=== PATIENT | male | born 1930 | race Caucasian/White ===

== ENCOUNTER 2017-02-19 09:19 | Emergency (ER) | payer MEDICARE, BC ==
--- NOTE | 2017-02-19 10:39 | CT ---
EXAMINATION TYPE: CT brain wo con, CT sinus wo con DATE OF EXAM: 02/19/2017 10:30 AM HISTORY: Patient complains of headache that worsens when laying down. CT DLP: 966.1 mGycm. Automated Exposure Control for Dose Reduction was Utilized. TECHNIQUE: CT scan of the head and sinuses are performed without contrast. COMPARISON: CT brain February 05, 2015. FINDINGS: There is no acute intracranial hemorrhage or midline shift identified. There is diffuse v entricular and sulcal prominence consistent with diffuse age-related cerebral atrophy. There is angela ed low-attenuation in the periventricular white matter consistent with chronic small vessel ischemic change. The calvarium is intact. Vascular calcification distal internal carotid arteries bilaterally is redemonstrated. The frontal, ethmoid, maxillary, and sphenoid sinuses are well-aerated bilaterally without suspicious opacification or air-fluid levels. The ostiomeatal complex is patent bilaterally on coronal image 22 . Nasal septum remains deviated to right of midline. Scleral calcification both globes is seen bilate rally. Neither lens is well seen. Findings are unchanged from prior study. IMPRESSION: 1. No acute intracranial hemorrhage or midline shift. There is moderate diffuse age-related cerebral atrophy and severe chronic small vessel ischemic change redemonstrated without significant interval change. 2. No significant acute or chronic paranasal sinus disease.
--- NOTE | 2017-02-19 10:52 | ED ---
ENT HPI - General Chief complaint: ENT Stated complaint: headache Time Seen by Provider: 02/19/17 09:41 Source: patient, RN notes reviewed Mode of arrival: ambulatory Limitations: no limitations - History of Present Illness Initial comments: 86-year-old male presents emergency room chief complaint headache intermittent. Patient states is benign and off usually worse at night, he lays down. Patient states that he saw his primary care physician placed on Levaquin for a sinus infection. Patient does have some congestion but very minimal. Patient has been sneezing. Denies blurred vision, focal weakness, nausea, vomiting, chest pain or shortness breath. Patient is concerned about his head and is requesting CAT scan. Patient states that he has not followed up for his headache and has not seen any other physicians. - Related Data Home Medications Medication Instructions Recorded Confirmed LORazepam [Ativan] 1 mg PO BID PRN 07/05/14 02/19/17 NIFEdipine XL [Procardia XL] 90 mg PO DAILY 07/05/14 02/19/17 cloNIDine HCL [Catapres] 0.1 mg PO QAM 07/05/14 02/19/17 Loratadine [Claritin] 10 mg PO DAILY PRN 03/21/15 02/19/17 Aliskiren Hemifumarate [Tekturna] 300 mg PO HS 05/13/16 02/19/17 Aspirin 81 mg PO HS 05/13/16 02/19/17 Multivitamins, Thera [Multivitamin 1 tab PO DAILY 05/13/16 02/19/17 (formulary)] Simvastatin [Zocor] 20 mg PO HS 05/13/16 02/19/17 cloNIDine HCL [Catapres] 0.2 mg PO HS 05/13/16 02/19/17 Previous Rx's Medication Instructions Recorded Nitroglycerin Sl Tabs [Nitrostat] 0.4 mg SUBLINGUAL Q5M PRN #25 tab 03/22/15 metFORMIN HCL [Glucophage] 500 mg PO BID #0 03/22/15 Allergies Allergy/AdvReac Type Severity Reaction Status Date / Time Penicillins Allergy Rash/Hives Verified 02/19/17 10:32 Review of Systems ROS Statement: Those systems with pertinent positive or pertinent negative responses have been documented in the HPI. ROS Other: All systems not noted in ROS Statement are negative. Past Medical History Past Medical History: Cancer, Diabetes Mellitus, Hyperlipidemia, Hypertension, Myocardial Infarction ([place]) Additional Past Medical History / Comment(s): motion sickness, skin cancer Last Myocardial Infarction Date:: unknown. History of Any Multi-Drug Resistant Organisms: None Reported Past Surgical History: Heart Catheterization With Stent Additional Past Surgical History / Comment(s): cataracts Past Anesthesia/Blood Transfusion Reactions: No Reported Reaction Date of Last Stent Placement:: patient states last July. Past Psychological History: Anxiety Smoking Status: Former smoker Past Alcohol Use History: None Reported Past Drug Use History: None Reported - Past Family History Father Family Medical History: Unable to Obtain Mother Family Medical History: Hyperlipidemia Additional Family Medical History / Comment(s): high cholesterol. General Exam Limitations: no limitations General appearance: alert, in no apparent distress Head exam: Present: atraumatic, normocephalic, normal inspection Eye exam: Present: normal appearance, PERRL, EOMI. Absent: scleral icterus, conjunctival injection, periorbital swelling ENT exam: Present: normal exam, normal oropharynx, mucous membranes moist, TM's normal bilaterally, normal external ear exam Neck exam: Present: normal inspection, full ROM. Absent: tenderness, meningismus, lymphadenopathy Respiratory exam: Present: normal lung sounds bilaterally. Absent: respiratory distress, wheezes, rales, rhonchi, stridor Cardiovascular Exam: Present: regular rate, normal rhythm, normal heart sounds. Absent: systolic murmur, diastolic murmur, rubs, gallop, clicks Neurological exam: Present: alert, oriented X3, CN II-XII intact, reflexes normal. Absent: motor sensory deficit Skin exam: Present: warm, dry, intact, normal color. Absent: rash Course Vital Signs 02/19/17 09:26 Temperature 97.1 F L Pulse Rate 74 Respiratory 20 Rate Blood Pressure 180/75 O2 Sat by Pulse 98 Oximetry Medical Decision Making - Medical Decision Making 86-year-old male presented for headache. Patient CT shows no acute abnormality. No sinusitis noted on CT. Patient will follow-up with ENT, primary care physician. This may relate to ALLERGIES. We did discuss take over -the-counter Claritin and [id number] medications for his headache. Return parameters were discussed. Disposition Clinical Impression: Headache, Sinus congestion, Environmental allergies Disposition: HOME SELF-CARE Condition: Stable Instructions: Acute Headache (ED) Additional Instructions: Please return to the Emergency Department if symptoms worsen or any other concerns. Referrals: Cecilio Christina MD [Primary Care Provider] - 1-2 days Bucky Braden DO [Doctor of Osteopathic Medicine] - 1-2 days Time of Disposition: 10:52
[2017-02-19 11:20] VITALS: BP 161/76; PULSE 65; RESP 18; TEMP 97.9
== END 2017-02-19 11:19 | disposition home or self-care (01) ==
LOC: EC 09:19
DX: T78.49XA Other allergy, initial encounter (principal); R51 Headache; R09.81 Nasal congestion; E78.5 Hyperlipidemia, unspecified; I10 Essential (primary) hypertension; I25.2 Old myocardial infarction; Z87.891 Personal history of nicotine dependence; Z79.82 Long term (current) use of aspirin; Z79.899 Other long term (current) drug therapy; Z88.0 Allergy status to penicillin; Z95.5 Presence of coronary angioplasty implant and graft
CPT/HCPCS: 70450; 70486; 99284

== ENCOUNTER 2020-04-14 05:10 | Emergency (ER) | payer MEDICARE, BC ==
[2020-04-14] MEDS ORDERED: SODIUM CHLORIDE 0.9% 500 ML 500 ML IV STA (05:17)
[2020-04-14] MEDS ORDERED: SODIUM CHLORIDE 0.9% 1,000 ML IV STA (05:17)
--- NOTE | 2020-04-14 05:17 | ED ---
Weakness HPI - General Stated complaint: Weakness Time Seen by Provider: 04/14/20 05:16 Source: RN notes reviewed, old records reviewed Mode of arrival: EMS Limitations: no limitations - History of Present Illness Initial comments: This is an 89-year-old male DF for evaluation patient is a fever complaints today, patient's main complaint surrounds runny nose and congestion. Patient states he has been diagnosed recently with sinusitis continued congestion he was on antibiotics with a did no improvement. Patient states his symptoms of been persistent denies any fevers no trauma, no other real significant complaints. Patient is scheduled to see ENT this week. Medical history of diabetes high blood pressure high cholesterol patient has no evidence of numbness weakness or neurological deficit MD Complaint: generalized weakness (Patient's complaining of headache and sinus congestion) -: days(s) Severity: mild Consistency: constant, intermittent (Worse with runny nose) Improves with: none Worsens with: none Context: recent illness Associated Symptoms: denies other symptoms - Related Data Home Medications Medication Instructions Recorded Confirmed LORazepam [Ativan] 1 mg PO BID PRN 07/05/14 02/19/17 NIFEdipine XL [Procardia XL] 90 mg PO DAILY 07/05/14 02/19/17 cloNIDine HCL [Catapres] 0.1 mg PO QAM 07/05/14 02/19/17 Loratadine [Claritin] 10 mg PO DAILY PRN 03/21/15 02/19/17 Aliskiren Hemifumarate [Tekturna] 300 mg PO HS 05/13/16 02/19/17 Aspirin 81 mg PO HS 05/13/16 02/19/17 Multivitamins, Thera [Multivitamin 1 tab PO DAILY 05/13/16 02/19/17 (formulary)] Simvastatin [Zocor] 20 mg PO HS 05/13/16 02/19/17 cloNIDine HCL [Catapres] 0.2 mg PO HS 05/13/16 02/19/17 Previous Rx's Medication Instructions Recorded Nitroglycerin Sl Tabs [Nitrostat] 0.4 mg SUBLINGUAL Q5M PRN #25 tab 03/22/15 metFORMIN HCL [Glucophage] 500 mg PO BID #0 03/22/15 Allergies Allergy/AdvReac Type Severity Reaction Status Date / Time Penicillins Allergy Rash/Hives Verified 04/14/20 05:21 Review of Systems ROS Statement: Those systems with pertinent positive or pertinent negative responses have been documented in the HPI. ROS Other: All systems not noted in ROS Statement are negative. Past Medical History Past Medical History: Cancer, Diabetes Mellitus, Hyperlipidemia, Hypertension, Myocardial Infarction ([place]) Additional Past Medical History / Comment(s): motion sickness, skin cancer Last Myocardial Infarction Date:: unknown. History of Any Multi-Drug Resistant Organisms: None Reported Past Surgical History: Heart Catheterization With Stent Additional Past Surgical History / Comment(s): cataracts Past Anesthesia/Blood Transfusion Reactions: No Reported Reaction Date of Last Stent Placement:: patient states last July. Past Psychological History: Anxiety Smoking Status: Former smoker Past Alcohol Use History: None Reported Past Drug Use History: None Reported - Past Family History Father Family Medical History: Unable to Obtain Mother Family Medical History: Hyperlipidemia Additional Family Medical History / Comment(s): high cholesterol. General Exam General appearance: alert, in no apparent distress Head exam: Present: atraumatic, normocephalic, normal inspection Eye exam: Present: normal appearance, PERRL, EOMI. Absent: scleral icterus, conjunctival injection, periorbital swelling ENT exam: Present: normal exam, mucous membranes moist Neck exam: Present: normal inspection. Absent: tenderness, meningismus, lymphadenopathy Respiratory exam: Present: normal lung sounds bilaterally. Absent: respiratory distress, wheezes, rales, rhonchi, stridor Cardiovascular Exam: Present: regular rate, normal rhythm, normal heart sounds. Absent: systolic murmur, diastolic murmur, rubs, gallop, clicks GI/Abdominal exam: Present: soft, normal bowel sounds. Absent: distended, tenderness, guarding, rebound, rigid Extremities exam: Present: normal inspection, full ROM, normal capillary refill. Absent: tenderness, pedal edema, joint swelling, calf tenderness Back exam: Present: normal inspection Neurological exam: Present: alert, oriented X3, CN II-XII intact Psychiatric exam: Present: normal affect, normal mood Skin exam: Present: warm, dry, intact, normal color. Absent: rash Course Vital Signs 04/14/20 04/14/20 05:15 08:23 Temperature 98.1 F Pulse Rate 70 78 Respiratory 16 18 Rate Blood Pressure 171/69 168/68 O2 Sat by Pulse 96 98 Oximetry - Reevaluation(s) Reevaluation #1: Medical records reviewed Patient without significant current complaints symptoms are improved Patient informed results questions answered, patient excited and happy for discharge EKG Findings - EKG Comments: EKG Findings:: EKG shows sinus 71, AR 184 QRS 154 QTc 506 Medical Decision Making - Medical Decision Making 89 male presented with sinusitis and congestion. Patient be treated appropriately discharged home - Lab Data Result diagrams: 04/14/20 05:27 04/14/20 05:28 Lab Results 04/14/20 04/14/20 04/14/20 Range/Units 05:27 05:28 05:28 WBC 7.8 (3.8-10.6) k/uL RBC 4.44 (4.30-5.90) m/uL Hgb 13.7 (13.0-17.5) gm/dL Hct 42.5 (39.0-53.0) % MCV 95.7 (80.0-100.0) fL MCH 30.9 (25.0-35.0) pg MCHC 32.3 (31.0-37.0) g/dL RDW 13.2 (11.5-15.5) % Plt Count 251 (150-450) k/uL Neutrophils % 78 % Lymphocytes % 15 % Monocytes % 4 % Eosinophils % 2 % Basophils % 1 % Neutrophils # 6.0 (1.3-7.7) k/uL Lymphocytes # 1.1 (1.0-4.8) k/uL Monocytes # 0.3 (0-1.0) k/uL Eosinophils # 0.1 (0-0.7) k/uL Basophils # 0.0 (0-0.2) k/uL PT 10.4 (9.0-12.0) sec INR 1.0 (<1.2) APTT 23.3 (22.0-30.0) sec Sodium 139 (137-145) mmol/L Potassium 4.4 (3.5-5.1) mmol/L Chloride 105 (98-107) mmol/L Carbon Dioxide 25 (22-30) mmol/L Anion Gap 9 mmol/L BUN 11 (9-20) mg/dL Creatinine 0.84 (0.66-1.25) mg/dL Est GFR (CKD-EPI)AfAm >90 (>60 ml/min/1.73 sqM) Est GFR (CKD-EPI)NonAf 79 (>60 ml/min/1.73 sqM) Glucose 257 H (74-99) mg/dL Plasma Lactic Acid Sukhdev (0.7-2.0) mmol/L Calcium 9.4 (8.4-10.2) mg/dL Phosphorus 3.6 (2.5-4.5) mg/dL Magnesium 1.9 (1.6-2.3) mg/dL Total Bilirubin 0.5 (0.2-1.3) mg/dL AST 28 (17-59) U/L ALT 20 (4-49) U/L Alkaline Phosphatase 64 (38-126) U/L Troponin I (0.000-0.034) ng/mL NT-Pro-B Natriuret Pep pg/mL Total Protein 7.3 (6.3-8.2) g/dL Albumin 4.1 (3.5-5.0) g/dL Urine Color Urine Appearance (Clear) Urine pH (5.0-8.0) Ur Specific Hurst (1.001-1.035) Urine Protein (Negative) Urine Glucose (UA) (Negative) Urine Ketones (Negative) Urine Blood (Negative) Urine Nitrite (Negative) Urine Bilirubin (Negative) Urine Urobilinogen (<2.0) mg/dL Ur Leukocyte Esterase (Negative) 04/14/20 04/14/20 04/14/20 Range/Units 05:28 05:28 05:28 WBC (3.8-10.6) k/uL RBC (4.30-5.90) m/uL Hgb (13.0-17.5) gm/dL Hct (39.0-53.0) % MCV (80.0-100.0) fL MCH (25.0-35.0) pg MCHC (31.0-37.0) g/dL RDW (11.5-15.5) % Plt Count (150-450) k/uL Neutrophils % % Lymphocytes % % Monocytes % % Eosinophils % % Basophils % % Neutrophils # (1.3-7.7) k/uL Lymphocytes # (1.0-4.8) k/uL Monocytes # (0-1.0) k/uL Eosinophils # (0-0.7) k/uL Basophils # (0-0.2) k/uL PT (9.0-12.0) sec INR (<1.2) APTT (22.0-30.0) sec Sodium (137-145) mmol/L Potassium (3.5-5.1) mmol/L Chloride (98-107) mmol/L Carbon Dioxide (22-30) mmol/L Anion Gap mmol/L BUN (9-20) mg/dL Creatinine (0.66-1.25) mg/dL Est GFR (CKD-EPI)AfAm (>60 ml/min/1.73 sqM) Est GFR (CKD-EPI)NonAf (>60 ml/min/1.73 sqM) Glucose (74-99) mg/dL Plasma Lactic Acid Sukhdev 1.5 (0.7-2.0) mmol/L Calcium (8.4-10.2) mg/dL Phosphorus (2.5-4.5) mg/dL Magnesium (1.6-2.3) mg/dL Total Bilirubin (0.2-1.3) mg/dL AST (17-59) U/L ALT (4-49) U/L Alkaline Phosphatase (38-126) U/L Troponin I 0.014 (0.000-0.034) ng/mL NT-Pro-B Natriuret Pep 2410 pg/mL Total Protein (6.3-8.2) g/dL Albumin (3.5-5.0) g/dL Urine Color Urine Appearance (Clear) Urine pH (5.0-8.0) Ur Specific Hurst (1.001-1.035) Urine Protein (Negative) Urine Glucose (UA) (Negative) Urine Ketones (Negative) Urine Blood (Negative) Urine Nitrite (Negative) Urine Bilirubin (Negative) Urine Urobilinogen (<2.0) mg/dL Ur Leukocyte Esterase (Negative) 04/14/20 Range/Units 06:46 WBC (3.8-10.6) k/uL RBC (4.30-5.90) m/uL Hgb (13.0-17.5) gm/dL Hct (39.0-53.0) % MCV (80.0-100.0) fL MCH (25.0-35.0) pg MCHC (31.0-37.0) g/dL RDW (11.5-15.5) % Plt Count (150-450) k/uL Neutrophils % % Lymphocytes % % Monocytes % % Eosinophils % % Basophils % % Neutrophils # (1.3-7.7) k/uL Lymphocytes # (1.0-4.8) k/uL Monocytes # (0-1.0) k/uL Eosinophils # (0-0.7) k/uL Basophils # (0-0.2) k/uL PT (9.0-12.0) sec INR (<1.2) APTT (22.0-30.0) sec Sodium (137-145) mmol/L Potassium (3.5-5.1) mmol/L Chloride (98-107) mmol/L Carbon Dioxide (22-30) mmol/L Anion Gap mmol/L BUN (9-20) mg/dL Creatinine (0.66-1.25) mg/dL Est GFR (CKD-EPI)AfAm (>60 ml/min/1.73 sqM) Est GFR (CKD-EPI)NonAf (>60 ml/min/1.73 sqM) Glucose (74-99) mg/dL Plasma Lactic Acid Sukhdev (0.7-2.0) mmol/L Calcium (8.4-10.2) mg/dL Phosphorus (2.5-4.5) mg/dL Magnesium (1.6-2.3) mg/dL Total Bilirubin (0.2-1.3) mg/dL AST (17-59) U/L ALT (4-49) U/L Alkaline Phosphatase (38-126) U/L Troponin I (0.000-0.034) ng/mL NT-Pro-B Natriuret Pep pg/mL Total Protein (6.3-8.2) g/dL Albumin (3.5-5.0) g/dL Urine Color Light Yellow Urine Appearance Clear (Clear) Urine pH 6.0 (5.0-8.0) Ur Specific Hurst 1.007 (1.001-1.035) Urine Protein Trace H (Negative) Urine Glucose (UA) 2+ H (Negative) Urine Ketones Negative (Negative) Urine Blood Negative (Negative) Urine Nitrite Negative (Negative) Urine Bilirubin Negative (Negative) Urine Urobilinogen <2.0 (<2.0) mg/dL Ur Leukocyte Esterase Negative (Negative) - Radiology Data Radiology results: report reviewed (Chest x-ray is negative for acute disease), image reviewed Disposition Clinical Impression: Sinusitis, Sinus headache Disposition: HOME SELF-CARE Condition: Good Instructions (If sedation given, give patient instructions): Sinusitis (ED) Is patient prescribed a controlled substance at d/c from ED?: No Referrals: Cecilio Christina MD [Primary Care Provider] - 1-2 days
[2020-04-14 05:21] VITALS: TEMP 98.1
--- NOTE | 2020-04-14 05:51 | XR ---
EXAMINATION TYPE: XR chest 2V DATE OF EXAM: 04/14/2020 COMPARISON: 05/13/2016 HISTORY: Weakness TECHNIQUE: FINDINGS: Heart is borderline enlarged. There is no heart failure. Lungs are clear of infiltrate. The re is no pleural effusion. Bony thorax is intact. There are no hilar masses. IMPRESSION: Mild cardiomegaly. No active cardiopulmonary disease. No significant change.
[2020-04-14 05:58] LABS: Basophils % (A) 1 %; Eosinophils # (A) 0.1 k/uL (0-0.7); Eosinophils % (A) 2 %; HCT 42.5 % (39.0-53.0); HGB 13.7 gm/dL (13.0-17.5); Lymphocytes # (A) 1.1 k/uL (1.0-4.8); Lymphocytes % (A) 15 %; MCH 30.9 pg (25.0-35.0); MCHC 32.3 g/dL (31.0-37.0); MCV 95.7 fL (80.0-100.0); Mean Platelet Volume 7.4; Monocytes # (A) 0.3 k/uL (0-1.0); Monocytes % (A) 4 %; Neutrophils % (A) 78 %; Platelet Count 251 k/uL (150-450); RBC 4.44 m/uL (4.30-5.90); RDW 13.2 % (11.5-15.5); WBC 7.8 k/uL (3.8-10.6)
[2020-04-14 06:18] LABS: ALT 20 U/L (4-49); AST 28 U/L (17-59); African American GFR (CKD) >90 (>60 ml/min/1.73 sqM); Albumin 4.1 g/dL (3.5-5.0); Alkaline Phosphatase 64 U/L (38-126); Anion Gap 9 mmol/L; Blood Urea Nitrogen 11 mg/dL (9-20); Calcium 9.4 mg/dL (8.4-10.2); Carbon Dioxide 25 mmol/L (22-30); Chloride 105 mmol/L (98-107); Glucose 257 mg/dL (74-99); Magnesium 1.9 mg/dL (1.6-2.3); Non-African American GFR(CKD) 79 (>60 ml/min/1.73 sqM); Phosphorus 3.6 mg/dL (2.5-4.5); Potassium 4.4 mmol/L (3.5-5.1); Sodium 139 mmol/L (137-145); Total Bilirubin 0.5 mg/dL (0.2-1.3); Total Protein 7.3 g/dL (6.3-8.2)
[2020-04-14 06:21] LABS: Partial Thromboplastin Time 23.3 sec (22.0-30.0); Prothrombin Time 10.4 sec (9.0-12.0)
[2020-04-14 07:09] LABS: Appearance,Urine Clear (Clear); Bilirubin,Urine Negative (Negative); Blood,Urine Negative (Negative); Color,Urine Light Yellow; Glucose,Urine (UA) 2+ (Negative); Ketones,Urine Negative (Negative); Leukocyte Esterase,Urine Negative (Negative); Nitrite,Urine Negative (Negative); Protein,Urine Trace (Negative); Specific Gravity,Urine 1.007 (1.001-1.035); Urobilinogen,Urine <2.0 mg/dL (<2.0)
[2020-04-14] MEDS ORDERED: AMPICILLIN-SULBACTAM 3 GM in SODIUM CHLORIDE 0.9% 100 ML IVPB STA (07:16)
[2020-04-14] MEDS ORDERED: PSEUDOEPHEDRINE 30 MG TAB PO STA (07:16)
[2020-04-14] MEDS ORDERED: KETOROLAC 30 MG/ML 1 ML VIAL IVP STA (07:16)
[2020-04-14 08:23] VITALS: BP 168/68; PULSE 78; RESP 18
[2020-04-14] MEDS ORDERED: FLUTICASONE 50MCG/SPRAY NASAL 16GM EA NOSTRIL SCH (09:00)
[2020-04-14] MEDS ORDERED: AMPICILLIN-SULBACTAM 3 GM in SODIUM CHLORIDE 0.9% 100 ML IVPB SCH (16:00)
== END 2020-04-14 08:22 | disposition home or self-care (01) ==
LOC: EC 05:10
DX: J32.9 Chronic sinusitis, unspecified (principal); E11.9 Type 2 diabetes mellitus without complications; E78.5 Hyperlipidemia, unspecified; F41.9 Anxiety disorder, unspecified; I10 Essential (primary) hypertension; I25.2 Old myocardial infarction; Z88.0 Allergy status to penicillin; Z79.82 Long term (current) use of aspirin; Z79.84 Long term (current) use of oral hypoglycemic drugs; Z87.891 Personal history of nicotine dependence; Z85.828 Personal history of other malignant neoplasm of skin; Z95.5 Presence of coronary angioplasty implant and graft
CPT/HCPCS: 36415; 93005; 83880; 80053; 83605; 83735; 84100; 84484; 85025; 85610; 85730; 81003; 71046; 99285; 96365; 96375; 96361; J1885; J0295

== ENCOUNTER 2020-05-29 19:00 | Emergency (ER) | payer MEDICARE, BC ==
[2020-05-29 19:05] VITALS: BP 156/68; PULSE 93; RESP 18; TEMP 98
--- NOTE | 2020-05-29 19:19 | ED ---
General Adult HPI - General Chief complaint: Shortness of Breath Stated complaint: abn labs Time Seen by Provider: 05/29/20 19:08 Source: patient Mode of arrival: ambulatory Limitations: no limitations - History of Present Illness Initial comments: Dictation was produced using [employer] dictation software. please excuse any grammatical, word or spelling errors. This patient was cared for during a federal and state declared state of emergency secondary to Covid 19 Chief Complaint: 89-year-old male instructed to come to the emergency department from local urgent care for abnormal x-ray History of Present Illness: 89-year-old male who presents today after instruction from urgent care to come to the emergency department for abnormal x- ray. Patient states that he initially went to the urgent care today for sinus symptoms. Patient states he's been having runny nose and a slight cough. He does report that he does have some phlegm production. He went to the urgent care was evaluated. An x-ray was performed showing lobar infiltrate. He is given a dose of Rocephin IM and told to come to the emergency department. Patient states he feels well he does not complain of shortness of breath. States that he has a cough however he normally has a cough. Patient denies any significant comorbidities. He otherwise feels at baseline. States that his sinus symptoms have making it hard for him to sleep. The ROS documented in this emergency department record has been reviewed and confirmed by me. Those systems with pertinent positive or negative responses have been documented in the HPI. All other systems are other negative and/or noncontributory. PHYSICAL EXAM: General Impression: Alert and oriented x3, not in acute distress HEENT: Normocephalic atraumatic, extra-ocular movements intact, pupils equal and reactive to light bilaterally, mucous membranes moist. Cardiovascular: Heart regular rate and rhythm Chest: Able to complete full sentences, no retractions, no tachypnea, clear to auscultation bilaterally Abdomen: abdomen soft, non-tender, non-distended, no organomegaly Musculoskeletal: Pulses present and equal in all extremities, no peripheral edema Motor: no focal deficits noted Neurological: CN II-XII grossly intact, no focal motor or sensory deficits noted Skin: Intact with no visualized rashes Psych: Normal affect and mood ED course: 89-year-old male presents with abnormal x-ray from local urgent care signs upon arrival are within acceptable limits. Patient not hypoxic. He is 95% on room air. Rest of vital signs are unremarkable. Patient's well- appearing at bedside. Documentation from urgent care is reviewed. He did show me a paper of the radiology read for his x-ray. Laboratory evaluation obtained. Leukocytosis of 21.6. Neutrophilia. Metabolic panel shows sodium 132, glucose of 279. Brain natruretic peptide of 3950. Two-view x-rays obtained because we do not have [place] [facility] patient's radiographic films. He was not given a disc to bring to us. Does appear to be a right middle lobe pneumonia. Discussed patient have recommended he be admitted to the hospital. He refused because states that his at home that he can take care of. Patient does have a primary care physician that he can follow-up with. Patient given strict return precautions. He is told to seek medical attention if he develops any worsening symptoms especially shortness of breath, fevers. Patient is understandable and agreeable. I bedside at time of discharge patient's well-appearing. He sitting in a chair. He is an Aaliyah without complications. Patient given dose of by mouth azithromycin. He is given prescription for Zithromax pack. EKG interpretation: Ventricular rate 97, sinus rhythm,. 1:30, QRS 150, QTc 5:15. No [place] prolongation, no QTC prolongation, no ST or T-wave changes noted. EKG compared to 04/14/2020 showing no changes. Overall, this EKG is unremarkable - Related Data Home Medications Medication Instructions Recorded Confirmed LORazepam [Ativan] 1 mg PO BID PRN 07/05/14 05/29/20 NIFEdipine XL [Procardia XL] 90 mg PO HS 07/05/14 05/29/20 Multivitamins, Thera [Multivitamin 1 tab PO DAILY 05/13/16 05/29/20 (formulary)] Simvastatin [Zocor] 20 mg PO HS 05/13/16 05/29/20 cloNIDine HCL [Catapres] 0.2 mg PO HS 05/13/16 05/29/20 Ezetimibe [Zetia] 10 mg PO HS 05/29/20 05/29/20 Irbesartan [Avapro] 150 mg PO HS 05/29/20 05/29/20 Previous Rx's Medication Instructions Recorded Nitroglycerin Sl Tabs [Nitrostat] 0.4 mg SUBLINGUAL Q5M PRN #25 tab 03/22/15 Azithromycin [Zithromax Z-pack] 0 mg PO DIRECTED #6 tab 05/29/20 Allergies Allergy/AdvReac Type Severity Reaction Status Date / Time Penicillins Allergy Rash/Hives Verified 05/29/20 20:03 Review of Systems ROS Statement: Those systems with pertinent positive or pertinent negative responses have been documented in the HPI. ROS Other: All systems not noted in ROS Statement are negative. Past Medical History Past Medical History: Cancer, Diabetes Mellitus, Hyperlipidemia, Hypertension, Myocardial Infarction ([place]) Additional Past Medical History / Comment(s): motion sickness, skin cancer Last Myocardial Infarction Date:: unknown. History of Any Multi-Drug Resistant Organisms: None Reported Past Surgical History: Heart Catheterization With Stent Additional Past Surgical History / Comment(s): cataracts Past Anesthesia/Blood Transfusion Reactions: No Reported Reaction Date of Last Stent Placement:: patient states last July. Past Psychological History: Anxiety Past Alcohol Use History: None Reported Past Drug Use History: None Reported - Past Family History Father Family Medical History: Unable to Obtain Mother Family Medical History: Hyperlipidemia Additional Family Medical History / Comment(s): high cholesterol. General Exam Limitations: no limitations Course Vital Signs 05/29/20 19:01 Temperature 98.0 F Pulse Rate 93 Respiratory 18 Rate Blood Pressure 156/68 O2 Sat by Pulse 95 Oximetry Medical Decision Making - Lab Data Result diagrams: 05/29/20 19:30 05/29/20 19:30 Lab Results 05/29/20 05/29/20 05/29/20 Range/Units 19:30 19:30 19:30 WBC 21.6 H (3.8-10.6) k/uL RBC 4.15 L (4.30-5.90) m/uL Hgb 13.0 (13.0-17.5) gm/dL Hct 39.6 (39.0-53.0) % MCV 95.3 (80.0-100.0) fL MCH 31.4 (25.0-35.0) pg MCHC 32.9 (31.0-37.0) g/dL RDW 13.3 (11.5-15.5) % Plt Count 229 (150-450) k/uL Neutrophils % 93 % Lymphocytes % 2 % Monocytes % 3 % Eosinophils % 0 % Basophils % 1 % Neutrophils # 20.1 H (1.3-7.7) k/uL Lymphocytes # 0.5 L (1.0-4.8) k/uL Monocytes # 0.6 (0-1.0) k/uL Eosinophils # 0.1 (0-0.7) k/uL Basophils # 0.1 (0-0.2) k/uL Sodium 132 L (137-145) mmol/L Potassium 4.5 (3.5-5.1) mmol/L Chloride 99 (98-107) mmol/L Carbon Dioxide 23 (22-30) mmol/L Anion Gap 10 mmol/L BUN 15 (9-20) mg/dL Creatinine 0.88 (0.66-1.25) mg/dL Est GFR (CKD-EPI)AfAm 90 (>60 ml/min/1.73 sqM) Est GFR (CKD-EPI)NonAf 77 (>60 ml/min/1.73 sqM) Glucose 279 H (74-99) mg/dL Calcium 8.7 (8.4-10.2) mg/dL NT-Pro-B Natriuret Pep 3950 pg/mL Disposition Clinical Impression: Pneumonia Disposition: HOME SELF-CARE Condition: Fair Instructions (If sedation given, give patient instructions): Bacterial Pneumonia (ED) Additional Instructions: Please return to the emergency department with worsening symptoms especially fevers, worsening dyspnea or worsening weakness. Otherwise please follow up as soon as possible with her primary care physician. Antibiotic prescription was sent to your preferred pharmacy for pickup. Prescriptions: Azithromycin [Zithromax Z-pack] 0 mg PO DIRECTED #6 tab Is patient prescribed a controlled substance at d/c from ED?: No Referrals: Cecilio Christina MD [Primary Care Provider] - 1-2 days Time of Disposition: 20:26
[2020-05-29 19:46] LABS: Basophils # (A) 0.1 k/uL (0-0.2); Basophils % (A) 1 %; Eosinophils # (A) 0.1 k/uL (0-0.7); Eosinophils % (A) 0 %; HCT 39.6 % (39.0-53.0); Lymphocytes # (A) 0.5 k/uL (1.0-4.8); Lymphocytes % (A) 2 %; MCH 31.4 pg (25.0-35.0); MCHC 32.9 g/dL (31.0-37.0); MCV 95.3 fL (80.0-100.0); Mean Platelet Volume 7.5; Monocytes # (A) 0.6 k/uL (0-1.0); Monocytes % (A) 3 %; Neutrophils # (A) 20.1 k/uL (1.3-7.7); Neutrophils % (A) 93 %; Platelet Count 229 k/uL (150-450); RBC 4.15 m/uL (4.30-5.90); RDW 13.3 % (11.5-15.5); WBC 21.6 k/uL (3.8-10.6)
--- NOTE | 2020-05-29 19:58 | XR ---
EXAMINATION TYPE: XR chest 2V DATE OF EXAM: 05/29/2020 COMPARISON: 04/14/2020 HISTORY: Weakness TECHNIQUE: 2 views FINDINGS: There is some patchy airspace infiltrate in the right middle lobe. There is slight blunting of the right costophrenic angle. The left lung is clear. There is no heart failure. Heart size is no rmal. Bony thorax is intact. IMPRESSION: There is right middle lobe pneumonia and small right pleural effusion that appear new com pared to old exam. No heart failure seen. Normal heart.
[2020-05-29 20:03] LABS: Calcium 8.7 mg/dL (8.4-10.2); Potassium 4.5 mmol/L (3.5-5.1)
[2020-05-29] MEDS ORDERED: AZITHROMYCIN 500 MG in SODIUM CHLORIDE 0.9% 250 ML IVPB STA (20:21)
[2020-05-29] MEDS ORDERED: AZITHROMYCIN 500 MG TAB PO STA (20:23)
== END 2020-05-29 20:45 | disposition home or self-care (01) ==
LOC: EC 19:00
DX: J18.9 Pneumonia, unspecified organism (principal); I10 Essential (primary) hypertension; E78.5 Hyperlipidemia, unspecified; D72.829 Elevated white blood cell count, unspecified; F41.9 Anxiety disorder, unspecified; I25.2 Old myocardial infarction; Z79.899 Other long term (current) drug therapy; Z88.0 Allergy status to penicillin; Z85.828 Personal history of other malignant neoplasm of skin
CPT/HCPCS: 36415; 71046; 80048; 83880; 85025; 93005; 99285

== ENCOUNTER 2020-06-21 15:05 | Inpatient (IN) | payer MEDICARE, BC ==
--- NOTE | 2020-06-21 15:20 | ED ---
General Adult HPI - General Chief complaint: Weakness Stated complaint: Weakness Time Seen by Provider: 06/21/20 15:09 Source: patient, RN notes reviewed Limitations: no limitations - History of Present Illness Initial comments: Patient is a pleasant 89-year-old male presenting to the emergency Department with complaints of general weakness. Patient feels weak today. Patient did have difficulty getting up and walking around. Patient states her may be some mild difficulty in breathing. Patient does have some mild leg swelling which he believes is new. Patient is overall a poor historian. No chest pain. Dyspnea is exertional. - Related Data Home Medications Medication Instructions Recorded Confirmed NIFEdipine XL [Procardia XL] 90 mg PO HS 07/05/14 05/31/20 Multivitamins, Thera [Multivitamin 1 tab PO DAILY 05/13/16 05/31/20 (formulary)] Simvastatin [Zocor] 20 mg PO HS 05/13/16 05/31/20 cloNIDine HCL [Catapres] 0.2 mg PO HS 05/13/16 05/31/20 Ezetimibe [Zetia] 10 mg PO HS 05/29/20 05/31/20 Irbesartan [Avapro] 150 mg PO HS 05/29/20 05/31/20 Previous Rx's Medication Instructions Recorded Nitroglycerin Sl Tabs [Nitrostat] 0.4 mg SUBLINGUAL Q5M PRN #25 tab 03/22/15 Albuterol Nebulized [Ventolin 2.5 mg INHALATION RT-Q4H PRN ml 06/11/20 Nebulized] Apixaban [Eliquis] 2.5 mg PO BID #60 tablet 06/11/20 Metoprolol Tartrate [Lopressor] 50 mg PO TID #60 tab 06/11/20 Moxifloxacin HCl [Avelox] 400 mg PO DAILY #7 tablet 06/11/20 Nystatin 100,000 Unit/ml Susp 5 ml PO QID #200 ml 06/11/20 [Mycostatin Oral Susp] Pantoprazole [Protonix] 40 mg PO AC-BRKFST #30 tablet. 06/11/20 oxyCODONE-APAP 5-325MG [Percocet 1 each PO Q4HR PRN #10 tab 06/11/20 5-325 mg] LORazepam [Ativan] 2 mg PO HS PRN #30 tab 06/12/20 oxyCODONE HCL/ACETAMINOPHEN 1 tab PO Q4HR PRN 3 Days #10 tab 06/12/20 [Percocet 5-325 mg] Allergies Allergy/AdvReac Type Severity Reaction Status Date / Time Penicillins Allergy Rash/Hives Verified 05/31/20 20:35 zolpidem [From Ambien] AdvReac Confusion Verified 06/03/20 15:04 Review of Systems ROS Statement: Those systems with pertinent positive or pertinent negative responses have been documented in the HPI. ROS Other: All systems not noted in ROS Statement are negative. Constitutional: Denies: fever Eyes: Denies: eye pain ENT: Denies: ear pain Respiratory: Reports: dyspnea. 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 Mother History Unknown: Yes Family Medical History: Hyperlipidemia Additional Family Medical History / Comment(s): high cholesterol. General Exam Limitations: no limitations General appearance: alert, in no apparent distress Head exam: Present: normocephalic Eye exam: Present: normal appearance, PERRL, EOMI ENT exam: Present: mucous membranes dry Neck exam: Present: normal inspection Respiratory exam: Present: decreased breath sounds Cardiovascular Exam: Present: regular rate, irregular rhythm GI/Abdominal exam: Present: soft. Absent: tenderness Extremities exam: Present: pedal edema (+1 bilateral). Absent: calf tenderness Neurological exam: Present: alert, oriented X3, CN II-XII intact. Absent: motor sensory deficit Expanded Neurological exam: Present: protecting the airway Patient oriented to: Present: person, place, time Speech: Present: fluid speech Cranial nerves: EOM's Intact: Normal, Facial Sensation: Normal Sensory exam: Upper Extremity Light Touch: Normal, Lower Extremity Light Touch: Normal Motor strength exam: RUE: 5, LUE: 5, RLE: 5, LLE: 5 Eye Response: (4) open spontaneously Motor Response: (6) obeys commands Verbal Response: (5) oriented Psychiatric exam: Present: normal affect, normal mood Skin exam: Present: normal color Course Vital Signs 06/21/20 15:11 Temperature 98.4 F Pulse Rate 120 H Respiratory 16 Rate Blood Pressure 94/76 O2 Sat by Pulse 92 L Oximetry EKG Findings - EKG Comments: EKG Findings:: A. fib with rate of 85. QRS 150. QT 426. QTc 506. Right axis. Right bundle branch block. T-wave inversion inferior and lateral. Medical Decision Making - Medical Decision Making Patient reevaluated and updated. Case was discussed with Dr. Christina, who will admit his patient. He does request consult with cardiology. - Lab Data Result diagrams: 06/21/20 15:23 06/21/20 15:23 Lab Results 06/21/20 06/21/20 06/21/20 Range/Units 15:23 15:23 15:23 WBC 8.9 (3.8-10.6) k/uL RBC 3.59 L (4.30-5.90) m/uL Hgb 11.2 L (13.0-17.5) gm/dL Hct 34.3 L (39.0-53.0) % MCV 95.6 (80.0-100.0) fL MCH 31.3 (25.0-35.0) pg MCHC 32.8 (31.0-37.0) g/dL RDW 13.7 (11.5-15.5) % Plt Count 244 (150-450) k/uL Neutrophils % 82 % Lymphocytes % 9 % Monocytes % 5 % Eosinophils % 1 % Basophils % 1 % Neutrophils # 7.3 (1.3-7.7) k/uL Lymphocytes # 0.8 L (1.0-4.8) k/uL Monocytes # 0.4 (0-1.0) k/uL Eosinophils # 0.1 (0-0.7) k/uL Basophils # 0.1 (0-0.2) k/uL PT 11.1 (9.0-12.0) sec INR 1.1 (<1.2) APTT 30.1 H (22.0-30.0) sec Sodium 123 L (137-145) mmol/L Potassium 4.8 (3.5-5.1) mmol/L Chloride 92 L (98-107) mmol/L Carbon Dioxide 26 (22-30) mmol/L Anion Gap 5 mmol/L BUN 21 H (9-20) mg/dL Creatinine 1.11 (0.66-1.25) mg/dL Est GFR (CKD-EPI)AfAm 69 (>60 ml/min/1.73 sqM) Est GFR (CKD-EPI)NonAf 60 (>60 ml/min/1.73 sqM) Glucose 230 H (74-99) mg/dL Calcium 8.3 L (8.4-10.2) mg/dL Phosphorus 3.5 (2.5-4.5) mg/dL Magnesium 1.9 (1.6-2.3) mg/dL Total Bilirubin 0.8 (0.2-1.3) mg/dL AST 67 H (17-59) U/L ALT 80 H (4-49) U/L Alkaline Phosphatase 83 (38-126) U/L Troponin I (0.000-0.034) ng/mL NT-Pro-B Natriuret Pep pg/mL Total Protein 5.8 L (6.3-8.2) g/dL Albumin 3.2 L (3.5-5.0) g/dL TSH 8.080 H (0.465-4.680) mIU/L 06/21/20 06/21/20 Range/Units 15:23 15:23 WBC (3.8-10.6) k/uL RBC (4.30-5.90) m/uL Hgb (13.0-17.5) gm/dL Hct (39.0-53.0) % MCV (80.0-100.0) fL MCH (25.0-35.0) pg MCHC (31.0-37.0) g/dL RDW (11.5-15.5) % Plt Count (150-450) k/uL Neutrophils % % Lymphocytes % % Monocytes % % Eosinophils % % Basophils % % Neutrophils # (1.3-7.7) k/uL Lymphocytes # (1.0-4.8) k/uL Monocytes # (0-1.0) k/uL Eosinophils # (0-0.7) k/uL Basophils # (0-0.2) k/uL PT (9.0-12.0) sec INR (<1.2) APTT (22.0-30.0) sec Sodium (137-145) mmol/L Potassium (3.5-5.1) mmol/L Chloride (98-107) mmol/L Carbon Dioxide (22-30) mmol/L Anion Gap mmol/L BUN (9-20) mg/dL Creatinine (0.66-1.25) mg/dL Est GFR (CKD-EPI)AfAm (>60 ml/min/1.73 sqM) Est GFR (CKD-EPI)NonAf (>60 ml/min/1.73 sqM) Glucose (74-99) mg/dL Calcium (8.4-10.2) mg/dL Phosphorus (2.5-4.5) mg/dL Magnesium (1.6-2.3) mg/dL Total Bilirubin (0.2-1.3) mg/dL AST (17-59) U/L ALT (4-49) U/L Alkaline Phosphatase (38-126) U/L Troponin I 0.019 (0.000-0.034) ng/mL NT-Pro-B Natriuret Pep 6830 pg/mL Total Protein (6.3-8.2) g/dL Albumin (3.5-5.0) g/dL TSH (0.465-4.680) mIU/L - Radiology Data Radiology results: image reviewed (Chest x-ray suspicious for CHF) Disposition Clinical Impression: Congestive heart failure (CHF), Hyponatremia Disposition: ADMITTED IP TO THIS HOSP Is patient prescribed a controlled substance at d/c from ED?: No Referrals: Cecilio Christina MD [Primary Care Provider] - 1-2 days Decision Time: 17:31
--- NOTE | 2020-06-21 16:04 | XR ---
EXAMINATION TYPE: XR chest 2V DATE OF EXAM: 06/21/2020 COMPARISON: Prior chest x-ray 06/08/2020 HISTORY: Weakness and shortness of breath TECHNIQUE: Frontal and lateral views of the chest are obtained. FINDINGS: Bibasilar increased attenuation is present. Heart is enlarged. There is prominence of the central vascularity and interstitium. No pneumothorax. Aorta is dense. IMPRESSION: Correlate for congestive heart failure, there may be basilar effusions.
[2020-06-21 16:05] LABS: Basophils # (A) 0.1 k/uL (0-0.2); Basophils % (A) 1 %; Eosinophils # (A) 0.1 k/uL (0-0.7); Eosinophils % (A) 1 %; HCT 34.3 % (39.0-53.0); HGB 11.2 gm/dL (13.0-17.5); Lymphocytes # (A) 0.8 k/uL (1.0-4.8); Lymphocytes % (A) 9 %; MCH 31.3 pg (25.0-35.0); MCHC 32.8 g/dL (31.0-37.0); MCV 95.6 fL (80.0-100.0); Mean Platelet Volume 7.5; Monocytes # (A) 0.4 k/uL (0-1.0); Monocytes % (A) 5 %; Neutrophils # (A) 7.3 k/uL (1.3-7.7); Neutrophils % (A) 82 %; Platelet Count 244 k/uL (150-450); RBC 3.59 m/uL (4.30-5.90); RDW 13.7 % (11.5-15.5); WBC 8.9 k/uL (3.8-10.6)
[2020-06-21 16:16] LABS: Albumin 3.2 g/dL (3.5-5.0); Calcium 8.3 mg/dL (8.4-10.2); Magnesium 1.9 mg/dL (1.6-2.3); Phosphorus 3.5 mg/dL (2.5-4.5); Potassium 4.8 mmol/L (3.5-5.1); Total Bilirubin 0.8 mg/dL (0.2-1.3); Total Protein 5.8 g/dL (6.3-8.2)
[2020-06-21 16:29] LABS: INR 1.1 (<1.2); Partial Thromboplastin Time 30.1 sec (22.0-30.0); Prothrombin Time 11.1 sec (9.0-12.0)
[2020-06-21 17:31] LABS: Appearance,Urine Clear (Clear); Bilirubin,Urine Negative (Negative); Blood,Urine Negative (Negative); Color,Urine Yellow; Glucose,Urine (UA) Negative (Negative); Hyaline Casts,Urine 1 /lpf (0-2); Ketones,Urine Negative (Negative); Leukocyte Esterase,Urine Negative (Negative); Mucus,Urine Rare /hpf; Nitrite,Urine Negative (Negative); Protein,Urine 1+ (Negative); RBC,Urine <1 /hpf (0-5); Specific Gravity,Urine 1.017 (1.001-1.035); Urobilinogen,Urine <2.0 mg/dL (<2.0); WBC,Urine 1 /hpf (0-5)
[2020-06-21] MEDS ORDERED: ASPIRIN 325 MG TAB PO STA (17:31)
[2020-06-21] MEDS: NITROGLYCERIN OINT 1 INCH/GM PACKET TOPICAL SCH ×2 (17:48→22:00)
[2020-06-21] MEDS: FUROSEMIDE 10 MG/ML 4 ML VIAL IV SCH ×2 (17:48→23:08)
[2020-06-21] MEDS: SODIUM CHLORIDE 0.9% 1,000 ML IV SCH (17:48)
[2020-06-21] MEDS: ATORVASTATIN 10 MG TAB PO SCH (21:59)
[2020-06-21] MEDS: cloNIDine HCL 0.2 MG TAB PO SCH (21:59)
[2020-06-21] MEDS: APIXABAN 2.5 MG TABLET PO SCH (21:59)
[2020-06-21] MEDS: LORazepam 1 MG TAB PO PRN (21:59)
[2020-06-21] MEDS: METOPROLOL TARTRATE 50 MG TAB PO SCH (21:59)
[2020-06-21] MEDS ORDERED: LOSARTAN 50 MG TAB PO SCH (22:00)
[2020-06-21] MEDS ORDERED: LORATADINE 10 MG TAB PO SCH (22:00)
[2020-06-21] MEDS: EZETIMIBE 10 MG TAB PO SCH (22:01)
[2020-06-22] MEDS ORDERED: MELATONIN 5 MG TABLET PO PRN (03:31)
[2020-06-22] MEDS: PANTOPRAZOLE 40 MG TABLET PO SCH (06:32)
[2020-06-22 07:51] LABS: Calcium 8.1 mg/dL (8.4-10.2); Potassium 4.2 mmol/L (3.5-5.1)
--- NOTE | 2020-06-22 08:18 | P.HPIM ---
History of Present Illness H&P Date: 06/22/20 Chief Complaint: Shortness of breath This is a history of physical and 89-year-old white male who was recently discharged for pneumonia but had new onset H fibrillation. He is been home for about 5 days and yesterday had worsening dyspnea. Evaluation emergency room did show changes of congestive heart failure with bibasilar effusions. He is admitted for acute systolic congestive heart failure. History of atrial fibrillation with normal ventricular response otherwise noted on his EKG with right bundle branch block. No Voiding symptoms. He is resting and able to co nverse appropriately but does show dyspnea after having extended conversation and no voiding symptoms. He does complain of headache otherwise. Review of Systems Constitutional: Reports weakness, Denies chills, Denies fever Eyes: denies blurred vision, denies pain Ears, nose, mouth and throat: Denies headache, Denies sore throat Cardiovascular: Denies chest pain, Denies shortness of breath Respiratory: Reports dyspnea Gastrointestinal: Denies abdominal pain, Denies diarrhea, Denies nausea, Denies vomiting Musculoskeletal: Denies myalgias Neurological: Denies numbness, Denies weakness Past Medical History Past Medical History: Coronary Artery Disease (CAD), Cancer, Diabetes Mellitus, GERD/Reflux, Hyperlipidemia, Hypertension, Myocardial Infarction ([place]), Osteoarthritis (OA), Pneumonia, Vascular Disorder Additional Past Medical History / Comment(s): NIDDM type II-pt states physician took him off his diabetic medication-diet controlled now, sinus problems pt states worse this past year, bilateral caratid artery disease, skin cancer with removal, diverticulitis, BPH, arthritis R wrist, gout R great toe, unsteady gait/falls, past rheumatic fever age 21yrs, Last Myocardial Infarction Date:: 2014 History of Any Multi-Drug Resistant Organisms: None Reported Past Surgical History: Heart Catheterization, Heart Catheterization With Stent Additional Past Surgical History / Comment(s): Skin cancer removed L upper arm, bilateral cataract removal/lens implants. 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 Mother History Unknown: Yes Family Medical History: Hyperlipidemia Additional Family Medical History / Comment(s): high cholesterol. Medications and Allergies Home Medications Medication Instructions Recorded Confirmed Type NIFEdipine XL [Procardia XL] 90 mg PO DAILY 07/05/14 06/21/20 History Nitroglycerin Sl Tabs [Nitrostat] 0.4 mg SUBLINGUAL Q5M PRN #25 tab 03/22/15 06/21/20 Rx Multivitamins, Thera [Multivitamin 1 tab PO DAILY 05/13/16 06/21/20 History (formulary)] Simvastatin [Zocor] 20 mg PO HS 05/13/16 06/21/20 History cloNIDine HCL [Catapres] 0.2 mg PO HS 05/13/16 06/21/20 History Ezetimibe [Zetia] 10 mg PO HS 05/29/20 06/21/20 History Irbesartan [Avapro] 150 mg PO HS 05/29/20 06/21/20 History Albuterol Nebulized [Ventolin 2.5 mg INHALATION RT-Q4H PRN ml 06/11/20 06/21/20 Rx Nebulized] Apixaban [Eliquis] 2.5 mg PO BID #60 tablet 06/11/20 06/21/20 Rx Metoprolol Tartrate [Lopressor] 50 mg PO TID #60 tab 06/11/20 06/21/20 Rx Moxifloxacin HCl [Avelox] 400 mg PO DAILY #7 tablet 06/11/20 06/21/20 Rx Nystatin 100,000 Unit/ml Susp 5 ml PO QID #200 ml 06/11/20 06/21/20 Rx [Mycostatin Oral Susp] Pantoprazole [Protonix] 40 mg PO MARQUES-BRKFST #30 tablet. 06/11/20 06/21/20 Rx LORazepam [Ativan] 2 mg PO HS PRN #30 tab 06/12/20 06/21/20 Rx Allergies Allergy/AdvReac Type Severity Reaction Status Date / Time Penicillins Allergy Rash/Hives Verified 06/21/20 20:58 zolpidem [From Ambien] AdvReac Confusion Verified 06/21/20 20:58 Physical Exam Vitals: Vital Signs Temp Pulse Pulse Resp BP BP Pulse Ox 06/22/20 04:00 98.8 F 92 18 160/67 93 L 06/22/20 00:00 98.1 F 92 18 120/57 94 L 06/21/20 20:00 98.5 F 93 16 162/82 94 L 06/21/20 19:15 97.8 F 93 20 133/71 95 06/21/20 17:53 88 16 106/79 100 06/21/20 15:11 98.4 F 120 H 16 94/76 92 L Intake and Output 06/21/20 06/22/20 06/22/20 22:59 06:59 14:59 Output Total 2350 2200 Balance -2350 -2200 Output: Urine 2350 2200 Uretheral (Ballard) 1800 2200 Other: Voiding Method Indwelling Catheter Indwelling Catheter Weight 83.915 kg - Constitutional General appearance: no acute distress - EENT Eyes: EOMI - Neck Neck: no lymphadenopathy - Respiratory Respiratory: bilateral: diminished - Cardiovascular Rhythm: irregularly irregular Heart sounds: normal: S1, S2 Abnormal Heart Sounds: no S4 Gallop - Gastrointestinal General gastrointestinal: soft, no tenderness - Integumentary Integumentary: no cyanotic, no rash, no ulcer - Neurologic Neurologic: CNII-XII intact - Musculoskeletal Musculoskeletal: generalized weakness - Psychiatric Psychiatric: A&O x's 3, appropriate affect, intact judgment & insight Results CBC & Chem 7: 06/21/20 15:23 06/22/20 07:16 Labs: Abnormal Lab Results - Last 24 Hours (Table) 06/21/20 06/21/20 06/21/20 Range/Units 15:23 15:23 15:23 RBC 3.59 L (4.30-5.90) m/uL Hgb 11.2 L (13.0-17.5) gm/dL Hct 34.3 L (39.0-53.0) % Lymphocytes # 0.8 L (1.0-4.8) k/uL APTT 30.1 H (22.0-30.0) sec Sodium (137-145) mmol/L Chloride (98-107) mmol/L BUN (9-20) mg/dL Glucose (74-99) mg/dL Calcium (8.4-10.2) mg/dL AST (17-59) U/L ALT (4-49) U/L Total Protein (6.3-8.2) g/dL Albumin (3.5-5.0) g/dL TSH (0.465-4.680) mIU/L Urine Protein 1+ H (Negative) Urine Mucus Rare H (None) /hpf 06/21/20 06/22/20 Range/Units 15:23 07:16 RBC (4.30-5.90) m/uL Hgb (13.0-17.5) gm/dL Hct (39.0-53.0) % Lymphocytes # (1.0-4.8) k/uL APTT (22.0-30.0) sec Sodium 123 L 127 L (137-145) mmol/L Chloride 92 L 93 L (98-107) mmol/L BUN 21 H (9-20) mg/dL Glucose 230 H 214 H (74-99) mg/dL Calcium 8.3 L 8.1 L (8.4-10.2) mg/dL AST 67 H (17-59) U/L ALT 80 H (4-49) U/L Total Protein 5.8 L (6.3-8.2) g/dL Albumin 3.2 L (3.5-5.0) g/dL TSH 8.080 H (0.465-4.680) mIU/L Urine Protein (Negative) Urine Mucus (None) /hpf Thrombosis Risk Factor Assmnt - Choose All That Apply Any of the Below Risk Factors Present?: Yes Each Factor Represents 1 point: Heart failure (<1month), Swollen legs (current) Each Risk Factor Represents 3 Points: Age 75 years or older Other congenital or acquired thrombophilia - If yes, enter type in comment: No Thrombosis Risk Factor Assessment Total Risk Factor Score: 5 Thrombosis Risk Factor Assessment Level: High Risk Assessment and Plan (1) Congestive heart failure (CHF) Current Visit: Yes Status: Acute Code(s): I50.9 - HEART FAILURE, UNSPECIFIED SNOMED Code(s): 39630901 (2) Diabetes Current Visit: No Status: Acute Code(s): E11.9 - TYPE 2 DIABETES MELLITUS WITHOUT COMPLICATIONS SNOMED Code(s): 55333557 (3) Diverticulitis Current Visit: No Status: Acute Code(s): K57.92 - DVTRCLI OF INTEST, PART UNSP, W/O PERF OR ABSCESS W/O BLEED SNOMED Code(s): 313643922 (4) High risk for readmission Current Visit: No Status: Acute Code(s): Z91.89 - OTH PERSONAL RISK FACTORS, NOT ELSEWHERE CLASSIFIED SNOMED Code(s): 156857959 Plan: Rule out myocardial infraction. IV Lasix for diuresis. Check CBC and CMP in a.m. Place on sliding scale. We'll go ahead and give Benadryl for sleep. Prognosis is guarded secondary to his advancing age. Appreciate cardiology input. Time with Patient: Greater than 30
[2020-06-22] MEDS: METOPROLOL TARTRATE 50 MG TAB PO SCH ×2 (08:28→20:05)
[2020-06-22] MEDS: APIXABAN 2.5 MG TABLET PO SCH ×2 (08:28→21:23)
[2020-06-22] MEDS: FUROSEMIDE 10 MG/ML 4 ML VIAL IV SCH ×2 (08:28→16:21)
[2020-06-22] MEDS: Acetaminophen-Codeine 300-30mg TAB PO PRN (08:29)
[2020-06-22] MEDS: LEVOFLOXACIN 750 MG TAB PO SCH (08:29)
[2020-06-22] MEDS: NITROGLYCERIN OINT 1 INCH/GM PACKET TOPICAL SCH ×4 (08:29→21:24)
[2020-06-22] MEDS ORDERED: NIFEdipine XL 90 MG TAB.ER.24 PO SCH (09:00)
[2020-06-22] MEDS ORDERED: ASPIRIN 325 MG TAB PO SCH (09:00)
--- NOTE | 2020-06-22 10:39 | P.CRDCN ---
History of Present Illness Consult date: 06/22/20 History of present illness: CHIEF COMPLAINT: CHF HISTORY OF PRESENT ILLNESS: 89-year-old male with history of coronary artery disease, diabetes, hypertension, and hyperlipidemia who presented to the emergency room secondary to generalized weakness. Patient follows in the office with Dr. Benz. Cardiology was asked to see the patient secondary to congestive heart failure. Patient examined this morning at the bedside. Patient is a poor historian. He currently denies chest pain. Denies shortness of breath. DIAGNOSTICS: EKG reveals atrial fibrillation with right bundle branch block Chest xray correlate for congestive heart failure. Basilar effusions. Laboratory data: WBC 8.9. Hemoglobin 11.2. Platelet count 244. Sodium 127. Potassium 4.2. BUN 17. Creatinine 0.97. Troponin 0.019. BNP 6830. TSH 8.080. Current home cardiac medications include nifedipine 90 mg daily, Catapres 0.2 mg daily, Zocor 20 mg daily, Lopressor 50 mg 3 times a day, Avapro 150 mg daily, and Eliquis 2.5 mg twice a day Echocardiogram completed in May 2020 revealed ejection fraction of 30-35%, LV wall hypokinesis, mild aortic valve sclerosis, trace aortic regurgitation, trace mitral regurgitation, and mild tricuspid regurgitation REVIEW OF SYSTEMS: CONSTITUTIONAL: Denies fever or chills. Reports weakness. HEENT: Denies blurred vision, vision changes, or eye pain. Denies hemoptysis CARDIOVASCULAR: Denies chest pain, orthopnea, PND or palpitations RESPIRATORY: No shortness of breath. GASTROINTESTINAL: Denies abdominal pain. Denies nausea or vomiting. HEMATOLOGIC: Denies bleeding disorders. GENITOURINARY: Denies any blood in urine. SKIN: Denies pruitis. Denies rash. PHYSICAL EXAM: VITAL SIGNS: Reviewed. GENERAL: Well-developed in no acute distress. HEENT: Head is normocephalic. Pupils are equal, round. Sclerae anicteric. Mucous membranes of the mouth are moist. Neck supple. No JVD or thyromegaly LUNGS: Respirations even and unlabored. Lungs diminished. No rales auscultated. HEART: Irregular rate and rhythm. S1 and S2 heard. Systolic murmur at the base ABDOMEN: Soft. Nondistended. Nontender. EXTREMITIES: Normal range of motion. No clubbing or cyanosis. Peripheral pulses intact. 2+ bilateral lower extremity edema NEUROLOGIC: Awake and alert. Oriented x 3. ASSESSMENT: Acute exacerbation of systolic congestive heart failure, EF 30-35% Persistent atrial fibrillation, on long-term anticoagulation with Eliquis Hypertension Hyperlipidemia Coronary artery disease Diabetes mellitus Abnormal TSH PLAN: -No need to repeat echocardiogram as this was completed in May 2020 -Continue Lasix 40 mg IV every 8 hours -Monitor kidney function -Daily weights -Accurate I&O -Discontinue aspirin. Continue anticoagulation with Eliquis -Begin Synthroid 25 g daily -Further recommendations pending patient's course Nurse practitioner note has been reviewed by physician. Signing provider agrees with the documented findings, assessment, and plan of care. Past Medical History Past Medical History: Coronary Artery Disease (CAD), Cancer, Diabetes Mellitus, GERD/Reflux, Hyperlipidemia, Hypertension, Myocardial Infarction ([place]), Osteoarthritis (OA), Pneumonia, Vascular Disorder Additional Past Medical History / Comment(s): NIDDM type II-pt states physician took him off his diabetic medication-diet controlled now, sinus problems pt states worse this past year, bilateral caratid artery disease, skin cancer with removal, diverticulitis, BPH, arthritis R wrist, gout R great toe, unsteady gait/falls, past rheumatic fever age 21yrs, Last Myocardial Infarction Date:: 2014 History of Any Multi-Drug Resistant Organisms: None Reported Past Surgical History: Heart Catheterization, Heart Catheterization With Stent Additional Past Surgical History / Comment(s): Skin cancer removed L upper arm, bilateral cataract removal/lens implants. 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 Mother History Unknown: Yes Family Medical History: Hyperlipidemia Additional Family Medical History / Comment(s): high cholesterol. Medications and Allergies Home Medications Medication Instructions Recorded Confirmed Type NIFEdipine XL [Procardia XL] 90 mg PO DAILY 07/05/14 06/21/20 History Nitroglycerin Sl Tabs [Nitrostat] 0.4 mg SUBLINGUAL Q5M PRN #25 tab 03/22/15 06/21/20 Rx Multivitamins, Thera [Multivitamin 1 tab PO DAILY 05/13/16 06/21/20 History (formulary)] Simvastatin [Zocor] 20 mg PO HS 05/13/16 06/21/20 History cloNIDine HCL [Catapres] 0.2 mg PO HS 05/13/16 06/21/20 History Ezetimibe [Zetia] 10 mg PO HS 05/29/20 06/21/20 History Irbesartan [Avapro] 150 mg PO HS 05/29/20 06/21/20 History Albuterol Nebulized [Ventolin 2.5 mg INHALATION RT-Q4H PRN ml 06/11/20 06/21/20 Rx Nebulized] Apixaban [Eliquis] 2.5 mg PO BID #60 tablet 06/11/20 06/21/20 Rx Metoprolol Tartrate [Lopressor] 50 mg PO TID #60 tab 06/11/20 06/21/20 Rx Moxifloxacin HCl [Avelox] 400 mg PO DAILY #7 tablet 06/11/20 06/21/20 Rx Nystatin 100,000 Unit/ml Susp 5 ml PO QID #200 ml 06/11/20 06/21/20 Rx [Mycostatin Oral Susp] Pantoprazole [Protonix] 40 mg PO AC-BRKFST #30 tablet. 06/11/20 06/21/20 Rx LORazepam [Ativan] 2 mg PO HS PRN #30 tab 06/12/20 06/21/20 Rx Allergies Allergy/AdvReac Type Severity Reaction Status Date / Time Penicillins Allergy Rash/Hives Verified 06/21/20 20:58 zolpidem [From Ambien] AdvReac Confusion Verified 06/21/20 20:58 Physical Exam Vitals: Vital Signs Temp Pulse Pulse Resp BP BP Pulse Ox 06/22/20 08:00 97.7 F 95 20 131/72 94 L 06/22/20 04:00 98.8 F 92 18 160/67 93 L 06/22/20 00:00 98.1 F 92 18 120/57 94 L 06/21/20 20:00 98.5 F 93 16 162/82 94 L 06/21/20 19:15 97.8 F 93 20 133/71 95 06/21/20 17:53 88 16 106/79 100 06/21/20 15:11 98.4 F 120 H 16 94/76 92 L Intake and Output 06/21/20 06/22/20 06/22/20 22:59 06:59 14:59 Output Total 2350 2200 600 Balance -2350 -2200 -600 Output: Urine 2350 2200 600 Uretheral (Ballard) 1800 2200 Other: Voiding Method Indwelling Catheter Indwelling Catheter Weight 83.915 kg Results 06/21/20 15:23 06/22/20 07:16 Cardiac Enzymes 06/21/20 06/21/20 Range/Units 15:23 15:23 AST 67 H (17-59) U/L Troponin I 0.019 (0.000-0.034) ng/mL Coagulation 06/21/20 Range/Units 15:23 PT 11.1 (9.0-12.0) sec APTT 30.1 H (22.0-30.0) sec CBC 06/21/20 Range/Units 15:23 WBC 8.9 (3.8-10.6) k/uL RBC 3.59 L (4.30-5.90) m/uL Hgb 11.2 L (13.0-17.5) gm/dL Hct 34.3 L (39.0-53.0) % Plt Count 244 (150-450) k/uL Comprehensive Metabolic Panel 06/21/20 06/22/20 Range/Units 15:23 07:16 Sodium 123 L 127 L (137-145) mmol/L Potassium 4.8 4.2 (3.5-5.1) mmol/L Chloride 92 L 93 L (98-107) mmol/L Carbon Dioxide 26 26 (22-30) mmol/L BUN 21 H 17 (9-20) mg/dL Creatinine 1.11 0.97 (0.66-1.25) mg/dL Glucose 230 H 214 H (74-99) mg/dL Calcium 8.3 L 8.1 L (8.4-10.2) mg/dL AST 67 H (17-59) U/L ALT 80 H (4-49) U/L Alkaline Phosphatase 83 (38-126) U/L Total Protein 5.8 L (6.3-8.2) g/dL Albumin 3.2 L (3.5-5.0) g/dL Current Medications Generic Name Dose Route Start Last Admin Trade Name Freq PRN Reason Stop Dose Admin Acetaminophen/Codeine Phosphate 1 each 06/22/20 08:13 06/22/20 08:29 Tylenol #3 PO 1 each Q6HR PRN Administration Pain Apixaban 2.5 mg 06/21/20 22:00 06/22/20 08:28 Eliquis PO 2.5 mg BID DIOMEDES Administration Aspirin 325 mg 06/22/20 09:00 06/22/20 08:28 Aspirin PO 325 mg DAILY DIOMEDES Administration Atorvastatin Calcium 10 mg 06/21/20 22:00 06/21/20 21:59 Lipitor PO 10 mg HS DIOMEDES Administration Clonidine 0.2 mg 06/21/20 22:00 06/21/20 21:59 Catapres PO 0.2 mg HS DIOMEDES Administration Diphenhydramine HCl 50 mg 06/22/20 08:18 Benadryl PO HS PRN Insomnia Ezetimibe 10 mg 06/21/20 22:00 06/21/20 22:01 Zetia PO Not Given HS DIOMEDES Furosemide 40 mg 06/21/20 17:45 06/22/20 08:28 Lasix IV 40 mg Q8HR DIOMEDES Administration Sodium Chloride 1,000 mls @ 20 mls/hr 06/21/20 17:45 06/21/20 17:48 Saline 0.9% IV 20 mls/hr .Q24H DIOMEDES Administration Insulin Aspart 0 unit 06/22/20 12:30 Novolog SQ ACHS [facility] Protocol Levofloxacin 750 mg 06/22/20 09:00 06/22/20 08:29 Levaquin PO 750 mg DAILY DIOMEDES Administration Levothyroxine Sodium 25 mcg 06/22/20 09:09 Synthroid PO DAILY@0630 DIOMEDES Lorazepam 2 mg 06/21/20 22:00 06/21/20 21:59 Ativan PO 2 mg HS PRN Administration Anxiety Losartan Potassium 50 mg 06/21/20 22:00 06/21/20 21:59 Cozaar PO 50 mg HS DIOMEDES Administration Melatonin 5 mg 06/22/20 03:31 Melatonin PO HS PRN Insomnia Metoprolol Tartrate 50 mg 06/21/20 22:00 06/22/20 08:28 Lopressor PO 50 mg TID DIOMEDES Administration Nifedipine 90 mg 06/22/20 09:00 06/22/20 08:29 Procardia Xl PO 90 mg DAILY DIOMEDES Administration Nitroglycerin 1 inch 06/21/20 18:00 06/22/20 08:29 Nitro-Bid Oint TOPICAL Not Given QID [facility] Pantoprazole Sodium 40 mg 06/22/20 07:30 06/22/20 06:32 Protonix PO 40 mg AC-BRKFST [facility] Administration Intake and Output 06/21/20 06/22/20 06/22/20 22:59 06:59 14:59 Output Total 2350 2200 600 Balance -2350 -2200 -600 Output: Urine 2350 2200 600 Uretheral (Ballard) 1800 2200 Other: Voiding Method Indwelling Catheter Indwelling Catheter Weight 83.915 kg 06/21/20 15:23 06/22/20 07:16
[2020-06-22 11:20] VITALS: BMI 24.4
[2020-06-22 11:38] LABS: Glucose,Whole Blood 306 mg/dL (75-99)
[2020-06-22] MEDS: LEVOTHYROXINE 25 MCG TAB PO SCH (12:29)
[2020-06-22] MEDS: INSULIN ASPART (NovoLOG) 100 UNIT/ML VIAL SQ SCH ×3 (12:30→21:30)
[2020-06-22] MEDS: oxyCODONE-APAP 5-325MG 1 EACH TAB PO PRN (13:02)
[2020-06-22] MEDS: METOPROLOL TARTRATE 25 MG TAB PO SCH ×2 (16:21→21:23)
[2020-06-22] MEDS: LOSARTAN 50 MG TAB PO SCH ×2 (16:23→21:23)
[2020-06-22 16:56] LABS: Glucose,Whole Blood 156 mg/dL (75-99)
[2020-06-22] MEDS: SODIUM CHLORIDE 0.9% 1,000 ML IV SCH (20:14)
[2020-06-22 21:18] LABS: Glucose,Whole Blood 268 mg/dL (75-99)
[2020-06-22] MEDS: LORazepam 1 MG TAB PO PRN (21:23)
[2020-06-22] MEDS: cloNIDine HCL 0.2 MG TAB PO SCH (21:23)
[2020-06-22] MEDS: ATORVASTATIN 10 MG TAB PO SCH (21:23)
[2020-06-22] MEDS: EZETIMIBE 10 MG TAB PO SCH (21:23)
[2020-06-22] MEDS: diphenhydrAMINE 50 MG CAP PO PRN (21:24)
[2020-06-23] MEDS: FUROSEMIDE 10 MG/ML 4 ML VIAL IV SCH ×4 (00:04→23:30)
[2020-06-23 06:31] LABS: Glucose,Whole Blood 235 mg/dL (75-99)
[2020-06-23] MEDS: INSULIN ASPART (NovoLOG) 100 UNIT/ML VIAL SQ SCH ×4 (06:53→21:10)
[2020-06-23] MEDS: LEVOTHYROXINE 25 MCG TAB PO SCH (06:53)
[2020-06-23] MEDS: PANTOPRAZOLE 40 MG TABLET PO SCH (06:53)
[2020-06-23 07:26] LABS: Calcium 8.1 mg/dL (8.4-10.2); Potassium 4.4 mmol/L (3.5-5.1); Total Bilirubin 0.7 mg/dL (0.2-1.3); Total Protein 5.6 g/dL (6.3-8.2)
[2020-06-23 07:28] LABS: HCT 35.4 % (39.0-53.0); HGB 11.6 gm/dL (13.0-17.5); MCH 31.2 pg (25.0-35.0); MCHC 32.7 g/dL (31.0-37.0); MCV 95.5 fL (80.0-100.0); Mean Platelet Volume 7.4; Platelet Count 233 k/uL (150-450); RBC 3.71 m/uL (4.30-5.90); RDW 13.7 % (11.5-15.5); WBC 7.2 k/uL (3.8-10.6)
--- NOTE | 2020-06-23 08:05 | P.PN ---
Subjective Progress Note Date: 06/23/20 Principal diagnosis: Dyspnea with shortness of breath. CHF element. This continue progress on an 89-year-old white male who has new onset atrial fibrillation as of last month. The patient is now admitted for acute systolic heart failure. Ejection fraction in May was about 30-35%. He states that he is not feeling as good as anticipated. No voiding symptoms are stated. He is able to hold conversation better. Decreased pedal edema is also noted area appreciate cardiology input. We had some difficulty yesterday with pain control. Hyponatremia is improving. Objective - Vital Signs Vital signs: Vital Signs Temp 97.7 F 06/23/20 04:00 Pulse 79 06/23/20 04:00 Resp 18 06/23/20 04:00 BP 111/62 06/23/20 04:00 Pulse Ox 96 06/23/20 04:00 Intake & Output 06/22/20 06/23/20 06/23/20 18:59 06:59 18:59 Intake Total 580 Output Total 2350 700 Balance -1770 -700 Weight 83.915 kg 74.5 kg Intake: Oral 580 Output: Urine 2350 700 Other: Voiding Method Indwelling Catheter Indwelling Catheter - Constitutional General appearance: Present: average body habitus - EENT Eyes: Absent: abnormal pupil - Neck Neck: Absent: lymphadenopathy - Respiratory Respiratory: bilateral: CTA - Cardiovascular Rhythm: regular Heart sounds: normal: S1, S2 Abnormal Heart Sounds: Absent: S3 Gallop - Gastrointestinal General gastrointestinal: Present: soft. Absent: tenderness - Integumentary Integumentary: Absent: cyanotic - Neurologic Neurologic: Absent: focal deficits - Musculoskeletal Musculoskeletal: Present: generalized weakness - Labs CBC & Chem 7: 06/23/20 06:42 06/23/20 06:42 Labs: Abnormal Lab Results - Last 24 Hours (Table) 06/22/20 06/22/20 06/22/20 Range/Units 11:31 16:38 21:16 RBC (4.30-5.90) m/uL Hgb (13.0-17.5) gm/dL Hct (39.0-53.0) % Sodium (137-145) mmol/L Chloride (98-107) mmol/L Glucose (74-99) mg/dL POC Glucose (mg/dL) 306 H 156 H 268 H (75-99) mg/dL Calcium (8.4-10.2) mg/dL ALT (4-49) U/L Total Protein (6.3-8.2) g/dL Albumin (3.5-5.0) g/dL 06/23/20 06/23/20 06/23/20 Range/Units 06:30 06:42 06:42 RBC 3.71 L (4.30-5.90) m/uL Hgb 11.6 L (13.0-17.5) gm/dL Hct 35.4 L (39.0-53.0) % Sodium 130 L (137-145) mmol/L Chloride 92 L (98-107) mmol/L Glucose 195 H (74-99) mg/dL POC Glucose (mg/dL) 235 H (75-99) mg/dL Calcium 8.1 L (8.4-10.2) mg/dL ALT 77 H (4-49) U/L Total Protein 5.6 L (6.3-8.2) g/dL Albumin 3.0 L (3.5-5.0) g/dL Assessment and Plan (1) Congestive heart failure (CHF) Current Visit: Yes Status: Acute Code(s): I50.9 - HEART FAILURE, UNSPECIFIED SNOMED Code(s): 43509705 (2) Diabetes Current Visit: No Status: Acute Code(s): E11.9 - TYPE 2 DIABETES MELLITUS WITHOUT COMPLICATIONS SNOMED Code(s): 17562788 (3) Diverticulitis Current Visit: No Status: Acute Code(s): K57.92 - DVTRCLI OF INTEST, PART UNSP, W/O PERF OR ABSCESS W/O BLEED SNOMED Code(s): 326640534 (4) High risk for readmission Current Visit: No Status: Acute Code(s): Z91.89 - OTH PERSONAL RISK FACTORS, NOT ELSEWHERE CLASSIFIED SNOMED Code(s): 594902727 Plan: Rule out myocardial infraction. IV Lasix for diuresis. Check CBC and CMP in a.m. Continue appropriate pain control. We'll continue to follow. Hopefully we can wean off of IV Lasix in the next 24 hours. Prognosis is guarded. Time with Patient: Less than 30
[2020-06-23] MEDS: NITROGLYCERIN OINT 1 INCH/GM PACKET TOPICAL SCH ×4 (08:12→20:47)
[2020-06-23] MEDS: METOPROLOL TARTRATE 25 MG TAB PO SCH ×3 (08:12→21:10)
[2020-06-23] MEDS: LEVOFLOXACIN 750 MG TAB PO SCH (08:12)
[2020-06-23] MEDS: APIXABAN 2.5 MG TABLET PO SCH ×2 (08:12→21:10)
--- NOTE | 2020-06-23 11:30 | P.PN ---
Subjective Progress Note Date: 06/23/20 CHIEF COMPLAINT: CHF HISTORY OF PRESENT ILLNESS: Patient examined this morning at the bedside. He currently denies chest pain. Denies shortness of breath. He continues to have some lower extremity edema. Patient had a 18 run beat of wide QRS tachycardia suggestive of V. tach yesterday. No further arrhythmias this morning. Potassium 4.4. Magnesium 1.6. PHYSICAL EXAM: VITAL SIGNS: Reviewed. GENERAL: Well-developed in no acute distress. HEENT: Head is normocephalic. Pupils are equal, round. Sclerae anicteric. Mucous membranes of the mouth are moist. Neck supple. No JVD or thyromegaly LUNGS: Respirations even and unlabored. Lungs diminished. No rales auscultated. HEART: Irregular rate and rhythm. S1 and S2 heard. Systolic murmur at the base EXTREMITIES: Normal range of motion. No clubbing or cyanosis. Peripheral pulses intact. 2+ bilateral lower extremity edema NEUROLOGIC: Awake and alert. Oriented x 3. ASSESSMENT: Acute exacerbation of systolic congestive heart failure, EF 30-35% Persistent atrial fibrillation, on long-term anticoagulation with Eliquis Hypertension Hyperlipidemia Coronary artery disease Diabetes mellitus Abnormal TSH Wide complex tachycardia suggestive of ventricular tachycardia PLAN: -No need to repeat echocardiogram as this was completed in May 2020 -Continue Lasix 40 mg IV every 8 hours for an additional 24 hours. Anticipate transitioning to oral Lasix tomorrow -Monitor kidney function -Daily weights -Accurate I&O -Continue anticoagulation with Eliquis -Procardia stopped yesterday secondary to decreased EF -Replace magnesium 2 g IV -Increase losartan to 100 mg daily -Further recommendations pending patient's course Nurse practitioner note has been reviewed by physician. Signing provider agrees with the documented findings, assessment, and plan of care. Objective - Vital Signs Vital signs: Vital Signs Temp 98.5 F 06/23/20 08:00 Pulse 83 06/23/20 08:00 Resp 18 06/23/20 08:00 BP 128/70 06/23/20 08:00 Pulse Ox 94 L 06/23/20 08:00 Intake & Output 06/22/20 06/23/20 06/23/20 18:59 06:59 18:59 Intake Total 580 Output Total 2350 700 Balance -1770 -700 Weight 83.915 kg 74.5 kg Intake: Oral 580 Output: Urine 2350 700 Other: Voiding Method Indwelling Catheter Indwelling Catheter - Labs CBC & Chem 7: 06/23/20 06:42 06/23/20 06:42 Labs: Abnormal Lab Results - Last 24 Hours (Table) 06/22/20 06/22/20 06/22/20 Range/Units 11:31 16:38 21:16 RBC (4.30-5.90) m/uL Hgb (13.0-17.5) gm/dL Hct (39.0-53.0) % Sodium (137-145) mmol/L Chloride (98-107) mmol/L Glucose (74-99) mg/dL POC Glucose (mg/dL) 306 H 156 H 268 H (75-99) mg/dL Calcium (8.4-10.2) mg/dL ALT (4-49) U/L Total Protein (6.3-8.2) g/dL Albumin (3.5-5.0) g/dL 06/23/20 06/23/20 06/23/20 Range/Units 06:30 06:42 06:42 RBC 3.71 L (4.30-5.90) m/uL Hgb 11.6 L (13.0-17.5) gm/dL Hct 35.4 L (39.0-53.0) % Sodium 130 L (137-145) mmol/L Chloride 92 L (98-107) mmol/L Glucose 195 H (74-99) mg/dL POC Glucose (mg/dL) 235 H (75-99) mg/dL Calcium 8.1 L (8.4-10.2) mg/dL ALT 77 H (4-49) U/L Total Protein 5.6 L (6.3-8.2) g/dL Albumin 3.0 L (3.5-5.0) g/dL
[2020-06-23 11:44] LABS: Glucose,Whole Blood 255 mg/dL (75-99)
[2020-06-23] MEDS: AMIODARONE 200 MG TAB PO SCH ×2 (12:49→21:10)
[2020-06-23] MEDS: MAGNESIUM SULFATE-D5W PMX 1 GM in DEXTROSE/WATER 1 100ML.BAG IVPB SCH ×2 (12:49→15:38)
[2020-06-23 16:28] LABS: Glucose,Whole Blood 185 mg/dL (75-99)
[2020-06-23 20:47] LABS: Glucose,Whole Blood 244 mg/dL (75-99)
[2020-06-23] MEDS: EZETIMIBE 10 MG TAB PO SCH (21:09)
[2020-06-23] MEDS: diphenhydrAMINE 50 MG CAP PO PRN (21:09)
[2020-06-23] MEDS: LOSARTAN 50 MG TAB PO SCH (21:10)
[2020-06-23] MEDS: LORazepam 1 MG TAB PO PRN (21:10)
[2020-06-23] MEDS: ATORVASTATIN 10 MG TAB PO SCH (21:10)
[2020-06-23] MEDS: cloNIDine HCL 0.2 MG TAB PO SCH (21:10)
[2020-06-24 06:22] LABS: Glucose,Whole Blood 181 mg/dL (75-99)
[2020-06-24] MEDS: INSULIN ASPART (NovoLOG) 100 UNIT/ML VIAL SQ SCH ×4 (06:29→21:25)
[2020-06-24] MEDS: LEVOTHYROXINE 25 MCG TAB PO SCH (06:29)
[2020-06-24] MEDS: PANTOPRAZOLE 40 MG TABLET PO SCH (06:29)
[2020-06-24 06:40] LABS: HCT 36.1 % (39.0-53.0); HGB 11.7 gm/dL (13.0-17.5); MCH 31.1 pg (25.0-35.0); MCHC 32.4 g/dL (31.0-37.0); MCV 95.9 fL (80.0-100.0); Mean Platelet Volume 7.3; Platelet Count 221 k/uL (150-450); RBC 3.76 m/uL (4.30-5.90); RDW 13.8 % (11.5-15.5); WBC 7.5 k/uL (3.8-10.6)
[2020-06-24 07:17] LABS: Albumin 2.9 g/dL (3.5-5.0); Calcium 8.3 mg/dL (8.4-10.2); Potassium 3.9 mmol/L (3.5-5.1); Total Bilirubin 0.7 mg/dL (0.2-1.3); Total Protein 5.5 g/dL (6.3-8.2)
--- NOTE | 2020-06-24 07:52 | P.PN ---
Subjective Principal diagnosis: Dyspnea with shortness of breath. CHF element. This continue progress on an 89-year-old white male who has new onset atrial fibrillation as of last month. The patient is now admitted for acute systolic heart failure. Ejection fraction in May was about 30-35%. He states that he is not feeling as good as anticipated. No voiding symptoms are stated. He is able to hold conversation better. Decreased pedal edema is also noted area appreciate cardiology input. We had some difficulty yesterday with pain control. Hyponatremia is improving. The patient has had minimal ambulation. We will increase ambulation with therapy today. Objective - Vital Signs Vital signs: Vital Signs Temp 98.1 F 06/24/20 03:40 Pulse 90 06/24/20 03:40 Resp 18 06/24/20 03:40 BP 124/54 06/24/20 03:40 Pulse Ox 94 L 06/24/20 03:40 Intake & Output 06/23/20 06/24/20 06/24/20 18:59 06:59 18:59 Intake Total 780 Output Total 1800 1250 Balance -1020 -1250 Weight 72.5 kg Intake: Oral 780 Output: Urine 1800 1250 Other: Voiding Method Indwelling Catheter Urinal - Constitutional General appearance: Present: average body habitus - EENT Eyes: Absent: abnormal pupil ENT: Absent: hard of hearing Ears: bilateral: normal - Neck Neck: Absent: lymphadenopathy - Respiratory Respiratory: bilateral: CTA - Cardiovascular Rhythm: irregularly irregular Heart sounds: normal: S1, S2 Abnormal Heart Sounds: Absent: S3 Gallop - Gastrointestinal General gastrointestinal: Present: soft. Absent: tenderness - Neurologic Neurologic: Absent: CNII-XII intact - Labs CBC & Chem 7: 06/24/20 06:02 06/24/20 06:02 Labs: Abnormal Lab Results - Last 24 Hours (Table) 06/23/20 06/23/20 06/23/20 Range/Units 11:35 16:19 20:46 RBC (4.30-5.90) m/uL Hgb (13.0-17.5) gm/dL Hct (39.0-53.0) % Sodium (137-145) mmol/L Chloride (98-107) mmol/L Carbon Dioxide (22-30) mmol/L BUN (9-20) mg/dL Glucose (74-99) mg/dL POC Glucose (mg/dL) 255 H 185 H 244 H (75-99) mg/dL Calcium (8.4-10.2) mg/dL ALT (4-49) U/L Total Protein (6.3-8.2) g/dL Albumin (3.5-5.0) g/dL 06/24/20 06/24/20 06/24/20 Range/Units 06:02 06:02 06:20 RBC 3.76 L (4.30-5.90) m/uL Hgb 11.7 L (13.0-17.5) gm/dL Hct 36.1 L (39.0-53.0) % Sodium 132 L (137-145) mmol/L Chloride 92 L (98-107) mmol/L Carbon Dioxide 32 H (22-30) mmol/L BUN 22 H (9-20) mg/dL Glucose 160 H (74-99) mg/dL POC Glucose (mg/dL) 181 H (75-99) mg/dL Calcium 8.3 L (8.4-10.2) mg/dL ALT 77 H (4-49) U/L Total Protein 5.5 L (6.3-8.2) g/dL Albumin 2.9 L (3.5-5.0) g/dL Assessment and Plan (1) Congestive heart failure (CHF) Current Visit: Yes Status: Acute Code(s): I50.9 - HEART FAILURE, UNSPECIFIED SNOMED Code(s): 88746758 (2) Diabetes Current Visit: No Status: Acute Code(s): E11.9 - TYPE 2 DIABETES MELLITUS WITHOUT COMPLICATIONS SNOMED Code(s): 05345084 (3) Diverticulitis Current Visit: No Status: Acute Code(s): K57.92 - DVTRCLI OF INTEST, PART UNSP, W/O PERF OR ABSCESS W/O BLEED SNOMED Code(s): 571593852 (4) High risk for readmission Current Visit: No Status: Acute Code(s): Z91.89 - OTH PERSONAL RISK FACTORS, NOT ELSEWHERE CLASSIFIED SNOMED Code(s): 942498118 Plan: CHF clinically is improved with his breathing. Question cognitive deficit element at night. Check CMP in a.m. Increase ambulation. Hopefully anticipate transfer to home in the next 24-48 hours. Time with Patient: Greater than 30
[2020-06-24] MEDS: FUROSEMIDE 10 MG/ML 4 ML VIAL IV SCH (09:45)
[2020-06-24] MEDS: METOPROLOL TARTRATE 25 MG TAB PO SCH ×3 (09:45→21:23)
[2020-06-24] MEDS: SODIUM CHLORIDE 0.9% 1,000 ML IV SCH ×2 (09:45→17:18)
[2020-06-24] MEDS: INSULIN DETEMIR (LEVEMIR) 100 UNIT/ML SYR SQ SCH (09:46)
[2020-06-24] MEDS: APIXABAN 2.5 MG TABLET PO SCH ×2 (09:46→21:23)
[2020-06-24] MEDS: NITROGLYCERIN OINT 1 INCH/GM PACKET TOPICAL SCH (09:46)
[2020-06-24] MEDS: AMIODARONE 200 MG TAB PO SCH ×2 (09:46→21:23)
[2020-06-24] MEDS: LEVOFLOXACIN 750 MG TAB PO SCH (09:46)
[2020-06-24 11:48] LABS: Glucose,Whole Blood 219 mg/dL (75-99)
--- NOTE | 2020-06-24 11:54 | P.PN ---
Subjective Progress Note Date: 06/24/20 CHIEF COMPLAINT: CHF HISTORY OF PRESENT ILLNESS: Patient examined this morning at the bedside. He currently denies chest pain. Denies shortness of breath. Telemetry reveals occasional PVC but no ventricular tachycardia. Vital signs stable. PHYSICAL EXAM: VITAL SIGNS: Reviewed. GENERAL: Well-developed in no acute distress. HEENT: Head is normocephalic. Pupils are equal, round. Sclerae anicteric. Mucous membranes of the mouth are moist. Neck supple. No JVD or thyromegaly LUNGS: Respirations even and unlabored. Lungs diminished. No rales auscultated. HEART: Irregular rate and rhythm. S1 and S2 heard. Systolic murmur at the base EXTREMITIES: Normal range of motion. No clubbing or cyanosis. Peripheral pulses intact. 1+ bilateral lower extremity edema NEUROLOGIC: Awake and alert. Oriented x 3. ASSESSMENT: Acute exacerbation of systolic congestive heart failure, EF 30-35% Persistent atrial fibrillation, on long-term anticoagulation with Eliquis Hypertension Hyperlipidemia Coronary artery disease Diabetes mellitus Abnormal TSH Wide complex tachycardia suggestive of ventricular tachycardia PLAN: Continue current cardiac medications Continue telemetry monitoring Discontinue Nitropaste Discontinue IV Lasix Begin Lasix 40 mg by mouth in a.m. and 20 mg in the afternoon Monitor kidney function. Repeat in a.m. Nurse practitioner note has been reviewed by physician. Signing provider agrees with the documented findings, assessment, and plan of care. Objective - Vital Signs Vital signs: Vital Signs Temp 97.7 F 06/24/20 08:00 Pulse 73 06/24/20 08:00 Resp 18 06/24/20 08:00 BP 156/74 06/24/20 08:00 Pulse Ox 96 06/24/20 08:00 Intake & Output 06/23/20 06/24/20 06/24/20 18:59 06:59 18:59 Intake Total 780 220 Output Total 1800 1250 650 Balance -1020 -1250 -430 Weight 72.5 kg Intake: Oral 780 220 Output: Urine 1800 1250 650 Other: Voiding Method Indwelling Catheter Urinal # Voids 2 - Labs CBC & Chem 7: 06/24/20 06:02 06/24/20 06:02 Labs: Abnormal Lab Results - Last 24 Hours (Table) 06/23/20 06/23/20 06/24/20 Range/Units 16:19 20:46 06:02 RBC 3.76 L (4.30-5.90) m/uL Hgb 11.7 L (13.0-17.5) gm/dL Hct 36.1 L (39.0-53.0) % Sodium (137-145) mmol/L Chloride (98-107) mmol/L Carbon Dioxide (22-30) mmol/L BUN (9-20) mg/dL Glucose (74-99) mg/dL POC Glucose (mg/dL) 185 H 244 H (75-99) mg/dL Calcium (8.4-10.2) mg/dL ALT (4-49) U/L Total Protein (6.3-8.2) g/dL Albumin (3.5-5.0) g/dL 06/24/20 06/24/20 06/24/20 Range/Units 06:02 06:20 11:47 RBC (4.30-5.90) m/uL Hgb (13.0-17.5) gm/dL Hct (39.0-53.0) % Sodium 132 L (137-145) mmol/L Chloride 92 L (98-107) mmol/L Carbon Dioxide 32 H (22-30) mmol/L BUN 22 H (9-20) mg/dL Glucose 160 H (74-99) mg/dL POC Glucose (mg/dL) 181 H 219 H (75-99) mg/dL Calcium 8.3 L (8.4-10.2) mg/dL ALT 77 H (4-49) U/L Total Protein 5.5 L (6.3-8.2) g/dL Albumin 2.9 L (3.5-5.0) g/dL
[2020-06-24] MEDS: Acetaminophen-Codeine 300-30mg TAB PO PRN (14:02)
[2020-06-24 17:08] LABS: Glucose,Whole Blood 172 mg/dL (75-99)
[2020-06-24] MEDS: FUROSEMIDE 20 MG TAB PO SCH (17:18)
[2020-06-24 20:46] LABS: Glucose,Whole Blood 158 mg/dL (75-99)
[2020-06-24] MEDS: ATORVASTATIN 10 MG TAB PO SCH (21:23)
[2020-06-24] MEDS: LOSARTAN 50 MG TAB PO SCH (21:23)
[2020-06-24] MEDS: EZETIMIBE 10 MG TAB PO SCH (21:23)
[2020-06-24] MEDS: LORazepam 1 MG TAB PO PRN (21:23)
[2020-06-24] MEDS: cloNIDine HCL 0.2 MG TAB PO SCH (21:23)
[2020-06-24] MEDS: oxyCODONE-APAP 5-325MG 1 EACH TAB PO PRN (23:00)
[2020-06-25 06:46] LABS: Glucose,Whole Blood 160 mg/dL (75-99)
[2020-06-25] MEDS: INSULIN ASPART (NovoLOG) 100 UNIT/ML VIAL SQ SCH ×4 (06:49→20:45)
[2020-06-25] MEDS: oxyCODONE-APAP 5-325MG 1 EACH TAB PO PRN (06:49)
[2020-06-25] MEDS: LEVOTHYROXINE 25 MCG TAB PO SCH (06:50)
[2020-06-25] MEDS: PANTOPRAZOLE 40 MG TABLET PO SCH (06:50)
[2020-06-25] MEDS: INSULIN DETEMIR (LEVEMIR) 100 UNIT/ML SYR SQ SCH (06:50)
[2020-06-25 06:55] LABS: Albumin 2.8 g/dL (3.5-5.0); Calcium 7.9 mg/dL (8.4-10.2); Potassium 3.7 mmol/L (3.5-5.1); Total Bilirubin 0.6 mg/dL (0.2-1.3); Total Protein 5.4 g/dL (6.3-8.2)
--- NOTE | 2020-06-25 07:54 | P.PN ---
Subjective Principal diagnosis: Dyspnea with shortness of breath. CHF element. He does complain of mild nausea today. This continue progress on an 89-year-old white male who has new onset atrial fibrillation as of last month. The patient is now admitted for acute systolic heart failure. Ejection fraction in May was about 30-35%. He states that he is not feeling as good as anticipated. No voiding symptoms are stated. He is able to hold conversation better. Decreased pedal edema is also noted area appreciate cardiology input. We had some difficulty yesterday with pain control. Hyponatremia is improving. The patient has had minimal ambulation. We will increase ambulation with therapy today The patient does complain of some mild nausea today. He did walk about 150 feet. Objective - Vital Signs Vital signs: Vital Signs Temp 97.8 F 06/25/20 03:21 Pulse 68 06/25/20 03:21 Resp 18 06/25/20 03:21 BP 146/77 06/25/20 03:21 Pulse Ox 95 06/25/20 03:21 Intake & Output 06/24/20 06/25/20 06/25/20 18:59 06:59 18:59 Intake Total 460 Output Total 650 700 Balance -190 -700 Weight 72 kg Intake: Oral 460 Output: Urine 650 700 Other: Voiding Method Urinal # Voids 2 - Constitutional General appearance: Present: average body habitus - EENT Eyes: Absent: abnormal pupil - Neck Neck: Absent: lymphadenopathy - Respiratory Respiratory: bilateral: CTA - Cardiovascular Rhythm: irregularly irregular Heart sounds: normal: S1, S2 Abnormal Heart Sounds: Absent: S3 Gallop - Gastrointestinal General gastrointestinal: Present: soft. Absent: tenderness - Labs CBC & Chem 7: 06/24/20 06:02 06/25/20 05:58 Labs: Abnormal Lab Results - Last 24 Hours (Table) 06/24/20 06/24/20 06/24/20 Range/Units 11:47 17:07 20:35 Sodium (137-145) mmol/L Chloride (98-107) mmol/L Carbon Dioxide (22-30) mmol/L Glucose (74-99) mg/dL POC Glucose (mg/dL) 219 H 172 H 158 H (75-99) mg/dL Calcium (8.4-10.2) mg/dL ALT (4-49) U/L Total Protein (6.3-8.2) g/dL Albumin (3.5-5.0) g/dL 06/25/20 06/25/20 Range/Units 05:58 06:42 Sodium 129 L (137-145) mmol/L Chloride 91 L (98-107) mmol/L Carbon Dioxide 32 H (22-30) mmol/L Glucose 139 H (74-99) mg/dL POC Glucose (mg/dL) 160 H (75-99) mg/dL Calcium 7.9 L (8.4-10.2) mg/dL ALT 73 H (4-49) U/L Total Protein 5.4 L (6.3-8.2) g/dL Albumin 2.8 L (3.5-5.0) g/dL Microbiology - Last 24 Hours (Table) 06/23/20 09:41 Blood Culture - Preliminary Blood No Growth after 24 hours Assessment and Plan (1) Congestive heart failure (CHF) Current Visit: Yes Status: Acute Code(s): I50.9 - HEART FAILURE, UNSPECIFIED SNOMED Code(s): 47936649 (2) Diabetes Current Visit: No Status: Acute Code(s): E11.9 - TYPE 2 DIABETES MELLITUS WITHOUT COMPLICATIONS SNOMED Code(s): 45114225 (3) Diverticulitis Current Visit: No Status: Acute Code(s): K57.92 - DVTRCLI OF INTEST, PART UNSP, W/O PERF OR ABSCESS W/O BLEED SNOMED Code(s): 713572758 (4) High risk for readmission Current Visit: No Status: Acute Code(s): Z91.89 - OTH PERSONAL RISK FACTORS, NOT ELSEWHERE CLASSIFIED SNOMED Code(s): 054197048 Plan: Systolic congestive heart failure clinically improved. Now on oral Lasix. Some intermittent nausea today. We will go ahead and write for Zofran. Anticipate discharge in the next 24 hours and when cleared by cardiology. Again, increase ambulation Time with Patient: Greater than 30
[2020-06-25] MEDS ORDERED: POTASSIUM CHLORIDE ER 20 MEQ TAB.ER PO STA (08:41)
[2020-06-25] MEDS: FUROSEMIDE 40 MG TAB PO SCH (09:38)
[2020-06-25] MEDS: APIXABAN 2.5 MG TABLET PO SCH ×2 (09:38→20:45)
[2020-06-25] MEDS: METOPROLOL TARTRATE 25 MG TAB PO SCH ×3 (09:38→20:45)
[2020-06-25] MEDS: LEVOFLOXACIN 750 MG TAB PO SCH (09:40)
[2020-06-25] MEDS: AMIODARONE 200 MG TAB PO SCH ×2 (09:40→20:46)
[2020-06-25] MEDS: ONDANSETRON 4 MG TAB PO PRN ×2 (09:41→17:39)
--- NOTE | 2020-06-25 10:41 | P.PN ---
Subjective Progress Note Date: 06/25/20 CHIEF COMPLAINT: CHF HISTORY OF PRESENT ILLNESS: Patient examined this morning at the bedside. He currently denies chest pain. Denies shortness of breath. Vital signs stable. PHYSICAL EXAM: VITAL SIGNS: Reviewed. GENERAL: Well-developed in no acute distress. HEENT: Head is normocephalic. Pupils are equal, round. Sclerae anicteric. Mucous membranes of the mouth are moist. Neck supple. No JVD or thyromegaly LUNGS: Respirations even and unlabored. Lungs diminished. No rales auscultated. HEART: Irregular rate and rhythm. S1 and S2 heard. Systolic murmur at the base EXTREMITIES: Normal range of motion. No clubbing or cyanosis. Peripheral pulses intact. 1+ bilateral lower extremity edema NEUROLOGIC: Awake and alert. Oriented x 3. ASSESSMENT: Acute exacerbation of systolic congestive heart failure, EF 30-35% Persistent atrial fibrillation, on long-term anticoagulation with Eliquis Hypertension Hyperlipidemia Coronary artery disease Diabetes mellitus Abnormal TSH Wide complex tachycardia suggestive of ventricular tachycardia PLAN: Continue current cardiac medications Replace potassium Patient may be discharged home today from a cardiac standpoint. He is to follow up on an outpatient basis with Dr. Benz Nurse practitioner note has been reviewed by physician. Signing provider agrees with the documented findings, assessment, and plan of care. Objective - Vital Signs Vital signs: Vital Signs Temp 97.8 F 06/25/20 03:21 Pulse 68 06/25/20 03:21 Resp 18 06/25/20 03:21 BP 146/77 06/25/20 03:21 Pulse Ox 95 06/25/20 03:21 Intake & Output 06/24/20 06/25/20 06/25/20 18:59 06:59 18:59 Intake Total 460 0 Output Total 650 700 125 Balance -190 -700 -125 Weight 72 kg Intake: Oral 460 0 Output: Urine 650 700 125 Other: Voiding Method Urinal # Voids 2 - Labs CBC & Chem 7: 06/24/20 06:02 06/25/20 05:58 Labs: Abnormal Lab Results - Last 24 Hours (Table) 06/24/20 06/24/20 06/24/20 Range/Units 11:47 17:07 20:35 Sodium (137-145) mmol/L Chloride (98-107) mmol/L Carbon Dioxide (22-30) mmol/L Glucose (74-99) mg/dL POC Glucose (mg/dL) 219 H 172 H 158 H (75-99) mg/dL Calcium (8.4-10.2) mg/dL ALT (4-49) U/L Total Protein (6.3-8.2) g/dL Albumin (3.5-5.0) g/dL 06/25/20 06/25/20 Range/Units 05:58 06:42 Sodium 129 L (137-145) mmol/L Chloride 91 L (98-107) mmol/L Carbon Dioxide 32 H (22-30) mmol/L Glucose 139 H (74-99) mg/dL POC Glucose (mg/dL) 160 H (75-99) mg/dL Calcium 7.9 L (8.4-10.2) mg/dL ALT 73 H (4-49) U/L Total Protein 5.4 L (6.3-8.2) g/dL Albumin 2.8 L (3.5-5.0) g/dL Microbiology - Last 24 Hours (Table) 06/23/20 09:41 Blood Culture - Preliminary Blood No Growth after 24 hours
[2020-06-25 12:54] LABS: Glucose,Whole Blood 145 mg/dL (75-99)
[2020-06-25 17:12] LABS: Glucose,Whole Blood 159 mg/dL (75-99)
[2020-06-25] MEDS: FUROSEMIDE 20 MG TAB PO SCH (17:36)
[2020-06-25] MEDS: SODIUM CHLORIDE 0.9% 1,000 ML IV SCH (18:54)
[2020-06-25 20:29] LABS: Glucose,Whole Blood 210 mg/dL (75-99)
[2020-06-25] MEDS: ATORVASTATIN 10 MG TAB PO SCH (20:45)
[2020-06-25] MEDS: LORazepam 1 MG TAB PO PRN (20:45)
[2020-06-25] MEDS: EZETIMIBE 10 MG TAB PO SCH (20:45)
[2020-06-25] MEDS: LOSARTAN 50 MG TAB PO SCH (20:45)
[2020-06-25] MEDS: cloNIDine HCL 0.2 MG TAB PO SCH (20:46)
[2020-06-25] MEDS: diphenhydrAMINE 50 MG CAP PO PRN (20:49)
[2020-06-26 06:14] LABS: Glucose,Whole Blood 136 mg/dL (75-99)
[2020-06-26] MEDS: PANTOPRAZOLE 40 MG TABLET PO SCH (06:33)
[2020-06-26] MEDS: INSULIN ASPART (NovoLOG) 100 UNIT/ML VIAL SQ SCH ×2 (06:33→13:34)
[2020-06-26] MEDS: LEVOTHYROXINE 25 MCG TAB PO SCH (06:33)
[2020-06-26] MEDS: INSULIN DETEMIR (LEVEMIR) 100 UNIT/ML SYR SQ SCH (06:34)
[2020-06-26] MEDS: METOPROLOL TARTRATE 25 MG TAB PO SCH (08:36)
[2020-06-26] MEDS: APIXABAN 2.5 MG TABLET PO SCH (08:36)
[2020-06-26] MEDS: FUROSEMIDE 40 MG TAB PO SCH (08:36)
[2020-06-26] MEDS: AMIODARONE 200 MG TAB PO SCH (08:36)
[2020-06-26 11:10] LABS: Calcium 7.9 mg/dL (8.4-10.2); Potassium 4.4 mmol/L (3.5-5.1)
--- NOTE | 2020-06-26 11:36 | US ---
EXAMINATION TYPE: US venous doppler duplex LE DATE OF EXAM: 06/26/2020 11:06 AM COMPARISON: NONE CLINICAL HISTORY: 89-year-old male Rule out DVT. Bilat. leg edema SIDE PERFORMED: Bilateral TECHNIQUE: The lower extremity deep venous system is examined utilizing real time linear array sonog katerina with graded compression, doppler sonography and color-flow sonography. FINDINGS: VESSELS IMAGED: External Iliac Vein (EIV) Common Femoral Vein Deep Femoral Vein Greater Saphenous Vein * Femoral Vein Popliteal Vein Small Saphenous Vein * Proximal Calf Veins (* superficial vessels) Right Leg: no evidence of DVT Left Leg: no evidence of DVT IMPRESSION: No evidence for DVT within the bilateral lower extremities imaged from the groin to the upper calves.
[2020-06-26 12:05] LABS: T4, Free (Free Thyroxine) 1.93 ng/dL (0.78-2.19)
--- NOTE | 2020-06-26 12:23 | P.PN ---
Subjective Progress Note Date: 06/26/20 CHIEF COMPLAINT: CHF HISTORY OF PRESENT ILLNESS: Patient examined this morning at the bedside. He is currently having a venous Doppler performed. He currently denies chest pain. Denies shortness of breath. Vital signs stable. No further arrhythmias. PHYSICAL EXAM: VITAL SIGNS: Reviewed. GENERAL: Well-developed in no acute distress. HEENT: Head is normocephalic. Pupils are equal, round. Sclerae anicteric. Mucous membranes of the mouth are moist. Neck supple. No JVD or thyromegaly LUNGS: Respirations even and unlabored. Lungs diminished. No rales auscultated. HEART: Irregular rate and rhythm. S1 and S2 heard. Systolic murmur at the base EXTREMITIES: Normal range of motion. No clubbing or cyanosis. Peripheral pulses intact. Trace right lower extremity edema NEUROLOGIC: Awake and alert. Oriented x 3. ASSESSMENT: Acute exacerbation of systolic congestive heart failure, EF 30-35% Persistent atrial fibrillation, on long-term anticoagulation with Eliquis Hypertension Hyperlipidemia Coronary artery disease Diabetes mellitus Abnormal TSH Wide complex tachycardia suggestive of ventricular tachycardia PLAN: Continue current cardiac medications Patient may be discharged home today from a cardiac standpoint. He is to follow up on an outpatient basis with Dr. Benz We will sign off. Please reconsult if needed. Nurse practitioner note has been reviewed by physician. Signing provider agrees with the documented findings, assessment, and plan of care. Objective - Vital Signs Vital signs: Vital Signs Temp 98 F 06/26/20 03:10 Pulse 68 06/26/20 03:10 Resp 18 06/26/20 03:10 BP 124/63 06/26/20 03:10 Pulse Ox 95 06/26/20 08:18 Intake & Output 06/25/20 06/26/20 06/26/20 18:59 06:59 18:59 Intake Total 118 240 Output Total 125 Balance -7 240 Weight 73.1 kg Intake: Oral 118 240 Output: Urine 125 Other: Voiding Method Urinal Urinal # Voids 1 - Labs CBC & Chem 7: 06/24/20 06:02 06/26/20 10:34 Labs: Abnormal Lab Results - Last 24 Hours (Table) 06/25/20 06/25/20 06/25/20 Range/Units 12:47 17:08 20:28 Sodium (137-145) mmol/L Chloride (98-107) mmol/L BUN (9-20) mg/dL Creatinine (0.66-1.25) mg/dL Glucose (74-99) mg/dL POC Glucose (mg/dL) 145 H 159 H 210 H (75-99) mg/dL Calcium (8.4-10.2) mg/dL TSH (0.465-4.680) mIU/L 06/26/20 06/26/20 Range/Units 06:12 10:34 Sodium 127 L (137-145) mmol/L Chloride 91 L (98-107) mmol/L BUN 23 H (9-20) mg/dL Creatinine 1.32 H (0.66-1.25) mg/dL Glucose 235 H (74-99) mg/dL POC Glucose (mg/dL) 136 H (75-99) mg/dL Calcium 7.9 L (8.4-10.2) mg/dL TSH 7.800 H (0.465-4.680) mIU/L Microbiology - Last 24 Hours (Table) 06/23/20 09:41 Blood Culture - Preliminary Blood No Growth after 72 hours
[2020-06-26 13:06] LABS: Glucose,Whole Blood 197 mg/dL (75-99)
--- NOTE | 2020-06-26 15:23 | P.DS ---
Providers Date of admission: 06/21/20 17:31 Expected date of discharge: 06/26/20 Attending physician: Ceiclio Christina Consults: 06/21/20 17:31 Consult Physician Routine Consulting Provider: Melissa Triana Consult Reason/Comments: chf Do you want consulting provider notified?: Yes Primary care physician: Cecilio Christina Hospital Course: 89-year-old white male who was recently discharged for pneumonia but had new onset H fibrillation. He is been home for about 5 days and yesterday had worsening dyspnea. Evaluation emergency room did show changes of congestive heart failure with bibasilar effusions. He is admitted for acute systolic congestive heart failure. History of atrial fibrillation with normal ventricular response otherwise noted on his EKG with right bundle branch block. No Voiding symptoms. He is resting and able to converse appropriately but does show dyspnea after having extended conversation and no voiding symptoms. He does complain of headache otherwise. Patient worked up in ER and was admitted to the hospital for acute exacerbation CHF with EF of 30-35%; persistent atrial fibrillation with long-term anticoagulation; hypertension; hyperlipidemia; cardiology evaluated patient and recommended to repeat echo and start patient on Lasix 40 mg IV every 8 hours; renal function, daily weights and strict RAY's were monitored closely; patient's TSH was found to be elevated and was started on Synthroid 25 g daily; patient did respond well to above treatment and was transitioned to oral Lasix and formal 40 mg in the morning with 20 mg in the afternoon with recommendations to continue to monitor renal function closely; Nitropaste was discontinued; patient remained stable without any complications; therapy evaluated patient and was recommended to continue skilled rehab Plan - Discharge Summary Discharge Rx Participant: Yes New Discharge Prescriptions: New diphenhydrAMINE [Benadryl] 50 mg PO HS PRN #2 cap PRN Reason: Insomnia Amiodarone [Cordarone] 200 mg PO BID tab Furosemide [Lasix] 20 mg PO Q24H tab Furosemide [Lasix] 40 mg PO DAILY tab Insulin Detemir (Levemir) [Levemir] 8 unit SQ DAILY@0700 syr Melatonin 5 mg PO HS PRN tablet PRN Reason: Insomnia INSULIN ASPART (NovoLOG) [NovoLOG (formulary)] 0 unit SQ ACHS vial Levothyroxine Sodium [Synthroid] 25 mcg PO DAILY@0630 tab Ondansetron [Zofran] 4 mg PO Q8HR PRN tab PRN Reason: Nausea And Vomiting Continue Nitroglycerin Sl Tabs [Nitrostat] 0.4 mg SUBLINGUAL Q5M PRN #25 tab PRN Reason: Chest Pain Simvastatin [Zocor] 20 mg PO HS Multivitamins, Thera [Multivitamin (formulary)] 1 tab PO DAILY cloNIDine HCL [Catapres] 0.2 mg PO HS Irbesartan [Avapro] 150 mg PO HS Ezetimibe [Zetia] 10 mg PO HS Apixaban [Eliquis] 2.5 mg PO BID #60 tablet Metoprolol Tartrate [Lopressor] 50 mg PO TID #60 tab Pantoprazole [Protonix] 40 mg PO AC-BRKFST #30 tablet. Albuterol Nebulized [Ventolin Nebulized] 2.5 mg INHALATION RT-Q4H PRN ml PRN Reason: Shortness Of Breath Or Wheezing LORazepam [Ativan] 2 mg PO HS PRN #30 tab PRN Reason: Anxiety Discontinued NIFEdipine XL [Procardia XL] 90 mg PO DAILY Moxifloxacin HCl [Avelox] 400 mg PO DAILY #7 tablet Nystatin 100,000 Unit/ml Susp [Mycostatin Oral Susp] 5 ml PO QID #200 ml Discharge Medication List Nitroglycerin Sl Tabs [Nitrostat] 0.4 mg SUBLINGUAL Q5M PRN #25 tab 03/22/15 [Rx] Multivitamins, Thera [Multivitamin (formulary)] 1 tab PO DAILY 05/13/16 [History] Simvastatin [Zocor] 20 mg PO HS 05/13/16 [History] cloNIDine HCL [Catapres] 0.2 mg PO HS 05/13/16 [History] Ezetimibe [Zetia] 10 mg PO HS 05/29/20 [History] Irbesartan [Avapro] 150 mg PO HS 05/29/20 [History] Albuterol Nebulized [Ventolin Nebulized] 2.5 mg INHALATION RT-Q4H PRN ml 06/11/20 [Rx] Apixaban [Eliquis] 2.5 mg PO BID #60 tablet 06/11/20 [Rx] Metoprolol Tartrate [Lopressor] 50 mg PO TID #60 tab 06/11/20 [Rx] Pantoprazole [Protonix] 40 mg PO AC-BRKFST #30 tablet. 06/11/20 [Rx] LORazepam [Ativan] 2 mg PO HS PRN #30 tab 06/12/20 [Rx] Amiodarone [Cordarone] 200 mg PO BID tab 06/26/20 [Rx] Furosemide [Lasix] 20 mg PO Q24H tab 06/26/20 [Rx] Furosemide [Lasix] 40 mg PO DAILY tab 06/26/20 [Rx] INSULIN ASPART (NovoLOG) [NovoLOG (formulary)] 0 unit SQ ACHS vial 06/26/20 [Rx] Insulin Detemir (Levemir) [Levemir] 8 unit SQ DAILY@0700 syr 06/26/20 [Rx] Levothyroxine Sodium [Synthroid] 25 mcg PO DAILY@0630 tab 06/26/20 [Rx] Melatonin 5 mg PO HS PRN tablet 06/26/20 [Rx] Ondansetron [Zofran] 4 mg PO Q8HR PRN tab 06/26/20 [Rx] diphenhydrAMINE [Benadryl] 50 mg PO HS PRN #2 cap 06/26/20 [Rx] Follow up Appointment(s)/Referral(s): Cecilio Christina MD [Primary Care Provider] - 1-2 days Aminta Benz MD [STAFF PHYSICIAN] - 1 Week Activity/Diet/Wound Care/Special Instructions: Heart healthy diet Activities Limited till you see your doctor Please monitor your BMP including sodium level and kidney level and serum creatinine after 2-3 days, and at leads once or twice a week thereafter and adjust medication accordingly Discharge Disposition: TRANSFER TO SNF/ECF
[2020-06-26 16:11] VITALS: RESP 16
[2020-06-26 16:15] VITALS: BP 106/61; PULSE 55; TEMP 97.4
[2020-06-27] MEDS ORDERED: LEVOFLOXACIN 750 MG TAB PO SCH (09:00)
== END 2020-06-26 16:19 | DRG 292 ==
LOC: EC 15:05 → 3SCARD 17:31
PROVIDERS: ADMIT Family Medicine; ATTEND Family Medicine
DX: I11.0 Hypertensive heart disease with heart failure (principal); E87.1 Hypo-osmolality and hyponatremia; I47.2 Ventricular tachycardia; I48.19 Other persistent atrial fibrillation; E11.51 Type 2 diabetes mellitus with diabetic peripheral angiopathy without gangrene; Z79.01 Long term (current) use of anticoagulants; I50.23 Acute on chronic systolic (congestive) heart failure; I08.2 Rheumatic disorders of both aortic and tricuspid valves; E78.5 Hyperlipidemia, unspecified; I45.10 Unspecified right bundle-branch block; I25.10 Atherosclerotic heart disease of native coronary artery without angina pectoris; N40.0 Benign prostatic hyperplasia without lower urinary tract symptoms; K21.9 Gastro-esophageal reflux disease without esophagitis; I25.2 Old myocardial infarction; M19.031 Primary osteoarthritis, right wrist; R51 Headache; R11.0 Nausea; R26.81 Unsteadiness on feet; Z79.899 Other long term (current) drug therapy; Z87.891 Personal history of nicotine dependence; Z86.19 Personal history of other infectious and parasitic diseases; Z95.5 Presence of coronary angioplasty implant and graft; Z85.828 Personal history of other malignant neoplasm of skin; Z87.19 Personal history of other diseases of the digestive system; Z87.39 Personal history of other diseases of the musculoskeletal system and connective tissue; Z87.01 Personal history of pneumonia (recurrent); Z98.42 Cataract extraction status, left eye; Z98.41 Cataract extraction status, right eye; Z96.1 Presence of intraocular lens; Z98.890 Other specified postprocedural states; Z88.0 Allergy status to penicillin; Z88.8 Allergy status to other drugs, medicaments and biological substances; Z83.42 Family history of familial hypercholesterolemia
CPT/HCPCS: 36415; 51702; 71046; 80048; 80053; 81001; 83605; 83735; 83880; 84100; 84436; 84439; 84443; 84484; 85025; 85027; 85610; 85730; 87040; 93005; 93970; 94760; 96374; 99285

== ENCOUNTER 2020-06-27 12:05 | Observation (INO) | payer MEDICARE, BC ==
--- NOTE | 2020-06-27 12:51 | ED ---
General Adult HPI - General Chief complaint: Recheck/Abnormal Lab/Rx Stated complaint: Low o2 Time Seen by Provider: 06/27/20 12:29 Source: patient, RN notes reviewed, old records reviewed Mode of arrival: wheelchair Limitations: no limitations - History of Present Illness Initial comments: 89-year-old male presenting for reevaluation. Patient states he checked himself out of his rehabilitation group home this morning. He was discharged to the group home yesterday from a recent inpatient stay for pneumonia and CHF. Patient states was told that he would require supplemental oxygen and was not given home oxygen prior to leaving the group home. He again signed himself out. He does have a complaint of headache which is been ongoing for months, maybe years. He denies focal numbness or weakness. He states his breathing is improved at this time. No fever. No significant cough. No lower extremity pain or swelling. - Related Data Home Medications Medication Instructions Recorded Confirmed Multivitamins, Thera [Multivitamin 1 tab PO DAILY 05/13/16 06/21/20 (formulary)] Simvastatin [Zocor] 20 mg PO HS 05/13/16 06/21/20 cloNIDine HCL [Catapres] 0.2 mg PO HS 05/13/16 06/21/20 Ezetimibe [Zetia] 10 mg PO HS 05/29/20 06/21/20 Irbesartan [Avapro] 150 mg PO HS 05/29/20 06/21/20 Furosemide [Lasix] 20 mg PO DAILY 06/27/20 INSULIN ASPART (NovoLOG) [NovoLOG 2 unit SQ [facility] 06/27/20 06/27/20 (formulary)] INSULIN ASPART (NovoLOG) [NovoLOG See Protocol SQ [facility] 06/27/20 06/27/20 (formulary)] Levothyroxine Sodium [Synthroid] 25 mcg PO DAILY 06/27/20 06/27/20 Previous Rx's Medication Instructions Recorded Nitroglycerin Sl Tabs [Nitrostat] 0.4 mg SUBLINGUAL Q5M PRN #25 tab 03/22/15 Albuterol Nebulized [Ventolin 2.5 mg INHALATION RT-Q4H PRN ml 06/11/20 Nebulized] Apixaban [Eliquis] 2.5 mg PO BID #60 tablet 06/11/20 Metoprolol Tartrate [Lopressor] 50 mg PO TID #60 tab 06/11/20 Pantoprazole [Protonix] 40 mg PO AC-BRKFST #30 tablet. 06/11/20 LORazepam [Ativan] 2 mg PO HS PRN #30 tab 06/12/20 Amiodarone [Cordarone] 200 mg PO BID tab 06/26/20 Furosemide [Lasix] 40 mg PO DAILY tab 06/26/20 Insulin Detemir (Levemir) [Levemir] 8 unit SQ DAILY@0700 syr 06/26/20 Melatonin 5 mg PO HS PRN tablet 06/26/20 Ondansetron [Zofran] 4 mg PO Q8HR PRN tab 06/26/20 diphenhydrAMINE [Benadryl] 50 mg PO HS PRN #2 cap 06/26/20 Allergies Allergy/AdvReac Type Severity Reaction Status Date / Time Penicillins Allergy Rash/Hives Verified 06/27/20 13:47 zolpidem [From Ambien] AdvReac Confusion Verified 06/27/20 13:47 Review of Systems ROS Statement: Those systems with pertinent positive or pertinent negative responses have been documented in the HPI. ROS Other: All systems not noted in ROS Statement are negative. Past Medical History Past Medical History: Coronary Artery Disease (CAD), Cancer, Diabetes Mellitus, GERD/Reflux, Hyperlipidemia, Hypertension, Myocardial Infarction ([place]), Osteoarthritis (OA), Pneumonia, Vascular Disorder Additional Past Medical History / Comment(s): NIDDM type II-pt states physician took him off his diabetic medication-diet controlled now, sinus problems pt states worse this past year, bilateral caratid artery disease, skin cancer with removal, diverticulitis, BPH, arthritis R wrist, gout R great toe, unsteady gait/falls, past rheumatic fever age 21yrs, Last Myocardial Infarction Date:: 2014 History of Any Multi-Drug Resistant Organisms: None Reported Past Surgical History: Heart Catheterization, Heart Catheterization With Stent Additional Past Surgical History / Comment(s): Skin cancer removed L upper arm, bilateral cataract removal/lens implants. 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 Mother History Unknown: Yes Family Medical History: Hyperlipidemia Additional Family Medical History / Comment(s): high cholesterol. General Exam Limitations: no limitations General appearance: alert, in no apparent distress Head exam: Present: atraumatic, normocephalic Eye exam: Present: normal appearance, PERRL ENT exam: Present: normal exam Neck exam: Present: normal inspection. Absent: tenderness, meningismus Respiratory exam: Present: decreased breath sounds. Absent: respiratory distress Cardiovascular Exam: Present: regular rate, normal rhythm GI/Abdominal exam: Present: soft. Absent: distended, tenderness, guarding Extremities exam: Present: normal inspection, normal capillary refill. Absent: pedal edema Back exam: Present: normal inspection Neurological exam: Present: alert, oriented X3, CN II-XII intact. Absent: motor sensory deficit Psychiatric exam: Present: normal affect, normal mood Skin exam: Present: warm, dry, intact. Absent: cyanosis, diaphoretic Course Vital Signs 06/27/20 12:12 Temperature 98.0 F Pulse Rate 84 Respiratory 18 Rate Blood Pressure 117/66 O2 Sat by Pulse 95 Oximetry - Reevaluation(s) Reevaluation #1: 06/27/20 14:[address] Dsouza in the emergency department who is familiar with this patient. EKG Findings - EKG Comments: EKG Findings:: EKG: Atrial fibrillation, right bundle branch block, left posterior fascicular block, ST segment depression in the lateral precordial leads, similar to previous EKG 5 days ago. He hasn't rate of 80, QRS duration 160, QTC 500, no ST segment elevation. Medical Decision Making - Medical Decision Making 89-year-old with repeat evaluation. Chest x-ray showing pulmonary vascular congestion, consistent with CHF. I did obtain a head CT for this patient with chronic headache this is negative for any acute intracranial hemorrhage or mass effect. Laboratory studies have been obtained, these are routine given the patient's recent hospital admission with same complaint. He will be admitted with final disposition pending regarding either home with home oxygen or rehabilitation at the group home. Case discussed with Dr. Dsouza who will accept. Disposition Clinical Impression: Congestive heart failure (CHF) Disposition: ADMITTED IP TO THIS HOSP Condition: Stable Is patient prescribed a controlled substance at d/c from ED?: No Referrals: Cecilio Christina MD [Primary Care Provider] - 1-2 days Decision to Admit Reason: Admit from EC Decision Date: 06/27/20 Decision Time: 14:04
--- NOTE | 2020-06-27 13:34 | XR ---
EXAMINATION TYPE: XR chest 2V DATE OF EXAM: 06/27/2020 CLINICAL HISTORY: Difficulty breathing TECHNIQUE: Frontal and lateral views of the chest are obtained. COMPARISON: Chest radiograph 06/21/2020 FINDINGS: Cardiomegaly. Pulmonary vascular congestion. No pleural effusion or pneumothorax. IMPRESSION: Cardiomegaly and prominent pulmonary vasculature. Correlate for CHF.
[2020-06-27] MEDS ORDERED: NALOXONE 0.4 MG/ML 1 ML VIAL IV PRN (13:55)
--- NOTE | 2020-06-27 13:59 | CT ---
EXAMINATION TYPE: CT brain wo con DATE OF EXAM: 06/27/2020 HISTORY: Low O2 CT DLP: 1099.4 mGycm. Automated Exposure Control for Dose Reduction was Utilized. TECHNIQUE: CT scan of the head is performed without contrast. COMPARISON: 02/19/2017 CT head FINDINGS: There is no acute intracranial hemorrhage, midline shift, or mass effect identified. Diffuse volume l oss. There is extensive periventricular and subcortical white matter hypodensity redemonstrated, like ly sequela of chronic microvascular ischemic change. The ventricles, sulci, and cisterns are unchange d in size and configuration versus 2017 comparison. No extra-axial fluid collection. Bones and extracranial soft tissues are intact. The globes are gross ly symmetric. Visualized sinuses and mastoid air cells are clear. IMPRESSION: 1. No acute adrenal hemorrhage, midline shift, or mass effect. 2. Extensive white matter hypodensity redemonstrated, likely sequela of chronic microvascular ischemi c change.
[2020-06-27] MEDS ORDERED: FUROSEMIDE 10 MG/ML 4 ML VIAL IV STA (14:02)
[2020-06-27 14:06] LABS: Basophils % (A) 1 %; Eosinophils # (A) 0.1 k/uL (0-0.7); Eosinophils % (A) 1 %; HCT 36.1 % (39.0-53.0); HGB 11.9 gm/dL (13.0-17.5); Lymphocytes # (A) 0.8 k/uL (1.0-4.8); Lymphocytes % (A) 13 %; MCH 30.9 pg (25.0-35.0); MCHC 32.8 g/dL (31.0-37.0); MCV 94.3 fL (80.0-100.0); Monocytes # (A) 0.3 k/uL (0-1.0); Monocytes % (A) 5 %; Neutrophils # (A) 4.9 k/uL (1.3-7.7); Neutrophils % (A) 78 %; Platelet Count 203 k/uL (150-450); RBC 3.83 m/uL (4.30-5.90); RDW 13.4 % (11.5-15.5); WBC 6.3 k/uL (3.8-10.6)
[2020-06-27 14:23] LABS: Calcium 8.1 mg/dL (8.4-10.2); Potassium 4.5 mmol/L (3.5-5.1)
[2020-06-27] MEDS ORDERED: NITROGLYCERIN SL TABS 0.4 MG TAB SUBLINGUAL PRN (17:50)
[2020-06-27] MEDS ORDERED: ALBUTEROL NEBULIZED 2.5 MG/3 ML INHALATION PRN (17:50)
[2020-06-27 20:31] LABS: Glucose,Whole Blood 236 mg/dL (75-99)
[2020-06-27] MEDS: cloNIDine HCL 0.2 MG TAB PO SCH (21:34)
[2020-06-27] MEDS: LORazepam 1 MG TAB PO PRN (21:34)
[2020-06-27] MEDS: APIXABAN 2.5 MG TABLET PO SCH (21:34)
[2020-06-27] MEDS: AMIODARONE 200 MG TAB PO SCH (21:34)
[2020-06-27] MEDS: EZETIMIBE 10 MG TAB PO SCH (21:34)
[2020-06-27] MEDS: LOSARTAN 50 MG TAB PO SCH (21:34)
[2020-06-27] MEDS: ATORVASTATIN 10 MG TAB PO SCH (21:34)
[2020-06-27] MEDS: METOPROLOL TARTRATE 50 MG TAB PO SCH (21:35)
[2020-06-28] MEDS: LEVOTHYROXINE 25 MCG TAB PO SCH (06:15)
[2020-06-28 07:15] LABS: Glucose,Whole Blood 177 mg/dL (75-99)
[2020-06-28] MEDS: AMIODARONE 200 MG TAB PO SCH ×2 (08:43→20:58)
[2020-06-28] MEDS: METOPROLOL TARTRATE 50 MG TAB PO SCH ×3 (08:44→20:58)
[2020-06-28] MEDS: APIXABAN 2.5 MG TABLET PO SCH ×2 (08:44→20:57)
[2020-06-28] MEDS: INSULIN DETEMIR (LEVEMIR) 100 UNIT/ML SYR SQ SCH (08:44)
[2020-06-28] MEDS: PANTOPRAZOLE 40 MG TABLET PO SCH (08:44)
[2020-06-28 11:08] LABS: Basophils % (A) 1 %; Eosinophils # (A) 0.1 k/uL (0-0.7); Eosinophils % (A) 2 %; HCT 33.7 % (39.0-53.0); HGB 11.1 gm/dL (13.0-17.5); Lymphocytes # (A) 0.7 k/uL (1.0-4.8); Lymphocytes % (A) 13 %; MCH 31.3 pg (25.0-35.0); MCHC 32.9 g/dL (31.0-37.0); MCV 95.3 fL (80.0-100.0); Mean Platelet Volume 6.9; Monocytes # (A) 0.3 k/uL (0-1.0); Monocytes % (A) 6 %; Neutrophils % (A) 75 %; Platelet Count 196 k/uL (150-450); RBC 3.54 m/uL (4.30-5.90); RDW 13.6 % (11.5-15.5); WBC 5.3 k/uL (3.8-10.6)
[2020-06-28 11:28] LABS: Potassium 4.2 mmol/L (3.5-5.1)
[2020-06-28 12:15] LABS: Glucose,Whole Blood 252 mg/dL (75-99)
[2020-06-28 13:16] VITALS: BMI 24.4
[2020-06-28 17:29] LABS: Glucose,Whole Blood 204 mg/dL (75-99)
[2020-06-28] MEDS: LORazepam 1 MG TAB PO PRN (20:57)
[2020-06-28] MEDS: cloNIDine HCL 0.2 MG TAB PO SCH (20:57)
[2020-06-28 20:58] LABS: Glucose,Whole Blood 212 mg/dL (75-99)
[2020-06-28] MEDS: LOSARTAN 50 MG TAB PO SCH (20:58)
[2020-06-28] MEDS: ATORVASTATIN 10 MG TAB PO SCH (21:00)
[2020-06-28] MEDS: EZETIMIBE 10 MG TAB PO SCH (21:53)
[2020-06-29] MEDS: LEVOTHYROXINE 25 MCG TAB PO SCH (05:42)
--- NOTE | 2020-06-29 07:29 | P.HPIM ---
History of Present Illness 89-year-old white male who was recently discharged for pneumonia but had new onset A fibrillation. He is been home for about 5 days and yesterday had worsening dyspnea. Evaluation emergency room did show changes of congestive heart failure with bibasilar effusions. He is admitted for acute systolic congestive heart failure. History of atrial fibrillation with normal ventricular response otherwise noted on his EKG with right bundle branch block. Patient has been evaluated by regional operations director and was treated for acute CHF with ejection fraction of 30-35% and his breathing improved and eventually Cleared by regional operations director to be discharged to rehab. Patient was adamant to go to rehab on 06/26, he was found stable and discharged after cardiology team cleared him. 5 could not take him home because she cannot take care of him for the planned for him to go to rehab. Patient went to rehab and he did not like the room because he felt a distal small so he signed himself out and went home, however the family sent him back to the hospital the next day, so he got admitted to the same hospital on 06/27. Currently patient denies any specific symptoms, no chest pain or dyspnea, no abdominal pain, no diarrhea or dysuria, no fever. Hemodynamically stable and labs reviewed he has mild anemia at 11.9 and mild hyponatremia at 128, creatinine 1.4. And sugar slightly elevated Review of Systems CONSTITUTIONAL: No fever, no malaise, no fatigue. HEENT: No recent visual problems or hearing problems. Denied any sore throat. CARDIOVASCULAR: No orthopnea, PND, no palpitations, no syncope. PULMONARY: No shortness of breath, no cough, no hemoptysis. GASTROINTESTINAL: No diarrhea, no nausea, no vomiting, no abdominal pain. Normoactive bowel sounds. NEUROLOGICAL: No headaches, no weakness, no numbness. HEMATOLOGICAL: Denies any bleeding or petechiae. GENITOURINARY: Denies any burning micturition, frequency, or urgency. MUSCULOSKELETAL/RHEUMATOLOGICAL: Denies any joint pain, swelling, or any muscle pain. ENDOCRINE: Denies any polyuria or polydipsia. Past Medical History Past Medical History: Coronary Artery Disease (CAD), Cancer, Diabetes Mellitus, GERD/Reflux, Hyperlipidemia, Hypertension, Myocardial Infarction ([place]), Osteoarthritis (OA), Pneumonia, Vascular Disorder Additional Past Medical History / Comment(s): NIDDM type II-pt states physician took him off his diabetic medication-diet controlled now, sinus problems pt states worse this past year, bilateral caratid artery disease, skin cancer with removal, diverticulitis, BPH, arthritis R wrist, gout R great toe, unsteady gait/falls, past rheumatic fever age 21yrs, Last Myocardial Infarction Date:: 2014 History of Any Multi-Drug Resistant Organisms: None Reported Past Surgical History: Heart Catheterization, Heart Catheterization With Stent Additional Past Surgical History / Comment(s): Skin cancer removed L upper arm, bilateral cataract removal/lens implants. 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 Mother History Unknown: Yes Family Medical History: Hyperlipidemia Additional Family Medical History / Comment(s): high cholesterol. Medications and Allergies Home Medications Medication Instructions Recorded Confirmed Type Nitroglycerin Sl Tabs [Nitrostat] 0.4 mg SUBLINGUAL Q5M PRN #25 tab 03/22/15 06/27/20 Rx Multivitamins, Thera [Multivitamin 1 tab PO DAILY 05/13/16 06/27/20 History (formulary)] Simvastatin [Zocor] 20 mg PO HS 05/13/16 06/27/20 History cloNIDine HCL [Catapres] 0.2 mg PO HS 05/13/16 06/27/20 History Ezetimibe [Zetia] 10 mg PO HS 05/29/20 06/27/20 History Irbesartan [Avapro] 150 mg PO HS 05/29/20 06/27/20 History Albuterol Nebulized [Ventolin 2.5 mg INHALATION RT-Q4H PRN ml 06/11/20 06/27/20 Rx Nebulized] Apixaban [Eliquis] 2.5 mg PO BID #60 tablet 06/11/20 06/27/20 Rx Metoprolol Tartrate [Lopressor] 50 mg PO TID #60 tab 06/11/20 06/27/20 Rx Pantoprazole [Protonix] 40 mg PO MARQUES-WILMA #30 tablet. 06/11/20 06/27/20 Rx LORazepam [Ativan] 2 mg PO HS PRN #30 tab 06/12/20 06/27/20 Rx Amiodarone [Cordarone] 200 mg PO BID tab 06/26/20 06/27/20 Rx Furosemide [Lasix] 40 mg PO DAILY tab 06/26/20 06/27/20 Rx Insulin Detemir (Levemir) [Levemir] 8 unit SQ DAILY@0700 syr 06/26/20 06/27/20 Rx Melatonin 5 mg PO HS PRN tablet 06/26/20 06/27/20 Rx Ondansetron [Zofran] 4 mg PO Q8HR PRN tab 06/26/20 06/27/20 Rx diphenhydrAMINE [Benadryl] 50 mg PO HS PRN #2 cap 06/26/20 06/27/20 Rx Furosemide [Lasix] 20 mg PO DAILY 06/27/20 06/27/20 History INSULIN ASPART (NovoLOG) [NovoLOG See Protocol SQ [facility] 06/27/20 06/27/20 History (formulary)] Levothyroxine Sodium [Synthroid] 25 mcg PO DAILY 06/27/20 06/27/20 History Allergies Allergy/AdvReac Type Severity Reaction Status Date / Time Penicillins Allergy Rash/Hives Verified 06/27/20 13:47 zolpidem [From Ambien] AdvReac Confusion Verified 06/27/20 13:47 Physical Exam Vitals: Vital Signs Temp Pulse Pulse Resp BP BP Pulse Ox 06/27/20 15:00 99 17 137/82 91 L 06/27/20 14:39 82 18 130/72 97 06/27/20 14:00 88 22 115/97 93 L 06/27/20 12:12 98.0 F 84 18 117/66 95 Intake and Output 06/27/20 06/27/20 06/27/20 06:59 14:59 22:59 Other: Weight 83.915 kg 83.915 kg Results CBC & Chem 7: 06/28/20 10:56 06/28/20 10:56 Labs: Abnormal Lab Results - Last 24 Hours (Table) 06/27/20 06/27/20 Range/Units 13:57 13:57 RBC 3.83 L (4.30-5.90) m/uL Hgb 11.9 L (13.0-17.5) gm/dL Hct 36.1 L (39.0-53.0) % Lymphocytes # 0.8 L (1.0-4.8) k/uL Sodium 128 L (137-145) mmol/L Chloride 90 L (98-107) mmol/L BUN 24 H (9-20) mg/dL Creatinine 1.41 H (0.66-1.25) mg/dL Glucose 177 H (74-99) mg/dL Calcium 8.1 L (8.4-10.2) mg/dL Thrombosis Risk Factor Assmnt - Choose All That Apply Any of the Below Risk Factors Present?: Yes Each Factor Represents 1 point: Medical pt on bed rest Each Risk Factor Represents 3 Points: Age 75 years or older Thrombosis Risk Factor Assessment Total Risk Factor Score: 4 Thrombosis Risk Factor Assessment Level: Moderate Risk Assessment and Plan Assessment: Acute and chronic systolic congestive heart failure with ejection fraction of 30-35% 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 Continue same treatment. Continue with symptomatic treatment. Resume home medication. Monitor lytes and vitals. DVT and GI prophylaxis. Further recommendations of the clinical course of the patient DVT prophylaxis: Eliquis GI Prophylaxis: Ppi
--- NOTE | 2020-06-29 07:31 | P.PN ---
Subjective 89-year-old white male who was recently discharged for pneumonia but had new onset A fibrillation. He is been home for about 5 days and yesterday had worsening dyspnea. Evaluation emergency room did show changes of congestive heart failure with bibasilar effusions. He is admitted for acute systolic congestive heart failure. History of atrial fibrillation with normal ventricular response otherwise noted on his EKG with right bundle branch block. Patient has been evaluated by paint stripper and was treated for acute CHF with ejection fraction of 30-35% and his breathing improved and eventually Cleared by paint stripper to be discharged to rehab. Patient was adamant to go to rehab on 06/26, he was found stable and discharged after cardiology team cleared him. 5 could not take him home because she cannot take care of him for the planned for him to go to rehab. Patient went to rehab and he did not like the room because he felt a distal small so he signed himself out and went home, however the family sent him back to the hospital the next day, so he got admitted to the same hospital on 06/27. Currently patient denies any specific symptoms, no chest pain or dyspnea, no abdominal pain, no diarrhea or dysuria, no fever. Hemodynamically stable and labs reviewed he has mild anemia at 11.9 and mild hyponatremia at 128, creatinine 1.4. And sugar slightly elevated 06/28/20 Patient is awake and alert, slightly tachypneic, no subjective dyspnea, no chest pain, no abdominal or urinary complaints. No fever To his hemodynamically stable, labs revealed a stable Daughter and at bedside and all their questions are answered to their sa tisfaction, they agree with the planned for is here for placement Objective - Vital Signs Vital signs: Vital Signs Temp 97.7 F 06/28/20 06:05 Pulse 73 06/28/20 18:04 Resp 18 06/28/20 06:05 BP 128/79 06/28/20 18:04 Pulse Ox 96 06/28/20 06:05 Intake & Output 06/27/20 06/28/20 06/28/20 18:59 06:59 18:59 Intake Total 300 250 Output Total 1000 1000 Balance -1000 -700 250 Weight 83.915 kg 83.915 kg Intake: Oral 300 250 Output: Urine 1000 1000 Other: Voiding Method Indwelling Catheter Indwelling Catheter - Exam GENERAL: The patient is alert and oriented x3, not in any acute distress. Well developed, well nourished. HEENT: Pupils are round and equally reacting to light. EOMI. No scleral icterus. No conjunctival pallor. Normocephalic, atraumatic. No pharyngeal erythema. No thyromegaly. CARDIOVASCULAR: S1 and S2 present. No murmurs, rubs, or gallops. PULMONARY: Chest is clear to auscultation, no wheezing or crackles. ABDOMEN: Soft, nontender, nondistended, normoactive bowel sounds. No palpable organomegaly. MUSCULOSKELETAL: No joint swelling or deformity. EXTREMITIES: No cyanosis, clubbing, or pedal edema. NEUROLOGICAL: Gross neurological examination did not reveal any focal deficits. SKIN: No rashes. no petechiae. - Labs CBC & Chem 7: 06/28/20 10:56 06/28/20 10:56 Labs: Abnormal Lab Results - Last 24 Hours (Table) 06/27/20 06/28/20 06/28/20 Range/Units 20:30 07:14 10:56 RBC 3.54 L (4.30-5.90) m/uL Hgb 11.1 L (13.0-17.5) gm/dL Hct 33.7 L (39.0-53.0) % Lymphocytes # 0.7 L (1.0-4.8) k/uL Sodium (137-145) mmol/L Chloride (98-107) mmol/L Carbon Dioxide (22-30) mmol/L BUN (9-20) mg/dL Glucose (74-99) mg/dL POC Glucose (mg/dL) 236 H 177 H (75-99) mg/dL Calcium (8.4-10.2) mg/dL 06/28/20 06/28/20 06/28/20 Range/Units 10:56 12:12 17:27 RBC (4.30-5.90) m/uL Hgb (13.0-17.5) gm/dL Hct (39.0-53.0) % Lymphocytes # (1.0-4.8) k/uL Sodium 128 L (137-145) mmol/L Chloride 90 L (98-107) mmol/L Carbon Dioxide 31 H (22-30) mmol/L BUN 23 H (9-20) mg/dL Glucose 221 H (74-99) mg/dL POC Glucose (mg/dL) 252 H 204 H (75-99) mg/dL Calcium 8.0 L (8.4-10.2) mg/dL Assessment and Plan Assessment: Acute and chronic systolic congestive heart failure with ejection fraction of 30-35% 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 Continue same treatment. Continue with symptomatic treatment. Resume home medication. Monitor lytes and vitals. DVT and GI prophylaxis. Further recommendations of the clinical course of the patient DVT prophylaxis: Eliquis GI Prophylaxis: Ppi Dr. Christina will resume the care of the patient tomorrow on 06/29
[2020-06-29 07:36] LABS: Basophils % (A) 0 %; Eosinophils # (A) 0.1 k/uL (0-0.7); Eosinophils % (A) 1 %; HCT 36.2 % (39.0-53.0); Lymphocytes # (A) 1.2 k/uL (1.0-4.8); Lymphocytes % (A) 14 %; MCH 31.4 pg (25.0-35.0); MCHC 33.1 g/dL (31.0-37.0); MCV 95.1 fL (80.0-100.0); Mean Platelet Volume 7.4; Monocytes # (A) 0.5 k/uL (0-1.0); Monocytes % (A) 6 %; Neutrophils # (A) 6.6 k/uL (1.3-7.7); Neutrophils % (A) 76 %; Platelet Count 216 k/uL (150-450); RBC 3.81 m/uL (4.30-5.90); RDW 13.4 % (11.5-15.5); WBC 8.7 k/uL (3.8-10.6)
[2020-06-29 07:52] LABS: Calcium 8.2 mg/dL (8.4-10.2); Potassium 4.2 mmol/L (3.5-5.1)
--- NOTE | 2020-06-29 08:19 | P.PN ---
Subjective Progress Note Date: 06/29/20 Principal diagnosis: The patient is an 89-year-old white male essentially admitted for congestive heart failure with generalized weakness. We are hoping for placement to rehab for strengthening for gait. He has been walking at home with a walker but did not last very long. High fall risk is noted but cognitively he is doing much better. He has not underlying history of congestive heart failure No voiding difficulties. No sniffing nausea, vomiting or diarrhea. He has been using a heating pad for overt pain. Objective - Vital Signs Vital signs: Vital Signs Temp 97.9 F 06/29/20 05:04 Pulse 66 06/29/20 05:04 Resp 16 06/29/20 05:04 BP 146/79 06/29/20 05:04 Pulse Ox 92 L 06/29/20 05:04 Intake & Output 06/28/20 06/29/20 06/29/20 18:59 06:59 18:59 Intake Total 250 Output Total 625 Balance 250 -625 Weight 83.915 kg Intake: Oral 250 Output: Urine 625 Other: Voiding Method Indwelling Catheter Indwelling Catheter # Bowel Movements 0 - Constitutional General appearance: Present: cooperative, no acute distress - EENT Eyes: Absent: abnormal pupil - Neck Neck: Absent: lymphadenopathy - Respiratory Respiratory: bilateral: CTA - Cardiovascular Rhythm: regular Heart sounds: normal: S1, S2 Abnormal Heart Sounds: Absent: S3 Gallop - Gastrointestinal General gastrointestinal: Present: soft. Absent: tenderness - Integumentary Integumentary: Absent: cellulitis - Psychiatric Psychiatric: Present: A&O x's 3 - Labs CBC & Chem 7: 06/29/20 07:12 06/29/20 07:12 Labs: Abnormal Lab Results - Last 24 Hours (Table) 06/28/20 06/28/20 06/28/20 Range/Units 10:56 10:56 12:12 RBC 3.54 L (4.30-5.90) m/uL Hgb 11.1 L (13.0-17.5) gm/dL Hct 33.7 L (39.0-53.0) % Lymphocytes # 0.7 L (1.0-4.8) k/uL Sodium 128 L (137-145) mmol/L Chloride 90 L (98-107) mmol/L Carbon Dioxide 31 H (22-30) mmol/L BUN 23 H (9-20) mg/dL Glucose 221 H (74-99) mg/dL POC Glucose (mg/dL) 252 H (75-99) mg/dL Calcium 8.0 L (8.4-10.2) mg/dL 06/28/20 06/28/20 06/29/20 Range/Units 17:27 20:45 07:12 RBC 3.81 L (4.30-5.90) m/uL Hgb 12.0 L (13.0-17.5) gm/dL Hct 36.2 L (39.0-53.0) % Lymphocytes # (1.0-4.8) k/uL Sodium (137-145) mmol/L Chloride (98-107) mmol/L Carbon Dioxide (22-30) mmol/L BUN (9-20) mg/dL Glucose (74-99) mg/dL POC Glucose (mg/dL) 204 H 212 H (75-99) mg/dL Calcium (8.4-10.2) mg/dL 06/29/20 Range/Units 07:12 RBC (4.30-5.90) m/uL Hgb (13.0-17.5) gm/dL Hct (39.0-53.0) % Lymphocytes # (1.0-4.8) k/uL Sodium 127 L (137-145) mmol/L Chloride 88 L (98-107) mmol/L Carbon Dioxide (22-30) mmol/L BUN 22 H (9-20) mg/dL Glucose 181 H (74-99) mg/dL POC Glucose (mg/dL) (75-99) mg/dL Calcium 8.2 L (8.4-10.2) mg/dL Assessment and Plan (1) Congestive heart failure (CHF) Current Visit: Yes Status: Acute Code(s): I50.9 - HEART FAILURE, UNSPECIFIED SNOMED Code(s): 89068887 (2) Diabetes Current Visit: No Status: Acute Code(s): E11.9 - TYPE 2 DIABETES MELLITUS WITHOUT COMPLICATIONS SNOMED Code(s): 17787631 (3) High risk for readmission Current Visit: No Status: Acute Code(s): Z91.89 - OTH PERSONAL RISK FACTORS, NOT ELSEWHERE CLASSIFIED SNOMED Code(s): 929309545 (4) Hyponatremia Current Visit: No Status: Acute Code(s): E87.1 - HYPO-OSMOLALITY AND HYPONATREMIA SNOMED Code(s): 51553668 (5) Presence of stent in left circumflex coronary artery Current Visit: No Status: Acute Code(s): Z95.5 - PRESENCE OF CORONARY ANGIOPLASTY IMPLANT AND GRAFT SNOMED Code(s): 298093980 (6) HTN (hypertension) Current Visit: No Status: Chronic Code(s): I10 - ESSENTIAL (PRIMARY) HYPERTENSION SNOMED Code(s): 29031249 (7) Hyperlipemia Current Visit: No Status: Chronic Code(s): E78.5 - HYPERLIPIDEMIA, UNSPECIFIED SNOMED Code(s): 54065030 Plan: Check CMP in a.m. Discharge planning with rehab. Prognosis is guarded secondary to his advancing age and multiple comorbidities. We'll continue to follow. Hopefully we can discharge in next 24-48 hours
[2020-06-29] MEDS: INSULIN DETEMIR (LEVEMIR) 100 UNIT/ML SYR SQ SCH (08:30)
[2020-06-29] MEDS: APIXABAN 2.5 MG TABLET PO SCH ×2 (08:30→21:57)
[2020-06-29] MEDS: METOPROLOL TARTRATE 50 MG TAB PO SCH ×3 (08:30→21:12)
[2020-06-29] MEDS: AMIODARONE 200 MG TAB PO SCH ×2 (08:30→21:12)
[2020-06-29] MEDS: PANTOPRAZOLE 40 MG TABLET PO SCH (08:30)
[2020-06-29] MEDS: Acetaminophen-Codeine 300-30mg TAB PO PRN ×2 (14:52→22:21)
[2020-06-29] MEDS: ONDANSETRON 4 MG TAB PO PRN (19:04)
[2020-06-29 20:50] LABS: Glucose,Whole Blood 202 mg/dL (75-99)
[2020-06-29] MEDS: MELATONIN 5 MG TABLET PO SCH (21:13)
[2020-06-29] MEDS: LORazepam 1 MG TAB PO PRN (21:13)
[2020-06-29] MEDS: ATORVASTATIN 10 MG TAB PO SCH (21:57)
[2020-06-29] MEDS: EZETIMIBE 10 MG TAB PO SCH (21:57)
[2020-06-29] MEDS: cloNIDine HCL 0.2 MG TAB PO SCH (21:57)
[2020-06-29] MEDS: LOSARTAN 50 MG TAB PO SCH (21:57)
[2020-06-30] MEDS: Acetaminophen-Codeine 300-30mg TAB PO PRN (04:11)
[2020-06-30] MEDS: LEVOTHYROXINE 25 MCG TAB PO SCH (05:46)
[2020-06-30] MEDS: ONDANSETRON 4 MG TAB PO PRN ×2 (05:49→12:25)
[2020-06-30 08:21] LABS: Glucose,Whole Blood 205 mg/dL (75-99)
[2020-06-30] MEDS: APIXABAN 2.5 MG TABLET PO SCH ×2 (08:37→20:48)
[2020-06-30] MEDS: METOPROLOL TARTRATE 50 MG TAB PO SCH ×3 (08:37→20:48)
[2020-06-30] MEDS: AMIODARONE 200 MG TAB PO SCH ×2 (08:37→20:49)
[2020-06-30] MEDS: PANTOPRAZOLE 40 MG TABLET PO SCH (08:37)
[2020-06-30] MEDS: INSULIN DETEMIR (LEVEMIR) 100 UNIT/ML SYR SQ SCH (08:38)
[2020-06-30 09:36] LABS: Basophils # (A) 0.1 k/uL (0-0.2); Basophils % (A) 0 %; Eosinophils % (A) 0 %; HCT 38.9 % (39.0-53.0); HGB 12.5 gm/dL (13.0-17.5); Lymphocytes # (A) 0.8 k/uL (1.0-4.8); Lymphocytes % (A) 8 %; MCH 30.6 pg (25.0-35.0); MCHC 32.1 g/dL (31.0-37.0); MCV 95.4 fL (80.0-100.0); Mean Platelet Volume 7.7; Monocytes # (A) 0.5 k/uL (0-1.0); Monocytes % (A) 5 %; Neutrophils # (A) 8.7 k/uL (1.3-7.7); Neutrophils % (A) 84 %; Platelet Count 266 k/uL (150-450); RBC 4.08 m/uL (4.30-5.90); RDW 13.6 % (11.5-15.5); WBC 10.3 k/uL (3.8-10.6)
[2020-06-30 10:06] LABS: Albumin 3.7 g/dL (3.5-5.0); Calcium 8.5 mg/dL (8.4-10.2); Potassium 4.7 mmol/L (3.5-5.1); Total Protein 6.5 g/dL (6.3-8.2)
[2020-06-30 11:20] LABS: Glucose,Whole Blood 233 mg/dL (75-99)
[2020-06-30] MEDS: INSULIN ASPART (NovoLOG) 100 UNIT/ML VIAL SQ SCH ×3 (12:26→20:51)
[2020-06-30] MEDS: ONDANSETRON 4 MG/2 ML VIAL IVP PRN ×2 (13:24→20:49)
[2020-06-30 17:04] LABS: Glucose,Whole Blood 171 mg/dL (75-99)
[2020-06-30 19:57] VITALS: TEMP 97.6
[2020-06-30 20:41] LABS: Glucose,Whole Blood 133 mg/dL (75-99)
[2020-06-30] MEDS: LOSARTAN 50 MG TAB PO SCH (20:48)
[2020-06-30] MEDS: ATORVASTATIN 10 MG TAB PO SCH (20:48)
[2020-06-30] MEDS: EZETIMIBE 10 MG TAB PO SCH (20:49)
[2020-06-30] MEDS: LORazepam 1 MG TAB PO PRN (21:26)
[2020-06-30] MEDS: MELATONIN 5 MG TABLET PO SCH (21:26)
[2020-06-30] MEDS: cloNIDine HCL 0.2 MG TAB PO SCH (21:28)
[2020-07-01 06:20] VITALS: BP 98/58; PULSE 68; RESP 18
[2020-07-01] MEDS: LEVOTHYROXINE 25 MCG TAB PO SCH (06:20)
[2020-07-01 06:32] LABS: Basophils # (A) 0.1 k/uL (0-0.2); Basophils % (A) 1 %; Eosinophils # (A) 0.1 k/uL (0-0.7); Eosinophils % (A) 1 %; HCT 35.7 % (39.0-53.0); HGB 11.6 gm/dL (13.0-17.5); Lymphocytes # (A) 1.1 k/uL (1.0-4.8); Lymphocytes % (A) 13 %; MCHC 32.6 g/dL (31.0-37.0); MCV 94.9 fL (80.0-100.0); Mean Platelet Volume 8.2; Monocytes # (A) 0.6 k/uL (0-1.0); Monocytes % (A) 7 %; Neutrophils # (A) 6.1 k/uL (1.3-7.7); Neutrophils % (A) 74 %; Platelet Count 235 k/uL (150-450); RBC 3.76 m/uL (4.30-5.90); RDW 14.1 % (11.5-15.5); WBC 8.3 k/uL (3.8-10.6)
[2020-07-01 06:55] LABS: Glucose,Whole Blood 87 mg/dL (75-99)
[2020-07-01] MEDS: INSULIN ASPART (NovoLOG) 100 UNIT/ML VIAL SQ SCH (07:32)
--- NOTE | 2020-07-01 08:40 | P.PN ---
Subjective Principal diagnosis: The patient is an 89-year-old white male essentially admitted for congestive heart failure with generalized weakness. We are hoping for placement to rehab for strengthening for gait. He has been walking at home with a walker but did not last very long. High fall risk is noted but cognitively he is doing much better. He has not underlying history of congestive heart failure No voiding difficulties. Ther is nausea vomiting or diarrhea. He has been using a heating pad for overt pain. Objective - Vital Signs Vital signs: Vital Signs Temp 97.6 F 07/01/20 04:30 Pulse 68 07/01/20 04:30 Resp 18 07/01/20 04:30 BP 98/58 07/01/20 04:30 Pulse Ox 93 L 07/01/20 04:30 Intake & Output 06/30/20 07/01/20 07/01/20 18:59 06:59 18:59 Intake Total 240 Output Total 250 Balance -250 240 Intake: Oral 240 Output: Urine 250 Other: Voiding Method Indwelling Catheter Indwelling Catheter # Bowel Movements 1 - Constitutional General appearance: Present: average body habitus - EENT Eyes: Absent: abnormal pupil - Neck Neck: Absent: lymphadenopathy - Respiratory Respiratory: bilateral: CTA - Cardiovascular Rhythm: irregularly irregular Heart sounds: normal: S1, S2 Abnormal Heart Sounds: Absent: S3 Gallop - Gastrointestinal General gastrointestinal: Present: soft. Absent: tenderness - Integumentary Integumentary: Absent: cellulitis - Labs CBC & Chem 7: 07/01/20 05:40 06/30/20 08:52 Labs: Abnormal Lab Results - Last 24 Hours (Table) 06/30/20 06/30/20 06/30/20 Range/Units 08:52 08:52 11:18 RBC 4.08 L (4.30-5.90) m/uL Hgb 12.5 L (13.0-17.5) gm/dL Hct 38.9 L (39.0-53.0) % Neutrophils # 8.7 H (1.3-7.7) k/uL Lymphocytes # 0.8 L (1.0-4.8) k/uL Sodium 125 L (137-145) mmol/L Chloride 86 L (98-107) mmol/L BUN 23 H (9-20) mg/dL Glucose 201 H (74-99) mg/dL POC Glucose (mg/dL) 233 H (75-99) mg/dL ALT 68 H (4-49) U/L 06/30/20 06/30/20 07/01/20 Range/Units 17:02 20:39 05:40 RBC 3.76 L (4.30-5.90) m/uL Hgb 11.6 L (13.0-17.5) gm/dL Hct 35.7 L (39.0-53.0) % Neutrophils # (1.3-7.7) k/uL Lymphocytes # (1.0-4.8) k/uL Sodium (137-145) mmol/L Chloride (98-107) mmol/L BUN (9-20) mg/dL Glucose (74-99) mg/dL POC Glucose (mg/dL) 171 H 133 H (75-99) mg/dL ALT (4-49) U/L Assessment and Plan (1) Congestive heart failure (CHF) Current Visit: Yes Status: Acute Code(s): I50.9 - HEART FAILURE, UNSPECIFIED SNOMED Code(s): 65851315 (2) Diabetes Current Visit: No Status: Acute Code(s): E11.9 - TYPE 2 DIABETES MELLITUS WITHOUT COMPLICATIONS SNOMED Code(s): 35264711 (3) High risk for readmission Current Visit: No Status: Acute Code(s): Z91.89 - OT PERSONAL RISK FACTORS, NOT ELSEWHERE CLASSIFIED SNOMED Code(s): 470455480 (4) Hyponatremia Current Visit: No Status: Acute Code(s): E87.1 - HYPO-OSMOLALITY AND HYPONATREMIA SNOMED Code(s): 93565803 (5) Presence of stent in left circumflex coronary artery Current Visit: No Status: Acute Code(s): Z95.5 - PRESENCE OF CORONARY ANGIOPLASTY IMPLANT AND GRAFT SNOMED Code(s): 334400676 (6) HTN (hypertension) Current Visit: No Status: Chronic Code(s): I10 - ESSENTIAL (PRIMARY) HYPERTENSION SNOMED Code(s): 06897549 (7) Hyperlipemia Current Visit: No Status: Chronic Code(s): E78.5 - HYPERLIPIDEMIA, UNSPECIFIED SNOMED Code(s): 21049793 Plan: Check CMP in a.m. Discharge planning with rehab. Prognosis is guarded secondary to his advancing age and multiple comorbidities. We'll continue to follow. Hopefully we can discharge in next 24-48 hours
--- NOTE | 2020-07-01 08:44 | P.DS ---
Providers Date of admission: 06/27/20 14:11 Attending physician: Cecilio Christina Primary care physician: Cecilio Christina - Discharge Diagnosis(es) (1) Congestive heart failure (CHF) Current Visit: Yes Status: Acute (2) Diabetes Current Visit: No Status: Acute (3) High risk for readmission Current Visit: No Status: Acute (4) Hyponatremia Current Visit: No Status: Acute (5) Presence of stent in left circumflex coronary artery Current Visit: No Status: Acute (6) HTN (hypertension) Current Visit: No Status: Chronic (7) Hyperlipemia Current Visit: No Status: Chronic Hospital Course: This discharge summary an 89-year-old white male essentially admitted for social issues and congestive heart failure. The patient is family was unable to care for him properly with his comorbidities. The patient was stabilized. Discharge planning for placement will be noted. The patient will be transferred to [facility] when bed available. Medications were reconciled. We will DC Ballard catheter today to make sure that he can void on his own and increase ambulation. Prognosis guarded secondary to his multiple comorbidities. Patient Condition at Discharge: Stable Plan - Discharge Summary New Discharge Prescriptions: New Melatonin 5 mg PO HS tablet Acetaminophen-Codeine 300-30mg [Tylenol w/codeine #3] 1 each PO Q6HR PRN #120 tab PRN Reason: Pain Continue Nitroglycerin Sl Tabs [Nitrostat] 0.4 mg SUBLINGUAL Q5M PRN #25 tab PRN Reason: Chest Pain Simvastatin [Zocor] 20 mg PO HS Multivitamins, Thera [Multivitamin (formulary)] 1 tab PO DAILY cloNIDine HCL [Catapres] 0.2 mg PO HS Irbesartan [Avapro] 150 mg PO HS Ezetimibe [Zetia] 10 mg PO HS Apixaban [Eliquis] 2.5 mg PO BID #60 tablet Metoprolol Tartrate [Lopressor] 50 mg PO TID #60 tab Pantoprazole [Protonix] 40 mg PO AC-BRKFST #30 tablet. Albuterol Nebulized [Ventolin Nebulized] 2.5 mg INHALATION RT-Q4H PRN ml PRN Reason: Shortness Of Breath Or Wheezing LORazepam [Ativan] 2 mg PO HS PRN #30 tab PRN Reason: Anxiety diphenhydrAMINE [Benadryl] 50 mg PO HS PRN #2 cap PRN Reason: Insomnia Amiodarone [Cordarone] 200 mg PO BID tab Furosemide [Lasix] 40 mg PO DAILY tab Insulin Detemir (Levemir) [Levemir] 8 unit SQ DAILY@0700 syr Melatonin 5 mg PO HS PRN tablet PRN Reason: Insomnia Ondansetron [Zofran] 4 mg PO Q8HR PRN tab PRN Reason: Nausea And Vomiting Levothyroxine Sodium [Synthroid] 25 mcg PO DAILY INSULIN ASPART (NovoLOG) [NovoLOG (formulary)] See Protocol SQ ACHS Furosemide [Lasix] 20 mg PO DAILY Discharge Medication List Nitroglycerin Sl Tabs [Nitrostat] 0.4 mg SUBLINGUAL Q5M PRN #25 tab 03/22/15 [Rx] Multivitamins, Thera [Multivitamin (formulary)] 1 tab PO DAILY 05/13/16 [History] Simvastatin [Zocor] 20 mg PO HS 05/13/16 [History] cloNIDine HCL [Catapres] 0.2 mg PO HS 05/13/16 [History] Ezetimibe [Zetia] 10 mg PO HS 05/29/20 [History] Irbesartan [Avapro] 150 mg PO HS 05/29/20 [History] Albuterol Nebulized [Ventolin Nebulized] 2.5 mg INHALATION RT-Q4H PRN ml 06/11/20 [Rx] Apixaban [Eliquis] 2.5 mg PO BID #60 tablet 06/11/20 [Rx] Metoprolol Tartrate [Lopressor] 50 mg PO TID #60 tab 06/11/20 [Rx] Pantoprazole [Protonix] 40 mg PO AC-BRKFST #30 tablet. 06/11/20 [Rx] LORazepam [Ativan] 2 mg PO HS PRN #30 tab 06/12/20 [Rx] Amiodarone [Cordarone] 200 mg PO BID tab 06/26/20 [Rx] Furosemide [Lasix] 40 mg PO DAILY tab 06/26/20 [Rx] Insulin Detemir (Levemir) [Levemir] 8 unit SQ DAILY@0700 syr 06/26/20 [Rx] Melatonin 5 mg PO HS PRN tablet 06/26/20 [Rx] Ondansetron [Zofran] 4 mg PO Q8HR PRN tab 06/26/20 [Rx] diphenhydrAMINE [Benadryl] 50 mg PO HS PRN #2 cap 06/26/20 [Rx] Furosemide [Lasix] 20 mg PO DAILY 06/27/20 [History] INSULIN ASPART (NovoLOG) [NovoLOG (formulary)] See Protocol SQ ACHS 06/27/20 [History] Levothyroxine Sodium [Synthroid] 25 mcg PO DAILY 06/27/20 [History] Acetaminophen-Codeine 300-30mg [Tylenol w/codeine #3] 1 each PO Q6HR PRN #120 tab 07/01/20 [Rx] Melatonin 5 mg PO HS tablet 07/01/20 [Rx] Follow up Appointment(s)/Referral(s): Cecilio Christina MD [Primary Care Provider] - 1-2 days
[2020-07-01 08:46] LABS: Calcium 8.3 mg/dL (8.4-10.2)
[2020-07-01 08:49] LABS: Potassium 5.4 mmol/L (3.5-5.1)
[2020-07-01] MEDS: ONDANSETRON 4 MG/2 ML VIAL IVP PRN (10:11)
[2020-07-01] MEDS: PANTOPRAZOLE 40 MG TABLET PO SCH (10:11)
[2020-07-01] MEDS: Acetaminophen-Codeine 300-30mg TAB PO PRN (10:12)
[2020-07-01] MEDS: AMIODARONE 200 MG TAB PO SCH (10:12)
[2020-07-01] MEDS: APIXABAN 2.5 MG TABLET PO SCH (10:12)
[2020-07-01] MEDS: METOPROLOL TARTRATE 50 MG TAB PO SCH (10:12)
[2020-07-01] MEDS: INSULIN DETEMIR (LEVEMIR) 100 UNIT/ML SYR SQ SCH (10:13)
== END 2020-07-01 11:25 ==
LOC: EC 12:05 → 6NMEDSUR 14:11
PROVIDERS: ADMIT Family Medicine; ATTEND Family Medicine
DX: I11.0 Hypertensive heart disease with heart failure (principal); I50.23 Acute on chronic systolic (congestive) heart failure; I48.19 Other persistent atrial fibrillation; I25.10 Atherosclerotic heart disease of native coronary artery without angina pectoris; E11.9 Type 2 diabetes mellitus without complications; K21.9 Gastro-esophageal reflux disease without esophagitis; E78.5 Hyperlipidemia, unspecified; I25.2 Old myocardial infarction; M19.90 Unspecified osteoarthritis, unspecified site; N40.0 Benign prostatic hyperplasia without lower urinary tract symptoms; M19.031 Primary osteoarthritis, right wrist; R26.81 Unsteadiness on feet; F41.9 Anxiety disorder, unspecified; M10.9 Gout, unspecified; I45.10 Unspecified right bundle-branch block; R51 Headache; R11.2 Nausea with vomiting, unspecified; G47.00 Insomnia, unspecified; E87.1 Hypo-osmolality and hyponatremia; D64.9 Anemia, unspecified; Z79.899 Other long term (current) drug therapy; Z79.4 Long term (current) use of insulin; Z79.890 Hormone replacement therapy; Z88.0 Allergy status to penicillin; Z88.8 Allergy status to other drugs, medicaments and biological substances; Z87.01 Personal history of pneumonia (recurrent); Z85.828 Personal history of other malignant neoplasm of skin; Z79.84 Long term (current) use of oral hypoglycemic drugs; Z79.01 Long term (current) use of anticoagulants; Z87.19 Personal history of other diseases of the digestive system; Z95.5 Presence of coronary angioplasty implant and graft; Z87.891 Personal history of nicotine dependence; Z91.81 History of falling; Z83.42 Family history of familial hypercholesterolemia
CPT/HCPCS: 96376 ×2; 96375; 96374; 99285; 36415; 93005; 97162; 97166; 80053; 80048 ×4; 85025 ×5; 71046; 70450; 51702; G0378 ×5; J1940; J2405 ×2

== ENCOUNTER 2020-07-22 16:06 | Inpatient (IN) | payer MEDICARE, BC ==
[2020-07-22] MEDS ORDERED: IPRATROPIUM-ALBUTEROL 3 ML NEB INHALATION STA (16:35)
--- NOTE | 2020-07-22 16:38 | ED ---
General Adult HPI - General Chief complaint: Shortness of Breath Stated complaint: SOB Time Seen by Provider: 07/22/20 16:15 Source: patient, RN notes reviewed Mode of arrival: ambulatory Limitations: no limitations - History of Present Illness Initial comments: Patient is a pleasant 89-year-old male presenting to the emergency department complaining of difficulty breathing. Symptoms have worsened again the past couple of days. Patient was states he was in the hospital a month ago with pneumonia. Patient states intrafibrillation is a new diagnosis for him. No fevers. Patient does have some fatigue. No chest pain. Patient does admit that his mouth feels dry. - Related Data Home Medications Medication Instructions Recorded Confirmed Simvastatin [Zocor] 20 mg PO DAILY 05/13/16 07/22/20 cloNIDine HCL [Catapres] 0.2 mg PO HS 05/13/16 07/22/20 Ezetimibe [Zetia] 10 mg PO DAILY 05/29/20 07/22/20 Irbesartan [Avapro] 150 mg PO DAILY 05/29/20 07/22/20 Furosemide [Lasix] 40 mg PO DAILY 06/27/20 07/22/20 LORazepam [Ativan] 1 mg PO BID PRN 07/22/20 07/22/20 NIFEdipine [NIFEdipine ER] 90 mg PO DAILY 07/22/20 07/22/20 Potassium Chloride ER [K-Dur 10] 10 meq PO DAILY 07/22/20 07/22/20 Previous Rx's Medication Instructions Recorded Apixaban [Eliquis] 2.5 mg PO BID #60 tablet 06/11/20 Metoprolol Tartrate [Lopressor] 50 mg PO TID #60 tab 06/11/20 Pantoprazole [Protonix] 40 mg PO AC-BRKFST #30 tablet. 06/11/20 Allergies Allergy/AdvReac Type Severity Reaction Status Date / Time Penicillins Allergy Rash/Hives Verified 07/22/20 18:08 zolpidem [From Ambien] AdvReac Confusion Verified 07/22/20 18:08 Review of Systems ROS Statement: Those systems with pertinent positive or pertinent negative responses have been documented in the HPI. ROS Other: All systems not noted in ROS Statement are negative. Constitutional: Denies: fever Eyes: Denies: eye pain ENT: Denies: ear pain Respiratory: Reports: dyspnea Cardiovascular: Denies: chest pain Endocrine: Reports: fatigue Gastrointestinal: Denies: abdominal pain Genitourinary: Denies: dysuria Musculoskeletal: Denies: back pain Skin: Denies: rash Neurological: Denies: weakness Past Medical History Past Medical History: Coronary Artery Disease (CAD), Cancer, Diabetes Mellitus, GERD/Reflux, Hyperlipidemia, Hypertension, Myocardial Infarction ([place]), Osteoarthritis (OA), Pneumonia, Vascular Disorder Additional Past Medical History / Comment(s): NIDDM type II-pt states physician took him off his diabetic medication-diet controlled now, sinus problems pt stat es worse this past year, bilateral caratid artery disease, skin cancer with removal, diverticulitis, BPH, arthritis R wrist, gout R great toe, unsteady gait/falls, past rheumatic fever age 21yrs, Last Myocardial Infarction Date:: 2014 History of Any Multi-Drug Resistant Organisms: None Reported Past Surgical History: Heart Catheterization, Heart Catheterization With Stent Additional Past Surgical History / Comment(s): Skin cancer removed L upper arm, bilateral cataract removal/lens implants. Past Anesthesia/Blood Transfusion Reactions: No Reported Reaction, Malignant H yperthermia Date of Last Stent Placement:: 2014 Past Psychological History: Anxiety Smoking Status: Former smoker Past Alcohol Use History: None Reported Past Drug Use History: None Reported - Past Family History Father History Unknown: Yes Family Medical History: Unable to Obtain Additional Family Medical History / Comment(s): Father never went to the doctor. Mother History Unknown: Yes Family Medical History: Hyperlipidemia Additional Family Medical History / Comment(s): high cholesterol. General Exam Limitations: no limitations General appearance: alert, in no apparent distress Head exam: Present: normocephalic Eye exam: Present: normal appearance ENT exam: Present: mucous membranes dry Neck exam: Present: normal inspection Respiratory exam: Present: decreased breath sounds Cardiovascular Exam: Present: tachycardia, irregular rhythm GI/Abdominal exam: Present: soft. Absent: tenderness Extremities exam: Present: pedal edema. Absent: calf tenderness Neurological exam: Present: alert Psychiatric exam: Present: normal affect, normal mood Skin exam: Present: normal color Course Vital Signs 07/22/20 07/22/20 07/22/20 16:14 16:52 17:01 Temperature 97.8 F Pulse Rate 136 H 134 H 124 H Respiratory 22 20 22 Rate Blood Pressure 125/103 O2 Sat by Pulse 87 L Oximetry 07/22/20 18:21 Temperature Pulse Rate 126 H Respiratory 20 Rate Blood Pressure 111/83 O2 Sat by Pulse 93 L Oximetry - Reevaluation(s) Reevaluation #1: 07/22/20 18:28 There is concern for possible pneumonia and patient would meet sepsis criteria diagnosed at 1820. Blood culture and lactic acid have been ordered. IV antibiotics will be ordered. EKG Findings - EKG Comments: EKG Findings:: A. fib with RVR, rate 119. QRS 156. QT 364. QTC 512. Right axis. Nonspecific intraventricular block. Nonspecific T waves. Medical Decision Making - Medical Decision Making Patient reevaluated and updated. Case discussed in detail with Dr. Christina, who will admit his patient. Heart rate remains 116 and low dose Cardizem triple be started. - Lab Data Result diagrams: 07/22/20 16:46 07/22/20 16:46 Lab Results 07/22/20 07/22/20 07/22/20 Range/Units 16:35 16:46 16:46 WBC 14.2 H (3.8-10.6) k/uL RBC 4.46 (4.30-5.90) m/uL Hgb 13.8 (13.0-17.5) gm/dL Hct 43.7 (39.0-53.0) % MCV 97.8 (80.0-100.0) fL MCH 31.0 (25.0-35.0) pg MCHC 31.7 (31.0-37.0) g/dL RDW 15.2 (11.5-15.5) % Plt Count 253 (150-450) k/uL Neutrophils % 87 % Lymphocytes % 7 % Monocytes % 5 % Eosinophils % 0 % Basophils % 0 % Neutrophils # 12.3 H (1.3-7.7) k/uL Lymphocytes # 1.0 (1.0-4.8) k/uL Monocytes # 0.7 (0-1.0) k/uL Eosinophils # 0.1 (0-0.7) k/uL Basophils # 0.0 (0-0.2) k/uL Macrocytosis Slight Sodium 127 L (137-145) mmol/L Potassium 5.1 (3.5-5.1) mmol/L Chloride 93 L (98-107) mmol/L Carbon Dioxide 25 (22-30) mmol/L Anion Gap 9 mmol/L BUN 9 (9-20) mg/dL Creatinine 0.91 (0.66-1.25) mg/dL Est GFR (CKD-EPI)AfAm 87 (>60 ml/min/1.73 sqM) Est GFR (CKD-EPI)NonAf 76 (>60 ml/min/1.73 sqM) Glucose 193 H (74-99) mg/dL Plasma Lactic Acid Sukhdev 1.9 (0.7-2.0) mmol/L Calcium 9.1 (8.4-10.2) mg/dL Total Bilirubin 1.4 H (0.2-1.3) mg/dL AST 54 (17-59) U/L ALT 31 (4-49) U/L Alkaline Phosphatase 94 (38-126) U/L Troponin I (0.000-0.034) ng/mL NT-Pro-B Natriuret Pep pg/mL Total Protein 7.3 (6.3-8.2) g/dL Albumin 4.1 (3.5-5.0) g/dL 07/22/20 07/22/20 Range/Units 16:46 16:46 WBC (3.8-10.6) k/uL RBC (4.30-5.90) m/uL Hgb (13.0-17.5) gm/dL Hct (39.0-53.0) % MCV (80.0-100.0) fL MCH (25.0-35.0) pg MCHC (31.0-37.0) g/dL RDW (11.5-15.5) % Plt Count (150-450) k/uL Neutrophils % % Lymphocytes % % Monocytes % % Eosinophils % % Basophils % % Neutrophils # (1.3-7.7) k/uL Lymphocytes # (1.0-4.8) k/uL Monocytes # (0-1.0) k/uL Eosinophils # (0-0.7) k/uL Basophils # (0-0.2) k/uL Macrocytosis Sodium (137-145) mmol/L Potassium (3.5-5.1) mmol/L Chloride (98-107) mmol/L Carbon Dioxide (22-30) mmol/L Anion Gap mmol/L BUN (9-20) mg/dL Creatinine (0.66-1.25) mg/dL Est GFR (CKD-EPI)AfAm (>60 ml/min/1.73 sqM) Est GFR (CKD-EPI)NonAf (>60 ml/min/1.73 sqM) Glucose (74-99) mg/dL Plasma Lactic Acid Sukhdev (0.7-2.0) mmol/L Calcium (8.4-10.2) mg/dL Total Bilirubin (0.2-1.3) mg/dL AST (17-59) U/L ALT (4-49) U/L Alkaline Phosphatase (38-126) U/L Troponin I 0.051 H* (0.000-0.034) ng/mL NT-Pro-B Natriuret Pep 87929 pg/mL Total Protein (6.3-8.2) g/dL Albumin (3.5-5.0) g/dL - Radiology Data Radiology results: image reviewed (Chest x-ray shows CHF with increasing pleural fluid. Possible right lower lobe infiltrate) Critical Care Time Critical Care Time: Yes Total Critical Care Time: 34 Disposition Clinical Impression: Atrial fibrillation with RVR, Congestive heart failure (CHF), Pneumonia, Sepsis Disposition: ADMITTED IP TO THIS HOSP Condition: Serious Is patient prescribed a controlled substance at d/c from ED?: No Referrals: Cecilio Christina MD [Primary Care Provider] - 1-2 days Decision Time: 18:29
[2020-07-22 17:04] LABS: Basophils % (A) 0 %; Eosinophils # (A) 0.1 k/uL (0-0.7); Eosinophils % (A) 0 %; HCT 43.7 % (39.0-53.0); HGB 13.8 gm/dL (13.0-17.5); Lymphocytes % (A) 7 %; MCHC 31.7 g/dL (31.0-37.0); MCV 97.8 fL (80.0-100.0); Macrocytosis Slight; Mean Platelet Volume 7.1; Monocytes # (A) 0.7 k/uL (0-1.0); Monocytes % (A) 5 %; Neutrophils # (A) 12.3 k/uL (1.3-7.7); Neutrophils % (A) 87 %; Platelet Count 253 k/uL (150-450); RBC 4.46 m/uL (4.30-5.90); RDW 15.2 % (11.5-15.5); WBC 14.2 k/uL (3.8-10.6)
[2020-07-22 17:05] LABS: Albumin 4.1 g/dL (3.5-5.0); Calcium 9.1 mg/dL (8.4-10.2); Potassium 5.1 mmol/L (3.5-5.1); Total Bilirubin 1.4 mg/dL (0.2-1.3); Total Protein 7.3 g/dL (6.3-8.2)
--- NOTE | 2020-07-22 17:21 | XR ---
EXAMINATION TYPE: XR chest 2V DATE OF EXAM: 07/22/2020 COMPARISON: 06/27/2020 HISTORY: Difficulty breathing TECHNIQUE: FINDINGS: Heart is enlarged. There is some pulmonary vascular congestion. There is bilateral blunting of the costophrenic angles. There are are no hilar masses. IMPRESSION: There is congestive heart failure with increasing pleural fluid compared to old exam. Rig ht lower lobe pneumonia is possible.
[2020-07-22] MEDS ORDERED: PNEUMONIA PROTOCOL UTILIZED 1 EACH MISC PO PRN (18:29)
[2020-07-22] MEDS ORDERED: LEVOFLOXACIN 750MG-D5W PMX 750 MG in DEXTROSE/WATER 1 150ML.BAG IVPB STA (18:29)
[2020-07-22] MEDS ORDERED: ASPIRIN 325 MG TAB PO STA (18:29)
[2020-07-22 18:31] LABS: INR 1.1 (<1.2)
[2020-07-22] MEDS ORDERED: DILTIAZEM 125 MG in SODIUM CHLORIDE 0.9% 100 ML IV SCH (18:45)
[2020-07-22] MEDS: FUROSEMIDE 10 MG/ML 4 ML VIAL IV SCH (19:18)
[2020-07-22] MEDS ORDERED: LORazepam 1 MG TAB PO STA (20:09)
[2020-07-22] MEDS ORDERED: diphenhydrAMINE 25 MG CAP PO STA (20:10)
[2020-07-22] MEDS: IPRATROPIUM-ALBUTEROL 3 ML NEB INHALATION PRN (20:32)
[2020-07-22] MEDS: IPRATROPIUM-ALBUTEROL 3 ML NEB INHALATION SCH (20:55)
[2020-07-22] MEDS: NITROGLYCERIN OINT 1 INCH/GM PACKET TOPICAL SCH (23:11)
[2020-07-23] MEDS: IPRATROPIUM-ALBUTEROL 3 ML NEB INHALATION PRN (02:31)
[2020-07-23] MEDS: FUROSEMIDE 10 MG/ML 4 ML VIAL IV SCH ×3 (02:48→17:21)
[2020-07-23] MEDS: ALPRAZolam 0.5 MG TAB PO PRN ×2 (04:21→21:03)
--- NOTE | 2020-07-23 08:06 | P.HPIM ---
History of Present Illness H&P Date: 07/23/20 Chief Complaint: Worsening shortness of breath This is a history and physical an 89-year-old white male essentially readmitted related to related systolic congestive heart failure. The patient has been doing poorly since his last hospitalization less than a month ago. He did not complete therapy at the residential due to perceived lack of care and he has been home with home health. There is been noted noncompliance with certain medications. The patient otherwise states no voiding difficulties. No significant nausea, vomiting or diarrhea stated. The patient does not state overt anginal type chest pressure. Otherwise, underlying history of diabetes. Review of Systems Constitutional: Denies chills, Denies fever Eyes: denies blurred vision, denies pain Ears, nose, mouth and throat: Denies headache, Denies sore throat Cardiovascular: Reports as per HPI, Reports leg edema, Reports shortness of breath Musculoskeletal: Denies myalgias Integumentary: Reports color changes, Reports rash Neurological: Denies numbness, Denies weakness Endocrine: Reports fatigue, Reports weight change, Denies polyuria Past Medical History Past Medical History: Coronary Artery Disease (CAD), Cancer, Diabetes Mellitus, GERD/Reflux, Hyperlipidemia, Hypertension, Myocardial Infarction ([place]), Osteoarthritis (OA), Pneumonia, Vascular Disorder Additional Past Medical History / Comment(s): NIDDM type II-pt states physician took him off his diabetic medication-diet controlled now, sinus problems pt sta chi worse this past year, bilateral caratid artery disease, skin cancer with removal, diverticulitis, BPH, arthritis R wrist, gout R great toe, unsteady gait/falls, past rheumatic fever age 21yrs, Last Myocardial Infarction Date:: 2014 History of Any Multi-Drug Resistant Organisms: None Reported Past Surgical History: Heart Catheterization, Heart Catheterization With Stent Additional Past Surgical History / Comment(s): Skin cancer removed L upper arm, bilateral cataract removal/lens implants. 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 Mother History Unknown: Yes Family Medical History: Hyperlipidemia Additional Family Medical History / Comment(s): high cholesterol. Medications and Allergies Home Medications Medication Instructions Recorded Confirmed Type Simvastatin [Zocor] 20 mg PO DAILY 05/13/16 07/22/20 History cloNIDine HCL [Catapres] 0.2 mg PO HS 05/13/16 07/22/20 History Ezetimibe [Zetia] 10 mg PO DAILY 05/29/20 07/22/20 History Irbesartan [Avapro] 150 mg PO DAILY 05/29/20 07/22/20 History Apixaban [Eliquis] 2.5 mg PO BID #60 tablet 06/11/20 07/22/20 Rx Metoprolol Tartrate [Lopressor] 50 mg PO TID #60 tab 06/11/20 07/22/20 Rx Pantoprazole [Protonix] 40 mg PO AC-BRKFST #30 tablet. 06/11/20 07/22/20 Rx Furosemide [Lasix] 40 mg PO DAILY 06/27/20 07/22/20 History LORazepam [Ativan] 1 mg PO BID PRN 07/22/20 07/22/20 History NIFEdipine [NIFEdipine ER] 90 mg PO DAILY 07/22/20 07/22/20 History Potassium Chloride ER [K-Dur 10] 10 meq PO DAILY 07/22/20 07/22/20 History Allergies Allergy/AdvReac Type Severity Reaction Status Date / Time Penicillins Allergy Rash/Hives Verified 07/22/20 18:08 zolpidem [From Ambien] AdvReac Confusion Verified 07/22/20 18:08 Physical Exam Vitals: Vital Signs Temp Pulse Resp BP Pulse Ox 07/23/20 06:29 85 25 H 143/84 96 07/23/20 03:00 76 23 110/71 94 L 07/23/20 02:43 77 07/23/20 02:31 88 07/23/20 01:00 61 24 134/77 95 07/23/20 00:00 76 18 136/91 90 L 07/22/20 23:00 78 24 127/76 90 L 07/22/20 22:00 78 24 122/95 90 L 07/22/20 21:00 74 24 107/77 90 L 07/22/20 20:41 77 18 07/22/20 20:32 93 22 07/22/20 18:21 126 H 20 111/83 93 L 07/22/20 17:01 124 H 22 07/22/20 16:52 134 H 20 07/22/20 16:14 97.8 F 136 H 22 125/103 87 L Intake and Output 07/22/20 07/23/20 07/23/20 22:59 06:59 14:59 Other: Weight 83.915 kg - Constitutional General appearance: no acute distress - EENT Eyes: EOMI - Neck Neck: no lymphadenopathy - Respiratory Respiratory: bilateral: diminished - Cardiovascular Rhythm: irregularly irregular Heart sounds: normal: S1, S2 Abnormal Heart Sounds: no S3 Gallop - Gastrointestinal General gastrointestinal: soft, no tenderness - Integumentary Integumentary: no cyanotic - Psychiatric Psychiatric: A&O x's 3, appropriate affect Results CBC & Chem 7: 07/22/20 16:46 07/22/20 16:46 Labs: Abnormal Lab Results - Last 24 Hours (Table) 07/22/20 07/22/20 07/22/20 Range/Units 16:46 16:46 16:46 WBC 14.2 H (3.8-10.6) k/uL Neutrophils # 12.3 H (1.3-7.7) k/uL Sodium 127 L (137-145) mmol/L Chloride 93 L (98-107) mmol/L Glucose 193 H (74-99) mg/dL Total Bilirubin 1.4 H (0.2-1.3) mg/dL Troponin I 0.051 H* (0.000-0.034) ng/mL Assessment and Plan (1) Atrial fibrillation with RVR Current Visit: Yes Status: Acute Code(s): I48.91 - UNSPECIFIED ATRIAL FIBRILLATION SNOMED Code(s): 332383315000364 (2) Congestive heart failure (CHF) Current Visit: Yes Status: Acute Code(s): I50.9 - HEART FAILURE, UNSPECIFIED SNOMED Code(s): 22289771 (3) Pneumonia Current Visit: Yes Status: Acute Code(s): J18.9 - PNEUMONIA, UNSPECIFIED ORGANISM SNOMED Code(s): 678931509 (4) Diabetes Current Visit: No Status: Acute Code(s): E11.9 - TYPE 2 DIABETES MELLITUS WITHOUT COMPLICATIONS SNOMED Code(s): 06111663 (5) High risk for readmission Current Visit: No Status: Acute Code(s): Z91.89 - OTH PERSONAL RISK FACTORS, NOT ELSEWHERE CLASSIFIED SNOMED Code(s): 372562309 (6) Penicillin allergy Current Visit: No Status: Acute Code(s): Z88.0 - ALLERGY STATUS TO PENICILLIN SNOMED Code(s): 63642150 Plan: Continue diuresis. Controlled with Cardizem. Antibiotic treatment with Levaquin is noted. Consult cardiology appropriately for medication titration. Prognosis is guarded secondary to multiple comorbidities. Dr. Salazar covering for the weekend. Check CBC and CMP in the Time with Patient: Greater than 30
[2020-07-23] MEDS ORDERED: POTASSIUM CHLORIDE ER 10 MEQ TAB.ER.PRT PO SCH (09:00)
[2020-07-23] MEDS ORDERED: ASPIRIN 325 MG TAB PO SCH (09:00)
[2020-07-23] MEDS: METOPROLOL TARTRATE 50 MG TAB PO SCH ×3 (09:06→20:59)
[2020-07-23] MEDS: ATORVASTATIN 10 MG TAB PO SCH (09:06)
[2020-07-23] MEDS: APIXABAN 2.5 MG TABLET PO SCH ×2 (09:06→21:00)
[2020-07-23] MEDS: PANTOPRAZOLE 40 MG TABLET PO SCH (09:06)
[2020-07-23] MEDS: NITROGLYCERIN OINT 1 INCH/GM PACKET TOPICAL SCH (09:06)
[2020-07-23] MEDS: LOSARTAN 50 MG TAB PO SCH (09:06)
[2020-07-23] MEDS: IPRATROPIUM-ALBUTEROL 3 ML NEB INHALATION SCH ×4 (09:11→19:47)
[2020-07-23] MEDS: EZETIMIBE 10 MG TAB PO SCH (09:42)
--- NOTE | 2020-07-23 10:47 | XR ---
EXAMINATION TYPE: XR chest 2V DATE OF EXAM: 07/23/2020 COMPARISON: Chest x-ray July 22, 2020. CT chest June 04, 2020 HISTORY: Pneumonia. Difficulty in breathing. TECHNIQUE: Frontal and lateral views of the chest are obtained. FINDINGS: Osseous structures remain intact. Persistent cardiomegaly. Persistent small to moderate-si zed right greater than left pleural effusions and associated bibasilar atelectasis and/or infiltrate. Similar findings to most recent x-ray. IMPRESSION: Cardiomegaly with and central vascular congestion and small to moderate size right great er than left pleural effusions and associated bibasilar atelectasis and/or infiltrate. Suspect persis tent CHF exacerbation. No significant change from most recent x-ray.
--- NOTE | 2020-07-23 12:01 | P.CRDCN ---
History of Present Illness Consult date: 07/23/20 Consult reason: atrial fibrillation, congestive heart failure Chief complaint: Shortness of breath History of present illness: This is a pleasant 89-year-old gentleman who follows with Dr. Benz in the office. He has a known history of diabetes, hypertension, hyperlipidemia, coronary artery disease with prior revascularization, persistent atrial fibrillation, he states that he resides in an adult living facility, without his knowledge the ambulance was called to come and pick him up and taken to the hospital. Although he denies feeling short of breath, he apparently was quite short of breath on arrival here. Patient did have a recent admission to the hospital with pneumonia, he states that he has not felt well since that admission. His chest x-ray on this admission showed congestive heart failure with increasing pleural fluid compared with his prior exam. EKG shows atrial fibrillation with a moderately rapid ventricular response. Repeat chest x-ray performed this morning shows cardiomegaly with central vascular congestion and small to moderate right greater than left pleural effusion. Blood pressure 132/107 with a heart rate in the 80s, 90% on 6 L of oxygen. White blood cell count 14.2, hemoglobin 13.8, platelet count 253. Sodium 127, potassium 5.1, BUN 9, creatinine 0.9. BNP level 18,100, troponin 0.051. Patient was initiated on IV Lasix in the emergency room, he's been diuresing well with that. And overall states he feels his breathing is almost back to normal. On examination it appears that the patient is still short of breath even with talking. Patient had an echocardiogram with Doppler study performed in May which revealed an ejection fraction of 30-35% with basal inferior hypokinesia noted. His Cardizem drip will be discontinued, we will continue metoprolol 50 mg one tablet by mouth 3 times a day along with losartan, Catapres, discontinue the full aspirin and continue Eliquis. Discontinue potassium, his potassium levels 5.1 today. Start the patient on Aldactone. Past Medical History Past Medical History: Atrial Fibrillation, Coronary Artery Disease (CAD), Cancer, Heart Failure, Diabetes Mellitus, GERD/Reflux, Hyperlipidemia, Hypertension, Myocardial Infarction (OK), Osteoarthritis (OA), Pneumonia, Va scular Disorder Additional Past Medical History / Comment(s): Pt recently admitted to [facility] on 06/27/20 with CHF/hyponatremia and social issues-pt/family having difficulty caring for pt. 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 Past Anesthesia/Blood Transfusion Reactions: No Reported Reaction Date of Last Stent Placement:: 2014 Smoking Status: Former smoker - Past Family History Father History Unknown: Yes Family Medical History: Unable to Obtain Additional Family Medical History / Comment(s): Father never went to the doctor. Mother History Unknown: Yes Family Medical History: Hyperlipidemia Additional Family Medical History / Comment(s): high cholesterol. Medications and Allergies Home Medications Medication Instructions Recorded Confirmed Type Simvastatin [Zocor] 20 mg PO DAILY 05/13/16 07/22/20 History cloNIDine HCL [Catapres] 0.2 mg PO HS 05/13/16 07/22/20 History Ezetimibe [Zetia] 10 mg PO DAILY 05/29/20 07/22/20 History Irbesartan [Avapro] 150 mg PO DAILY 05/29/20 07/22/20 History Apixaban [Eliquis] 2.5 mg PO BID #60 tablet 06/11/20 07/22/20 Rx Metoprolol Tartrate [Lopressor] 50 mg PO TID #60 tab 06/11/20 07/22/20 Rx Pantoprazole [Protonix] 40 mg PO AC-BRKFST #30 tablet. 06/11/20 07/22/20 Rx Furosemide [Lasix] 40 mg PO DAILY 06/27/20 07/22/20 History LORazepam [Ativan] 1 mg PO BID PRN 07/22/20 07/22/20 History NIFEdipine [NIFEdipine ER] 90 mg PO DAILY 07/22/20 07/22/20 History Potassium Chloride ER [K-Dur 10] 10 meq PO DAILY 07/22/20 07/22/20 History Allergies Allergy/AdvReac Type Severity Reaction Status Date / Time Penicillins Allergy Rash/Hives Verified 07/22/20 18:08 zolpidem [From Ambien] AdvReac Confusion Verified 07/22/20 18:08 Physical Exam Vitals: Vital Signs Temp Pulse Pulse Resp BP BP Pulse Ox 07/23/20 09:21 84 07/23/20 09:11 80 07/23/20 07:59 98.1 F 93 18 132/107 90 L 07/23/20 06:29 85 25 H 143/84 96 07/23/20 03:00 76 23 110/71 94 L 07/23/20 02:43 77 07/23/20 02:31 88 07/23/20 01:00 61 24 134/77 95 07/23/20 00:00 76 18 136/91 90 L 07/22/20 23:00 78 24 127/76 90 L 07/22/20 22:00 78 24 122/95 90 L 07/22/20 21:00 74 24 107/77 90 L 07/22/20 20:41 77 18 07/22/20 20:32 93 22 07/22/20 18:21 126 H 20 111/83 93 L 07/22/20 17:01 124 H 22 07/22/20 16:52 134 H 20 07/22/20 16:14 97.8 F 136 H 22 125/103 87 L Intake and Output 07/22/20 07/23/20 07/23/20 22:59 06:59 14:59 Other: Weight 83.915 kg 83.915 kg PHYSICAL EXAMINATION: GENERAL: 89-year-old gentleman in no acute distress at the time of my examination HEENT: Head is atraumatic, normocephalic. Pupils equal, round. Sclera anicteric. Conjunctiva are clear. Mucous membranes of the mouth are moist. Neck is supple. There is elevated jugular venous pressure. No carotid bruit is heard. HEART EXAMINATION: Heart S1 and S2 irregularly irregular a systolic murmur is CHEST EXAMINATION: Lungs reveal decreased air exchange bilaterally with rales to the bases. ABDOMEN: Soft, obese, nontender. Bowel sounds are heard. No organomegaly noted. EXTREMITIES: 2+ peripheral pulses with 1+ evidence of peripheral edema to the left lower extremity, right lower extremity has evidence of ulcerations and wounds . NEUROLOGIC patient is awake, alert and oriented 3 . . Results 07/22/20 16:46 07/22/20 16:46 Cardiac Enzymes 07/22/20 07/22/20 Range/Units 16:46 16:46 AST 54 (17-59) U/L Troponin I 0.051 H* (0.000-0.034) ng/mL Coagulation 07/22/20 Range/Units 18:08 PT 11.0 (9.0-12.0) sec CBC 07/22/20 Range/Units 16:46 WBC 14.2 H (3.8-10.6) k/uL RBC 4.46 (4.30-5.90) m/uL Hgb 13.8 (13.0-17.5) gm/dL Hct 43.7 (39.0-53.0) % Plt Count 253 (150-450) k/uL Comprehensive Metabolic Panel 07/22/20 Range/Units 16:46 Sodium 127 L (137-145) mmol/L Potassium 5.1 (3.5-5.1) mmol/L Chloride 93 L (98-107) mmol/L Carbon Dioxide 25 (22-30) mmol/L BUN 9 (9-20) mg/dL Creatinine 0.91 (0.66-1.25) mg/dL Glucose 193 H (74-99) mg/dL Calcium 9.1 (8.4-10.2) mg/dL AST 54 (17-59) U/L ALT 31 (4-49) U/L Alkaline Phosphatase 94 (38-126) U/L Total Protein 7.3 (6.3-8.2) g/dL Albumin 4.1 (3.5-5.0) g/dL Current Medications Generic Name Dose Route Start Last Admin Trade Name Freq PRN Reason Stop Dose Admin Albuterol/Ipratropium 3 ml 07/22/20 22:00 07/23/20 09:11 Ipratropium-Albuterol 3 Ml Neb INHALATION 3 ml RT-QID DIOMEDES Administration Albuterol/Ipratropium 3 ml 07/22/20 18:29 07/23/20 02:31 Ipratropium-Albuterol 3 Ml Neb INHALATION 3 ml RT-Q4H PRN Administration shortness of breath Alprazolam 1 mg 07/23/20 04:06 07/23/20 04:21 Alprazolam 0.5 Mg Tab PO 1 mg Q6HR PRN Administration Anxiety Apixaban 2.5 mg 07/23/20 09:00 07/23/20 09:06 Apixaban 2.5 Mg Tablet PO 2.5 mg BID DIOMEDES Administration Atorvastatin Calcium 10 mg 07/23/20 09:00 07/23/20 09:06 Atorvastatin 10 Mg Tab PO 10 mg DAILY DIOMEDES Administration Clonidine 0.2 mg 07/23/20 21:00 Clonidine Hcl 0.2 Mg Tab PO HS DIOMEDES Ezetimibe 10 mg 07/23/20 09:00 07/23/20 09:42 Ezetimibe 10 Mg Tab PO 10 mg DAILY DIOMEDES Administration Furosemide 40 mg 07/22/20 19:00 07/23/20 02:48 Furosemide 10 Mg/Ml 4 Ml Vial IV 40 mg Q8H DIOMEDES Administration Levofloxacin 750 mg 07/23/20 18:00 Levofloxacin 750 Mg Tab PO 07/27/20 18:01 DAILY@1800 DIOMEDES Losartan Potassium 50 mg 07/23/20 09:00 07/23/20 09:06 Losartan 50 Mg Tab PO 50 mg DAILY DIOMEDES Administration Metoprolol Tartrate 50 mg 07/23/20 09:00 07/23/20 09:06 Metoprolol Tartrate 50 Mg Tab PO 50 mg TID DIOMEDES Administration Miscellaneous Information 1 each 07/22/20 18:29 Pneumonia Protocol Utilized 1 Each Misc PO ONCE PRN Per Protocol Pantoprazole Sodium 40 mg 07/23/20 08:15 07/23/20 09:06 Pantoprazole 40 Mg Tablet PO 40 mg AC-BRKFST DIOMEDES Administration Potassium Chloride 10 meq 07/23/20 09:00 07/23/20 09:06 Potassium Chloride Er 10 Meq Tab.Er.Prt PO 10 meq DAILY DIOMEDES Administration Spironolactone 25 mg 07/23/20 11:15 Spironolactone 25 Mg Tab PO DAILY DIOMEDES Intake and Output 07/22/20 07/23/20 07/23/20 22:59 06:59 14:59 Other: Weight 83.915 kg 83.915 kg Patient Weight 07/24/20 06:59 Weight 83.915 kg 07/22/20 16:46 07/22/20 16:46 EKG Interpretations (text) EKG shows atrial fibrillation with moderately rapid ventricular response Assessment and Plan Plan: Assessment and plan #1 systolic congestive heart failure acute on chronic #2 diabetes #3 persistent atrial fibrillation #4 hyperlipidemia #5 hypertension #6 coronary artery disease with prior revascularization #7 recent hospitalization with pneumonia Plan Patient just recently had an echo performed in May of this year, ejection fraction 30-35% with basal inferior hypokinesia noted. We will discontinue the IV Cardizem, continue the beta rodrigo, discontinue the full aspirin and con tinue Eliquis. Continue current dose of IV Lasix, monitoring intake and output along with daily weights and daily lytes BUN and creatinine. On discharge we'll make an appointment for the patient to see Dr. Benz in the office in one week. DNP note has been reviewed, I agree with a documented findings and plan of care. Patient was seen and examined.
[2020-07-23] MEDS: SPIRONOLACTONE 25 MG TAB PO SCH (12:27)
--- NOTE | 2020-07-23 12:48 | CDI ---
Documentation Clarification Form Date: 07/23/2020 12:22:14 PM From: Rossy Byrd RN, CCDS Admit Date: 07/22/2020 06:29:00 PM Patient Name: Ever Hazel Visit Number: [id number] Discharge Date: ATTENTION: The Clinical Documentation Specialists (CDI) and [facility] Coding Staff appreciate your assistance in clarifying documentation. Please respond to the clarification below the line at the bottom and electronically sign. The CDI & [facility] Coding staff will review the response and follow-up if needed. Please note: Queries are made part of the Legal Health Record. If you have any questions, please contact the author of this message via ITS. Dr. Cecilio Christina The patient presented to ED with worsening shortness of breath, with O2 sat's on room air of 87 %.. Please provide a diagnosis for what we may be treating. History/Risk Factors: Pneumonia, Coronary artery disease, Diabetes Mellitus, Hypertension, Former smoker Clinical Indicators: 89-year-old male presented to ED on 07/22 with complaints of shortness of breath, fatigue. He has decreased breath sounds with rales at the bases per cardiology consult on 07/23. 07/22 Vital signs: 16:14 125/103 136 22 97.8, 87 % RA, 18:21 Vital signs: 111/83 126 20 93 % 4/L NC Vital signs: 07:59 132/107 93 18 98.1 90 % 6/L NC 07/22 Chest x-ray: There is congestive heart failure with increasing pleural fluid compared to old exam. Right lower lobe pneumonia is possible. 07/23 Chest x-ray: Cardiomegaly with central vascular congestion. Suspect persistent CHF exacerbation. Treatment: Telemetry Monitoring Breathing tx: Duoneb 0.5 mg/3ms Sabrina q4 prn Lasix 40 mg IV Q8 hrs Monitor O2 Sat's (titrate) Aldactone 25 m op daily In your professional opinion, can you please clarify if these findings signify one of the following conditions? Acute Hypoxic Respiratory Failure Other Diagnosis, please specify -the symptoms are related to chronic systolic congestive heart failure Unable to determine (Last Query Form Revision: June 2019) MTDD
--- NOTE | 2020-07-23 13:35 | CDI ---
Documentation Clarification Form Date: 07/23/2020 12:48:51 PM From: Rossy Byrd RN, CCDS Admit Date: 07/22/2020 06:29:00 PM Patient Name: Ever Hazel Visit Number: [id number] Discharge Date: ATTENTION: The Clinical Documentation Specialists (CDI) and [facility] Coding Staff appreciate your assistance in clarifying documentation. Please respond to the clarification below the line at the bottom and electronically sign. The CDI & [facility] Coding staff will review the response and follow-up if needed. Please note: Queries are made part of the Legal Health Record. If you have any questions, please contact the author of this message via ITS. Dr. Cecilio Christina Sepsis has been documented in the ED clinical impression. Please render your opinion if sepsis is ruled in or out. History/Risk Factors: Pneumonia, Coronary artery disease, Diabetes Mellitus, Hypertension, Former smoker Clinical Indicators: 89-year-old male presented to ED on 07/22 with complaints of shortness of breath, fatigue. He has decreased breath sounds with rales at the bases per cardiology consult on 07/23. 07/22 Vital signs: 16:14 125/103 136 22 97.8, 87 % RA, 18:21 Vital signs: 111/83 126 20 93 % 4/L NC Vital signs: 07:59 132/107 93 18 98.1 90 % 6/L NC 07/22 Labs: 14.2, Neutrophils 12.3, Lactic acid 1.9 07/22 Chest x-ray: There is congestive heart failure with increasing pleural fluid compared to old exam. Right lower lobe pneumonia is possible. 07/23 Chest x-ray: Cardiomegaly with central vascular congestion. Suspect persistent CHF exacerbation. ED 07/22 18:28: There is concern for possible pneumonia and patient would meet sepsis criteria diagnosed at 18:20 Treatment: Telemetry Monitoring Levadquin 750 mg ivpb once 07/22 then po daily starting 1800 07/23 Breathing tx: Duoneb 0.5 mg/3ms Sabrina q4 prn Lasix 40 mg IV Q8 hrs Monitor O2 Sat's (titrate) Aldactone 25 m op daily In your professional opinion, please clarify if these findings signify one of the following conditions, whether the condition is POA, and cause, if known: Sepsis ruled out-this is the correct diagnosis Sepsis POA Other, please specify Unable to determine SIRS Criteria (2 or more of the following may indicate SIRS): -Temperature < 96.8F (36C) or > 101.0F (38.3C) -Heart Rate > 90 bpm -Respiratory Rate > 20 breaths/min or PaCO2 < 32 mmHg -White Blood Cell Count > 12,000 or < 4,000 cells/mm3 or > 10% bands -Lactate >2.0 mmol/L (>4.0 is equivalent to septic shock) (Last Revision: January 2018) MTDD
[2020-07-23] MEDS: LEVOFLOXACIN 750 MG TAB PO SCH (17:20)
[2020-07-23] MEDS: cloNIDine HCL 0.2 MG TAB PO SCH (20:59)
[2020-07-24] MEDS: FUROSEMIDE 10 MG/ML 4 ML VIAL IV SCH ×3 (03:13→21:07)
[2020-07-24] MEDS: PANTOPRAZOLE 40 MG TABLET PO SCH (06:50)
[2020-07-24] MEDS: IPRATROPIUM-ALBUTEROL 3 ML NEB INHALATION SCH ×4 (07:10→19:27)
[2020-07-24 09:58] LABS: Calcium 8.6 mg/dL (8.4-10.2); Potassium 4.2 mmol/L (3.5-5.1)
[2020-07-24] MEDS: ATORVASTATIN 10 MG TAB PO SCH (10:51)
[2020-07-24] MEDS: LOSARTAN 50 MG TAB PO SCH (10:51)
[2020-07-24] MEDS: APIXABAN 2.5 MG TABLET PO SCH ×2 (10:51→21:07)
[2020-07-24] MEDS: EZETIMIBE 10 MG TAB PO SCH (10:51)
[2020-07-24] MEDS: SPIRONOLACTONE 25 MG TAB PO SCH (10:52)
[2020-07-24] MEDS: METOPROLOL TARTRATE 50 MG TAB PO SCH ×3 (10:52→21:07)
[2020-07-24 13:52] VITALS: BMI 24.7
--- NOTE | 2020-07-24 14:29 | PN ---
PROGRESS NOTE Mr. Hazel is an 89-year-old male with a history of atrial fibrillation who presented with symptoms of progressive dyspnea and cough. He is feeling slightly better today. His breathing is better. He denies any significant chest pain. He denies any dizziness or palpitation. He continues to be in atrial fibrillation with overall better control of his ventricular response. He denies any nausea. He continues to be at this time on Eliquis 2.5 mg twice a day, Lipitor 10 mg daily, clonidine 0.2 mg at bedtime, Zetia 10 mg daily, Lasix 40 mg IV q.8 hours, losartan 50 mg daily, metoprolol tartrate 50 mg three times a day, spironolactone 25 mg daily. PHYSICAL EXAMINATION: Blood pressure 120/60 with a heart rate in 70s. LUNGS: With wheezes, better than yesterday. HEART: Irregular, regular. S1, S2. No S3. No rub. ABDOMEN: Soft and nontender. EXTREMITIES: +1 edema. LAB DATA: BUN and creatinine 21 and 1.18, potassium 4.2, hemoglobin of 13.8. IMPRESSION: 1. Symptoms of progressive dyspnea with element of congestive heart failure with known history of systolic dysfunction. 2. Chronic persistent atrial fibrillation. 3. History of coronary disease. 4. Hypertension. 5. Hyperlipidemia. 6. Diabetes mellitus. RECOMMENDATION: We will continue on the IV diuretics for another 24 hours, follow his heart rate and depending on his progress, further recommendations will be made. MMODL / IJN: [id number] /
[2020-07-24] MEDS: LEVOFLOXACIN 750 MG TAB PO SCH (17:18)
[2020-07-24] MEDS: cloNIDine HCL 0.2 MG TAB PO SCH (21:07)
[2020-07-24] MEDS: ALPRAZolam 0.5 MG TAB PO PRN (21:11)
[2020-07-25] MEDS: FUROSEMIDE 10 MG/ML 4 ML VIAL IV SCH ×3 (02:37→18:11)
[2020-07-25] MEDS: PANTOPRAZOLE 40 MG TABLET PO SCH (06:18)
[2020-07-25 08:07] LABS: Calcium 8.2 mg/dL (8.4-10.2); Potassium 4.1 mmol/L (3.5-5.1)
[2020-07-25] MEDS: IPRATROPIUM-ALBUTEROL 3 ML NEB INHALATION SCH ×4 (09:24→20:05)
[2020-07-25] MEDS: ATORVASTATIN 10 MG TAB PO SCH (09:28)
[2020-07-25] MEDS: SPIRONOLACTONE 25 MG TAB PO SCH (09:28)
[2020-07-25] MEDS: METOPROLOL TARTRATE 50 MG TAB PO SCH ×3 (09:28→20:23)
[2020-07-25] MEDS: APIXABAN 2.5 MG TABLET PO SCH ×2 (09:28→20:23)
[2020-07-25] MEDS: LOSARTAN 50 MG TAB PO SCH (09:28)
[2020-07-25] MEDS: EZETIMIBE 10 MG TAB PO SCH (09:28)
--- NOTE | 2020-07-25 09:30 | P.PN ---
Subjective Progress Note Date: 07/24/20 Principal diagnosis: Acute exacerbation of systolic CHF Persistent atrial fibrillation Community-acquired pneumonia This is a history and physical an 89-year-old white male essentially readmitted related to related systolic congestive heart failure. The patient has been doing poorly since his last hospitalization less than a month ago. He did not complete therapy at the snf due to perceived lack of care and he has been home with home health. There is been noted noncompliance with certain medications. The patient otherwise states no voiding difficulties. No sig nificant nausea, vomiting or diarrhea stated. The patient does not state overt anginal type chest pressure. 07/24/2020 Patient is seen and evaluated in the room at bedside, sitting up eating lunch; does report improvement in breathing but concerned about quick desaturation with minimal activity Vital signs are stable with a blood pressure 120/60, pulse of 70 Lab review shows a sodium level of 127 which is stable, potassium 4.2 with B UN/creatinine of 21/1.18 Cardiology is following and recommending to continue IV diuretics for another 24 hours with close monitoring of clinical progress and renal function Objective - Vital Signs Vital signs: Vital Signs Temp 98.2 F 07/24/20 04:04 Pulse 115 H 07/24/20 11:20 Resp 20 07/24/20 04:04 BP 120/62 07/24/20 04:04 Pulse Ox 92 L 07/24/20 04:04 Intake & Output 07/23/20 07/24/20 07/24/20 18:59 06:59 18:59 Intake Total 200 240 Output Total 300 825 Balance -100 -825 240 Weight 83.915 kg 85.2 kg Intake: Oral 200 240 Output: Urine 300 825 - Exam - Constitutional General appearance: Present: average body habitus, cooperative, no acute distress - EENT Eyes: Present: anicteric sclerae, EOMI, PERRLA, normal appearance ENT: Present: hearing grossly normal, normal oropharynx Ears: bilateral: normal - Neck Neck: Present: normal ROM. Absent: lymphadenopathy, rigidity, thyromegaly Carotids: negative: bruit present Thyroid: bilateral: normal size, negative: enlarged, nodule - Respiratory Respiratory: bilateral: CTA, negative: rales, rhonchi, wheezing - Cardiovascular Rhythm: regular Heart sounds: normal: S1, S2 Abnormal Heart Sounds: Absent: systolic murmur, diastolic murmur - Gastrointestinal General gastrointestinal: Present: normal bowel sounds, soft. Absent: distended, organomegaly, tenderness - Genitourinary Genitourinary Comment(s): deferred - Integumentary Integumentary: Present: normal turgor. Absent: jaundiced, rash, ulcer - Neurologic Neurologic: Present: CNII-XII intact. Absent: focal deficits - Musculoskeletal Musculoskeletal: Present: gait normal, strength equal bilaterally - Psychiatric Psychiatric: Present: A&O x's 3, appropriate affect, intact judgment & insight - Labs CBC & Chem 7: 07/22/20 16:46 07/25/20 07:12 Labs: Abnormal Lab Results - Last 24 Hours (Table) 07/24/20 Range/Units 09:27 Sodium 127 L (137-145) mmol/L Chloride 92 L (98-107) mmol/L BUN 21 H (9-20) mg/dL Glucose 227 H (74-99) mg/dL Microbiology - Last 24 Hours (Table) 07/22/20 18:03 Blood Culture - Preliminary Blood No Growth after 24 hours Assessment and Plan Assessment: 1. Acute exacerbation systolic CHF - Cardiology is following and recommending to continue with IV Lasix for another 24 hours; Aldactone is added; we will continue with close monitoring clinically and also monitor electrolytes closely; most recent echocardiogram is from May 2020 revealing EF of 30-35% with basal inferior hypokinesis - Continue to monitor daily weights, strict RAY's, renal function and electrolytes 2. Atrial fibrillation with RVR; - Heart rate is controlled; IV Cardizem has been discontinued and patient has been started on beta blockers along with aspirin and Eliquis for anticoagulation 3. Hyponatremia; diuretic induced; sodium level stable at 127; we will continue to monitor closely 4. Community-acquired pneumonia; we will continue with current dose of Levaquin; monitor CBC 5. Hyperlipidemia; Lipitor 10 mg by mouth daily at bedtime along with Ezetimibe 10 mg daily 5. Diabetes mellitus; monitor Accu-Cheks every before meals and at bedtime with insulin sliding scale while in the hospital 6. Hypertension; stable on clonidine, Lasix, losartan and metoprolol DVT prophylaxis; systemic anticoagulation CODE STATUS; full code
--- NOTE | 2020-07-25 10:55 | PN ---
PROGRESS NOTE Mr. Hazel is an 89-year-old male who presented with symptoms of progressive dyspnea, he has a history of chronic persistent atrial fibrillation. He is feeling slightly better today. He still has episode of atrial fibrillation with rapid ventricular response. He denies any chest pain. No dizziness. No palpitation. He denies any cough. He has some peripheral edema. He continues to be at this time on Eliquis 2.5 mg twice a day, Lipitor 10 mg daily, clonidine 0.2 mg at bedtime, Lasix 40 mg IV q.8 hours, losartan 50 mg daily, metoprolol tartrate 50 mg five times a day and spironolactone 25 mg daily. PHYSICAL EXAMINATION: Blood pressure running in the 150s with a heart rate in the 110s to 130. LUNGS: A few crackles. HEART irregularly irregular S1, S2. No S3. No rub. ABDOMEN: Soft, nontender. EXTREMITIES +1 edema. His I and Os revealed that he is negative for 925 mL. IMPRESSION: 1. Symptoms of progressive dyspnea with congestive heart failure and impaired systolic function. 2. Chronic persistent atrial fibrillation. 3. Hypertension. 4. Hyperlipidemia. 5. Diabetes mellitus. 6. Obstructive coronary artery disease. RECOMMENDATIONS: From the cardiac standpoint, I will increase the dose of his beta rodrigo to try to control his ventricular response. I will increase the beta rodrigo to control his ventricular response, continue the rest of his medical regimen, increase his level activity, continue anticoagulation as well as intravenous diuretics for another 24 hours and if he remains stable, probably discharge home tomorrow. MMODL / IJN: [id number] /
--- NOTE | 2020-07-25 11:31 | P.NPCON ---
History of Present Illness - Reason for Consult acute renal failure, hyponatremia - History of Present Illness reason for consultation: Acute kidney injury and hyponatremia History of present illness: Patient is a 89-year-old male seen in renal consultation for hyponatremia. Patient's sodium level was 127 on admission and is 125 today. it appears patient has chronic hyponatremia as a sodium level since May has been in the range of 125-136. patient presented to the hospital in July 22 with shortness of breath and worsening edema. He is currently on IV Lasix 40 mg 3 times daily. Nonoliguric. oral intake is fair. He denies drinking excessive amounts of fluids. No history of diabetes. No chest pain. denies regular use of nonsteroidals. blood pressure controlled. renal function fairly stable. Creatinine 1.02 today. I don't see any thiazide diuretics and his home medications. no fever or chills. Patient is eager to go home. Vital signs are stable. General: The patient appeared well nourished and normally developed. HEENT: Head exam is unremarkable. Neck is without jugular venous distension. LUNGS: Breath sounds decreased. HEART: tachycardic. ABDOMEN: soft, nontender. EXTREMITITES: 2+ edema. Past Medical History Past Medical History: Atrial Fibrillation, Coronary Artery Disease (CAD), Cancer, Heart Failure, Diabetes Mellitus, GERD/Reflux, Hyperlipidemia, Hypertension, Myocardial Infarction (LA), Osteoarthritis (OA), Pneumonia, Vascul ar Disorder Additional Past Medical History / Comment(s): Pt recently admitted to [facility] on 06/27/20 with CHF/hyponatremia and social issues-pt/family having difficulty caring for pt. 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 Past Anesthesia/Blood Transfusion Reactions: No Reported Reaction Date of Last Stent Placement:: 2014 Smoking Status: Former smoker - Past Family History Father History Unknown: Yes Family Medical History: Unable to Obtain Additional Family Medical History / Comment(s): Father never went to the doctor. Mother History Unknown: Yes Family Medical History: Hyperlipidemia Additional Family Medical History / Comment(s): high cholesterol. Medications and Allergies Home Medications Medication Instructions Recorded Confirmed Type Simvastatin [Zocor] 20 mg PO DAILY 05/13/16 07/22/20 History cloNIDine HCL [Catapres] 0.2 mg PO HS 05/13/16 07/22/20 History Ezetimibe [Zetia] 10 mg PO DAILY 05/29/20 07/22/20 History Irbesartan [Avapro] 150 mg PO DAILY 05/29/20 07/22/20 History Apixaban [Eliquis] 2.5 mg PO BID #60 tablet 06/11/20 07/22/20 Rx Metoprolol Tartrate [Lopressor] 50 mg PO TID #60 tab 06/11/20 07/22/20 Rx Pantoprazole [Protonix] 40 mg PO MARQUES-WILMA #30 tablet. 06/11/20 07/22/20 Rx Furosemide [Lasix] 40 mg PO DAILY 06/27/20 07/22/20 History LORazepam [Ativan] 1 mg PO BID PRN 07/22/20 07/22/20 History NIFEdipine [NIFEdipine ER] 90 mg PO DAILY 07/22/20 07/22/20 History Potassium Chloride ER [K-Dur 10] 10 meq PO DAILY 07/22/20 07/22/20 History Allergies Allergy/AdvReac Type Severity Reaction Status Date / Time Penicillins Allergy Rash/Hives Verified 07/22/20 18:08 zolpidem [From Ambien] AdvReac Confusion Verified 07/22/20 18:08 Physical Exam Vitals: Vital Signs Temp Pulse Pulse Resp BP Pulse Ox 07/25/20 08:00 98 F 100 18 126/65 90 L 07/25/20 04:00 97.7 F 137 H 22 153/96 91 L 07/24/20 23:36 97.8 F 116 H 18 135/78 92 L 07/24/20 20:00 98.4 F 98 18 195/79 91 L 07/24/20 19:47 112 H 07/24/20 19:28 117 H 07/24/20 15:25 101 H 07/24/20 15:17 101 H 07/24/20 15:10 98.2 F 107 H 16 133/82 95 07/24/20 11:40 97.5 F L 80 16 115/79 95 Intake and Output 07/24/20 07/25/20 07/25/20 22:59 06:59 14:59 Intake Total 120 0 Output Total 300 250 Balance -180 -250 0 Intake: Oral 120 0 Output: Urine 300 250 Other: Weight 88.5 kg Results - Lab Results Most recent lab results Calcium 8.2 mg/dL (8.4-10.2) L 07/25/20 07:12 07/22/20 16:46 07/25/20 07:12 Assessment and Plan Plan: assessment: 1. Hypervolemic hyponatremia. Sodium level 125 today. 2. Mild acute kidney injury secondary to cardiorenal syndrome. 3. Volume overload. 4. Acute on chronic systolic CHF with ejection fraction of 30-35%. 5. A. fib with RVR. plan: Maintain IV Lasix 40 mg 3 times daily. Samsca 15 mg once today. I will also put him on a fluid restriction starting tomorrow. Repeat electrolytes in the morning. Check urinalysis. check TSH. Thank you for the consultation. I will continue to follow the patient with you during his hospital stay.
[2020-07-25] MEDS ORDERED: TOLVAPTAN 15 MG 1/2 TABLET PO ONE (12:00)
[2020-07-25 15:56] LABS: Appearance,Urine Clear (Clear); Bilirubin,Urine Negative (Negative); Blood,Urine Negative (Negative); Color,Urine Yellow; Glucose,Urine (UA) Negative (Negative); Hyaline Casts,Urine 1 /lpf (0-2); Ketones,Urine Negative (Negative); Leukocyte Esterase,Urine Negative (Negative); Mucus,Urine Rare /hpf; Nitrite,Urine Negative (Negative); PH, Urine 5.5 (5.0-8.0); Protein,Urine 1+ (Negative); RBC,Urine 1 /hpf (0-5); Specific Gravity,Urine 1.009 (1.001-1.035); Urobilinogen,Urine <2.0 mg/dL (<2.0); WBC,Urine 1 /hpf (0-5)
--- NOTE | 2020-07-25 16:02 | P.PN ---
Subjective Progress Note Date: 07/25/20 Principal diagnosis: Acute exacerbation of systolic CHF Persistent atrial fibrillation Community-acquired pneumonia This is a history and physical an 89-year-old white male essentially readmitted related to related systolic congestive heart failure. The patient has been doing poorly since his last hospitalization less than a month ago. He did not complete therapy at the long-term due to perceived lack of care and he has been home with home health. There is been noted noncompliance with certain medications. The patient otherwise states no voiding difficulties. No sig nificant nausea, vomiting or diarrhea stated. The patient does not state overt anginal type chest pressure. 07/24/2020 Patient is seen and evaluated in the room at bedside, sitting up eating lunch; does report improvement in breathing but concerned about quick desaturation with minimal activity Vital signs are stable with a blood pressure 120/60, pulse of 70 Lab review shows a sodium level of 127 which is stable, potassium 4.2 with B UN/creatinine of 21/1.18 Cardiology is following and recommending to continue IV diuretics for another 24 hours with close monitoring of clinical progress and renal function 07/25/2020 Patient is seen and evaluated with family members at bedside; reports improved breathing; continues to have episodes of atrial fibrillation with RVR Vital signs are reviewed and stable; lab review shows a further trending down of sodium and is at 125 this morning Cardiology is following patient and recommending to increase dose of beta blockers to control ventricular response; recommending to continue anticoagulation and IV diuretics for another 24 hours with possibility of discharge in next 24 hours if patient remains stable Sodium has trended down to 125 this morning possibly secondary to volume overlo ad; nephrology is consulted and recommending to continue with Lasix 40 mg IV 3 times a day; Samsca 15 mg once today along with fluid restriction; plan to repeat electrolytes tomorrow Objective - Vital Signs Vital signs: Vital Signs Temp 97.7 F 07/25/20 04:00 Pulse 137 H 07/25/20 04:00 Resp 22 07/25/20 04:00 BP 153/96 07/25/20 04:00 Pulse Ox 91 L 07/25/20 04:00 Intake & Output 07/24/20 07/25/20 07/25/20 18:59 06:59 18:59 Intake Total 596 0 Output Total 600 350 Balance -4 -350 0 Weight 85.2 kg 88.5 kg Intake: Oral 596 0 Output: Urine 600 350 - Exam - Constitutional General appearance: Present: average body habitus, cooperative, no acute distress - EENT Eyes: Present: anicteric sclerae, EOMI, PERRLA, normal appearance ENT: Present: hearing grossly normal, normal oropharynx Ears: bilateral: normal - Neck Neck: Present: normal ROM. Absent: lymphadenopathy, rigidity, thyromegaly Carotids: negative: bruit present Thyroid: bilateral: normal size, negative: enlarged, nodule - Respiratory Respiratory: bilateral: CTA, negative: rales, rhonchi, wheezing - Cardiovascular Rhythm: regular Heart sounds: normal: S1, S2 Abnormal Heart Sounds: Absent: systolic murmur, diastolic murmur - Gastrointestinal General gastrointestinal: Present: normal bowel sounds, soft. Absent: distended, organomegaly, tenderness - Genitourinary Genitourinary Comment(s): deferred - Integumentary Integumentary: Present: normal turgor. Absent: jaundiced, rash, ulcer - Neurologic Neurologic: Present: CNII-XII intact. Absent: focal deficits - Musculoskeletal Musculoskeletal: Present: gait normal, strength equal bilaterally - Psychiatric Psychiatric: Present: A&O x's 3, appropriate affect, intact judgment & insight - Labs CBC & Chem 7: 07/22/20 16:46 07/25/20 07:12 Labs: Abnormal Lab Results - Last 24 Hours (Table) 07/24/20 07/25/20 Range/Units 09:27 07:12 Sodium 127 L 125 L (137-145) mmol/L Chloride 92 L 94 L (98-107) mmol/L BUN 21 H 21 H (9-20) mg/dL Glucose 227 H 193 H (74-99) mg/dL Calcium 8.2 L (8.4-10.2) mg/dL Microbiology - Last 24 Hours (Table) 07/22/20 18:03 Blood Culture - Preliminary Blood No Growth after 48 hours Assessment and Plan Assessment: 1. Acute exacerbation systolic CHF - Cardiology is following and recommending to continue with IV Lasix for another 24 hours; Aldactone is added; we will continue with close monitoring clinically and also monitor electrolytes closely; most recent echocardiogram is from May 2020 revealing EF of 30-35% with basal inferior hypokinesis - Continue to monitor daily weights, strict RAY's, renal function and electrolytes 2. Atrial fibrillation with RVR; - Heart rate is controlled; IV Cardizem has been discontinued and patient has been started on beta blockers along with aspirin and Eliquis for anticoagulation 3. Hyponatremia; diuretic induced; sodium level stable at 127; we will continue to monitor closely 4. Community-acquired pneumonia; we will continue with current dose of Levaquin; monitor CBC 5. Hyperlipidemia; Lipitor 10 mg by mouth daily at bedtime along with Ezetimibe 10 mg daily 5. Diabetes mellitus; monitor Accu-Cheks every before meals and at bedtime with insulin sliding scale while in the hospital 6. Hypertension; stable on clonidine, Lasix, losartan and metoprolol DVT prophylaxis; systemic anticoagulation CODE STATUS; full code
[2020-07-25] MEDS: LEVOFLOXACIN 750 MG TAB PO SCH (18:10)
[2020-07-25] MEDS: ALPRAZolam 0.5 MG TAB PO PRN (20:23)
[2020-07-25] MEDS: cloNIDine HCL 0.2 MG TAB PO SCH (20:23)
[2020-07-26] MEDS: FUROSEMIDE 10 MG/ML 4 ML VIAL IV SCH ×3 (03:44→18:14)
[2020-07-26] MEDS: PANTOPRAZOLE 40 MG TABLET PO SCH (06:25)
[2020-07-26] MEDS: IPRATROPIUM-ALBUTEROL 3 ML NEB INHALATION SCH ×4 (07:48→20:36)
--- NOTE | 2020-07-26 08:01 | P.PN ---
Subjective Progress Note Date: 07/26/20 Principal diagnosis: The patient complains of worsening cough when eating. This is a continue pressure 89-year-old white male essentially admitted for recurrent acute on chronic congestive heart failure. Element of pleural effusion versus pneumonia is noted. The patient states coughing when eating. Question element of reflux esophagitis. The patient clinically seems better except ambulation is poor. No new voiding difficulties are stated Objective - Vital Signs Vital signs: Vital Signs Temp 97.3 F L 07/26/20 04:00 Pulse 100 07/26/20 07:48 Resp 18 07/26/20 04:00 BP 146/75 07/26/20 04:00 Pulse Ox 92 L 07/26/20 04:00 Intake & Output 07/25/20 07/26/20 07/26/20 18:59 06:59 18:59 Intake Total 476 Output Total 600 1850 Balance -124 -1850 Weight 86.2 kg Intake: Oral 476 Output: Urine 600 1850 Other: Voiding Method Urinal - Constitutional General appearance: Present: average body habitus - EENT Eyes: Absent: abnormal pupil - Neck Neck: Absent: lymphadenopathy - Respiratory Respiratory: bilateral: rales - Cardiovascular Rhythm: irregularly irregular Heart sounds: normal: S1, S2 Abnormal Heart Sounds: Absent: S3 Gallop - Gastrointestinal General gastrointestinal: Present: soft. Absent: tenderness - Musculoskeletal Musculoskeletal: Present: generalized weakness - Labs CBC & Chem 7: 07/22/20 16:46 07/25/20 07:12 Labs: Abnormal Lab Results - Last 24 Hours (Table) 07/25/20 07/25/20 Range/Units 07:12 15:40 Sodium 125 L (137-145) mmol/L Chloride 94 L (98-107) mmol/L BUN 21 H (9-20) mg/dL Glucose 193 H (74-99) mg/dL Calcium 8.2 L (8.4-10.2) mg/dL Urine Protein 1+ H (Negative) Urine Mucus Rare H (None) /hpf Microbiology - Last 24 Hours (Table) 07/22/20 18:03 Blood Culture - Preliminary Blood No Growth after 72 hours Assessment and Plan (1) Atrial fibrillation with RVR Current Visit: Yes Status: Acute Code(s): I48.91 - UNSPECIFIED ATRIAL FIBRILLATION SNOMED Code(s): 626530784510024 (2) Congestive heart failure (CHF) Current Visit: Yes Status: Acute Code(s): I50.9 - HEART FAILURE, UNSPECIFIED SNOMED Code(s): 07104215 (3) Pneumonia Current Visit: Yes Status: Acute Code(s): J18.9 - PNEUMONIA, UNSPECIFIED ORGANISM SNOMED Code(s): 868420436 (4) Diabetes Current Visit: No Status: Acute Code(s): E11.9 - TYPE 2 DIABETES MELLITUS WITHOUT COMPLICATIONS SNOMED Code(s): 08347815 (5) High risk for readmission Current Visit: No Status: Acute Code(s): Z91.89 - OTH PERSONAL RISK FACTORS, NOT ELSEWHERE CLASSIFIED SNOMED Code(s): 455914468 (6) Penicillin allergy Current Visit: No Status: Acute Code(s): Z88.0 - ALLERGY STATUS TO PENICILLIN SNOMED Code(s): 70724428 Plan: Continue diuresis. Increase ambulation. Consult physical therapy. Discharge planning. Check chest x-ray follow-up today. Check CBC and CMP in a.m. Prognosis is guarded secondary to his also being relatively ill and hospitalized today. See orders otherwise
[2020-07-26 08:29] LABS: Calcium 8.8 mg/dL (8.4-10.2); Magnesium 1.8 mg/dL (1.6-2.3); Potassium 4.4 mmol/L (3.5-5.1)
[2020-07-26] MEDS: LOSARTAN 25 MG TAB PO SCH (09:05)
[2020-07-26] MEDS: APIXABAN 2.5 MG TABLET PO SCH ×2 (09:05→20:55)
[2020-07-26] MEDS: ATORVASTATIN 10 MG TAB PO SCH (09:05)
[2020-07-26] MEDS: EZETIMIBE 10 MG TAB PO SCH (09:05)
[2020-07-26] MEDS: SPIRONOLACTONE 25 MG TAB PO SCH (09:05)
[2020-07-26] MEDS: METOPROLOL TARTRATE 50 MG TAB PO SCH (09:05)
--- NOTE | 2020-07-26 09:08 | XR ---
EXAMINATION TYPE: XR chest 2V DATE OF EXAM: 07/26/2020 COMPARISON: July 23, 2020 HISTORY: Shortness of breath TECHNIQUE: Frontal and lateral views of the chest are obtained. FINDINGS: Scattered senescent parenchymal changes noted. Hyperinflation compatible with COPD. Patchy perihilar and basilar infiltrates persist as well as underlying pleural effusions. Pulmonary v enous congestion noted as well. Heart size is stable. Mediastinal structures are stable and grossly unremarkable. No evidence for hilar prominence. Degenerative changes dorsal spine. IMPRESSION: 1. Stable features of congestive failure. Infiltrates of other etiology not excluded.
[2020-07-26 09:24] LABS: T4, Free (Free Thyroxine) 2.08 ng/dL (0.78-2.19)
[2020-07-26] MEDS ORDERED: METOPROLOL TARTRATE 25 MG TAB PO STA (09:26)
--- NOTE | 2020-07-26 09:58 | P.PN ---
Subjective patient is seen in follow-up for hyponatremia. Status post endoscopic over fourth. Sodium level 131 this morning. nonoliguric. Urine output near 2.5 L in the last 24 hours. Maintained on IV Lasix 40 mg every 8 hours. no vomiting or diarrhea. currently on 4 L nasal cannula. Vital signs are stable. General: The patient appeared well nourished and normally developed. HEENT: Head exam is unremarkable. Neck is without jugular venous distension. LUNGS: Breath sounds decreased. HEART: Rate and Rhythm are regular. ABDOMEN: soft, nontender. EXTREMITITES: 2+ edema. Objective - Vital Signs Vital signs: Vital Signs Temp 97.8 F 07/26/20 08:27 Pulse 60 07/26/20 08:27 Resp 18 07/26/20 08:27 BP 132/100 07/26/20 08:27 Pulse Ox 96 07/26/20 08:27 Intake & Output 07/25/20 07/26/20 07/26/20 18:59 06:59 18:59 Intake Total 476 Output Total 600 1850 Balance -124 -1850 Weight 86.2 kg Intake: Oral 476 Output: Urine 600 1850 Other: Voiding Method Urinal - Labs CBC & Chem 7: 07/22/20 16:46 07/26/20 07:45 Labs: Abnormal Lab Results - Last 24 Hours (Table) 07/25/20 07/26/20 Range/Units 15:40 07:45 Sodium 131 L (137-145) mmol/L Chloride 94 L (98-107) mmol/L Carbon Dioxide 31 H (22-30) mmol/L BUN 22 H (9-20) mg/dL Glucose 220 H (74-99) mg/dL TSH 16.000 H (0.465-4.680) mIU/L Urine Protein 1+ H (Negative) Urine Mucus Rare H (None) /hpf Microbiology - Last 24 Hours (Table) 07/22/20 18:03 Blood Culture - Preliminary Blood No Growth after 72 hours Assessment and Plan Plan: assessment: 1. Hypervolemic hyponatremia. status post and July 25. Sodium level 131 today. TSH elevated. 2. Mild acute kidney injury secondary to cardiorenal syndrome. 3. Volume overload. 4. Acute on chronic systolic CHF with ejection fraction of 30-35%. 5. A. fib with RVR. 6. Hypothyroidism. plan: Maintain IV Lasix 40 mg 3 times daily. 1200 mL fluid restriction. start levothyroxine. repeat electrolytes in the morning
--- NOTE | 2020-07-26 11:27 | P.CONS ---
History of Present Illness - Reason for Consult Consult date: 07/26/20 Wound care - History of Present Illness This is an 89-year-old gentleman being seen by the wound care center for a nonhealing ulceration to the right anterior leg. Patient does not know how it happened or how long it has been there. Patient's past medical history significant for diabetes, atrial fibrillation, coronary artery disease, heart failure, hyperlipidemia, hypertension, myocardial infarctions. Review of Systems Review Of Systems: Constitutional: No fever, no chills, no night sweats. No weight change. No weakness, fatigue or lethargy. No daytime sleepiness. Integumentary:reports wounds, no lesions. No rash or pruritus. No unusual bruising. No change in hair or nails. Past Medical History Past Medical History: Atrial Fibrillation, Coronary Artery Disease (CAD), Cancer, Heart Failure, Diabetes Mellitus, GERD/Reflux, Hyperlipidemia, Hypertension, Myocardial Infarction (VT), Osteoarthritis (OA), Pneumonia, Vascu lar Disorder Additional Past Medical History / Comment(s): Pt recently admitted to [facility] on 06/27/20 with CHF/hyponatremia and social issues-pt/family having difficulty caring for pt. 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 Past Anesthesia/Blood Transfusion Reactions: No Reported Reaction Date of Last Stent Placement:: 2014 Smoking Status: Former smoker - Past Family History Father History Unknown: Yes Family Medical History: Unable to Obtain Additional Family Medical History / Comment(s): Father never went to the doctor. Mother History Unknown: Yes Family Medical History: Hyperlipidemia Additional Family Medical History / Comment(s): high cholesterol. Medications and Allergies Home Medications Medication Instructions Recorded Confirmed Type Simvastatin [Zocor] 20 mg PO DAILY 05/13/16 07/22/20 History cloNIDine HCL [Catapres] 0.2 mg PO HS 05/13/16 07/22/20 History Ezetimibe [Zetia] 10 mg PO DAILY 05/29/20 07/22/20 History Irbesartan [Avapro] 150 mg PO DAILY 05/29/20 07/22/20 History Apixaban [Eliquis] 2.5 mg PO BID #60 tablet 06/11/20 07/22/20 Rx Metoprolol Tartrate [Lopressor] 50 mg PO TID #60 tab 06/11/20 07/22/20 Rx Pantoprazole [Protonix] 40 mg PO [id number]-[id number] #30 tablet. 06/11/20 07/22/20 Rx Furosemide [Lasix] 40 mg PO DAILY 06/27/20 07/22/20 History LORazepam [Ativan] 1 mg PO BID PRN 07/22/20 07/22/20 History NIFEdipine [NIFEdipine ER] 90 mg PO DAILY 07/22/20 07/22/20 History Potassium Chloride ER [K-Dur 10] 10 meq PO DAILY 07/22/20 07/22/20 History Allergies Allergy/AdvReac Type Severity Reaction Status Date / Time Penicillins Allergy Rash/Hives Verified 07/22/20 18:08 zolpidem [From Ambien] AdvReac Confusion Verified 07/22/20 18:08 Physical Exam Vitals: Vital Signs Temp Pulse Pulse Resp BP Pulse Ox 07/26/20 11:10 96 07/26/20 11:00 94 07/26/20 08:27 97.8 F 60 18 132/100 96 07/26/20 08:00 102 H 07/26/20 07:48 100 07/26/20 04:00 97.3 F L 89 18 146/75 92 L 07/26/20 00:00 91 18 07/25/20 23:57 97.8 F 91 18 119/90 92 L 07/25/20 20:21 102 H 07/25/20 20:06 98 07/25/20 20:00 97.7 F 95 18 133/88 93 L 07/25/20 16:25 111 H 07/25/20 16:17 111 H 07/25/20 16:00 97.5 F L 79 18 145/76 95 07/25/20 13:05 97.6 F 133 H 18 123/70 90 L 07/25/20 12:04 113 H 07/25/20 11:50 112 H Intake and Output 07/25/20 07/26/20 07/26/20 22:59 06:59 14:59 Intake Total 240 Output Total 625 1525 Balance -385 -1525 Intake: Oral 240 Output: Urine 625 1525 Other: Voiding Method Urinal Urinal Weight 86.2 kg Physical exam: General Appearance: Alert, cooperative, no distress, appears stated age. Skin: Right anterior lower extremity has a full-thickness ulceration that appears venous in nature measuring approximately 1.5 x 2 x 0.1 cm granulation seen throughout the wound bed with moderate amount of slough. Wound edges attached to the wound base. Periwound shows redness no signs of infection all other Skin color, texture, tugor normal, no rashes or lesions. 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 Current Visit: Yes Status: Acute Code(s): L97.912 - NON-PRS CHR ULC UNSP PRT OF R LOW LEG W FAT LAYER EXPOSED SNOMED Code(s): 43265260 (2) 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 Change Sunday. Use an Manuel wrap to control the edema. Elevate legs 3 times a day for 30 minutes. Patient may benefit from outpatient wound care however he is not agreeable at this time. Thank you kindly for the consultation any questions to contact the wound care center DNP note has been reviewed and discussed with Dr. Calix and the impression and plan of care has been directed as dictated.
--- NOTE | 2020-07-26 11:48 | P.PN ---
Subjective This is a pleasant 89-year-old male past medical history significant for chronic persistent atrial fibrillation, chronic systolic heart failure, hypertension, dyslipidemia, diabetes mellitus and coronary artery disease. He follows in the office with Dr. Benz. He is seen and examined resting comfortably sitting up in bed in no acute distress. He denies chest pain, shortness of breath, dizziness or palpitations. He continues to be on IV diuretics. He has ongoing lower extremity edema. Repeat chest x-ray today reveals stable features of congestive heart failure with hyperinflation compatible with COPD. Blood pressure 132/100 heart rate 60 afebrile maintaining oxygen saturation on nasal cannula. He continues to maintain a negative fluid balance with over 2000 mL out previous 24 hours. Laboratory data reviewed, sodi um 131, potassium 4.4, creatinine 1.1, magnesium 1.8, TSH 16 and free T4 2 0.08. Currently maintained on Eliquis 2.5 mg twice a day, atorvastatin 10 mg daily, clonidine 0.2 mg at bedtime, Zetia 10 mg daily, Lasix 40 mg IV 3 times a day, losartan 75 mg daily, metoprolol 50 mg 3 times a day and Aldactone 25 mg daily. Telemetry tracings show persistent atrial fibrillation with short bursts of RVR. GENERAL: Well-appearing, well-nourished and in no acute distress. NECK: Supple without JVD or thyromegaly. LUNGS: Breath sounds clear to auscultation bilaterally. Respiration equal and unlabored. No wheezes, rales or rhonchi. HEART: Irregular rate and rhythm with systolic ejection murmur at the left sternal border, no rubs or gallops. S1 and S2 heard. EXTREMITIES: Normal range of motion, 1+ bilateral lower extremity pitting edema. No clubbing or cyanosis. Peripheral pulses intact. ASSESSMENT Acute on chronic systolic heart failure Ischemic cardiomyopathy Chronic persistent atrial fibrillation with variable ventricular rates Hypertension Dyslipidemia Diabetes mellitus Coronary artery disease status post PCI Hypothyroidism, synthroid added per nephrology PLAN Increase Lopressor to 75 mg 3 times a day, give additional dose of 25 mg now. Continue to document accurate intake and output along with daily weights. Follow electrolytes and kidney function in the morning. Further recommendations to follow based upon clinical course. Nurse Practitioner note has been reviewed, I agree with a documented findings and plan of care. Patient was seen and examined. Objective - Vital Signs Vital signs: Vital Signs Temp 97.8 F 07/26/20 08:27 Pulse 94 07/26/20 11:00 Resp 18 07/26/20 08:27 BP 132/100 07/26/20 08:27 Pulse Ox 96 07/26/20 08:27 Intake & Output 07/25/20 07/26/20 07/26/20 18:59 06:59 18:59 Intake Total 476 Output Total 600 1850 Balance -124 -1850 Weight 86.2 kg Intake: Oral 476 Output: Urine 600 1850 Other: Voiding Method Urinal - Labs CBC & Chem 7: 07/22/20 16:46 07/26/20 07:45 Labs: Abnormal Lab Results - Last 24 Hours (Table) 07/25/20 07/26/20 Range/Units 15:40 07:45 Sodium 131 L (137-145) mmol/L Chloride 94 L (98-107) mmol/L Carbon Dioxide 31 H (22-30) mmol/L BUN 22 H (9-20) mg/dL Glucose 220 H (74-99) mg/dL TSH 16.000 H (0.465-4.680) mIU/L Urine Protein 1+ H (Negative) Urine Mucus Rare H (None) /hpf Microbiology - Last 24 Hours (Table) 07/22/20 18:03 Blood Culture - Preliminary Blood No Growth after 72 hours
[2020-07-26] MEDS: METOPROLOL TARTRATE 25 MG TAB PO SCH ×2 (16:48→20:55)
[2020-07-26] MEDS: LEVOFLOXACIN 750 MG TAB PO SCH (18:14)
[2020-07-26] MEDS: cloNIDine HCL 0.2 MG TAB PO SCH (20:55)
[2020-07-26] MEDS: ALPRAZolam 0.5 MG TAB PO PRN (20:55)
[2020-07-27] MEDS: FUROSEMIDE 10 MG/ML 4 ML VIAL IV SCH (04:15)
[2020-07-27] MEDS: LEVOTHYROXINE 25 MCG TAB PO SCH (06:13)
[2020-07-27] MEDS: PANTOPRAZOLE 40 MG TABLET PO SCH (06:13)
[2020-07-27 07:04] LABS: HCT 41.9 % (39.0-53.0); HGB 13.5 gm/dL (13.0-17.5); MCH 31.4 pg (25.0-35.0); MCHC 32.3 g/dL (31.0-37.0); MCV 97.2 fL (80.0-100.0); Mean Platelet Volume 7.1; Platelet Count 203 k/uL (150-450); RBC 4.31 m/uL (4.30-5.90); WBC 11.6 k/uL (3.8-10.6)
[2020-07-27] MEDS: IPRATROPIUM-ALBUTEROL 3 ML NEB INHALATION SCH ×4 (07:26→20:17)
[2020-07-27 07:27] LABS: Albumin 3.1 g/dL (3.5-5.0); Calcium 8.5 mg/dL (8.4-10.2); Magnesium 1.6 mg/dL (1.6-2.3); Potassium 4.1 mmol/L (3.5-5.1); Total Bilirubin 0.9 mg/dL (0.2-1.3); Total Protein 5.9 g/dL (6.3-8.2)
--- NOTE | 2020-07-27 07:54 | P.PN ---
Subjective Principal diagnosis: The patient complains of worsening cough when eating. This is a continue pressure 89-year-old white male essentially admitted for recurrent acute on chronic congestive heart failure. Element of pleural effusion versus pneumonia is noted. The patient states coughing when eating. Question element of reflux esophagitis. The patient clinically seems better except ambulation is poor. No new voiding difficulties are stated The patient has difficulty with ambulation and transfers but at home as wheelchair. I had a discussion with the yesterday, who is unfortunate also hospitalized, who stated that she has significant fall risk elements. They have decided for some type of assisted living upon discharge. Home health will also be involved. Objective - Vital Signs Vital signs: Vital Signs Temp 97.5 F L 07/27/20 00:00 Pulse 103 H 07/27/20 07:36 Resp 18 07/27/20 04:00 BP 128/81 07/27/20 04:00 Pulse Ox 92 L 07/27/20 07:26 Intake & Output 07/26/20 07/27/20 07/27/20 18:59 06:59 18:59 Intake Total 710 Output Total 2611 850 Balance -1901 -850 Intake: Oral 710 Output: Urine 1940 850 Uretheral (Ballard) 670 850 Post Void Residual 671 Other: Voiding Method Indwelling Catheter - Constitutional General appearance: Present: average body habitus - EENT Eyes: Absent: abnormal pupil - Neck Neck: Absent: lymphadenopathy - Respiratory Respiratory: bilateral: diminished - Cardiovascular Rhythm: irregularly irregular Heart sounds: normal: S1, S2 Abnormal Heart Sounds: Absent: S3 Gallop - Gastrointestinal General gastrointestinal: Present: soft. Absent: tenderness - Neurologic Neurologic: Present: CNII-XII intact - Labs CBC & Chem 7: 07/27/20 06:37 07/27/20 06:37 Labs: Abnormal Lab Results - Last 24 Hours (Table) 07/26/20 07/27/20 07/27/20 Range/Units 07:45 06:37 06:37 WBC 11.6 H (3.8-10.6) k/uL Sodium 131 L 131 L (137-145) mmol/L Chloride 94 L 97 L (98-107) mmol/L Carbon Dioxide 31 H (22-30) mmol/L BUN 22 H 23 H (9-20) mg/dL Glucose 220 H 226 H (74-99) mg/dL ALT 66 H (4-49) U/L Total Protein 5.9 L (6.3-8.2) g/dL Albumin 3.1 L (3.5-5.0) g/dL TSH 16.000 H (0.465-4.680) mIU/L Microbiology - Last 24 Hours (Table) 07/22/20 18:03 Blood Culture - Preliminary Blood No Growth after 96 hours Assessment and Plan (1) Atrial fibrillation with RVR Current Visit: Yes Status: Acute Code(s): I48.91 - UNSPECIFIED ATRIAL FIBRILLATION SNOMED Code(s): 105298405703410 (2) Congestive heart failure (CHF) Current Visit: Yes Status: Acute Code(s): I50.9 - HEART FAILURE, UNSPECIFIED SNOMED Code(s): 08520358 (3) Pneumonia Current Visit: Yes Status: Acute Code(s): J18.9 - PNEUMONIA, UNSPECIFIED ORGANISM SNOMED Code(s): 024759579 (4) Diabetes Current Visit: No Status: Acute Code(s): E11.9 - TYPE 2 DIABETES MELLITUS WITHOUT COMPLICATIONS SNOMED Code(s): 85206865 (5) High risk for readmission Current Visit: No Status: Acute Code(s): Z91.89 - OTH PERSONAL RISK FACTORS, NOT ELSEWHERE CLASSIFIED SNOMED Code(s): 666064247 (6) Penicillin allergy Current Visit: No Status: Acute Code(s): Z88.0 - ALLERGY STATUS TO PEN ICILLIN SNOMED Code(s): 55178995 Plan: Continue diuresis. Increase ambulation. Consult physical therapy. Discharge planning. We'll switch over to by mouth Lasix today. Anticipate hopeful discharge in the next 24-48 hours. Significant atrial fibrillation with rapid ventricular response still noted at baseline. Time with Patient: Greater than 30
[2020-07-27] MEDS: APIXABAN 2.5 MG TABLET PO SCH ×2 (08:07→20:29)
[2020-07-27] MEDS: EZETIMIBE 10 MG TAB PO SCH (08:07)
[2020-07-27] MEDS: SPIRONOLACTONE 25 MG TAB PO SCH (08:07)
[2020-07-27] MEDS: METOPROLOL TARTRATE 25 MG TAB PO SCH ×3 (08:07→20:30)
[2020-07-27] MEDS: ATORVASTATIN 10 MG TAB PO SCH (08:07)
[2020-07-27] MEDS: FUROSEMIDE 40 MG TAB PO SCH ×3 (08:07→20:29)
[2020-07-27] MEDS: LOSARTAN 25 MG TAB PO SCH (08:07)
--- NOTE | 2020-07-27 10:18 | P.PN ---
Subjective patient is seen in follow-up for hyponatremia. Status post [facility] July 25. Sodium level 131 this morning. Blood sugars noted to be on the higher side. nonoliguric. Maintained on po Lasix 40 mg every 8 hours. no vomiting or diarrhea. currently on 2 L nasal cannula. Vital signs are stable. General: The patient appeared well nourished and normally developed. HEENT: Head exam is unremarkable. Neck is without jugular venous distension. LUNGS: Breath sounds decreased. HEART: Rate and Rhythm are regular. ABDOMEN: soft, nontender. EXTREMITITES: 1+ edema. Objective - Vital Signs Vital signs: Vital Signs Temp 97.7 F 07/27/20 08:11 Pulse 98 07/27/20 08:11 Resp 18 07/27/20 08:11 BP 130/67 07/27/20 08:11 Pulse Ox 95 07/27/20 08:11 Intake & Output 07/26/20 07/27/20 07/27/20 18:59 06:59 18:59 Intake Total 710 240 Output Total 2611 850 425 Balance -1901 -850 -185 Intake: Oral 710 240 Output: Urine 1940 850 425 Uretheral (Ballard) 670 850 425 Post Void Residual 671 Other: Voiding Method Indwelling Catheter Indwelling Catheter - Labs CBC & Chem 7: 07/27/20 06:37 07/27/20 06:37 Labs: Abnormal Lab Results - Last 24 Hours (Table) 07/27/20 07/27/20 Range/Units 06:37 06:37 WBC 11.6 H (3.8-10.6) k/uL Sodium 131 L (137-145) mmol/L Chloride 97 L (98-107) mmol/L BUN 23 H (9-20) mg/dL Glucose 226 H (74-99) mg/dL ALT 66 H (4-49) U/L Total Protein 5.9 L (6.3-8.2) g/dL Albumin 3.1 L (3.5-5.0) g/dL Microbiology - Last 24 Hours (Table) 07/22/20 18:03 Blood Culture - Preliminary Blood No Growth after 96 hours Assessment and Plan Plan: assessment: 1. Hypervolemic hyponatremia. Status post and July 25. Sodium level 131 today - corrected sodium for hyperglycemia is 133. TSH elevated. 2. Mild acute kidney injury secondary to cardiorenal syndrome. Stable. 3. Volume overload. 4. Acute on chronic systolic CHF with ejection fraction of 30-35%. 5. A. fib with RVR. 6. Hypothyroidism. Started on Synthroid this admission. plan: Maintain oral Lasix 40 mg 3 times daily. 1200 mL fluid restriction. Tight blood sugar control. Repeat BMP and magnesium level 2-3 days postdischarge. Follow up outpatient in 1 week.
--- NOTE | 2020-07-27 12:15 | P.PN ---
Subjective This is a pleasant 89-year-old male past medical history significant for chronic persistent atrial fibrillation, chronic systolic heart failure, hypertension, dyslipidemia, diabetes mellitus and coronary artery disease. He follows in the office with Dr. Benz. He is seen and examined resting comfortably sitting up in bed in no acute distress. He denies chest pain, shortness of breath, dizziness or palpitations. He states he has started coughing more frequently today with thick sputum production. Blood pressure 148/79 heart rate 68 afebrile maintaining oxygen saturation on nasal cannula. Laboratory data reviewed, WBC 11.6, hemoglobin 13.5, platelets 203, sodium 131, potassium 4.1, creatinine 1.07. Previous 24 hour output is 3461, rales, maintaining a negative fluid balance. GENERAL: Well-appearing, well-nourished and in no acute distress. NECK: Supple without JVD or thyromegaly. LUNGS: Scattered rhonchi, no wheezes or rales. Respiration equal and unlabored. HEART: Irregular rate and rhythm with systolic ejection murmur at the left sternal border, no rubs or gallops. S1 and S2 heard. EXTREMITIES: Normal range of motion, 1+ bilateral lower extremity pitting edema with adrienne wraps in place. No clubbing or cyanosis. Peripheral pulses intact. ASSESSMENT Acute on chronic systolic heart failure, EF 30-35% Ischemic cardiomyopathy Chronic persistent atrial fibrillation with variable ventricular rates Aortic stenosis, mild. Mean gradient 7 mmHg Hypertension Dyslipidemia Diabetes mellitus Coronary artery disease status post PCI Hypothyroidism, synthroid added per nephrology PLAN He has been transitioned to oral diuretics per Dr. Christina. Clinically stable from a cardiac perspective. Further recommendations to follow based upon clinical course. Nurse Practitioner note has been reviewed, I agree with a documented findings and plan of care. Patient was seen and examined. Objective - Vital Signs Vital signs: Vital Signs Temp 97.8 F 07/27/20 11:46 Pulse 68 07/27/20 11:46 Resp 18 07/27/20 11:46 BP 148/79 07/27/20 11:46 Pulse Ox 96 07/27/20 11:46 Intake & Output 07/26/20 07/27/20 07/27/20 18:59 06:59 18:59 Intake Total 710 240 Output Total 2615 850 1125 Balance -1901 -850 -017 Intake: Oral 710 240 Output: Urine 5938 350 8031 Uretheral (Ballard) 670 850 425 Post Void Residual 671 Other: Voiding Method Indwelling Catheter Indwelling Catheter - Labs CBC & Chem 7: 07/27/20 06:37 07/27/20 06:37 Labs: Abnormal Lab Results - Last 24 Hours (Table) 07/27/20 07/27/20 Range/Units 06:37 06:37 WBC 11.6 H (3.8-10.6) k/uL Sodium 131 L (137-145) mmol/L Chloride 97 L (98-107) mmol/L BUN 23 H (9-20) mg/dL Glucose 226 H (74-99) mg/dL ALT 66 H (4-49) U/L Total Protein 5.9 L (6.3-8.2) g/dL Albumin 3.1 L (3.5-5.0) g/dL Microbiology - Last 24 Hours (Table) 07/22/20 18:03 Blood Culture - Preliminary Blood No Growth after 96 hours
[2020-07-27] MEDS: LEVOFLOXACIN 750 MG TAB PO SCH (15:12)
[2020-07-27] MEDS: cloNIDine HCL 0.2 MG TAB PO SCH (20:29)
[2020-07-27] MEDS: ALPRAZolam 0.5 MG TAB PO PRN (20:31)
[2020-07-27] MEDS ORDERED: DILTIAZEM DRIP BOLUS FROM BAG 1 MG SOLN IV ONE (22:34)
[2020-07-27] MEDS ORDERED: DILTIAZEM 125 MG in SODIUM CHLORIDE 0.9% 100 ML IV SCH (22:45)
[2020-07-28] MEDS: LEVOTHYROXINE 25 MCG TAB PO SCH (06:33)
[2020-07-28] MEDS: PANTOPRAZOLE 40 MG TABLET PO SCH (06:33)
[2020-07-28 07:20] LABS: Calcium 8.3 mg/dL (8.4-10.2); Magnesium 1.6 mg/dL (1.6-2.3)
[2020-07-28] MEDS: IPRATROPIUM-ALBUTEROL 3 ML NEB INHALATION SCH ×4 (07:40→20:11)
[2020-07-28] MEDS: LOSARTAN 25 MG TAB PO SCH (08:20)
[2020-07-28] MEDS: SPIRONOLACTONE 25 MG TAB PO SCH (08:20)
[2020-07-28] MEDS: METOPROLOL TARTRATE 25 MG TAB PO SCH ×3 (08:20→21:25)
[2020-07-28] MEDS: FUROSEMIDE 40 MG TAB PO SCH ×3 (08:20→21:25)
[2020-07-28] MEDS: ATORVASTATIN 10 MG TAB PO SCH (08:20)
[2020-07-28] MEDS: APIXABAN 2.5 MG TABLET PO SCH ×2 (08:20→21:25)
--- NOTE | 2020-07-28 08:20 | P.PN ---
Subjective Principal diagnosis: The patient complains of worsening cough when eating. This is a continue pressure 89-year-old white male essentially admitted for recurrent acute on chronic congestive heart failure. Element of pleural effusion versus pneumonia is noted. The patient states coughing when eating. Question element of reflux esophagitis. The patient clinically seems better except ambulation is poor. No new voiding difficulties are stated The patient has difficulty with ambulation and transfers but at home as wheelchair. I had a discussion with the yesterday, who is unfortunate also hospitalized, who stated that she has significant fall risk elements. They have decided for some type of assisted living upon discharge. Home health will also be involved. The patient will anticipate transfer to [facility] tomorrow. Objective - Vital Signs Vital signs: Vital Signs Temp 97.5 F L 07/28/20 04:00 Pulse 104 H 07/28/20 07:55 Resp 18 07/28/20 04:00 BP 144/78 07/28/20 04:00 Pulse Ox 98 07/28/20 07:40 Intake & Output 07/27/20 07/28/20 07/28/20 18:59 06:59 18:59 Intake Total 504 18.5 240 Output Total 2000 Balance -1496 18.5 240 Weight 76 kg Intake: Intake, IV Titration 18.5 Amount Diltiazem 125 mg In 18.5 Sodium Chloride 0.9% 100 ml @ 7.5 MG/HR 7.5 mls/hr IV .[id number] [facility] Rx#: [id number] Oral 504 240 Output: Urine 1999 Uretheral (Ballard) 700 Other: Voiding Method Indwelling Catheter Indwelling Catheter - Constitutional General appearance: Present: average body habitus - EENT Eyes: Absent: abnormal pupil - Neck Neck: Absent: lymphadenopathy - Respiratory Respiratory: bilateral: diminished - Cardiovascular Rhythm: irregularly irregular Heart sounds: normal: S1, S2 Abnormal Heart Sounds: Absent: S3 Gallop - Gastrointestinal General gastrointestinal: Present: soft. Absent: tenderness - Integumentary Integumentary: Present: normal - Labs CBC & Chem 7: 07/27/20 06:37 07/28/20 06:16 Labs: Abnormal Lab Results - Last 24 Hours (Table) 07/28/20 Range/Units 06:16 Sodium 131 L (137-145) mmol/L Chloride 96 L (98-107) mmol/L BUN 26 H (9-20) mg/dL Glucose 178 H (74-99) mg/dL Calcium 8.3 L (8.4-10.2) mg/dL Microbiology - Last 24 Hours (Table) 07/22/20 18:03 Blood Culture - Preliminary Blood No Growth after 120 hours Assessment and Plan (1) Atrial fibrillation with RVR Current Visit: Yes Status: Acute Code(s): I48.91 - UNSPECIFIED ATRIAL FIBRILLATION SNOMED Code(s): 457401812320860 (2) Congestive heart failure (CHF) Current Visit: Yes Status: Acute Code(s): I50.9 - HEART FAILURE, UNSPECIFIED SNOMED Code(s): 09101731 (3) Pneumonia Current Visit: Yes Status: Acute Code(s): J18.9 - PNEUMONIA, UNSPECIFIED ORGANISM SNOMED Code(s): 024704042 (4) Diabetes Current Visit: No Status: Acute Code(s): E11.9 - TYPE 2 DIABETES MELLITUS WITHOUT COMPLICATIONS SNOMED Code(s): 81122290 (5) High risk for readmission Current Visit: No Status: Acute Code(s): Z91.89 - OTH PERSONAL RISK FACTORS, NOT ELSEWHERE CLASSIFIED SNOMED Code(s): 297096579 (6) Penicillin allergy Current Visit: No Status: Acute Code(s): Z88.0 - ALLERGY STATUS TO PENICILLIN SNOMED Code(s): 29618817 Plan: Continue diuresis. Increase ambulation. Consult physical therapy. Discharge planning. We'll switch over to by mouth Lasix today. Anticipate hopeful discharge in the next 24-48 hours. atrial fibrillation is improved.
[2020-07-28] MEDS: EZETIMIBE 10 MG TAB PO SCH (10:00)
--- NOTE | 2020-07-28 10:23 | P.PN ---
Subjective patient is seen in follow-up for hyponatremia. Status post [facility] July 25. Sodium level stable at 131 this morning. nonoliguric. Maintained on po Lasix 40 mg every 8 hours. no vomiting or diarrhea. currently on 3 L nasal cannula. no active complaints. No changes overnight. Vital signs are stable. General: The patient appeared well nourished and normally developed. HEENT: Head exam is unremarkable. Neck is without jugular venous distension. LUNGS: Breath sounds decreased. HEART: Rate and Rhythm are regular. ABDOMEN: soft, nontender. EXTREMITITES: 1+ edema. Objective - Vital Signs Vital signs: Vital Signs Temp 97.5 F L 07/28/20 04:00 Pulse 104 H 07/28/20 07:55 Resp 18 07/28/20 04:00 BP 144/78 07/28/20 04:00 Pulse Ox 98 07/28/20 07:40 Intake & Output 07/27/20 07/28/20 07/28/20 18:59 06:59 18:59 Intake Total 504 18.5 240 Output Total 1999 Balance -1496 18.5 240 Weight 76 kg Intake: Intake, IV Titration 18.5 Amount Diltiazem 125 mg In 18.5 Sodium Chloride 0.9% 100 ml @ 7.5 MG/HR 7.5 mls/hr IV .[id number] [facility] Rx#: [id number] Oral 504 240 Output: Urine 2000 Uretheral (Ballard) 700 Other: Voiding Method Indwelling Catheter Indwelling Catheter - Labs CBC & Chem 7: 07/27/20 06:37 07/28/20 06:16 Labs: Abnormal Lab Results - Last 24 Hours (Table) 07/28/20 Range/Units 06:16 Sodium 131 L (137-145) mmol/L Chloride 96 L (98-107) mmol/L BUN 26 H (9-20) mg/dL Glucose 178 H (74-99) mg/dL Calcium 8.3 L (8.4-10.2) mg/dL Microbiology - Last 24 Hours (Table) 07/22/20 18:03 Blood Culture - Preliminary Blood No Growth after 120 hours Assessment and Plan Plan: assessment: 1. Hypervolemic hyponatremia. Status post and July 25. Sodium level stable 131 today. TSH elevated. 2. Mild acute kidney injury secondary to cardiorenal syndrome. Stable. 3. Volume overload. better with diuresis. 4. Acute on chronic systolic CHF with ejection fraction of 30-35%. 5. A. fib with RVR. 6. Hypothyroidism. Started on Synthroid this admission. 7. Hypomagnesemia secondary to diuresis. plan: Maintain oral Lasix 40 mg 3 times daily. 1200 mL fluid restriction. Tight blood sugar control. Samsca 15 mg once today. add oral magnesium oxide. Repeat BMP and magnesium level 2-3 days postdischarge. Follow up outpatient in 1 week.
[2020-07-28] MEDS ORDERED: TOLVAPTAN 15 MG 1/2 TABLET PO ONE (11:00)
[2020-07-28] MEDS: MAGNESIUM OXIDE 400 MG TAB PO SCH (11:08)
--- NOTE | 2020-07-28 11:25 | P.PN ---
Subjective This is a pleasant 89-year-old male past medical history significant for chronic persistent atrial fibrillation, chronic systolic heart failure, hypertension, dyslipidemia, diabetes mellitus and coronary artery disease. He follows in the office with Dr. Benz. He is seen and examined resting comfortably sitting up in bed in no acute distress. He denies chest pain, shortness of breath, dizziness or palpitations. He had some episodes of rapid ventricular rates last night and IV cardizem was initiated and has since been discontinued. Current heart rate 72 with blood pressure 121/69. Telemetry tracings reviewed, heart rates fluctuating between 50s and 140. Laboratory data reviewed, sodium 131, potassium 4.0, creatinine 1.19 and magnesium 1.6. He is currently awaiting placement at the [facility] supposedly tomorrow. GENERAL: Well-appearing, well-nourished and in no acute distress. NECK: Supple without JVD or thyromegaly. LUNGS: Scattered rhonchi, no wheezes or rales. Respiration equal and unlabored. HEART: Irregular rate and rhythm with systolic ejection murmur at the left sternal border, no rubs or gallops. S1 and S2 heard. EXTREMITIES: Normal range of motion, 1+ bilateral lower extremity pitting edema with adrienne wraps in place. No clubbing or cyanosis. Peripheral pulses intact. ASSESSMENT Acute on chronic systolic heart failure, EF 30-35% Ischemic cardiomyopathy Chronic persistent atrial fibrillation with variable ventricular rates Aortic stenosis, mild. Mean gradient 7 mmHg Hypertension Dyslipidemia Diabetes mellitus Coronary artery disease status post PCI Hypothyroidism, synthroid added per nephrology PLAN Ongoing telemetry monitoring. Stable on current medical regimen. Follow up with Dr. Benz upon discharge. Nurse Practitioner note has been reviewed, I agree with a documented findings and plan of care. Patient was seen and examined. Objective - Vital Signs Vital signs: Vital Signs Temp 97.6 F 07/28/20 08:00 Pulse 72 07/28/20 08:00 Resp 16 07/28/20 08:00 BP 121/69 07/28/20 08:00 Pulse Ox 97 07/28/20 08:00 Intake & Output 07/27/20 07/28/20 07/28/20 18:59 06:59 18:59 Intake Total 504 18.5 240 Output Total 1999 825 Balance -1496 18.5 -585 Weight 76 kg Intake: Intake, IV Titration 18.5 Amount Diltiazem 125 mg In 18.5 Sodium Chloride 0.9% 100 ml @ 7.5 MG/HR 7.5 mls/hr IV .[id number] [facility] Rx#: [id number] Oral 504 240 Output: Urine 1999 825 Uretheral (Ballard) 700 825 Other: Voiding Method Indwelling Catheter Indwelling Catheter Indwelling Catheter - Labs CBC & Chem 7: 07/27/20 06:37 07/28/20 06:16 Labs: Abnormal Lab Results - Last 24 Hours (Table) 07/28/20 Range/Units 06:16 Sodium 131 L (137-145) mmol/L Chloride 96 L (98-107) mmol/L BUN 26 H (9-20) mg/dL Glucose 178 H (74-99) mg/dL Calcium 8.3 L (8.4-10.2) mg/dL Microbiology - Last 24 Hours (Table) 07/22/20 18:03 Blood Culture - Preliminary Blood No Growth after 120 hours
[2020-07-28] MEDS: NYSTATIN 100,000 UNIT/ML SUSP 500,000 UNIT/5 ML CUP PO SCH ×3 (12:30→21:27)
[2020-07-28] MEDS: cloNIDine HCL 0.2 MG TAB PO SCH (21:25)
[2020-07-28] MEDS: ALPRAZolam 0.5 MG TAB PO PRN (21:26)
[2020-07-29] MEDS ORDERED: ACETAMINOPHEN TAB 325 MG TAB PO PRN (03:38)
[2020-07-29] MEDS: ALPRAZolam 0.5 MG TAB PO PRN (03:47)
[2020-07-29] MEDS: PANTOPRAZOLE 40 MG TABLET PO SCH (06:19)
[2020-07-29] MEDS: LEVOTHYROXINE 25 MCG TAB PO SCH (06:19)
[2020-07-29 07:40] LABS: Calcium 8.2 mg/dL (8.4-10.2); Magnesium 1.7 mg/dL (1.6-2.3); Potassium 4.2 mmol/L (3.5-5.1)
[2020-07-29] MEDS: IPRATROPIUM-ALBUTEROL 3 ML NEB INHALATION SCH ×3 (07:41→15:30)
--- NOTE | 2020-07-29 07:58 | P.DS ---
Providers Date of admission: 07/22/20 18:29 Attending physician: Cecilio Christina Consults: 07/22/20 18:29 Consult Physician Routine Consulting Provider: Melissa Triana Consult Reason/Comments: a fib, chf Do you want consulting provider notified?: Yes 07/25/20 09:30 Consult Physician Routine Consulting Provider: Rishi Castrejon Consult Reason/Comments: hyponatremia Do you want consulting provider notified?: Yes Primary care physician: Cecilio Christina - Discharge Diagnosis(es) (1) Atrial fibrillation with RVR Current Visit: Yes Status: Acute (2) Congestive heart failure (CHF) Current Visit: Yes Status: Acute (3) Pneumonia Current Visit: Yes Status: Acute (4) Diabetes Current Visit: No Status: Acute (5) High risk for readmission Current Visit: No Status: Acute (6) Penicillin allergy Current Visit: No Status: Acute Hospital Course: This discharge summary 89-year-old white male essentially admitted for congestive heart failure with atrial fibrillation. The patient was stabilized with IV Lasix and transitioned to oral medication. The patient due to her advancing age and generalized weakness they have decided to go to assisted living at [facility]. The patient will be discharged in stable but guarded condition due to her multiple comorbidities and follow-up with la in 3 days. Patient Condition at Discharge: Serious Plan - Discharge Summary Discharge Rx Participant: No New Discharge Prescriptions: New Spironolactone [Aldactone] 25 mg PO DAILY #30 tab Ipratropium-Albuterol Nebulize [Duoneb 0.5 mg-3 mg/3 ml Soln] 3 ml INHALATION RT-QID #300 ml Furosemide [Lasix] 40 mg PO TID #90 tab Magnesium Oxide [Mag-Ox] 400 mg PO DAILY #30 tab Nystatin 100,000 Unit/ml Susp [Mycostatin Oral Susp] 500,000 unit PO QID #200 ml Levothyroxine Sodium [Synthroid] 25 mcg PO DAILY@0630 #30 tab Continue Simvastatin [Zocor] 20 mg PO DAILY cloNIDine HCL [Catapres] 0.2 mg PO HS Irbesartan [Avapro] 150 mg PO DAILY Ezetimibe [Zetia] 10 mg PO DAILY Apixaban [Eliquis] 2.5 mg PO BID #60 tablet Metoprolol Tartrate [Lopressor] 50 mg PO TID #60 tab Pantoprazole [Protonix] 40 mg PO AC-BRKFST #30 tablet. Potassium Chloride ER [K-Dur 10] 10 meq PO DAILY NIFEdipine [NIFEdipine ER] 90 mg PO DAILY LORazepam [Ativan] 1 mg PO BID PRN PRN Reason: Anxiety Discontinued Furosemide [Lasix] 40 mg PO DAILY Discharge Medication List Simvastatin [Zocor] 20 mg PO DAILY 05/13/16 [History] cloNIDine HCL [Catapres] 0.2 mg PO HS 05/13/16 [History] Ezetimibe [Zetia] 10 mg PO DAILY 05/29/20 [History] Irbesartan [Avapro] 150 mg PO DAILY 05/29/20 [History] Apixaban [Eliquis] 2.5 mg PO BID #60 tablet 06/11/20 [Rx] Metoprolol Tartrate [Lopressor] 50 mg PO TID #60 tab 06/11/20 [Rx] Pantoprazole [Protonix] 40 mg PO AC-BRKFST #30 tablet. 06/11/20 [Rx] LORazepam [Ativan] 1 mg PO BID PRN 07/22/20 [History] NIFEdipine [NIFEdipine ER] 90 mg PO DAILY 07/22/20 [History] Potassium Chloride ER [K-Dur 10] 10 meq PO DAILY 07/22/20 [History] Furosemide [Lasix] 40 mg PO TID #90 tab 07/29/20 [Rx] Ipratropium-Albuterol Nebulize [Duoneb 0.5 mg-3 mg/3 ml Soln] 3 ml INHALATION RT-QID #300 ml 07/29/20 [Rx] Levothyroxine Sodium [Synthroid] 25 mcg PO DAILY@0630 #30 tab 07/29/20 [Rx] Magnesium Oxide [Mag-Ox] 400 mg PO DAILY #30 tab 07/29/20 [Rx] Nystatin 100,000 Unit/ml Susp [Mycostatin Oral Susp] 500,000 unit PO QID #200 ml 07/29/20 [Rx] Spironolactone [Aldactone] 25 mg PO DAILY #30 tab 07/29/20 [Rx] Follow up Appointment(s)/Referral(s): Radhames Corona MD [STAFF PHYSICIAN] - 1 Week [facility] [NON-STAFF] - As Needed Cecilio Christina MD [Primary Care Provider] - 3 Days [facility] [NON-STAFF] - 1 Week (If you change your mind about receiving wound care outpatient, here is the information for the clinic. ) Aminta Benz MD [STAFF PHYSICIAN] - 2 Weeks Patient Instructions/Handouts: Heart Failure (DC) Activity/Diet/Wound Care/Special Instructions: CHF 1. Weigh yourself every morning after you urinate. If you gain 2-3 pounds overnight or 5 pounds in one week, call your primary physician for guidance on your medications. Keep a log of your weights. 2. Avoid salt, or foods with hidden salt. Extra salt makes your heart work harder and traps the fluid in your body for longer. 3. Take all of your medications as directed, especially your water pills. NEVER skip a dose. 4. Elevate your legs when you are not up moving around to help with circulation and prevent swelling. 5. Call your physician if you notice any extra swelling in your legs, ankles, feet or abdomen, if you have a new dry cough, if your shortness of breath worsens with activity or at rest, or if you feel more fatigued. Ulcer treatment: Honey alginate, saline moistened gauze, dry gauze, rolled gauze and secured with paper tape. Change dressing every Sunday, Sunday, Sunday Plan of Treatment: Ulcer treatment: Honey alginate, saline moistened gauze, dry gauze, rolled gauze and secured with paper tape. Change dressing every Sunday, Sunday and Sunday.
--- NOTE | 2020-07-29 10:51 | P.PN ---
Subjective patient is seen in follow-up for hyponatremia. Status post [facility] July 25 and . Sodium level stable at 131 this morning. nonoliguric. Maintained on po Lasix 40 mg every 8 hours. no vomiting or diarrhea. currently on 2 L nasal cannula. no active complaints. No changes overnight. currently sleeping. Vital signs are stable. General: The patient appeared well nourished and normally developed. HEENT: Head exam is unremarkable. Neck is without jugular venous distension. LUNGS: Breath sounds decreased. HEART: Rate and Rhythm are regular. ABDOMEN: soft, nontender. EXTREMITITES: 1+ edema. Objective - Vital Signs Vital signs: Vital Signs Temp 97.9 F 07/29/20 08:09 Pulse 74 07/29/20 08:09 Resp 16 07/29/20 08:20 BP 109/61 07/29/20 08:09 Pulse Ox 93 L 07/29/20 08:09 Intake & Output 07/28/20 07/29/20 07/29/20 18:59 06:59 18:59 Intake Total 480 0 Output Total 1100 400 Balance -620 -400 0 Weight 73.5 kg Intake: Oral 480 0 Output: Urine 1100 400 Uretheral ([place]) 1100 Other: Voiding Method Indwelling Catheter Indwelling Catheter Indwelling Catheter # Voids 0 - Labs CBC & Chem 7: 07/27/20 06:37 07/29/20 07:02 Labs: Abnormal Lab Results - Last 24 Hours (Table) 07/29/20 Range/Units 07:02 Sodium 131 L (137-145) mmol/L Chloride 95 L (98-107) mmol/L Carbon Dioxide 31 H (22-30) mmol/L BUN 29 H (9-20) mg/dL Glucose 230 H (74-99) mg/dL Calcium 8.2 L (8.4-10.2) mg/dL Microbiology - Last 24 Hours (Table) 07/28/20 13:09 Gram Stain - Preliminary Sputum Sputum Culture - Preliminary 07/22/20 18:03 Blood Culture - Final Blood No Growth after 144 hours Assessment and Plan Plan: assessment: 1. Hypervolemic hyponatremia. Status post and July 25. Sodium level stable 131 today. TSH elevated. 2. Mild acute kidney injury secondary to cardiorenal syndrome. Stable. 3. Volume overload. better with diuresis. 4. Acute on chronic systolic CHF with ejection fraction of 30-35%. 5. A. fib with RVR. 6. Hypothyroidism. Started on Synthroid this admission. 7. Hypomagnesemia secondary to diuresis. better post replacement. Maintained on oral magnesium oxide. plan: Maintain oral Lasix 40 mg 3 times daily. 1200 mL fluid restriction. Tight blood sugar control. Repeat BMP and magnesium level 2-3 days postdischarge. Follow up outpatient in 1 week.
[2020-07-29] MEDS: NYSTATIN 100,000 UNIT/ML SUSP 500,000 UNIT/5 ML CUP PO SCH ×2 (11:16→16:53)
[2020-07-29] MEDS ORDERED: DOCUSATE ORAL SOLN 100 MG/10 ML CUP PO SCH (13:00)
[2020-07-29 13:14] VITALS: TEMP 98.1
[2020-07-29] MEDS: APIXABAN 2.5 MG TABLET PO SCH (16:52)
[2020-07-29] MEDS: ATORVASTATIN 10 MG TAB PO SCH (16:52)
[2020-07-29] MEDS: MAGNESIUM OXIDE 400 MG TAB PO SCH (16:53)
[2020-07-29] MEDS: EZETIMIBE 10 MG TAB PO SCH (16:53)
[2020-07-29] MEDS: SPIRONOLACTONE 25 MG TAB PO SCH (16:53)
[2020-07-29] MEDS: FUROSEMIDE 40 MG TAB PO SCH (16:53)
[2020-07-29] MEDS: METOPROLOL TARTRATE 25 MG TAB PO SCH (16:54)
[2020-07-29 18:46] VITALS: BP 112/74; PULSE 86; RESP 18
--- NOTE | 2020-07-30 12:25 | CDI ---
Documentation Clarification Form Date: 07/30/20 From: Lucie Awan Phone: If you have a question about this query, please contact Briana Nielsen, [employer] at [phone] between 8am and 5pm. Admit Date: 07/22/20 Discharge Date: 07/29/20 Patient Name: TIEN GIMENEZ Visit Number: [id number] ATTENTION: The Clinical Documentation Specialists (CDI) and [facility] Coding Staff appreciate your assistance in clarifying documentation. Please respond to the clarification below the line at the bottom and electronically sign. The CDI & [facility] Coding staff will review the response and follow-up if needed. Please note: Queries are made part of the Legal Health Record. If you have any questions, please contact the author of this message via ITS. Dear Dr. Maricruz Castrejon, Mild acute kidney injury secondary to cardiorenal syndrome. 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, hyponatremia, DM w hyperglycemia, ischemic cardiomyopathy Patients Historical BUN/CR/GFR [be sure to date and specify where obtained]: Clinical Indicators: -07/29/20 Current BUN: 9, 21, 21, 22, 23, 26, 29 Current CR: 0.91, 1.18, 1.02, 1.11, 1.07, 1.19, 1.25 Current GFR: 76, 55, 66, 60, 63, 55, 52 Treatment: Maintain IV Lasix 40 mg 3 times daily, Samsca 15 mg once today, fluid restriction, repeat lytes, check UA, TSH In order to capture the severity of condition, please clarify the stage of the CKD, if known: CKD Stage 1 (GFR > 90) CKD Stage 2 (GFR 60-89) CKD Stage 3 (GFR 30-59) CKD Stage 4 (GFR 15-29) CKD Stage 5 (GFR <15) ESRD Other, please specify Unable to determine aki MTDD
== END 2020-07-29 18:05 | disposition home health service (06) | DRG 291 ==
LOC: EC 16:06 → 3SCARD 18:29
PROVIDERS: ADMIT Family Medicine; ATTEND Family Medicine
DX: I11.0 Hypertensive heart disease with heart failure (principal); J18.9 Pneumonia, unspecified organism; N17.9 Acute kidney failure, unspecified; I48.19 Other persistent atrial fibrillation; J44.0 Chronic obstructive pulmonary disease with (acute) lower respiratory infection; J44.1 Chronic obstructive pulmonary disease with (acute) exacerbation; L97.912 Non-pressure chronic ulcer of unspecified part of right lower leg with fat layer exposed; I87.331 Chronic venous hypertension (idiopathic) with ulcer and inflammation of right lower extremity; E87.1 Hypo-osmolality and hyponatremia; I50.23 Acute on chronic systolic (congestive) heart failure; E11.622 Type 2 diabetes mellitus with other skin ulcer; E11.65 Type 2 diabetes mellitus with hyperglycemia; I25.5 Ischemic cardiomyopathy; I35.0 Nonrheumatic aortic (valve) stenosis; T50.916A Underdosing of multiple unspecified drugs, medicaments and biological substances, initial encounter; Z91.128 Patient's intentional underdosing of medication regimen for other reason; E83.42 Hypomagnesemia; T50.2X5A Adverse effect of carbonic-anhydrase inhibitors, benzothiadiazides and other diuretics, initial encounter; E03.9 Hypothyroidism, unspecified; I45.4 Nonspecific intraventricular block; I25.10 Atherosclerotic heart disease of native coronary artery without angina pectoris; E78.5 Hyperlipidemia, unspecified; K21.00 Gastro-esophageal reflux disease with esophagitis, without bleeding; N40.0 Benign prostatic hyperplasia without lower urinary tract symptoms; F41.9 Anxiety disorder, unspecified; R26.81 Unsteadiness on feet; I25.2 Old myocardial infarction; M19.031 Primary osteoarthritis, right wrist; Z79.01 Long term (current) use of anticoagulants; Z79.899 Other long term (current) drug therapy; Z87.891 Personal history of nicotine dependence; Z91.81 History of falling; Z87.01 Personal history of pneumonia (recurrent); Z85.828 Personal history of other malignant neoplasm of skin; Z87.19 Personal history of other diseases of the digestive system; Z86.19 Personal history of other infectious and parasitic diseases; Z95.5 Presence of coronary angioplasty implant and graft; Z98.42 Cataract extraction status, left eye; Z98.41 Cataract extraction status, right eye; Z96.1 Presence of intraocular lens; Z87.39 Personal history of other diseases of the musculoskeletal system and connective tissue; Z98.890 Other specified postprocedural states; Z88.0 Allergy status to penicillin; Z88.8 Allergy status to other drugs, medicaments and biological substances; Z83.49 Family history of other endocrine, nutritional and metabolic diseases; Y63.6 Underdosing and nonadministration of necessary drug, medicament or biological substance
CPT/HCPCS: 36415; 71046; 80048; 80053; 81001; 83605; 83735; 83880; 84439; 84443; 84484; 85025; 85027; 85610; 87040; 87070; 87205; 93005; 94640; 94760; 96365; 96368; 96375; 99291

== ENCOUNTER 2020-09-30 17:02 | Inpatient (IN) | payer MEDICARE, BC ==
[2020-09-30 17:49] LABS: Basophils # (A) 0.1 k/uL (0-0.2); Basophils % (A) 1 %; Eosinophils # (A) 0.2 k/uL (0-0.7); Eosinophils % (A) 2 %; HGB 13.3 gm/dL (13.0-17.5); Lymphocytes % (A) 11 %; MCH 32.1 pg (25.0-35.0); MCHC 34.1 g/dL (31.0-37.0); MCV 94.3 fL (80.0-100.0); Mean Platelet Volume 7.2; Monocytes # (A) 0.5 k/uL (0-1.0); Monocytes % (A) 5 %; Neutrophils # (A) 7.6 k/uL (1.3-7.7); Neutrophils % (A) 80 %; Platelet Count 253 k/uL (150-450); RBC 4.14 m/uL (4.30-5.90); WBC 9.5 k/uL (3.8-10.6)
[2020-09-30 17:59] LABS: INR 1.1 (<1.2); Partial Thromboplastin Time 27.2 sec (22.0-30.0); Prothrombin Time 11.7 sec (9.0-12.0)
[2020-09-30 18:02] LABS: Albumin 4.4 g/dL (3.5-5.0); Calcium 9.5 mg/dL (8.4-10.2); Magnesium 2.1 mg/dL (1.6-2.3); Total Bilirubin 1.1 mg/dL (0.2-1.3); Total Protein 7.9 g/dL (6.3-8.2)
[2020-09-30 18:05] LABS: Potassium 5.9 mmol/L (3.5-5.1)
--- NOTE | 2020-09-30 18:18 | XR ---
EXAMINATION: XR chest 2V DATE AND TIME: 09/30/2020 6:06 PM CLINICAL INDICATION: PHH; Weakness TECHNIQUE: Departmental protocol COMPARISON: 07/26/2020 FINDINGS: There is mild/moderate enlargement of the cardiac silhouette. There is a fine reticular pattern of markedly increased attenuation throughout the lungs bilaterally, reaching the periphery as septal lines, consistent with advanced interstitial phase cardiogenic pulm onary edema. The pleural spaces are positive for bilateral moderate pleural effusions seen on the frontal and late ral radiographs. No pneumothorax. The skeletal structures and soft tissues are negative for acute findings. RADIOGRAPHIC IMPRESSION: Congestive heart failure with bilateral pleural effusions. The pulmonary pattern is similar to the pr ior study, but mild diminishment of the pleural effusions noted.
[2020-09-30] MEDS ORDERED: NALOXONE 0.4 MG/ML 1 ML VIAL IV PRN (19:10)
--- NOTE | 2020-09-30 19:10 | ED ---
General Adult HPI - General Chief complaint: Weakness Stated complaint: Leg swelling Time Seen by Provider: 09/30/20 17:10 Source: patient Mode of arrival: ambulatory Limitations: no limitations - History of Present Illness Initial comments: Patient is an 89-year-old male with multiple comorbid conditions presents emergency room with weakness for 10 days. Patient was hospitalized for heart failure and was discharged to [facility]. States he did really well with rehab and was discharged home. States that since he's been home he has had difficulty in ambulating due to weakness in his lower extremities. Denies any increase in his lower extremity edema. Denies any falls to me. No chest pain or shortness of breath. States he had a good appetite but hasn't been sleeping. The remainder of the HPI is limited as the patient is a poor historian - Related Data Home Medications Medication Instructions Recorded Confirmed Simvastatin [Zocor] 20 mg PO DAILY 05/13/16 09/30/20 cloNIDine HCL [Catapres] 0.2 mg PO HS 05/13/16 09/30/20 Ezetimibe [Zetia] 10 mg PO DAILY 05/29/20 09/30/20 Irbesartan [Avapro] 150 mg PO DAILY 05/29/20 09/30/20 LORazepam [Ativan] 1 mg PO BID PRN 07/22/20 09/30/20 Potassium Chloride ER [K-Dur 10] 10 meq PO DAILY 07/22/20 09/30/20 Albuterol Nebulized [Ventolin 2.5 mg INHALATION RT-QID PRN 09/30/20 09/30/20 Nebulized] Azithromycin [Zithromax Z-pack (6 See Taper PO DAILY 09/30/20 09/30/20 tabs)] Ipratropium Nebulized [Atrovent 0.5 mg INHALATION RT-QID PRN 09/30/20 09/30/20 Nebulized 0.2 MG/ML] NIFEdipine [Procardia XL] 90 mg PO DAILY 09/30/20 09/30/20 Previous Rx's Medication Instructions Recorded Apixaban [Eliquis] 2.5 mg PO BID #60 tablet 06/11/20 Pantoprazole [Protonix] 40 mg PO PATRICIA #30 tablet. 06/11/20 Furosemide [Lasix] 40 mg PO TID #90 tab 07/29/20 Spironolactone [Aldactone] 25 mg PO DAILY #30 tab 07/29/20 Allergies Allergy/AdvReac Type Severity Reaction Status Date / Time Penicillins Allergy Rash/Hives Verified 09/30/20 19:58 zolpidem [From Ambien] AdvReac Confusion Verified 09/30/20 19:58 Review of Systems ROS Statement: Those systems with pertinent positive or pertinent negative responses have been documented in the HPI. ROS Other: All systems not noted in ROS Statement are negative. Past Medical History Past Medical History: Atrial Fibrillation, Coronary Artery Disease (CAD), Cancer, Heart Failure, Diabetes Mellitus, GERD/Reflux, Hyperlipidemia, Hypertension, Myocardial Infarction (CO), Osteoarthritis (OA), Pneumonia, Vascular Disorder Additional Past Medical History / Comment(s): Pt recently admitted to [facility] on 06/27/20 with CHF/hyponatremia and social issues-pt/family having difficulty caring for pt. 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 Past Anesthesia/Blood Transfusion Reactions: No Reported Reaction Date of Last Stent Placement:: 2014 Past Psychological History: Anxiety Smoking Status: Former smoker - Past Family History Father History Unknown: Yes Family Medical History: Unable to Obtain Additional Family Medical History / Comment(s): Father never went to the doctor. Mother History Unknown: Yes Family Medical History: Hyperlipidemia Additional Family Medical History / Comment(s): high cholesterol. General Exam Limitations: physical limitation (hard of hearing) General appearance: alert Head exam: Present: atraumatic, normocephalic, normal inspection ENT exam: Present: mucous membranes dry, other (edentulous) Respiratory exam: Present: normal lung sounds bilaterally. Absent: respiratory distress, wheezes, rales, rhonchi, stridor Cardiovascular Exam: Present: tachycardia, irregular rhythm GI/Abdominal exam: Present: soft, normal bowel sounds. 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 ] Respiratory 18 22 20 Rate Blood Pressure 113/63 116/83 115/72 Blood Pressure [Right Arm] O2 Sat by Pulse 93 L 95 96 Oximetry 09/30/20 09/30/20 09/30/20 20:30 21:46 22:42 Temperature 98.2 F Pulse Rate 83 99 88 Pulse Rate [ Indoor Landscaper/Gardener ] Respiratory 20 20 20 Rate Blood Pressure 119/84 98/70 118/66 Blood Pressure [Right Arm] O2 Sat by Pulse 98 97 98 Oximetry 10/01/20 10/01/20 10/01/20 00:23 02:00 02:26 Temperature Pulse Rate 102 H 145 H Pulse Rate [ 142 H Indoor Landscaper/Gardener ] Respiratory 21 20 20 Rate Blood Pressure 105/72 116/90 Blood Pressure [Right Arm] O2 Sat by Pulse 95 Oximetry 10/01/20 10/01/20 10/01/20 03:23 04:02 05:00 Temperature 98.4 F Pulse Rate 136 H 125 H 120 H Pulse Rate [ Indoor Landscaper/Gardener ] Respiratory 20 20 19 Rate Blood Pressure 114/81 114/81 Blood Pressure [Right Arm] O2 Sat by Pulse 96 96 Oximetry 10/01/20 10/01/20 10/01/20 08:00 12:00 14:00 Temperature 97.5 F L 97.4 F L Pulse Rate Pulse Rate [ 101 H 102 H 102 H Indoor Landscaper/Gardener ] Respiratory 20 20 Rate Blood Pressure Blood Pressure 107/92 112/90 [Right Arm] O2 Sat by Pulse 93 L 92 L Oximetry 10/01/20 10/01/20 10/01/20 16:00 19:20 21:36 Temperature 97.4 F L 97.6 F Pulse Rate 112 H 112 H Pulse Rate [ 96 Indoor Landscaper/Gardener ] Respiratory 20 18 18 Rate Blood Pressure 116/83 132/86 Blood Pressure 117/93 [Right Arm] O2 Sat by Pulse 93 L 94 L 94 L Oximetry 10/02/20 10/02/20 10/02/20 00:10 03:05 08:55 Temperature 97.6 F Pulse Rate 108 H 110 H 105 H Pulse Rate [ Indoor Landscaper/Gardener ] Respiratory 18 18 16 Rate Blood Pressure 113/91 113/65 129/78 Blood Pressure [Right Arm] O2 Sat by Pulse 92 L 92 L 95 Oximetry 10/02/20 10/02/20 10/02/20 11:00 11:38 11:51 Temperature 97.6 F Pulse Rate 101 H 73 Pulse Rate [ 87 Indoor Landscaper/Gardener ] Respiratory 20 18 Rate Blood Pressure 129/78 101/68 Blood Pressure [Right Arm] O2 Sat by Pulse 98 97 Oximetry 10/02/20 10/02/20 10/02/20 12:00 13:00 14:00 Temperature Pulse Rate 84 88 80 Pulse Rate [ Indoor Landscaper/Gardener ] Respiratory 19 21 22 Rate Blood Pressure 101/68 101/68 101/68 Blood Pressure [Right Arm] O2 Sat by Pulse 95 95 97 Oximetry 10/02/20 15:01 Temperature 97.6 F Pulse Rate 75 Pulse Rate [ Indoor Landscaper/Gardener ] Respiratory 18 Rate Blood Pressure 101/67 Blood Pressure [Right Arm] O2 Sat by Pulse 98 Oximetry EKG Findings - EKG Comments: EKG Findings:: EKG demonstrates A. fib with a rate of 103. QRS 148. QTC of 529. Inverted T-wave ST depression in V3 through through V6. Right bundle branch block present Medical Decision Making - Medical Decision Making Upon arrival patient's placed into room 24. A thorough history and physical exam was performed. I did speak with Dr. Christina who states that the patient has not been doing well since he has been home from rehab. His family has had difficulty caring for him. States he has had multiple falls. I did contact laboratory studies. Troponin mildly elevated. BNP is 5050. Urinalysis shows rare bacteria. Patient does report to burning with urination therefore I did give him a dose of antibiotics. As it is difficult for the patients family to care for him, Dr. Christina and I did recommend admission. The patient did agree to. Patient was in agreement with this plan and was awaiting a bed on the floor - Lab Data Result diagrams: 10/02/20 09:06 10/02/20 09:06 Lab Results 09/30/20 09/30/20 09/30/20 Range/Units 17:35 17:35 17:35 WBC 9.5 (3.8-10.6) k/uL RBC 4.14 L (4.30-5.90) m/uL Hgb 13.3 (13.0-17.5) gm/dL Hct 39.0 (39.0-53.0) % MCV 94.3 (80.0-100.0) fL MCH 32.1 (25.0-35.0) pg MCHC 34.1 (31.0-37.0) g/dL RDW 16.0 H (11.5-15.5) % Plt Count 253 (150-450) k/uL MPV 7.2 Neutrophils % 80 % Lymphocytes % 11 % Monocytes % 5 % Eosinophils % 2 % Basophils % 1 % Neutrophils # 7.6 (1.3-7.7) k/uL Lymphocytes # 1.0 (1.0-4.8) k/uL Monocytes # 0.5 (0-1.0) k/uL Eosinophils # 0.2 (0-0.7) k/uL Basophils # 0.1 (0-0.2) k/uL PT 11.7 (9.0-12.0) sec INR 1.1 (<1.2) APTT 27.2 (22.0-30.0) sec Sodium 137 (137-145) mmol/L Potassium 5.9 H (3.5-5.1) mmol/L Chloride 106 (98-107) mmol/L Carbon Dioxide 21 L (22-30) mmol/L Anion Gap 10 mmol/L BUN 37 H (9-20) mg/dL Creatinine 1.28 H (0.66-1.25) mg/dL Est GFR (CKD-EPI)AfAm 57 (>60 ml/min/1.73 sqM) Est GFR (CKD-EPI)NonAf 50 (>60 ml/min/1.73 sqM) Glucose 167 H (74-99) mg/dL Plasma Lactic Acid Sukhdev (0.7-2.0) mmol/L Calcium 9.5 (8.4-10.2) mg/dL Magnesium 2.1 (1.6-2.3) mg/dL Total Bilirubin 1.1 (0.2-1.3) mg/dL AST 45 (17-59) U/L ALT 25 (4-49) U/L Alkaline Phosphatase 86 (38-126) U/L Creatine Kinase 71 (55-170) U/L Troponin I (0.000-0.034) ng/mL NT-Pro-B Natriuret Pep pg/mL Total Protein 7.9 (6.3-8.2) g/dL Albumin 4.4 (3.5-5.0) g/dL TSH 13.700 H (0.465-4.680) mIU/L Free T4 (0.78-2.19) ng/dL Urine Color Urine Appearance (Clear) Urine pH (5.0-8.0) Ur Specific [place] (1.001-1.035) Urine Protein (Negative) Urine Glucose (UA) (Negative) Urine Ketones (Negative) Urine Blood (Negative) Urine Nitrite (Negative) Urine Bilirubin (Negative) Urine Urobilinogen (<2.0) mg/dL Ur Leukocyte Esterase (Negative) Urine RBC (0-5) /hpf Urine WBC (0-5) /hpf Ur Squamous Epith Cells (0-4) /hpf Urine Bacteria (None) /hpf Hyaline Casts (0-2) /lpf 09/30/20 09/30/20 09/30/20 Range/Units 17:35 17:35 17:35 WBC (3.8-10.6) k/uL RBC (4.30-5.90) m/uL Hgb (13.0-17.5) gm/dL Hct (39.0-53.0) % MCV (80.0-100.0) fL MCH (25.0-35.0) pg MCHC (31.0-37.0) g/dL RDW (11.5-15.5) % Plt Count (150-450) k/uL MPV Neutrophils % % Lymphocytes % % Monocytes % % Eosinophils % % Basophils % % Neutrophils # (1.3-7.7) k/uL Lymphocytes # (1.0-4.8) k/uL Monocytes # (0-1.0) k/uL Eosinophils # (0-0.7) k/uL Basophils # (0-0.2) k/uL PT (9.0-12.0) sec INR (<1.2) APTT (22.0-30.0) sec Sodium (137-145) mmol/L Potassium (3.5-5.1) mmol/L Chloride (98-107) mmol/L Carbon Dioxide (22-30) mmol/L Anion Gap mmol/L BUN (9-20) mg/dL Creatinine (0.66-1.25) mg/dL Est GFR (CKD-EPI)AfAm (>60 ml/min/1.73 sqM) Est GFR (CKD-EPI)NonAf (>60 ml/min/1.73 sqM) Glucose (74-99) mg/dL Plasma Lactic Acid Sukhdev 1.5 (0.7-2.0) mmol/L Calcium (8.4-10.2) mg/dL Magnesium (1.6-2.3) mg/dL Total Bilirubin (0.2-1.3) mg/dL AST (17-59) U/L ALT (4-49) U/L Alkaline Phosphatase (38-126) U/L Creatine Kinase (55-170) U/L Troponin I 0.069 H* (0.000-0.034) ng/mL NT-Pro-B Natriuret Pep 5050 pg/mL Total Protein (6.3-8.2) g/dL Albumin (3.5-5.0) g/dL TSH (0.465-4.680) mIU/L Free T4 (0.78-2.19) ng/dL Urine Color Urine Appearance (Clear) Urine pH (5.0-8.0) Ur Specific [place] (1.001-1.035) Urine Protein (Negative) Urine Glucose (UA) (Negative) Urine Ketones (Negative) Urine Blood (Negative) Urine Nitrite (Negative) Urine Bilirubin (Negative) Urine Urobilinogen (<2.0) mg/dL Ur Leukocyte Esterase (Negative) Urine RBC (0-5) /hpf Urine WBC (0-5) /hpf Ur Squamous Epith Cells (0-4) /hpf Urine Bacteria (None) /hpf Hyaline Casts (0-2) /lpf 09/30/20 09/30/20 09/30/20 Range/Units 20:31 21:11 21:11 WBC (3.8-10.6) k/uL RBC (4.30-5.90) m/uL Hgb (13.0-17.5) gm/dL Hct (39.0-53.0) % MCV (80.0-100.0) fL MCH (25.0-35.0) pg MCHC (31.0-37.0) g/dL RDW (11.5-15.5) % Plt Count (150-450) k/uL MPV Neutrophils % % Lymphocytes % % Monocytes % % Eosinophils % % Basophils % % Neutrophils # (1.3-7.7) k/uL Lymphocytes # (1.0-4.8) k/uL Monocytes # (0-1.0) k/uL Eosinophils # (0-0.7) k/uL Basophils # (0-0.2) k/uL PT (9.0-12.0) sec INR (<1.2) APTT (22.0-30.0) sec Sodium (137-145) mmol/L Potassium (3.5-5.1) mmol/L Chloride (98-107) mmol/L Carbon Dioxide (22-30) mmol/L Anion Gap mmol/L BUN (9-20) mg/dL Creatinine (0.66-1.25) mg/dL Est GFR (CKD-EPI)AfAm (>60 ml/min/1.73 sqM) Est GFR (CKD-EPI)NonAf (>60 ml/min/1.73 sqM) Glucose (74-99) mg/dL Plasma Lactic Acid Sukhdev (0.7-2.0) mmol/L Calcium (8.4-10.2) mg/dL Magnesium (1.6-2.3) mg/dL Total Bilirubin (0.2-1.3) mg/dL AST (17-59) U/L ALT (4-49) U/L Alkaline Phosphatase (38-126) U/L Creatine Kinase (55-170) U/L Troponin I 0.068 H* (0.000-0.034) ng/mL NT-Pro-B Natriuret Pep pg/mL Total Protein (6.3-8.2) g/dL Albumin (3.5-5.0) g/dL TSH (0.465-4.680) mIU/L Free T4 1.92 (0.78-2.19) ng/dL Urine Color Light Yellow Urine Appearance Clear (Clear) Urine pH 6.0 (5.0-8.0) Ur Specific [place] 1.007 (1.001-1.035) Urine Protein Negative (Negative) Urine Glucose (UA) Negative (Negative) Urine Ketones Negative (Negative) Urine Blood Trace H (Negative) Urine Nitrite Negative (Negative) Urine Bilirubin Negative (Negative) Urine Urobilinogen <2.0 (<2.0) mg/dL Ur Leukocyte Esterase Large H (Negative) Urine RBC 1 (0-5) /hpf Urine WBC 18 H (0-5) /hpf Ur Squamous Epith Cells <1 (0-4) /hpf Urine Bacteria Rare H (None) /hpf Hyaline Casts 21 H (0-2) /lpf 10/01/20 Range/Units 00:15 WBC (3.8-10.6) k/uL RBC (4.30-5.90) m/uL Hgb (13.0-17.5) gm/dL Hct (39.0-53.0) % MCV (80.0-100.0) fL MCH (25.0-35.0) pg MCHC (31.0-37.0) g/dL RDW (11.5-15.5) % Plt Count (150-450) k/uL MPV Neutrophils % % Lymphocytes % % Monocytes % % Eosinophils % % Basophils % % Neutrophils # (1.3-7.7) k/uL Lymphocytes # (1.0-4.8) k/uL Monocytes # (0-1.0) k/uL Eosinophils # (0-0.7) k/uL Basophils # (0-0.2) k/uL PT (9.0-12.0) sec INR (<1.2) APTT (22.0-30.0) sec Sodium (137-145) mmol/L Potassium (3.5-5.1) mmol/L Chloride (98-107) mmol/L Carbon Dioxide (22-30) mmol/L Anion Gap mmol/L BUN (9-20) mg/dL Creatinine (0.66-1.25) mg/dL Est GFR (CKD-EPI)AfAm (>60 ml/min/1.73 sqM) Est GFR (CKD-EPI)NonAf (>60 ml/min/1.73 sqM) Glucose (74-99) mg/dL Plasma Lactic Acid Sukhdev (0.7-2.0) mmol/L Calcium (8.4-10.2) mg/dL Magnesium (1.6-2.3) mg/dL Total Bilirubin (0.2-1.3) mg/dL AST (17-59) U/L ALT (4-49) U/L Alkaline Phosphatase (38-126) U/L Creatine Kinase (55-170) U/L Troponin I 0.061 H* (0.000-0.034) ng/mL NT-Pro-B Natriuret Pep pg/mL Total Protein (6.3-8.2) g/dL Albumin (3.5-5.0) g/dL TSH (0.465-4.680) mIU/L Free T4 (0.78-2.19) ng/dL Urine Color Urine Appearance (Clear) Urine pH (5.0-8.0) Ur Specific [place] (1.001-1.035) Urine Protein (Negative) Urine Glucose (UA) (Negative) Urine Ketones (Negative) Urine Blood (Negative) Urine Nitrite (Negative) Urine Bilirubin (Negative) Urine Urobilinogen (<2.0) mg/dL Ur Leukocyte Esterase (Negative) Urine RBC (0-5) /hpf Urine WBC (0-5) /hpf Ur Squamous Epith Cells (0-4) /hpf Urine Bacteria (None) /hpf Hyaline Casts (0-2) /lpf Disposition Clinical Impression: Atrial fibrillation with RVR, Congestive heart failure (CHF), Failure to thrive, Multiple falls Disposition: ADMITTED IP TO THIS [facility] Condition: Stable Is patient prescribed a controlled substance at d/c from ED?: No Decision to Admit Reason: Admit from EC Decision Date: 09/30/20 Decision Time: 19:10
[2020-09-30 20:55] LABS: Appearance,Urine Clear (Clear); Bacteria,Urine Rare /hpf; Bilirubin,Urine Negative (Negative); Blood,Urine Trace (Negative); Color,Urine Light Yellow; Glucose,Urine (UA) Negative (Negative); Hyaline Casts,Urine 21 /lpf (0-2); Ketones,Urine Negative (Negative); Leukocyte Esterase,Urine Large (Negative); Nitrite,Urine Negative (Negative); Protein,Urine Negative (Negative); RBC,Urine 1 /hpf (0-5); Specific Gravity,Urine 1.007 (1.001-1.035); Squamous Epithelial Cell,Urine <1 /hpf (0-4); Urobilinogen,Urine <2.0 mg/dL (<2.0); WBC,Urine 18 /hpf (0-5)
[2020-09-30] MEDS ORDERED: cefTRIAXone IN SWFI 1,000 MG/10 ML SYRINGE IVP STA (22:29)
[2020-10-01] MEDS ORDERED: Acetaminophen-Codeine 300-30mg TAB PO STA (00:32)
[2020-10-01] MEDS ORDERED: METOPROLOL TARTRATE 25 MG TAB PO SCH (02:45)
[2020-10-01] MEDS ORDERED: FUROSEMIDE 10 MG/ML 10 ML VIAL IV STA (08:34)
[2020-10-01] MEDS ORDERED: POTASSIUM CHLORIDE ER 10 MEQ TAB.ER.PRT PO SCH (09:00)
[2020-10-01] MEDS ORDERED: ATORVASTATIN 10 MG TAB PO SCH (09:00)
[2020-10-01] MEDS ORDERED: NIFEdipine XL 90 MG TAB.ER.24 PO SCH (09:00)
[2020-10-01] MEDS: APIXABAN 2.5 MG TABLET PO SCH ×2 (10:05→21:36)
[2020-10-01] MEDS: SPIRONOLACTONE 25 MG TAB PO SCH (10:05)
[2020-10-01] MEDS: ATORVASTATIN 10 MG TAB PO SCH (10:06)
[2020-10-01] MEDS: EZETIMIBE 10 MG TAB PO SCH (10:06)
[2020-10-01] MEDS: METOPROLOL TARTRATE 50 MG TAB PO SCH ×3 (10:06→21:36)
[2020-10-01] MEDS: LOSARTAN 50 MG TAB PO SCH (10:06)
[2020-10-01 10:19] LABS: Basophils # (A) 0.1 k/uL (0-0.2); Basophils % (A) 1 %; Eosinophils # (A) 0.1 k/uL (0-0.7); Eosinophils % (A) 1 %; HCT 42.9 % (39.0-53.0); HGB 14.2 gm/dL (13.0-17.5); Hypochromasia Slight; Lymphocytes # (A) 0.9 k/uL (1.0-4.8); Lymphocytes % (A) 6 %; MCH 31.8 pg (25.0-35.0); MCHC 33.2 g/dL (31.0-37.0); MCV 95.7 fL (80.0-100.0); Mean Platelet Volume 7.1; Monocytes # (A) 0.6 k/uL (0-1.0); Monocytes % (A) 4 %; Neutrophils # (A) 12.6 k/uL (1.3-7.7); Neutrophils % (A) 87 %; Platelet Count 312 k/uL (150-450); RBC 4.49 m/uL (4.30-5.90); RDW 15.9 % (11.5-15.5); WBC 14.6 k/uL (3.8-10.6)
[2020-10-01 10:29] LABS: Calcium 9.5 mg/dL (8.4-10.2)
--- NOTE | 2020-10-01 13:56 | P.CRDCN ---
History of Present Illness History of present illness: HISTORY OF PRESENTING ILLNESS This is a pleasant 89-year-old male past medical history significant for coronary artery disease status post PCI of the OM branch, hypertension, dyslipidemia, diabetes mellitus, chronic persistent atrial fibrillation on mcc anti-coagulation and chronic systolic heart failure. He follows in the office with Dr. Benz. We have been asked to see in consultation for heart failure. The patient was just discharged from rehab and was home for less than 24 hours when his brought him back to the hospital secondary to generalized weakness and fall. The patient himself is seen sitting up in bed in no acute distress. He denies symptoms of chest pain, shortness of breath, dizziness or palpitations. He does say that overall he feels weak and doesn't think that he can walk. EKG reveals atrial fibrillation with heart rate of [address] abnormalities, consistent with previous EKGs. Chest x-ray reveals bilateral pleural effusions similar to previous study with no worsening heart failure. Laboratory data reviewed, WBC 14.6, hemoglobin 14.2, platelets 312, sodium 138, potassium 5.0, creatinine 1.28, troponin 0.069, 0.068, 0.061, NTproBNP 5050 and TSH 13.7. Currently maintained on eliquis 2.5 mg BID, zetia 10 mg daily, Lasix 40 mg 3 times a day, irbesartan 150 mg daily, nifedipine 90 mg daily, simvastatin 20 mg daily, Aldactone 25 mg daily, Lopressor 50 mg 3 times a day and clonidine 0.2 mg at bedtime. Most recent echocardiogram obtained in May 2020 reveals impaired LV systolic function with EF 30-35%, basal inferoseptal and mid to basal inferior lateral LV wall motion hypokinesia, mild aortic stenosis with a mean gradient of 7 mmHg with mild tricuspid regurgitation. REVIEW OF SYSTEMS At the time of my exam: CONSTITUTIONAL: Complains of generalized weakness. Denies fever or chills. CARDIOVASCULAR: Denies chest pain, shortness of breath, orthopnea, PND or palpitations. RESPIRATORY: Denies cough. GASTROINTESTINAL: Denies abdominal pain, diarrhea, constipation, nausea or vomiting. MUSCULOSKELETAL: Denies myalgias. NEUROLOGIC: Denies numbness, tingling or weakness. ENDOCRINE: Denies fatigue, weight change, polydipsia or polyurina. GENITOURINARY: Denies burning, hematuria or urgency with micturation. HEMATOLOGIC: Denies history of anemia or bleeding. PHYSICAL EXAMINATION Blood pressure 112/90 heart rate 102 afebrile and maintaining oxygen saturation on nasal cannula. CONSTITUTIONAL: No apparent distress. HEENT: Head is normocephalic. Pupils are equal, round. Sclerae anicteric. Mucous membranes of the mouth are moist. No JVD. No carotid bruit. CHEST EXAMINATION: Lungs are clear to auscultation. No chest wall tenderness is noted on palpation or with deep breathing. HEART EXAMINATION: Irregular rate and rhythm. S1, S2 heard. Soft systolic ejection murmur at the base, no gallops or rub. ABDOMEN: Soft, nontender. Positive bowel sounds. EXTREMITIES: 2+ peripheral pulses, no lower extremity edema and no calf tenderness. NEUROLOGIC EXAMINATION: Patient is awake, alert and oriented x3. ASSESSMENT Chronic persistent atrial fibrillation with variable ventricular rates on eliquis Leuckocytosis Generalized weakness Fall Hypertension Dyslipidemia Coronary artery disease s/p PCI Chronic systolic heart failure Ischemic cardiomyopathy PLAN Resume beta blockers as prescribed on last admission. Decrease nifedipine as this can cause reflex tachycardia. Resume oral diuretics. Ongoing medical management. Clinically he is euvolemic and not in acute heart failure. We will follow along as needed, follow up with Dr. Benz on discharge. Thank you ella for this consultation. Nurse Practitioner note has been reviewed, I agree with a documented findings and plan of care. Patient was seen and examined. Past Medical History Past Medical History: Atrial Fibrillation, Coronary Artery Disease (CAD), Cancer, Heart Failure, Diabetes Mellitus, GERD/Reflux, Hyperlipidemia, Hypertension, Myocardial Infarction (VT), Osteoarthritis (OA), Pneumonia, Vascular Disorder Additional Past Medical History / Comment(s): Pt recently admitted to [facility] on 06/27/20 with CHF/hyponatremia and social issues-pt/family having difficulty caring for pt. 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 Past Anesthesia/Blood Transfusion Reactions: No Reported Reaction Date of Last Stent Placement:: 2014 Past Psychological History: Anxiety Smoking Status: Former smoker - Past Family History Father History Unknown: Yes Family Medical History: Unable to Obtain Additional Family Medical History / Comment(s): Father never went to the doctor. Mother History Unknown: Yes Family Medical History: Hyperlipidemia Additional Family Medical History / Comment(s): high cholesterol. Medications and Allergies Home Medications Medication Instructions Recorded Confirmed Type Simvastatin [Zocor] 20 mg PO DAILY 05/13/16 09/30/20 History cloNIDine HCL [Catapres] 0.2 mg PO HS 05/13/16 09/30/20 History Ezetimibe [Zetia] 10 mg PO DAILY 05/29/20 09/30/20 History Irbesartan [Avapro] 150 mg PO DAILY 05/29/20 09/30/20 History Apixaban [Eliquis] 2.5 mg PO BID #60 tablet 06/11/20 09/30/20 Rx Pantoprazole [Protonix] 40 mg PO AC-BRKFST #30 tablet.dr 06/11/20 09/30/20 Rx LORazepam [Ativan] 1 mg PO BID PRN 07/22/20 09/30/20 History Potassium Chloride ER [K-Dur 10] 10 meq PO DAILY 07/22/20 09/30/20 History Furosemide [Lasix] 40 mg PO TID #90 tab 07/29/20 09/30/20 Rx Spironolactone [Aldactone] 25 mg PO DAILY #30 tab 07/29/20 09/30/20 Rx Albuterol Nebulized [Ventolin 2.5 mg INHALATION RT-QID PRN 09/30/20 09/30/20 History Nebulized] Azithromycin [Zithromax Z-pack (6 See Taper PO DAILY 09/30/20 09/30/20 History tabs)] Ipratropium Nebulized [Atrovent 0.5 mg INHALATION RT-QID PRN 09/30/20 09/30/20 History Nebulized 0.2 MG/ML] NIFEdipine [Procardia XL] 90 mg PO DAILY 09/30/20 09/30/20 History Allergies Allergy/AdvReac Type Severity Reaction Status Date / Time Penicillins Allergy Rash/Hives Verified 09/30/20 19:58 zolpidem [From Ambien] AdvReac Confusion Verified 09/30/20 19:58 Physical Exam Vitals: Vital Signs Temp Pulse Pulse Resp BP BP Pulse Ox 10/01/20 12:00 97.4 F L 102 H 20 112/90 92 L 10/01/20 08:00 97.5 F L 101 H 20 107/92 93 L 10/01/20 05:00 98.4 F 120 H 19 114/81 96 10/01/20 04:02 125 H 20 114/81 10/01/20 03:23 136 H 20 96 10/01/20 02:26 145 H 20 116/90 10/01/20 02:00 142 H 20 10/01/20 00:23 102 H 21 105/72 95 09/30/20 22:42 98.2 F 88 20 118/66 98 09/30/20 21:46 99 20 98/70 97 09/30/20 20:30 83 20 119/84 98 09/30/20 19:30 118 H 20 115/72 96 09/30/20 18:30 116 H 22 116/83 95 09/30/20 17:09 97.4 F L 85 18 113/63 93 L Intake and Output 09/30/20 10/01/20 10/01/20 22:59 06:59 14:59 Intake Total 600 Output Total 650 600 900 Balance -650 -600 -300 Intake: Oral 600 Output: Urine 650 600 900 Other: Voiding Method Urinal Weight 83.915 kg Results 10/01/20 09:52 10/01/20 09:52 Cardiac Enzymes 09/30/20 09/30/20 09/30/20 Range/Units 17:35 17:35 21:11 AST 45 (17-59) U/L Troponin I 0.069 H* 0.068 H* (0.000-0.034) ng/mL 10/01/20 Range/Units 00:15 AST (17-59) U/L Troponin I 0.061 H* (0.000-0.034) ng/mL Coagulation 09/30/20 Range/Units 17:35 PT 11.7 (9.0-12.0) sec APTT 27.2 (22.0-30.0) sec CBC 09/30/20 10/01/20 Range/Units 17:35 09:52 WBC 9.5 14.6 H (3.8-10.6) k/uL RBC 4.14 L 4.49 (4.30-5.90) m/uL Hgb 13.3 14.2 (13.0-17.5) gm/dL Hct 39.0 42.9 (39.0-53.0) % Plt Count 253 312 (150-450) k/uL Comprehensive Metabolic Panel 09/30/20 10/01/20 Range/Units 17:35 09:52 Sodium 137 138 (137-145) mmol/L Potassium 5.9 H 5.0 (3.5-5.1) mmol/L Chloride 106 101 (98-107) mmol/L Carbon Dioxide 21 L 26 (22-30) mmol/L BUN 37 H 33 H (9-20) mg/dL Creatinine 1.28 H 1.28 H (0.66-1.25) mg/dL Glucose 167 H 200 H (74-99) mg/dL Calcium 9.5 9.5 (8.4-10.2) mg/dL AST 45 (17-59) U/L ALT 25 (4-49) U/L Alkaline Phosphatase 86 (38-126) U/L Total Protein 7.9 (6.3-8.2) g/dL Albumin 4.4 (3.5-5.0) g/dL Current Medications Generic Name Dose Route Start Last Admin Trade Name Freq PRN Reason Stop Dose Admin Apixaban 2.5 mg 10/01/20 09:00 10/01/20 10:05 Apixaban 2.5 Mg Tablet PO 2.5 mg BID DIOMEDES Administration Atorvastatin Calcium 10 mg 10/01/20 09:00 10/01/20 10:06 Atorvastatin 10 Mg Tab PO 10 mg DAILY DIOMEDES Administration Ezetimibe 10 mg 10/01/20 09:00 10/01/20 10:06 Ezetimibe 10 Mg Tab PO 10 mg DAILY DIOMEDES Administration Losartan Potassium 50 mg 10/01/20 09:00 10/01/20 10:06 Losartan 50 Mg Tab PO 50 mg DAILY DIOMEDES Administration Metoprolol Tartrate 50 mg 10/01/20 09:00 10/01/20 10:06 Metoprolol Tartrate 50 Mg Tab PO 50 mg TID DIOMEDES Administration Naloxone HCl 0.2 mg 09/30/20 19:10 Naloxone 0.4 Mg/Ml 1 Ml Vial IV Q2M PRN Opioid Reversal Nifedipine 60 mg 10/02/20 09:00 Nifedipine Xl 60 Mg Tab.Er.24 PO DAILY DIOMEDES Potassium Chloride 10 meq 10/01/20 09:00 Potassium Chloride Er 10 Meq Tab.Er.Prt PO DAILY DIOMEDES Spironolactone 25 mg 10/01/20 09:00 10/01/20 10:05 Spironolactone 25 Mg Tab PO 25 mg DAILY DIOMEDES Administration Intake and Output 09/30/20 10/01/20 10/01/20 22:59 06:59 14:59 Intake Total 600 Output Total 650 600 900 Balance -650 -600 -300 Intake: Oral 600 Output: Urine 650 600 900 Other: Voiding Method Urinal Weight 83.915 kg 10/01/20 09:52 10/01/20 09:52
--- NOTE | 2020-10-01 16:35 | P.HPIM ---
History of Present Illness H&P Date: 10/01/20 Chief Complaint: Weakness and multiple falls. The patient is an 89-year-old white male with Atrial fibrillation and congestive heart failure has was recently discharged from [facility]. The patient went home and has had multiple falls. There is generalized weakness. The patient would like to go home but has not proven that he is appropriately ambulatory. No significant fever or chills are stated. Review of Systems Constitutional: Reports fatigue Eyes: denies blurred vision, denies pain Ears, nose, mouth and throat: Denies headache, Denies sore throat Cardiovascular: Reports leg edema, Denies chest pain, Denies shortness of breath Respiratory: Denies cough Gastrointestinal: Denies abdominal pain, Denies diarrhea, Denies nausea, Denies vomiting Integumentary: Reports as per HPI Psychiatric: Reports anxiety, Reports irritability Endocrine: Denies fatigue, Denies weight change Past Medical History Past Medical History: Atrial Fibrillation, Coronary Artery Disease (CAD), Cancer, Heart Failure, Diabetes Mellitus, GERD/Reflux, Hyperlipidemia, Hypertension, Myocardial Infarction (SD), Osteoarthritis (OA), Pneumonia, Vascular Disorder Additional Past Medical History / Comment(s): Pt recently admitted to [facility] on 06/27/20 with CHF/hyponatremia and social issues-pt/family having difficulty caring for pt. 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 Past Anesthesia/Blood Transfusion Reactions: No Reported Reaction Date of Last Stent Placement:: 2014 Past Psychological History: Anxiety Smoking Status: Former smoker - Past Family History Father History Unknown: Yes Family Medical History: Unable to Obtain Additional Family Medical History / Comment(s): Father never went to the doctor. Mother History Unknown: Yes Family Medical History: Hyperlipidemia Additional Family Medical History / Comment(s): high cholesterol. Medications and Allergies Home Medications Medication Instructions Recorded Confirmed Type Simvastatin [Zocor] 20 mg PO DAILY 07/23/16 12/10/20 History cloNIDine HCL [Catapres] 0.2 mg PO HS 05/13/16 09/30/20 History Ezetimibe [Zetia] 10 mg PO DAILY 05/29/20 09/30/20 History Irbesartan [Avapro] 150 mg PO DAILY 05/29/20 09/30/20 History Apixaban [Eliquis] 2.5 mg PO BID #60 tablet 06/11/20 09/30/20 Rx Pantoprazole [Protonix] 40 mg PO AC-BRKFST #30 tablet.dr 06/11/20 09/30/20 Rx LORazepam [Ativan] 1 mg PO BID PRN 07/22/20 09/30/20 History Potassium Chloride ER [K-Dur 10] 10 meq PO DAILY 07/22/20 09/30/20 History Furosemide [Lasix] 40 mg PO TID #90 tab 07/29/20 09/30/20 Rx Spironolactone [Aldactone] 25 mg PO DAILY #30 tab 07/29/20 09/30/20 Rx Albuterol Nebulized [Ventolin 2.5 mg INHALATION RT-QID PRN 09/30/20 09/30/20 History Nebulized] Azithromycin [Zithromax Z-pack (6 See Taper PO DAILY 09/30/20 09/30/20 History tabs)] Ipratropium Nebulized [Atrovent 0.5 mg INHALATION RT-QID PRN 09/30/20 09/30/20 History Nebulized 0.2 MG/ML] NIFEdipine [Procardia XL] 90 mg PO DAILY 09/30/20 09/30/20 History Allergies Allergy/AdvReac Type Severity Reaction Status Date / Time Penicillins Allergy Rash/Hives Verified 09/30/20 19:58 zolpidem [From Ambien] AdvReac Confusion Verified 09/30/20 19:58 Physical Exam Vitals: Vital Signs Temp Pulse Pulse Resp BP BP Pulse Ox 10/01/20 14:00 102 H 10/01/20 12:00 97.4 F L 102 H 20 112/90 92 L 10/01/20 08:00 97.5 F L 101 H 20 107/92 93 L 10/01/20 05:00 98.4 F 120 H 19 114/81 96 10/01/20 04:02 125 H 20 114/81 10/01/20 03:23 136 H 20 96 10/01/20 02:26 145 H 20 116/90 10/01/20 02:00 142 H 20 10/01/20 00:23 102 H 21 105/72 95 09/30/20 22:42 98.2 F 88 20 118/66 98 09/30/20 21:46 99 20 98/70 97 09/30/20 20:30 83 20 119/84 98 09/30/20 19:30 118 H 20 115/72 96 09/30/20 18:30 116 H 22 116/83 95 09/30/20 17:09 97.4 F L 85 18 113/63 93 L Intake and Output 10/01/20 10/01/20 10/01/20 06:59 14:59 22:59 Intake Total 600 Output Total 600 900 Balance -600 -300 Intake: Oral 600 Output: Urine 600 900 Other: Voiding Method Urinal Weight 83.915 kg - Constitutional General appearance: no acute distress - EENT Eyes: EOMI - Neck Neck: no lymphadenopathy - Respiratory Respiratory: bilateral: diminished - Cardiovascular Rhythm: irregularly irregular Heart sounds: normal: S1, S2 Abnormal Heart Sounds: no S3 Gallop - Gastrointestinal General gastrointestinal: soft, no tenderness - Integumentary Integumentary: no cellulitis - Musculoskeletal Musculoskeletal: generalized weakness Results CBC & Chem 7: 10/01/20 09:52 10/01/20 09:52 Labs: Abnormal Lab Results - Last 24 Hours (Table) 09/30/20 09/30/20 09/30/20 Range/Units 17:35 17:35 17:35 WBC (3.8-10.6) k/uL RBC 4.14 L (4.30-5.90) m/uL RDW 16.0 H (11.5-15.5) % Neutrophils # (1.3-7.7) k/uL Lymphocytes # (1.0-4.8) k/uL Potassium 5.9 H (3.5-5.1) mmol/L Carbon Dioxide 21 L (22-30) mmol/L BUN 37 H (9-20) mg/dL Creatinine 1.28 H (0.66-1.25) mg/dL Glucose 167 H (74-99) mg/dL Troponin I 0.069 H* (0.000-0.034) ng/mL TSH 13.700 H (0.465-4.680) mIU/L Urine Blood (Negative) Ur Leukocyte Esterase (Negative) Urine WBC (0-5) /hpf Urine Bacteria (None) /hpf Hyaline Casts (0-2) /lpf 09/30/20 09/30/20 10/01/20 Range/Units 20:31 21:11 00:15 WBC (3.8-10.6) k/uL RBC (4.30-5.90) m/uL RDW (11.5-15.5) % Neutrophils # (1.3-7.7) k/uL Lymphocytes # (1.0-4.8) k/uL Potassium (3.5-5.1) mmol/L Carbon Dioxide (22-30) mmol/L BUN (9-20) mg/dL Creatinine (0.66-1.25) mg/dL Glucose (74-99) mg/dL Troponin I 0.068 H* 0.061 H* (0.000-0.034) ng/mL TSH (0.465-4.680) mIU/L Urine Blood Trace H (Negative) Ur Leukocyte Esterase Large H (Negative) Urine WBC 18 H (0-5) /hpf Urine Bacteria Rare H (None) /hpf Hyaline Casts 21 H (0-2) /lpf 10/01/20 10/01/20 Range/Units 09:52 09:52 WBC 14.6 H (3.8-10.6) k/uL RBC (4.30-5.90) m/uL RDW 15.9 H (11.5-15.5) % Neutrophils # 12.6 H (1.3-7.7) k/uL Lymphocytes # 0.9 L (1.0-4.8) k/uL Potassium (3.5-5.1) mmol/L Carbon Dioxide (22-30) mmol/L BUN 33 H (9-20) mg/dL Creatinine 1.28 H (0.66-1.25) mg/dL Glucose 200 H (74-99) mg/dL Troponin I (0.000-0.034) ng/mL TSH (0.465-4.680) mIU/L Urine Blood (Negative) Ur Leukocyte Esterase (Negative) Urine WBC (0-5) /hpf Urine Bacteria (None) /hpf Hyaline Casts (0-2) /lpf Microbiology - Last 24 Hours (Table) 09/30/20 20:31 Urine Culture - Preliminary Urine,Voided Thrombosis Risk Factor Assmnt - Choose All That Apply Any of the Below Risk Factors Present?: No Other Risk Factors: No Other congenital or acquired thrombophilia - If yes, enter type in comment: No Thrombosis Risk Factor Assessment Level: Very Low Risk Assessment and Plan (1) At risk for readmission to hospital Current Visit: Yes Status: Acute Code(s): Z91.89 - OTH PERSONAL RISK FACTORS, NOT ELSEWHERE CLASSIFIED SNOMED Code(s): 7408947229630 (2) Atrial fibrillation with RVR Current Visit: Yes Status: Acute Code(s): I48.91 - UNSPECIFIED ATRIAL FIBRILLATION SNOMED Code(s): 533992261440575 (3) Congestive heart failure (CHF) Current Visit: Yes Status: Acute Code(s): I50.9 - HEART FAILURE, UNSPECIFIED SNOMED Code(s): 52948132 (4) Multiple falls Current Visit: Yes Status: Acute Code(s): R29.6 - REPEATED FALLS SNOMED Code(s): 270892529 (5) Diabetes Current Visit: No Status: Acute Code(s): E11.9 - TYPE 2 DIABETES MELLITUS WITHOUT COMPLICATIONS SNOMED Code(s): 47626613 (6) HTN (hypertension) Current Visit: No Status: Chronic Code(s): I10 - ESSENTIAL (PRIMARY) HYP ERTENSION SNOMED Code(s): 80451530 (7) Hyperlipemia Current Visit: No Status: Chronic Code(s): E78.5 - HYPERLIPIDEMIA, UNSPECIFIED SNOMED Code(s): 83799828 Plan: Reconcile the medications. Placed on sliding scale as necessary. Discharge planning for ECF versus home care. Check CBC and CMP in a.m. Consult cardiology. Time with Patient: Greater than 30
[2020-10-01] MEDS: FUROSEMIDE 40 MG TAB PO SCH ×2 (19:05→21:36)
[2020-10-01] MEDS: cloNIDine HCL 0.2 MG TAB PO SCH (21:36)
[2020-10-02] MEDS ORDERED: LORazepam 2 MG/ML INJ IV PRN (02:07)
[2020-10-02] MEDS: FUROSEMIDE 40 MG TAB PO SCH ×3 (09:09→20:43)
[2020-10-02] MEDS: METOPROLOL TARTRATE 50 MG TAB PO SCH ×3 (09:09→20:44)
[2020-10-02] MEDS: SPIRONOLACTONE 25 MG TAB PO SCH (09:09)
[2020-10-02] MEDS: APIXABAN 2.5 MG TABLET PO SCH ×2 (09:09→20:43)
[2020-10-02] MEDS: ATORVASTATIN 10 MG TAB PO SCH (09:09)
[2020-10-02] MEDS: LOSARTAN 50 MG TAB PO SCH (09:10)
[2020-10-02] MEDS: cloNIDine HCL 0.2 MG TAB PO SCH (09:10)
[2020-10-02 09:25] LABS: HCT 47.2 % (39.0-53.0); MCH 32.2 pg (25.0-35.0); MCHC 33.8 g/dL (31.0-37.0); MCV 95.3 fL (80.0-100.0); Mean Platelet Volume 7.3; Platelet Count 288 k/uL (150-450); RBC 4.95 m/uL (4.30-5.90); WBC 11.4 k/uL (3.8-10.6)
[2020-10-02] MEDS: EZETIMIBE 10 MG TAB PO SCH (09:26)
[2020-10-02 12:46] LABS: African American GFR (CKD) 56.5 (60.0-200.0); Albumin 4.2 g/dL (3.80-4.90); Albumin/Globulin Ratio 1.56 (1.60-3.17); Anion Gap 12.5 mmol/L (4.00-12.00); BUN/Creat Ratio 26.15 Ratio (12.00-20.00); Calcium 9.5 mg/dL (8.7-10.3); Carbon Dioxide 23.5 mmol/L (21.6-31.8); Globulin 2.7 g/dL (1.6-3.3); Non-African American GFR(CKD) 48.7 (60.0-200.0); Potassium 4.7 mmol/L (3.5-5.5); Total Bilirubin 0.8 mg/dL (0.2-1.2); Total Protein 6.9 g/dL (6.2-8.2)
[2020-10-03] MEDS: METOPROLOL TARTRATE 50 MG TAB PO SCH ×3 (09:35→20:30)
[2020-10-03] MEDS: SPIRONOLACTONE 25 MG TAB PO SCH (09:35)
[2020-10-03] MEDS: ATORVASTATIN 10 MG TAB PO SCH (09:36)
[2020-10-03] MEDS: FUROSEMIDE 40 MG TAB PO SCH ×3 (09:36→20:30)
[2020-10-03] MEDS: LOSARTAN 50 MG TAB PO SCH (09:36)
[2020-10-03] MEDS: APIXABAN 2.5 MG TABLET PO SCH ×2 (09:36→20:31)
[2020-10-03] MEDS: EZETIMIBE 10 MG TAB PO SCH (09:36)
--- NOTE | 2020-10-03 14:48 | P.PN ---
Subjective Progress Note Date: 10/02/20 Principal diagnosis: Atrial fibrillation with RVR Multiple falls/debility 89-year-old male patient admitted to the hospital with atrial fibrillation with RVR; patient was recently discharged from hospital to ECF; upon discharge from ECF patient current home and continued to have generalized weakness with multiple falls; PT is consulted for recommendations on discharge 10/02/2020 Patient is seen and evaluated in room at bedside; denies any specific co mplaints; wouldn't want to be discharged home Vital signs are reviewed and remained stable; lab review shows a white blood count trending down at 11.4 this morning; BUN/creatinine at baseline Patient has been evaluated by cardiology for atrial fibrillation with rapid ventricular response and is recommended to resume beta blockers, decrease nifedipine due to possibility of causing reflex tachycardia, continue with oral diuretic therapy; patient will follow-up with primary human service coordinator as an outpa tient Await PT evaluation for discharge recommendations Objective - Vital Signs Vital signs: Vital Signs Temp 97.6 F 10/02/20 15:01 Pulse 75 10/02/20 15:01 Resp 18 10/02/20 15:01 BP 101/67 10/02/20 15:01 Pulse Ox 98 10/02/20 15:01 Intake & Output 10/01/20 10/02/20 10/02/20 18:59 06:59 18:59 Intake Total 600 Output Total 1100 Balance -500 Weight 83.915 kg Intake: Oral 600 Output: Urine 1100 Other: Voiding Method Urinal - Exam PHYSICAL EXAMINATION: GENERAL: The patient is alert and oriented x3, not in any acute distress. Well developed, well nourished. HEENT: Pupils are round and equally reacting to light. EOMI. No scleral icterus. No conjunctival pallor. Normocephalic, atraumatic. No pharyngeal erythema. No thyromegaly. CARDIOVASCULAR: S1 and S2 present. Irregularly irregular. PULMONARY: Chest is clear to auscultation, no wheezing or crackles. ABDOMEN: Soft, nontender, nondistended, normoactive bowel sounds. No palpable organomegaly. MUSCULOSKELETAL: No joint swelling or deformity. EXTREMITIES: No cyanosis, clubbing, or pedal edema. NEUROLOGICAL: Gross neurological examination did not reveal any focal deficits. SKIN: No rashes. - Labs CBC & Chem 7: 10/02/20 09:06 10/02/20 09:06 Labs: Abnormal Lab Results - Last 24 Hours (Table) 10/02/20 10/02/20 Range/Units 09:06 09:06 WBC 11.4 H (3.8-10.6) k/uL RDW 16.0 H (11.5-15.5) % Anion Gap 12.50 H (4.00-12.00) mmol/L BUN 34.0 H (9.0-27.0) mg/dL Est GFR (CKD-EPI)AfAm 56.5 L (60.0-200.0) Est GFR (CKD-EPI)NonAf 48.7 L (60.0-200.0) BUN/Creatinine Ratio 26.15 H (12.00-20.00) Ratio Glucose 167 H (70-110) mg/dL Albumin/Globulin Ratio 1.56 L (1.60-3.17) g/dL Microbiology - Last 24 Hours (Table) 09/30/20 20:31 Urine Culture - Final Urine,Voided Assessment and Plan Assessment: 1. Atrial fibrillation with RVR; cardiology recommending to continue with beta blockers; plan to decrease nifedipine for possibility of causing reflex tachycardia; continue with anticoagulation 2. Leukocytosis; possibly reactive; no signs of infection 3. Hypertension; nifedipine is decreased; patient remains on beta blockers in form of metoprolol 50 mg 3 times a day and Cozaar 50 mg daily we will monitor blood pressure closely with plan to adjust medications if blood pressure remains elevated with medication change 4. Hyperlipidemia; Lipitor 10 mg by mouth daily at bedtime; Zetia 10 mg by mouth daily 5. CAD/PCI/chronic systolic CHF; continue with oral diuretic therapy in form of Lasix 40 mg by mouth 3 times a day and Aldactone 25 mg daily; no further cardiac workup was recommended DVT prophylaxis; SCDs/anticoagulation- systemic CODE STATUS; full code
[2020-10-03 14:55] LABS: Appearance,Urine Clear (Clear); Bilirubin,Urine Negative (Negative); Blood,Urine Negative (Negative); Color,Urine Yellow; Glucose,Urine (UA) Negative (Negative); Ketones,Urine Negative (Negative); Leukocyte Esterase,Urine Negative (Negative); Nitrite,Urine Negative (Negative); Protein,Urine Negative (Negative); Specific Gravity,Urine 1.011 (1.001-1.035); Urobilinogen,Urine <2.0 mg/dL (<2.0)
[2020-10-03 16:34] LABS: Potassium 4.1 mmol/L (3.5-5.1)
[2020-10-03] MEDS: cloNIDine HCL 0.2 MG TAB PO SCH (20:30)
--- NOTE | 2020-10-04 00:09 | P.PN ---
Subjective Progress Note Date: 10/03/20 Principal diagnosis: Atrial fibrillation with RVR Multiple falls/debility 89-year-old male patient admitted to the hospital with atrial fibrillation with RVR; patient was recently discharged from hospital to ECF; upon discharge from ECF patient current home and continued to have generalized weakness with multiple falls; PT is consulted for recommendations on discharge 10/02/2020 Patient is seen and evaluated in room at bedside; denies any specific co mplaints; wouldn't want to be discharged home Vital signs are reviewed and remained stable; lab review shows a white blood count trending down at 11.4 this morning; BUN/creatinine at baseline Patient has been evaluated by cardiology for atrial fibrillation with rapid ventricular response and is recommended to resume beta blockers, decrease nifedipine due to possibility of causing reflex tachycardia, continue with oral diuretic therapy; patient will follow-up with primary [employer]worker [employer] as an outpa tient Await PT evaluation for discharge recommendations 10/03/2020 Patient is seen at bedside; voices no complaints; wants to be able to go home Had 2 spells of non-sustained VT; remains asymptomatic; cardiology on board and in process of adjusting medications; electrolytes checked and stable Patient awaits PT evaluation for dc planning Objective - Vital Signs Vital signs: Vital Signs Temp 99.0 F 10/03/20 08:00 Pulse 74 10/03/20 08:00 Resp 20 10/03/20 08:00 BP 137/95 10/03/20 08:00 Pulse Ox 92 L 10/03/20 08:00 Intake & Output 10/02/20 10/03/20 10/03/20 18:59 06:59 18:59 Weight 84.5 kg Other: Voiding Method Urinal # Voids 1 - Exam PHYSICAL EXAMINATION: GENERAL: The patient is alert and oriented x3, not in any acute distress. Well developed, well nourished. HEENT: Pupils are round and equally reacting to light. EOMI. No scleral icterus. No conjunctival pallor. Normocephalic, atraumatic. No pharyngeal erythema. No thyromegaly. CARDIOVASCULAR: S1 and S2 present. Irregularly irregular. PULMONARY: Chest is clear to auscultation, no wheezing or crackles. ABDOMEN: Soft, nontender, nondistended, normoactive bowel sounds. No palpable organomegaly. MUSCULOSKELETAL: No joint swelling or deformity. EXTREMITIES: No cyanosis, clubbing, or pedal edema. NEUROLOGICAL: Gross neurological examination did not reveal any focal deficits. SKIN: No rashes. - Labs CBC & Chem 7: 10/02/20 09:06 10/03/20 15:57 Assessment and Plan Assessment: 1. Atrial fibrillation with RVR; cardiology recommending to continue with beta blockers; plan to decrease nifedipine for possibility of causing reflex t achycardia; continue with anticoagulation 2. Leukocytosis; possibly reactive; no signs of infection 3. Hypertension; nifedipine is decreased; patient remains on beta blockers in form of metoprolol 50 mg 3 times a day and Cozaar 50 mg daily we will monitor blood pressure closely with plan to adjust medications if blood pressure remains elevated with medication change 4. Hyperlipidemia; Lipitor 10 mg by mouth daily at bedtime; Zetia 10 mg by mouth daily 5. CAD/PCI/chronic systolic CHF; continue with oral diuretic therapy in form of Lasix 40 mg by mouth 3 times a day and Aldactone 25 mg daily; no further cardiac workup was recommended DVT prophylaxis; SCDs/anticoagulation- systemic CODE STATUS; full code
[2020-10-04 04:16] VITALS: RESP 17
[2020-10-04 07:16] VITALS: BP 113/66; PULSE 83; TEMP 97.6
[2020-10-04] MEDS: METOPROLOL TARTRATE 50 MG TAB PO SCH (07:53)
[2020-10-04] MEDS: APIXABAN 2.5 MG TABLET PO SCH (07:53)
[2020-10-04] MEDS: FUROSEMIDE 40 MG TAB PO SCH (07:53)
[2020-10-04] MEDS: EZETIMIBE 10 MG TAB PO SCH (07:53)
[2020-10-04] MEDS: SPIRONOLACTONE 25 MG TAB PO SCH (07:53)
[2020-10-04] MEDS: LOSARTAN 50 MG TAB PO SCH (07:54)
[2020-10-04] MEDS: ATORVASTATIN 10 MG TAB PO SCH (07:54)
--- NOTE | 2020-10-04 08:12 | P.DS ---
Providers Date of admission: 10/01/20 08:49 Attending physician: Cecilio Christina Consults: 09/30/20 19:11 Consult Physician Urgent Consulting Provider: [facility] Consult Reason/Comments: acute chf exacerbation Do you want consulting provider notified?: Yes Primary care physician: Cecilio Christina - Discharge Diagnosis(es) (1) At risk for readmission to hospital Current Visit: Yes Status: Acute (2) Atrial fibrillation with RVR Current Visit: Yes Status: Acute (3) Congestive heart failure (CHF) Current Visit: Yes Status: Acute (4) Multiple falls Current Visit: Yes Status: Acute (5) Diabetes Current Visit: No Status: Acute (6) HTN (hypertension) Current Visit: No Status: Chronic (7) Hyperlipemia Current Visit: No Status: Chronic Hospital Course: This is a discharge summary on an 89 year old white male who was admitted for multiple falls. Hx of weakness and heart failure due to afib. The patient at this time is refusing to go to rehab. We will try to do home health but I suspect his prognosis will be guarded secondary to his advancing age and weakness elements. His family is agreeable to the transfer. Question need for home O2. Patient will be discharged in guarded condition and follow-up with me in in about 3 days. Patient Condition at Discharge: Stable Plan - Discharge Summary Discharge Rx Participant: No New Discharge Prescriptions: Continue Simvastatin [Zocor] 20 mg PO DAILY cloNIDine HCL [Catapres] 0.2 mg PO HS Irbesartan [Avapro] 150 mg PO DAILY Ezetimibe [Zetia] 10 mg PO DAILY Apixaban [Eliquis] 2.5 mg PO BID #60 tablet Pantoprazole [Protonix] 40 mg PO AC-BRKFST #30 tablet.dr Potassium Chloride ER [K-Dur 10] 10 meq PO DAILY LORazepam [Ativan] 1 mg PO BID PRN PRN Reason: Anxiety Spironolactone [Aldactone] 25 mg PO DAILY #30 tab Furosemide [Lasix] 40 mg PO TID #90 tab Azithromycin [Zithromax Z-pack (6 tabs)] See Taper PO DAILY NIFEdipine [Procardia XL] 90 mg PO DAILY Ipratropium Nebulized [Atrovent Nebulized 0.2 MG/ML] 0.5 mg INHALATION RT-QID PRN PRN Reason: Shortness Of Breath Albuterol Nebulized [Ventolin Nebulized] 2.5 mg INHALATION RT-QID PRN PRN Reason: Shortness Of Breath Discharge Medication List Simvastatin [Zocor] 20 mg PO DAILY 05/13/16 [History] cloNIDine HCL [Catapres] 0.2 mg PO HS 05/13/16 [History] Ezetimibe [Zetia] 10 mg PO DAILY 05/29/20 [History] Irbesartan [Avapro] 150 mg PO DAILY 05/29/20 [History] Apixaban [Eliquis] 2.5 mg PO BID #60 tablet 06/11/20 [Rx] Pantoprazole [Protonix] 40 mg PO AC-BRKFST #30 tablet. 06/11/20 [Rx] LORazepam [Ativan] 1 mg PO BID PRN 07/22/20 [History] Potassium Chloride ER [K-Dur 10] 10 meq PO DAILY 07/22/20 [History] Furosemide [Lasix] 40 mg PO TID #90 tab 07/29/20 [Rx] Spironolactone [Aldactone] 25 mg PO DAILY #30 tab 07/29/20 [Rx] Albuterol Nebulized [Ventolin Nebulized] 2.5 mg INHALATION RT-QID PRN 09/30/20 [History] Azithromycin [Zithromax Z-pack (6 tabs)] See Taper PO DAILY 09/30/20 [History] Ipratropium Nebulized [Atrovent Nebulized 0.2 MG/ML] 0.5 mg INHALATION RT-QID PRN 09/30/20 [History] NIFEdipine [Procardia XL] 90 mg PO DAILY 09/30/20 [History] Follow up Appointment(s)/Referral(s): Cecilio Christina MD [Primary Care Provider] - 1-2 days [facility], [NON-STAFF] - 1-2 Days [facility] [NON-STAFF] - 1-2 Days Aminta Benz MD [STAFF PHYSICIAN] - 2 Weeks Discharge Disposition: HOME WITH HOME HEALTH SERVICES
== END 2020-10-04 14:29 | disposition home health service (06) | DRG 309 ==
LOC: EC 17:02 → 3SCARD 19:10 → OBSVTOIN 10-01 08:49 → 4SSUR 10-01 10:24
PROVIDERS: ADMIT Family Medicine; ATTEND Family Medicine
DX: I48.19 Other persistent atrial fibrillation (principal); I50.22 Chronic systolic (congestive) heart failure; R62.7 Adult failure to thrive; I11.0 Hypertensive heart disease with heart failure; E11.9 Type 2 diabetes mellitus without complications; D72.829 Elevated white blood cell count, unspecified; E78.5 Hyperlipidemia, unspecified; F41.9 Anxiety disorder, unspecified; I25.10 Atherosclerotic heart disease of native coronary artery without angina pectoris; I25.2 Old myocardial infarction; I25.5 Ischemic cardiomyopathy; M19.031 Primary osteoarthritis, right wrist; R29.6 Repeated falls; K21.9 Gastro-esophageal reflux disease without esophagitis; M10.9 Gout, unspecified; H91.90 Unspecified hearing loss, unspecified ear; I77.89 Other specified disorders of arteries and arterioles; R26.81 Unsteadiness on feet; Z79.01 Long term (current) use of anticoagulants; Z79.899 Other long term (current) drug therapy; Z85.828 Personal history of other malignant neoplasm of skin; Z87.891 Personal history of nicotine dependence; Z88.0 Allergy status to penicillin; Z88.8 Allergy status to other drugs, medicaments and biological substances; Z95.5 Presence of coronary angioplasty implant and graft; Z98.42 Cataract extraction status, left eye; Z98.41 Cataract extraction status, right eye; Z96.1 Presence of intraocular lens; Z87.01 Personal history of pneumonia (recurrent); Z87.898 Personal history of other specified conditions; Z84.89 Family history of other specified conditions
CPT/HCPCS: 36415; 71046; 80048; 80053; 81001; 81003; 82550; 83605; 83735; 83880; 84132; 84439; 84443; 84484; 85025; 85027; 85610; 85730; 87086; 93005; 96374; 96375; 99285

== ENCOUNTER 2020-11-15 08:48 | Inpatient (IN) | payer MEDICARE, BC ==
[2020-11-15] MEDS ORDERED: SODIUM CHLORIDE 0.9% 500 ML 500 ML IV STA (09:01)
[2020-11-15] MEDS ORDERED: SODIUM CHLORIDE 0.9% 1,000 ML IV STA (09:01)
[2020-11-15] MEDS ORDERED: DILTIAZEM DRIP BOLUS FROM BAG 1 MG SOLN IV ONE (09:06)
--- NOTE | 2020-11-15 09:06 | ED ---
Weakness HPI - General Chief complaint: Weakness Stated complaint: Weakness Time Seen by Provider: 11/15/20 08:59 Source: patient, EMS, RN notes reviewed Mode of arrival: EMS - History of Present Illness Initial comments: This is a 89-year-old male who presents today with by EMS with complaints of generalized weakness. Weakness is been going on for about a month getting progressively worse since constipation frontal headache he denies any overt fevers chills or sweats he does feel dry he states. He was noted be in A. fib with RVR ranging from 100-140 beats a minute. He was told the past he does have sinus problems. He does state he has a frontal headache at this time he denies any overt fevers chills or sweats. No chest pain he does have slight peripheral edema he states MD Complaint: generalized weakness - Related Data Home Medications Medication Instructions Recorded Confirmed Simvastatin [Zocor] 20 mg PO DAILY 05/13/16 11/15/20 cloNIDine HCL [Catapres] 0.2 mg PO HS 05/13/16 11/15/20 Ezetimibe [Zetia] 10 mg PO DAILY 05/29/20 11/15/20 Irbesartan [Avapro] 150 mg PO DAILY 05/29/20 11/15/20 LORazepam [Ativan] 1 mg PO BID PRN 07/22/20 11/15/20 Potassium Chloride ER [K-Dur 10] 10 meq PO DAILY 07/22/20 11/15/20 NIFEdipine [Procardia XL] 90 mg PO DAILY 09/30/20 11/15/20 Ipratropium-Albuterol Nebulize 3 ml INHALATION RT-QID PRN 11/15/20 11/15/20 [Duoneb 0.5 mg-3 mg/3 ml Soln] Tamsulosin HCl [Flomax] 0.4 mg PO HS 11/15/20 11/15/20 traZODone HCL 50 mg PO HS 11/15/20 11/15/20 Previous Rx's Medication Instructions Recorded Apixaban [Eliquis] 2.5 mg PO BID #60 tablet 06/11/20 Pantoprazole [Protonix] 40 mg PO MARQUES-CHANTELLEKFSElana #30 tablet. 06/11/20 Furosemide [Lasix] 40 mg PO TID #90 tab 07/29/20 Spironolactone [Aldactone] 25 mg PO DAILY #30 tab 07/29/20 Allergies Allergy/AdvReac Type Severity Reaction Status Date / Time Penicillins Allergy Rash/Hives Verified 11/15/20 09:49 zolpidem [From Ambien] AdvReac Confusion Verified 11/15/20 09:49 Review of Systems ROS Statement: Those systems with pertinent positive or pertinent negative responses have been documented in the HPI. ROS Other: All systems not noted in ROS Statement are negative. Past Medical History Past Medical History: Atrial Fibrillation, Coronary Artery Disease (CAD), Cancer, Heart Failure, Diabetes Mellitus, GERD/Reflux, Hyperlipidemia, Hypertension, Myocardial Infarction ([place]), Osteoarthritis (OA), Pneumonia, Vascular Disorder Additional Past Medical History / Comment(s): Pt recently admitted to [facility] on 06/27/20 with CHF/hyponatremia and social issues-pt/family having difficulty caring for pt. 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 Past Anesthesia/Blood Transfusion Reactions: No Reported Reaction Date of Last Stent Placement:: 2014 Past Psychological History: Anxiety Smoking Status: Former smoker Past Alcohol Use History: None Reported Past Drug Use History: None Reported - Past Family History Father History Unknown: Yes Family Medical History: Unable to Obtain Additional Family Medical History / Comment(s): Father never went to the doctor. Mother History Unknown: Yes Family Medical History: Hyperlipidemia Additional Family Medical History / Comment(s): high cholesterol. General Exam - General Exam Comments Initial Comments: This is a well-developed asthenic appearing male who is awake alert oriented 3 General appearance: alert, in no apparent distress Head exam: Present: atraumatic, normocephalic, normal inspection Eye exam: Present: normal appearance, PERRL, EOMI. Absent: scleral icterus, conjunctival injection, periorbital swelling ENT exam: Present: mucous membranes dry, other (Tenderness to percussion over the mid frontal sinus region.) Neck exam: Present: normal inspection. Absent: tenderness, meningismus, lymphadenopathy Respiratory exam: Present: normal lung sounds bilaterally, decreased breath sounds. Absent: respiratory distress, wheezes, rales, rhonchi, stridor Cardiovascular Exam: Present: tachycardia, irregular rhythm. Absent: systolic murmur, diastolic murmur, rubs, gallop, clicks GI/Abdominal exam: Present: soft, normal bowel sounds, other. Absent: distended, tenderness, guarding, rebound, rigid, bruit, pulsatile mass Extremities exam: Present: full ROM, normal capillary refill, pedal edema. Absent: tenderness, joint swelling, calf tenderness Back exam: Present: normal inspection Neurological exam: Present: alert, oriented X3, CN II-XII intact Psychiatric exam: Present: normal affect, normal mood Skin exam: Present: warm, dry, intact, normal color. Absent: rash Course Vital Signs 11/15/20 11/15/20 11/15/20 08:59 10:57 11:13 Temperature 97.8 F Pulse Rate 123 H 93 89 Respiratory 18 18 18 Rate Blood Pressure 120/98 121/83 100/86 O2 Sat by Pulse 88 L 96 95 Oximetry 11/15/20 12:26 Temperature Pulse Rate 92 Respiratory 18 Rate Blood Pressure 128/95 O2 Sat by Pulse 96 Oximetry EKG Findings - EKG Results: EKG: interpreted by ERMD (Atrial fibrillation rate of 121 QRS 152 QT since QTC 298/423 red bundle-branch block nonspecific T-wave configuration evidence a PVC) Medical Decision Making - Lab Data Result diagrams: 11/15/20 09:37 11/15/20 09:37 Lab Results 11/15/20 11/15/20 11/15/20 Range/Units 09:37 09:37 09:37 WBC 11.0 H (3.8-10.6) k/uL RBC 3.83 L (4.30-5.90) m/uL Hgb 12.3 L D (13.0-17.5) gm/dL Hct 35.7 L (39.0-53.0) % MCV 93.2 (80.0-100.0) fL MCH 32.2 (25.0-35.0) pg MCHC 34.5 (31.0-37.0) g/dL RDW 14.6 (11.5-15.5) % Plt Count 200 (150-450) k/uL MPV 7.3 Neutrophils % 87 % Lymphocytes % 5 % Monocytes % 5 % Eosinophils % 1 % Basophils % 0 % Neutrophils # 9.6 H (1.3-7.7) k/uL Lymphocytes # 0.6 L (1.0-4.8) k/uL Monocytes # 0.6 (0-1.0) k/uL Eosinophils # 0.1 (0-0.7) k/uL Basophils # 0.0 (0-0.2) k/uL Sodium 125 L (137-145) mmol/L Potassium 4.2 (3.5-5.1) mmol/L Chloride 91 L (98-107) mmol/L Carbon Dioxide 26 (22-30) mmol/L Anion Gap 8 mmol/L BUN 29 H (9-20) mg/dL Creatinine 1.36 H (0.66-1.25) mg/dL Est GFR (CKD-EPI)AfAm 53 (>60 ml/min/1.73 sqM) Est GFR (CKD-EPI)NonAf 46 (>60 ml/min/1.73 sqM) Glucose 167 H (74-99) mg/dL Calcium 9.0 (8.4-10.2) mg/dL Magnesium 1.8 (1.6-2.3) mg/dL Total Bilirubin 0.9 (0.2-1.3) mg/dL AST 22 (17-59) U/L ALT 16 (4-49) U/L Alkaline Phosphatase 84 (38-126) U/L Creatine Kinase 70 (55-170) U/L Troponin I 0.023 (0.000-0.034) ng/mL NT-Pro-B Natriuret Pep pg/mL Total Protein 7.0 (6.3-8.2) g/dL Albumin 4.1 (3.5-5.0) g/dL Urine Color Urine Appearance (Clear) Urine pH (5.0-8.0) Ur Specific [place] (1.001-1.035) Urine Protein (Negative) Urine Glucose (UA) (Negative) Urine Ketones (Negative) Urine Blood (Negative) Urine Nitrite (Negative) Urine Bilirubin (Negative) Urine Urobilinogen (<2.0) mg/dL Ur Leukocyte Esterase (Negative) 11/15/20 11/15/20 Range/Units 09:37 12:26 WBC (3.8-10.6) k/uL RBC (4.30-5.90) m/uL Hgb (13.0-17.5) gm/dL Hct (39.0-53.0) % MCV (80.0-100.0) fL MCH (25.0-35.0) pg MCHC (31.0-37.0) g/dL RDW (11.5-15.5) % Plt Count (150-450) k/uL MPV Neutrophils % % Lymphocytes % % Monocytes % % Eosinophils % % Basophils % % Neutrophils # (1.3-7.7) k/uL Lymphocytes # (1.0-4.8) k/uL Monocytes # (0-1.0) k/uL Eosinophils # (0-0.7) k/uL Basophils # (0-0.2) k/uL Sodium (137-145) mmol/L Potassium (3.5-5.1) mmol/L Chloride (98-107) mmol/L Carbon Dioxide (22-30) mmol/L Anion Gap mmol/L BUN (9-20) mg/dL Creatinine (0.66-1.25) mg/dL Est GFR (CKD-EPI)AfAm (>60 ml/min/1.73 sqM) Est GFR (CKD-EPI)NonAf (>60 ml/min/1.73 sqM) Glucose (74-99) mg/dL Calcium (8.4-10.2) mg/dL Magnesium (1.6-2.3) mg/dL Total Bilirubin (0.2-1.3) mg/dL AST (17-59) U/L ALT (4-49) U/L Alkaline Phosphatase (38-126) U/L Creatine Kinase (55-170) U/L Troponin I (0.000-0.034) ng/mL NT-Pro-B Natriuret Pep 39276 pg/mL Total Protein (6.3-8.2) g/dL Albumin (3.5-5.0) g/dL Urine Color Yellow Urine Appearance Clear (Clear) Urine pH 5.5 (5.0-8.0) Ur Specific [place] 1.013 (1.001-1.035) Urine Protein Trace H (Negative) Urine Glucose (UA) Negative (Negative) Urine Ketones Negative (Negative) Urine Blood Negative (Negative) Urine Nitrite Negative (Negative) Urine Bilirubin Negative (Negative) Urine Urobilinogen <2.0 (<2.0) mg/dL Ur Leukocyte Esterase Negative (Negative) - Radiology Data Radiology results: report reviewed (I did review the imaging and report evidence of CHF.), image reviewed Critical Care Time Critical Care Time: Yes Total Critical Care Time: 37 Critical Care Time: Critical care time includes initial presentation with history physical labs x- rays discussed with paramedics upon arrival. Reevaluation the patient discussed with the patient regarding findings discussed with Dr. Christina admission orders documentation the above Disposition Clinical Impression: Congestive heart failure (CHF), Rapid atrial fibrillation, Renal insufficiency syndrome Disposition: ADMITTED IP TO THIS HOSP Condition: Fair Referrals: Cecilio Christina MD [Primary Care Provider] - 1-2 days
[2020-11-15] MEDS ORDERED: DILTIAZEM 125 MG in SODIUM CHLORIDE 0.9% 100 ML IV SCH (09:15)
[2020-11-15 09:49] LABS: Basophils % (A) 0 %; Eosinophils # (A) 0.1 k/uL (0-0.7); Eosinophils % (A) 1 %; HCT 35.7 % (39.0-53.0); Lymphocytes # (A) 0.6 k/uL (1.0-4.8); Lymphocytes % (A) 5 %; MCH 32.2 pg (25.0-35.0); MCHC 34.5 g/dL (31.0-37.0); MCV 93.2 fL (80.0-100.0); Mean Platelet Volume 7.3; Monocytes # (A) 0.6 k/uL (0-1.0); Monocytes % (A) 5 %; Neutrophils # (A) 9.6 k/uL (1.3-7.7); Neutrophils % (A) 87 %; Platelet Count 200 k/uL (150-450); RBC 3.83 m/uL (4.30-5.90); RDW 14.6 % (11.5-15.5)
[2020-11-15 09:58] LABS: HGB 12.3 gm/dL (13.0-17.5)
[2020-11-15 10:03] LABS: Albumin 4.1 g/dL (3.5-5.0); Magnesium 1.8 mg/dL (1.6-2.3); Potassium 4.2 mmol/L (3.5-5.1); Total Bilirubin 0.9 mg/dL (0.2-1.3)
--- NOTE | 2020-11-15 11:01 | XR ---
EXAMINATION TYPE: XR chest 2V DATE OF EXAM: 11/15/2020 COMPARISON: 09/30/2020 HISTORY: Shortness of breath FINDINGS: Noted is pulmonary venous congestion with scattered infiltrates. There is also cardiomegaly and small effusions. IMPRESSION: Findings compatible with congestive failure. Infiltrates of other etiology are not excluded. Clinical correlation and progress studies are recommended.
[2020-11-15 12:45] LABS: Appearance,Urine Clear (Clear); Bilirubin,Urine Negative (Negative); Blood,Urine Negative (Negative); Color,Urine Yellow; Glucose,Urine (UA) Negative (Negative); Ketones,Urine Negative (Negative); Leukocyte Esterase,Urine Negative (Negative); Nitrite,Urine Negative (Negative); PH, Urine 5.5 (5.0-8.0); Protein,Urine Trace (Negative); Specific Gravity,Urine 1.013 (1.001-1.035); Urobilinogen,Urine <2.0 mg/dL (<2.0)
[2020-11-15] MEDS ORDERED: FUROSEMIDE 10 MG/ML 4 ML VIAL IV STA (12:54)
[2020-11-15] MEDS ORDERED: IPRATROPIUM-ALBUTEROL 3 ML NEB INHALATION PRN (13:04)
--- NOTE | 2020-11-15 15:15 | P.CRDCN ---
History of Present Illness History of present illness: HISTORY OF PRESENTING ILLNESS This is a pleasant 89-year-old male past medical history significant for systolic heart failure, coronary artery disease status post PCI of the OM branch, hypertension, dyslipidemia, diabetes mellitus and chronic persistent atrial fibrillation on long-term anticoagulation. He follows in the office with Dr. Benz. We have been asked to see in consultation for Sam alexander. He presented to the hospital with symptoms of generalized weakness and shortness of breath. EKG on arrival revealed atrial fibrillation with rapid ventricular rate. Chest x-ray revealed congestive heart failure. Recent echocardiogram obtained in May 2020 revealed impaired LV systolic function with ejection fraction of 30-35%, basal inferoseptal and mild basal inferior lateral LV wall motion hypokinesia, mild aortic stenosis with a mean gradient of 7 mmHg and mild tricuspid regurgitation. He has been started on IV diuretics as well as a Cardizem infusion. He is seen and examined resting comfortably in no acute distress. He denies symptoms of chest pain, dizziness or palpitations. Laboratory data reviewed, WBC 11, hemoglobin 12.3, platelets 200, sodium 125, potassium 4.2, creatinine 1.36, magnesium 1.8, troponin 0.0 23 and NT proBNP 15,000. Current daily cardiac medications include Eliquis 2.5 mg twice a day, Zetia 10 mg daily, Lasix 40 mg 3 times a day, irbesartan 150 mg daily, nifedipine 90 mg daily, simvastatin 20 mg daily, Aldactone 25 mg daily and clonidine 0.2 mg at bedtime. REVIEW OF SYSTEMS At the time of my exam: CONSTITUTIONAL: Complains of generalized weakness and fatigue. Denies fever or chills. CARDIOVASCULAR: Denies chest pain, shortness of breath, orthopnea, PND or palpitations. RESPIRATORY: Denies cough. GASTROINTESTINAL: Denies abdominal pain, diarrhea, constipation, nausea or vomiting. MUSCULOSKELETAL: Denies myalgias. NEUROLOGIC: Denies numbness, tingling, headacbe or weakness. ENDOCRINE: Denies fatigue, weight change, polydipsia or polyurina. GENITOURINARY: Denies burning, hematuria or urgency with micturation. HEMATOLOGIC: Denies history of anemia or bleeding. PHYSICAL EXAMINATION Blood pressure 117/68 heart rate 91 afebrile and maintaining oxygen saturation on nasal cannula. CONSTITUTIONAL: No apparent distress. HEENT: Head is normocephalic. Pupils are equal, round. Sclerae anicteric. Mucous membranes of the mouth are moist. No JVD. No carotid bruit. CHEST EXAMINATION: Lungs are clear to auscultation. No chest wall tenderness is noted on palpation or with deep breathing. HEART EXAMINATION: Regular rate and rhythm. S1, S2 heard. Systolic ejection murmur at the base, no gallops or rub. ABDOMEN: Soft, nontender. Positive bowel sounds. EXTREMITIES: 2+ peripheral pulses, no lower extremity edema and no calf tenderness. NEUROLOGIC EXAMINATION: Patient is awake, alert and oriented x3. ASSESSMENT Acute on chronic systolic heart failure Chronic persistent atrial fibrillation with rapid ventricular rate Leukocytosis Coronary artery disease status post PCI of the OM branch Hypertension Dyslipidemia Diabetes mellitus PLAN Continue IV diuresis. Documented accurate intake and output along with daily weights. Follow renal function and electrolytes in the morning. Continue Cardizem for rate control. Further recommendations to follow based upon clinical course. Thank you kindly for this consultation. Nurse Practitioner note has been reviewed, I agree with a documented findings and plan of care. Patient was seen and examined. Past Medical History Past Medical History: Atrial Fibrillation, Coronary Artery Disease (CAD), Cancer, Heart Failure, Diabetes Mellitus, GERD/Reflux, Hyperlipidemia, Hypertension, Myocardial Infarction (CT), Osteoarthritis (OA), Pneumonia, Vascular Disorder Additional Past Medical History / Comment(s): Afib with RVR, NIDDM type II-pt states physician took him off his diabetic medication-diet controlled now, pt had R lower leg wounds but states it is now healed to a small scab, sinus problems, bilateral caratid artery disease, skin cancer with removal, arthritis R wrist, gout R great toe, unsteady gait/falls, hyponatremia, past rheumatic fever age 21yrs, Last Myocardial Infarction Date:: 2014 History of Any Multi-Drug Resistant Organisms: None Reported Past Surgical History: Heart Catheterization, Heart Catheterization With Stent Additional Past Surgical History / Comment(s): Skin cancer removed L upper arm, bilateral cataract removal/lens implants. Past Anesthesia/Blood Transfusion Reactions: No Reported Reaction Date of Last Stent Placement:: 2014 Smoking Status: Former smoker - Past Family History Father History Unknown: Yes Family Medical History: Unable to Obtain Additional Family Medical History / Comment(s): Father never went to the doctor. Mother History Unknown: Yes Family Medical History: Hyperlipidemia Additional Family Medical History / Comment(s): high cholesterol. Medications and Allergies Home Medications Medication Instructions Recorded Confirmed Type Simvastatin [Zocor] 20 mg PO DAILY 05/13/16 11/15/20 History cloNIDine HCL [Catapres] 0.2 mg PO HS 05/13/16 11/15/20 History Ezetimibe [Zetia] 10 mg PO DAILY 05/29/20 11/15/20 History Irbesartan [Avapro] 150 mg PO DAILY 05/29/20 11/15/20 History Apixaban [Eliquis] 2.5 mg PO BID #60 tablet 06/11/20 11/15/20 Rx Pantoprazole [Protonix] 40 mg PO AC-BRKFST #30 tablet. 06/11/20 11/15/20 Rx LORazepam [Ativan] 1 mg PO BID PRN 07/22/20 11/15/20 History Potassium Chloride ER [K-Dur 10] 10 meq PO DAILY 07/22/20 11/15/20 History Furosemide [Lasix] 40 mg PO TID #90 tab 07/29/20 11/15/20 Rx Spironolactone [Aldactone] 25 mg PO DAILY #30 tab 07/29/20 11/15/20 Rx NIFEdipine [Procardia XL] 90 mg PO DAILY 09/30/20 11/15/20 History Ipratropium-Albuterol Nebulize 3 ml INHALATION RT-QID PRN 11/15/20 11/15/20 History [Duoneb 0.5 mg-3 mg/3 ml Soln] Tamsulosin HCl [Flomax] 0.4 mg PO HS 11/15/20 11/15/20 History traZODone HCL 50 mg PO HS 11/15/20 11/15/20 History Allergies Allergy/AdvReac Type Severity Reaction Status Date / Time Penicillins Allergy Rash/Hives Verified 11/15/20 09:49 zolpidem [From Ambien] AdvReac Confusion Verified 11/15/20 09:49 Physical Exam Vitals: Vital Signs Temp Pulse Resp BP Pulse Ox 11/15/20 14:41 97.8 F 91 18 117/68 95 11/15/20 13:12 91 18 117/68 95 11/15/20 12:26 92 18 128/95 96 11/15/20 11:13 89 18 100/86 95 11/15/20 10:57 93 18 121/83 96 11/15/20 08:59 97.8 F 123 H 18 120/98 88 L Intake and Output 11/15/20 11/15/20 11/15/20 06:59 14:59 22:59 Other: Weight 78.018 kg Results 11/15/20 09:37 11/15/20 09:37 Cardiac Enzymes 11/15/20 11/15/20 Range/Units 09:37 09:37 AST 22 (17-59) U/L Troponin I 0.023 (0.000-0.034) ng/mL CBC 11/15/20 Range/Units 09:37 WBC 11.0 H (3.8-10.6) k/uL RBC 3.83 L (4.30-5.90) m/uL Hgb 12.3 L D (13.0-17.5) gm/dL Hct 35.7 L (39.0-53.0) % Plt Count 200 (150-450) k/uL Comprehensive Metabolic Panel 11/15/20 Range/Units 09:37 Sodium 125 L (137-145) mmol/L Potassium 4.2 (3.5-5.1) mmol/L Chloride 91 L (98-107) mmol/L Carbon Dioxide 26 (22-30) mmol/L BUN 29 H (9-20) mg/dL Creatinine 1.36 H (0.66-1.25) mg/dL Glucose 167 H (74-99) mg/dL Calcium 9.0 (8.4-10.2) mg/dL AST 22 (17-59) U/L ALT 16 (4-49) U/L Alkaline Phosphatase 84 (38-126) U/L Total Protein 7.0 (6.3-8.2) g/dL Albumin 4.1 (3.5-5.0) g/dL Current Medications Generic Name Dose Route Start Last Admin Trade Name Freq PRN Reason Stop Dose Admin Albuterol/Ipratropium 3 ml 11/15/20 13:04 Ipratropium-Albuterol 3 Ml Neb INHALATION RT-QID PRN Shortness Of Breath Apixaban 2.5 mg 11/15/20 21:00 Apixaban 2.5 Mg Tablet PO BID [facility] Atorvastatin Calcium 10 mg 11/16/20 09:00 Atorvastatin 10 Mg Tab PO DAILY [facility]OM[facility] Clonidine 0.2 mg 11/15/20 21:00 Clonidine Hcl 0.2 Mg Tab PO HS [facility]OMED[facility] Ezetimibe 10 mg 11/16/20 09:00 Ezetimibe 10 Mg Tab PO DAILY [facility] Furosemide 40 mg 11/15/20 21:00 Furosemide 10 Mg/Ml 4 Ml Vial IV Q12HR DIOMEDES Sodium Chloride 1,000 mls @ 75 mls/hr 11/15/20 09:01 11/15/20 10:07 Saline 0.9% IV 11/15/20 22:20 75 mls/hr .[id number] STA Administration Diltiazem HCl 125 mg/ Sodium 125 mls @ 5 mls/hr 11/15/20 09:15 11/15/20 10:08 Chloride IV 5 mg/hr .Q24H DIOMEDES 5 mls/hr Administration 5 MG/HR Lorazepam 1 mg 11/15/20 13:04 Lorazepam 1 Mg Tab PO BID PRN Anxiety Losartan Potassium 50 mg 11/16/20 09:00 Losartan 50 Mg Tab PO DAILY [facility] Nifedipine 90 mg 11/16/20 09:00 Nifedipine Xl 90 Mg Tab.Er.24 PO DAILY [facility] Pantoprazole Sodium 40 mg 11/16/20 07:30 Pantoprazole 40 Mg Tablet PO AC-BRKFST [facility] Potassium Chloride 10 meq 11/16/20 09:00 Potassium Chloride Er 10 Meq Tab.Er.Prt PO DAILY [facility] Spironolactone 25 mg 11/16/20 09:00 Spironolactone 25 Mg Tab PO DAILY [facility] Tamsulosin HCl 0.4 mg 11/15/20 21:00 Tamsulosin 0.4 Mg Cap.Er.24h PO HS [facility] Trazodone HCl 50 mg 11/15/20 21:00 Trazodone Hcl 50 Mg Tab PO HS [facility] Intake and Output 11/15/20 11/15/20 11/15/20 06:59 14:59 22:59 Other: Weight 78.018 kg Patient Weight 11/16/20 06:59 Weight 78.018 kg 11/15/20 09:37 11/15/20 09:37
[2020-11-15] MEDS ORDERED: FUROSEMIDE 40 MG TAB PO SCH (16:00)
[2020-11-15] MEDS: HYDROcodone/APAP 5-325MG 1 EACH TAB PO PRN (17:20)
--- NOTE | 2020-11-15 17:40 | CT ---
EXAMINATION TYPE: CT sinus wo con DATE OF EXAM: 11/15/2020 COMPARISON: 02/19/2017 HISTORY: Chronic sinusitis. CT DLP: 509 mGycm Automated exposure control for dose reduction was used. Images were obtained from the bottom of the maxilla to the top of the frontal sinuses without contras t. There is fairly normal aeration of the paranasal sinuses. Nasal bone is intact. Nasal bone deviation slightly to the left side that could relate to old injury. There is no evidence of orbital mass. Ther e is no blowout fracture. Maxilla is intact. There is normal aeration of the mastoid sinuses. There i s normal aeration of the epitympanic recess bilaterally. I see no bony destructive process. Temporal bones are intact. IMPRESSION: Negative exam. No evidence of sinusitis. No significant change compared to old exam.
[2020-11-15] MEDS: APIXABAN 2.5 MG TABLET PO SCH (20:17)
[2020-11-15] MEDS: traZODone HCL 50 MG TAB PO SCH (20:17)
[2020-11-15] MEDS: TAMSULOSIN 0.4 MG CAP.ER.24H PO SCH (20:17)
[2020-11-15] MEDS: cloNIDine HCL 0.2 MG TAB PO SCH (20:17)
[2020-11-15] MEDS: FUROSEMIDE 10 MG/ML 4 ML VIAL IV SCH (20:17)
--- NOTE | 2020-11-15 20:48 | P.HPIM ---
History of Present Illness H&P Date: 11/15/20 Chief Complaint: Shortness of breath The patient is an 89-year-old white male with underlying history of atrial fibrillation. The patient is readmitted for atrial fibrillation with rapid ventricular response. The patient has been fairly compliant with his medication he is complaining of chronic sinus congestion and Insomnia. Review of Systems Constitutional: Denies chills, Denies fever Eyes: denies blurred vision, denies pain Ears, nose, mouth and throat: Denies headache, Denies sore throat Cardiovascular: Reports decreased exercise tolerance, Reports dyspnea on exertion, Denies leg edema Respiratory: Denies cough Musculoskeletal: Denies myalgias Integumentary: Denies pruritus, Denies rash Past Medical History Past Medical History: Atrial Fibrillation, Coronary Artery Disease (CAD), Cancer, Heart Failure, Diabetes Mellitus, GERD/Reflux, Hyperlipidemia, Hypertension, Myocardial Infarction ([place]), Osteoarthritis (OA), Pneumonia, Vas cular Disorder Additional Past Medical History / Comment(s): Afib with RVR, NIDDM type II-pt states physician took him off his diabetic medication-diet controlled now, pt had R lower leg wounds but states it is now healed to a small scab, sinus problems, bilateral caratid artery disease, skin cancer with removal, arthritis R wrist, gout R great toe, unsteady gait/falls, hyponatremia, past rheumatic fever age 21yrs, Last Myocardial Infarction Date:: 2014 History of Any Multi-Drug Resistant Organisms: None Reported Past Surgical History: Heart Catheterization, Heart Catheterization With Stent Additional Past Surgical History / Comment(s): Skin cancer removed L upper arm, bilateral cataract removal/lens implants. Past Anesthesia/Blood Transfusion Reactions: No Reported Reaction Date of Last Stent Placement:: 2014 Smoking Status: Former smoker - Past Family History Father History Unknown: Yes Family Medical History: Unable to Obtain Additional Family Medical History / Comment(s): Father never went to the doctor. Mother History Unknown: Yes Family Medical History: Hyperlipidemia Additional Family Medical History / Comment(s): high cholesterol. Medications and Allergies Home Medications Medication Instructions Recorded Confirmed Type Simvastatin [Zocor] 20 mg PO DAILY 05/13/16 11/15/20 History cloNIDine HCL [Catapres] 0.2 mg PO HS 05/13/16 11/15/20 History Ezetimibe [Zetia] 10 mg PO DAILY 05/29/20 11/15/20 History Irbesartan [Avapro] 150 mg PO DAILY 05/29/20 11/15/20 History Apixaban [Eliquis] 2.5 mg PO BID #60 tablet 06/11/20 11/15/20 Rx Pantoprazole [Protonix] 40 mg PO AC-BRKFST #30 tablet.dr 06/11/20 11/15/20 Rx LORazepam [Ativan] 1 mg PO BID PRN 07/22/20 11/15/20 History Potassium Chloride ER [K-Dur 10] 10 meq PO DAILY 07/22/20 11/15/20 History Furosemide [Lasix] 40 mg PO TID #90 tab 07/29/20 11/15/20 Rx Spironolactone [Aldactone] 25 mg PO DAILY #30 tab 07/29/20 11/15/20 Rx NIFEdipine [Procardia XL] 90 mg PO DAILY 09/30/20 11/15/20 History Ipratropium-Albuterol Nebulize 3 ml INHALATION RT-QID PRN 11/15/20 11/15/20 History [Duoneb 0.5 mg-3 mg/3 ml Soln] Tamsulosin HCl [Flomax] 0.4 mg PO HS 11/15/20 11/15/20 History traZODone HCL 50 mg PO HS 11/15/20 11/15/20 History Allergies Allergy/AdvReac Type Severity Reaction Status Date / Time Penicillins Allergy Rash/Hives Verified 11/15/20 09:49 zolpidem [From Ambien] AdvReac Confusion Verified 11/15/20 09:49 Physical Exam Vitals: Vital Signs Temp Pulse Pulse Resp BP BP Pulse Ox 11/15/20 16:00 90 126/71 92 L 11/15/20 14:45 97.4 F L 102 H 128/63 95 11/15/20 14:41 97.8 F 91 18 117/68 95 11/15/20 13:12 91 18 117/68 95 11/15/20 12:26 92 18 128/95 96 11/15/20 11:13 89 18 100/86 95 11/15/20 10:57 93 18 121/83 96 11/15/20 08:59 97.8 F 123 H 18 120/98 88 L Intake and Output 11/15/20 11/15/20 11/15/20 06:59 14:59 22:59 Intake Total 236 Output Total 300 Balance -64 Intake: Oral 236 Output: Urine 300 Other: # Voids 1 Weight 78.018 kg Results CBC & Chem 7: 11/15/20 09:37 11/15/20 09:37 Labs: Abnormal Lab Results - Last 24 Hours (Table) 11/15/20 11/15/20 11/15/20 Range/Units 09:37 09:37 12:26 WBC 11.0 H (3.8-10.6) k/uL RBC 3.83 L (4.30-5.90) m/uL Hgb 12.3 L D (13.0-17.5) gm/dL Hct 35.7 L (39.0-53.0) % Neutrophils # 9.6 H (1.3-7.7) k/uL Lymphocytes # 0.6 L (1.0-4.8) k/uL Sodium 125 L (137-145) mmol/L Chloride 91 L (98-107) mmol/L BUN 29 H (9-20) mg/dL Creatinine 1.36 H (0.66-1.25) mg/dL Glucose 167 H (74-99) mg/dL Urine Protein Trace H (Negative) Thrombosis Risk Factor Assmnt - Choose All That Apply Any of the Below Risk Factors Present?: Yes Each Factor Represents 1 point: Heart failure (<1month) Other Risk Factors: Yes Each Risk Factor Represents 3 Points: Age 75 years or older Other congenital or acquired thrombophilia - If yes, enter type in comment: No Thrombosis Risk Factor Assessment Total Risk Factor Score: 4 Thrombosis Risk Factor Assessment Level: Moderate Risk Assessment and Plan (1) Congestive heart failure (CHF) Current Visit: Yes Status: Acute Code(s): I50.9 - HEART FAILURE, UNSPECIFIED SNOMED Code(s): 45114240 (2) Rapid atrial fibrillation Current Visit: Yes Status: Acute Code(s): I48.91 - UNSPECIFIED ATRIAL FIBRILLATION SNOMED Code(s): 718053525 (3) At risk for readmission to hospital Current Visit: No Status: Acute Code(s): Z91.89 - OTH PERSONAL RISK FACTORS, NOT ELSEWHERE CLASSIFIED SNOMED Code(s): 6083829828569 (4) HTN (hypertension) Current Visit: No Status: Chronic Code(s): I10 - ESSENTIAL (PRIMARY) HYPERTENSION SNOMED Code(s): 63751852 (5) Hyperlipemia Current Visit: No Status: Chronic Code(s): E78.5 - HYPERLIPIDEMIA, UNSPECIFIED SNOMED Code(s): 84490491 Plan: Continue rate control with diuresis as necessary. Check CBC and CMP in the a.m. Reconcile home medications. Appreciate cardiology input. Assess CODE STATUS. See orders otherwise. The patient's prognosis is guarded secondary to his multiple comorbidities.
[2020-11-15] MEDS: LORazepam 1 MG TAB PO PRN (22:41)
[2020-11-16] MEDS: PANTOPRAZOLE 40 MG TABLET PO SCH (06:10)
[2020-11-16 07:33] LABS: HCT 35.3 % (39.0-53.0); HGB 11.8 gm/dL (13.0-17.5); MCH 32.7 pg (25.0-35.0); MCHC 33.5 g/dL (31.0-37.0); MCV 97.6 fL (80.0-100.0); Mean Platelet Volume 8.2; Platelet Count 182 k/uL (150-450); RBC 3.62 m/uL (4.30-5.90); RDW 14.8 % (11.5-15.5)
--- NOTE | 2020-11-16 08:14 | P.PN ---
Subjective Progress Note Date: 11/16/20 Principal diagnosis: Atrial fibrillation The patient is now stabilizing with the Cardizem drip. We will anticipate weaning today per cardiology. He does compare rhinitis. Computed tomography scan of the sinuses does not show any new changes. The patient does complain of significant drainage. We'll start some Flonase today. Also, Zyrtec will be started. Objective - Vital Signs Vital signs: Vital Signs Temp 98.0 F 11/16/20 07:53 Pulse 91 11/16/20 07:53 Resp 20 11/16/20 07:53 BP 112/65 11/16/20 07:53 Pulse Ox 94 L 11/16/20 07:53 Intake & Output 11/15/20 11/16/20 11/16/20 18:59 06:59 18:59 Intake Total 236 Output Total 300 500 Balance -64 -500 Weight 78.018 kg 74 kg Intake: Oral 236 Output: Urine 300 500 Other: # Voids 1 - Constitutional General appearance: Present: average body habitus - EENT Eyes: Absent: abnormal pupil - Respiratory Respiratory: bilateral: CTA - Cardiovascular Rhythm: irregularly irregular Heart sounds: normal: S1, S2 Abnormal Heart Sounds: Absent: S3 Gallop - Gastrointestinal General gastrointestinal: Present: soft. Absent: tenderness - Integumentary Integumentary: Present: normal - Psychiatric Psychiatric: Present: A&O x's 3 - Labs CBC & Chem 7: 11/16/20 06:47 11/15/20 09:37 Labs: Abnormal Lab Results - Last 24 Hours (Table) 11/15/20 11/15/20 11/15/20 Range/Units 09:37 09:37 12:26 WBC 11.0 H (3.8-10.6) k/uL RBC 3.83 L (4.30-5.90) m/uL Hgb 12.3 L D (13.0-17.5) gm/dL Hct 35.7 L (39.0-53.0) % Neutrophils # 9.6 H (1.3-7.7) k/uL Lymphocytes # 0.6 L (1.0-4.8) k/uL Sodium 125 L (137-145) mmol/L Chloride 91 L (98-107) mmol/L BUN 29 H (9-20) mg/dL Creatinine 1.36 H (0.66-1.25) mg/dL Glucose 167 H (74-99) mg/dL Urine Protein Trace H (Negative) 11/16/20 Range/Units 06:47 WBC (3.8-10.6) k/uL RBC 3.62 L (4.30-5.90) m/uL Hgb 11.8 L (13.0-17.5) gm/dL Hct 35.3 L (39.0-53.0) % Neutrophils # (1.3-7.7) k/uL Lymphocytes # (1.0-4.8) k/uL Sodium (137-145) mmol/L Chloride (98-107) mmol/L BUN (9-20) mg/dL Creatinine (0.66-1.25) mg/dL Glucose (74-99) mg/dL Urine Protein (Negative) Assessment and Plan (1) Congestive heart failure (CHF) Current Visit: Yes Status: Acute Code(s): I50.9 - HEART FAILURE, UNSPECIFIED SNOMED Code(s): 88454784 (2) Rapid atrial fibrillation Current Visit: Yes Status: Acute Code(s): I48.91 - UNSPECIFIED ATRIAL FIBRILLATION SNOMED Code(s): 760409690 (3) At risk for readmission to hospital Current Visit: No Status: Acute Code(s): Z91.89 - OTH PERSONAL RISK FACTORS, NOT ELSEWHERE CLASSIFIED SNOMED Code(s): 3764352927816 (4) HTN (hypertension) Current Visit: No Status: Chronic Code(s): I10 - ESSENTIAL (PRIMARY) HYPERTENSION SNOMED Code(s): 90496022 (5) Hyperlipemia Current Visit: No Status: Chronic Code(s): E78.5 - HYPERLIPIDEMIA, UNSPECIFIED SNOMED Code(s): 99365473 Plan: Continue rate control with diuresis as necessary. Add Flonase and antihistamine. Weaning Cardizem hopefully today. Anticipate discharge in next 24-48 hours.
[2020-11-16 09:11] LABS: Albumin 3.7 g/dL (3.5-5.0); Calcium 8.3 mg/dL (8.4-10.2); Potassium 4.1 mmol/L (3.5-5.1); Total Bilirubin 0.9 mg/dL (0.2-1.3); Total Protein 6.7 g/dL (6.3-8.2)
[2020-11-16] MEDS: ATORVASTATIN 10 MG TAB PO SCH (10:00)
[2020-11-16] MEDS: APIXABAN 2.5 MG TABLET PO SCH ×2 (10:00→21:05)
[2020-11-16] MEDS: EZETIMIBE 10 MG TAB PO SCH (10:01)
[2020-11-16] MEDS: FUROSEMIDE 10 MG/ML 4 ML VIAL IV SCH (10:05)
[2020-11-16] MEDS: LORATADINE 10 MG TAB PO SCH (10:06)
[2020-11-16] MEDS: LOSARTAN 50 MG TAB PO SCH (10:06)
[2020-11-16] MEDS: NIFEdipine XL 90 MG TAB.ER.24 PO SCH (10:06)
[2020-11-16] MEDS: SPIRONOLACTONE 25 MG TAB PO SCH (10:07)
[2020-11-16] MEDS: POTASSIUM CHLORIDE ER 10 MEQ TAB.ER.PRT PO SCH (10:07)
[2020-11-16] MEDS: FLUTICASONE 50MCG/SPRAY NASAL 16GM EA NOSTRIL SCH (10:35)
--- NOTE | 2020-11-16 11:35 | P.PN ---
Subjective HISTORY OF PRESENTING ILLNESS This is a pleasant 89-year-old male past medical history significant for systolic heart failure, coronary artery disease status post PCI of the OM branch, hypertension, dyslipidemia, diabetes mellitus and chronic persistent atrial fibrillation on long-term anticoagulation. He follows in the office with Dr. Benz. He is seen and examined sitting up in bed in no acute distress. He denies chest pain, shortness of breath, dizziness or palpitations. He feels like his breathing has improved since admission. 24-hr urine output only 800 ml. Blood pressure 116/64 heart rate 78 afebrile and maintaining oxygen saturation on nasal cannula. Laboratory data reviewed, sodium 127, potassium 4.1, creatinine 1.22. PHYSICAL EXAMINATION CONSTITUTIONAL: No apparent distress. HEENT: Head is normocephalic. Pupils are equal, round. Sclerae anicteric. Mucous membranes of the mouth are moist. No JVD. No carotid bruit. CHEST EXAMINATION: Lungs are clear to auscultation. No chest wall tenderness is noted on palpation or with deep breathing. HEART EXAMINATION: Regular rate and rhythm. S1, S2 heard. Systolic ejection murmur at the base, no gallops or rub. EXTREMITIES: 2+ peripheral pulses, no lower extremity edema and no calf tenderness. ASSESSMENT Acute on chronic systolic heart failure Chronic persistent atrial fibrillation with rapid ventricular rate Leukocytosis Coronary artery disease status post PCI of the OM branch Hypertension Dyslipidemia Diabetes mellitus PLAN Discontinue Cardizem infusion. Initiate Lopressor 50 mg twice a day. Continue IV diuresis, repeat BMP in the morning. Nurse Practitioner note has been reviewed, I agree with a documented findings and plan of care. Patient was seen and examined. Objective - Vital Signs Vital signs: Vital Signs Temp 98.0 F 11/16/20 07:53 Pulse 78 11/16/20 11:03 Resp 20 11/16/20 07:53 BP 116/64 11/16/20 10:00 Pulse Ox 94 L 11/16/20 07:53 Intake & Output 11/15/20 11/16/20 11/16/20 18:59 06:59 18:59 Intake Total 236 120 Output Total 300 500 Balance -64 -500 120 Weight 78.018 kg 74 kg Intake: Oral 236 120 Output: Urine 300 500 Other: # Voids 1 0 # Bowel Movements 0 - Labs CBC & Chem 7: 11/16/20 06:47 11/16/20 08:19 Labs: Abnormal Lab Results - Last 24 Hours (Table) 11/15/20 11/16/20 11/16/20 Range/Units 12:26 06:47 08:19 RBC 3.62 L (4.30-5.90) m/uL Hgb 11.8 L (13.0-17.5) gm/dL Hct 35.3 L (39.0-53.0) % Sodium 127 L (137-145) mmol/L Chloride 92 L (98-107) mmol/L BUN 29 H (9-20) mg/dL Glucose 167 H (74-99) mg/dL Calcium 8.3 L (8.4-10.2) mg/dL Urine Protein Trace H (Negative)
[2020-11-16] MEDS: METOPROLOL TARTRATE 50 MG TAB PO SCH ×2 (12:21→21:05)
[2020-11-16] MEDS: cloNIDine HCL 0.2 MG TAB PO SCH (21:04)
[2020-11-16] MEDS: TAMSULOSIN 0.4 MG CAP.ER.24H PO SCH (21:04)
[2020-11-16] MEDS: traZODone HCL 50 MG TAB PO SCH (21:05)
[2020-11-16] MEDS: LORazepam 1 MG TAB PO PRN (23:14)
[2020-11-17] MEDS: PANTOPRAZOLE 40 MG TABLET PO SCH (06:21)
[2020-11-17 07:54] LABS: Calcium 8.7 mg/dL (8.4-10.2); Potassium 4.8 mmol/L (3.5-5.1)
[2020-11-17] MEDS ORDERED: FUROSEMIDE 40 MG TAB PO SCH (09:00)
[2020-11-17] MEDS ORDERED: FUROSEMIDE 10 MG/ML 4 ML VIAL IV SCH (09:00)
[2020-11-17] MEDS: SPIRONOLACTONE 25 MG TAB PO SCH (09:09)
[2020-11-17] MEDS: POTASSIUM CHLORIDE ER 10 MEQ TAB.ER.PRT PO SCH (09:09)
--- NOTE | 2020-11-17 09:09 | XR ---
EXAMINATION TYPE: XR chest 1V portable DATE OF EXAM: 11/17/2020 COMPARISON: Chest x-ray 11/15/2020 HISTORY: Shortness of breath TECHNIQUE: Single frontal view of the chest is obtained. FINDINGS: Patient is rotated. Heart is enlarged. Interstitium is increased. Bibasilar density is not ed. No evident pneumothorax. Aorta is dense. Difficult to exclude small effusions. IMPRESSION: Pulmonary venous hypertension and interstitial edema, suspect some improvement in volume status, aeration as compared to prior exam.
[2020-11-17] MEDS: EZETIMIBE 10 MG TAB PO SCH (09:10)
[2020-11-17] MEDS: ATORVASTATIN 10 MG TAB PO SCH (09:10)
[2020-11-17] MEDS: LORATADINE 10 MG TAB PO SCH (09:14)
[2020-11-17] MEDS: APIXABAN 2.5 MG TABLET PO SCH ×2 (09:14→22:39)
--- NOTE | 2020-11-17 12:56 | P.PN ---
Subjective HISTORY OF PRESENTING ILLNESS This is a pleasant 89-year-old male past medical history significant for systolic heart failure, coronary artery disease status post PCI of the OM branch, hypertension, dyslipidemia, diabetes mellitus and chronic persistent atrial fibrillation on long-term anticoagulation. He follows in the office with Dr. Benz. He is seen and examined sitting up in the recliner in no acute distress. He states he didn't get much sleep last night and was requiring more oxygen. He is back down to 2 liters n/c today. Blood pressure 90/58 heart rate 83 afebrile. Laboratory data reviewed, sodium 127, potassium 4.8, creatinine 2.04. Repeat chest x-ray reveals interstitial edema with some improvement in volume status from previous exam. PHYSICAL EXAMINATION CONSTITUTIONAL: No apparent distress. HEENT: Head is normocephalic. Pupils are equal, round. Sclerae anicteric. Mucous membranes of the mouth are moist. No JVD. No carotid bruit. CHEST EXAMINATION: Lungs are clear to auscultation. No chest wall tenderness is noted on palpation or with deep breathing. HEART EXAMINATION: Irregular rate and rhythm. S1, S2 heard. Systolic ejection murmur at the base, no gallops or rub. EXTREMITIES: 2+ peripheral pulses, no lower extremity edema and no calf tenderness. ASSESSMENT Acute on chronic systolic heart failure, EF 30-35% Chronic persistent atrial fibrillation with rapid ventricular rate Leukocytosis Coronary artery disease status post PCI of the OM branch Ischemic cardiomyopathy Aortic stenosis Hypertension Dyslipidemia Diabetes mellitus Non-sustained ventricluar tachycardia Acute kidney injury PLAN Hold IV lasix secondary to worsening renal function. Hold losartan and nifedipine secondary to hypotension. Discontinue clonidine and nifedipine. Continue lopressor and hold for systolic bp less than 90. Follow renal function in the morning. Nurse Practitioner note has been reviewed, I agree with a documented findings and plan of care. Patient was seen and examined. Objective - Vital Signs Vital signs: Vital Signs Temp 97.4 F L 11/17/20 11:57 Pulse 83 11/17/20 11:48 Resp 20 11/17/20 11:48 BP 90/58 11/17/20 11:48 Pulse Ox 96 11/17/20 11:48 Intake & Output 11/16/20 11/17/20 11/17/20 18:59 06:59 18:59 Intake Total 120 120 Output Total 900 0 Balance 120 -900 120 Weight 74 kg 83 kg Intake: Oral 120 120 Output: Urine 900 0 Emesis 0 Other: Voiding Method Urinal Urinal Urinal # Voids 0 0 # Bowel Movements 0 0 - Labs CBC & Chem 7: 11/16/20 06:47 11/17/20 06:39 Labs: Abnormal Lab Results - Last 24 Hours (Table) 11/17/20 Range/Units 06:39 Sodium 127 L (137-145) mmol/L Chloride 94 L (98-107) mmol/L BUN 41 H (9-20) mg/dL Creatinine 2.04 H (0.66-1.25) mg/dL Glucose 168 H (74-99) mg/dL
[2020-11-17] MEDS: FLUTICASONE 50MCG/SPRAY NASAL 16GM EA NOSTRIL SCH (13:41)
[2020-11-17] MEDS: LOSARTAN 50 MG TAB PO SCH (13:41)
[2020-11-17] MEDS: METOPROLOL TARTRATE 50 MG TAB PO SCH (13:54)
[2020-11-17] MEDS: NIFEdipine XL 90 MG TAB.ER.24 PO SCH (13:55)
--- NOTE | 2020-11-17 16:54 | P.PN ---
Subjective Principal diagnosis: Atrial fibrillation The patient is here essentially for atrial fibrillation. The patient yesterday lost IV access. The patient now has becoming more hypoxic. The patient has not been ambulating either. No voiding difficulty. No significant chest pressure. Unfortunately, he is on 6 L of oxygen. Objective - Vital Signs Vital signs: Vital Signs Temp 97.4 F L 11/17/20 11:57 Pulse 78 11/17/20 16:00 Resp 18 11/17/20 16:00 BP 141/67 11/17/20 16:00 Pulse Ox 92 L 11/17/20 16:00 Intake & Output 11/16/20 11/17/20 11/17/20 18:59 06:59 18:59 Intake Total 120 120 Output Total 900 175 Balance 120 -900 -55 Weight 74 kg 83 kg Intake: Oral 120 120 Output: Urine 900 175 Emesis 0 Other: Voiding Method Urinal Urinal Urinal # Voids 0 0 # Bowel Movements 0 0 - Constitutional General appearance: Present: average body habitus - EENT Eyes: Absent: abnormal pupil - Neck Neck: Absent: lymphadenopathy - Respiratory Respiratory: bilateral: diminished - Cardiovascular Rhythm: regular Heart sounds: normal: S1, S2 Abnormal Heart Sounds: Absent: S3 Gallop - Gastrointestinal General gastrointestinal: Present: soft. Absent: tenderness - Musculoskeletal Musculoskeletal: Present: generalized weakness - Psychiatric Psychiatric: Present: A&O x's 3, appropriate affect - Labs CBC & Chem 7: 11/16/20 06:47 11/17/20 06:39 Labs: Abnormal Lab Results - Last 24 Hours (Table) 11/17/20 Range/Units 06:39 Sodium 127 L (137-145) mmol/L Chloride 94 L (98-107) mmol/L BUN 41 H (9-20) mg/dL Creatinine 2.04 H (0.66-1.25) mg/dL Glucose 168 H (74-99) mg/dL Assessment and Plan (1) Congestive heart failure (CHF) Current Visit: Yes Status: Acute Code(s): I50.9 - HEART FAILURE, UNSPECIFIED SNOMED Code(s): 01674558 (2) Rapid atrial fibrillation Current Visit: Yes Status: Acute Code(s): I48.91 - UNSPECIFIED ATRIAL FIBRILLATION SNOMED Code(s): 008612533 (3) At risk for readmission to hospital Current Visit: No Status: Acute Code(s): Z91.89 - OTH PERSONAL RISK FACTORS, NOT ELSEWHERE CLASSIFIED SNOMED Code(s): 0306145573223 (4) HTN (hypertension) Current Visit: No Status: Chronic Code(s): I10 - ESSENTIAL (PRIMARY) HYPERTENSION SNOMED Code(s): 79043897 (5) Hyperlipemia Current Visit: No Status: Chronic Code(s): E78.5 - HYPERLIPIDEMIA, UNSPECIFIED SNOMED Code(s): 77201054 Plan: Continue rate control with diuresis as necessary. Restart IV. Check CMP in the a.m. Appreciate cardiology input.
[2020-11-17] MEDS: HYDROcodone/APAP 5-325MG 1 EACH TAB PO PRN (17:46)
[2020-11-17] MEDS: traZODone HCL 50 MG TAB PO SCH (22:39)
[2020-11-17] MEDS: TAMSULOSIN 0.4 MG CAP.ER.24H PO SCH (22:39)
[2020-11-17] MEDS: METOPROLOL TARTRATE 25 MG TAB PO SCH (22:39)
[2020-11-17] MEDS: LORazepam 1 MG TAB PO PRN (22:39)
[2020-11-18] MEDS: PANTOPRAZOLE 40 MG TABLET PO SCH (06:53)
[2020-11-18 07:42] LABS: HCT 40.1 % (39.0-53.0); HGB 13.7 gm/dL (13.0-17.5); MCH 32.7 pg (25.0-35.0); MCHC 34.2 g/dL (31.0-37.0); MCV 95.8 fL (80.0-100.0); Mean Platelet Volume 7.8; Platelet Count 220 k/uL (150-450); RBC 4.18 m/uL (4.30-5.90); RDW 14.7 % (11.5-15.5)
[2020-11-18 07:55] LABS: Albumin 3.8 g/dL (3.5-5.0); Calcium 8.7 mg/dL (8.4-10.2); Total Bilirubin 0.9 mg/dL (0.2-1.3); Total Protein 7.2 g/dL (6.3-8.2)
[2020-11-18] MEDS: ATORVASTATIN 10 MG TAB PO SCH (08:30)
[2020-11-18] MEDS: SPIRONOLACTONE 25 MG TAB PO SCH (08:31)
[2020-11-18] MEDS: LOSARTAN 50 MG TAB PO SCH (08:31)
[2020-11-18] MEDS: METOPROLOL TARTRATE 25 MG TAB PO SCH (08:31)
[2020-11-18] MEDS: APIXABAN 2.5 MG TABLET PO SCH ×2 (08:31→21:59)
[2020-11-18] MEDS: LORATADINE 10 MG TAB PO SCH (08:31)
[2020-11-18] MEDS: FLUTICASONE 50MCG/SPRAY NASAL 16GM EA NOSTRIL SCH (08:32)
[2020-11-18] MEDS: POTASSIUM CHLORIDE ER 10 MEQ TAB.ER.PRT PO SCH ×2 (08:32→08:34)
[2020-11-18] MEDS ORDERED: METOPROLOL TARTRATE 25 MG TAB PO STA (10:06)
[2020-11-18] MEDS: EZETIMIBE 10 MG TAB PO SCH (10:17)
--- NOTE | 2020-11-18 14:23 | P.PN ---
Subjective HISTORY OF PRESENTING ILLNESS This is a pleasant 89-year-old male past medical history significant for systolic heart failure, coronary artery disease status post PCI of the OM branch, hypertension, dyslipidemia, diabetes mellitus and chronic persistent atrial fibrillation on long-term anticoagulation. He follows in the office with Dr. Benz. He is seen and examined sitting up in the recliner in no acute distress. He states he didn't get much sleep last night and was requiring more oxygen. He is back down to 2 liters n/c today. Blood pressure 90/58 heart rate 83 afebrile. Laboratory data reviewed, sodium 127, potassium 4.8, creatinine 2.04. Repeat chest x-ray reveals interstitial edema with some improvement in volume status from previous exam. 11/18/2020 Patient is seen and examined sitting up in the chair in no acute distress. He complains of feeling palpitations. Telemetry tracings indicate his heart rate is fluctuating between 120s and 140 bpm. Blood pressure 151/63 maintaining oxygen saturation on nasal cannula and afebrile. Laboratory data reviewed, WBC 12, hemoglobin 13.7, platelets 220 sodium 126, potassium 5, creatinine 1.66. PHYSICAL EXAMINATION CONSTITUTIONAL: No apparent distress. HEENT: Head is normocephalic. Pupils are equal, round. Sclerae anicteric. Mucous membranes of the mouth are moist. No JVD. No carotid bruit. CHEST EXAMINATION: Lungs are clear to auscultation. No chest wall tenderness is noted on palpation or with deep breathing. HEART EXAMINATION: Irregular rate and rhythm. S1, S2 heard. Systolic ejection murmur at the base, no gallops or rub. EXTREMITIES: 2+ peripheral pulses, no lower extremity edema and no calf tenderness. ASSESSMENT Acute on chronic systolic heart failure, EF 30-35% Chronic persistent atrial fibrillation with rapid ventricular rate Leukocytosis Coronary artery disease status post PCI of the OM branch Ischemic cardiomyopathy Aortic stenosis Hypertension Dyslipidemia Diabetes mellitus Non-sustained ventricluar tachycardia Acute kidney injury PLAN Increase metoprolol to 50 mg twice a day, give additional dose of 25 mg now. Follow renal function in the morning. Further recommendations to follow based upon clinical course. Nurse Practitioner note has been reviewed, I agree with a documented findings and plan of care. Patient was seen and examined. Objective - Vital Signs Vital signs: Vital Signs Temp 97.3 F L 11/18/20 04:00 Pulse 120 H 11/18/20 12:00 Resp 16 11/18/20 08:00 BP 151/63 11/18/20 12:00 Pulse Ox 93 L 11/18/20 12:00 Intake & Output 11/17/20 11/18/20 11/18/20 18:59 06:59 18:59 Intake Total 076 992 4376 Output Total 175 975 Balance 185 -825 1140 Weight 84 kg Intake: Oral 905 150 6857 Output: Urine 175 975 Emesis 0 Other: Voiding Method Urinal Urinal # Voids 0 3 # Bowel Movements 0 1 - Labs CBC & Chem 7: 11/18/20 06:29 11/18/20 06:29 Labs: Abnormal Lab Results - Last 24 Hours (Table) 11/18/20 11/18/20 Range/Units 06:29 06:29 WBC 12.0 H (3.8-10.6) k/uL RBC 4.18 L (4.30-5.90) m/uL Sodium 126 L (137-145) mmol/L Chloride 93 L (98-107) mmol/L Carbon Dioxide 20 L (22-30) mmol/L BUN 47 H (9-20) mg/dL Creatinine 1.66 H (0.66-1.25) mg/dL Glucose 184 H (74-99) mg/dL ALT 61 H (4-49) U/L
[2020-11-18] MEDS ORDERED: METOPROLOL TARTRATE 50 MG TAB PO STA (17:09)
[2020-11-18] MEDS: LORazepam 1 MG TAB PO PRN (21:58)
[2020-11-18] MEDS: METOPROLOL TARTRATE 50 MG TAB PO SCH (21:58)
[2020-11-18] MEDS: traZODone HCL 50 MG TAB PO SCH (21:59)
[2020-11-18] MEDS: TAMSULOSIN 0.4 MG CAP.ER.24H PO SCH (21:59)
[2020-11-18] MEDS: DILTIAZEM ORAL 30 MG TAB PO SCH (23:33)
[2020-11-19] MEDS: PANTOPRAZOLE 40 MG TABLET PO SCH (06:53)
[2020-11-19] MEDS: ATORVASTATIN 10 MG TAB PO SCH (08:07)
[2020-11-19] MEDS: METOPROLOL TARTRATE 50 MG TAB PO SCH ×2 (08:07→20:12)
[2020-11-19] MEDS: SPIRONOLACTONE 25 MG TAB PO SCH (08:07)
[2020-11-19] MEDS: POTASSIUM CHLORIDE ER 10 MEQ TAB.ER.PRT PO SCH (08:07)
[2020-11-19] MEDS: DILTIAZEM ORAL 30 MG TAB PO SCH (08:07)
[2020-11-19] MEDS: LOSARTAN 50 MG TAB PO SCH (08:07)
[2020-11-19] MEDS: APIXABAN 2.5 MG TABLET PO SCH ×2 (08:07→20:12)
[2020-11-19] MEDS: LORATADINE 10 MG TAB PO SCH (08:07)
[2020-11-19] MEDS: EZETIMIBE 10 MG TAB PO SCH (08:07)
[2020-11-19] MEDS: FLUTICASONE 50MCG/SPRAY NASAL 16GM EA NOSTRIL SCH (08:08)
--- NOTE | 2020-11-19 08:28 | P.PN ---
Subjective Principal diagnosis: Atrial fibrillation The patient is here essentially for atrial fibrillation. The patient yesterday lost IV access. The patient now has becoming more hypoxic. The patient has not been ambulating either. No voiding difficulty. No significant chest pressure. Unfortunately, he is on 6 L of oxygen. Objective - Vital Signs Vital signs: Vital Signs Temp 97.2 F L 11/19/20 08:06 Pulse 108 H 11/19/20 08:06 Resp 18 11/19/20 08:06 BP 130/69 11/19/20 08:06 Pulse Ox 94 L 11/19/20 08:06 Intake & Output 11/18/20 11/19/20 11/19/20 18:59 06:59 18:59 Intake Total 1380 Output Total 300 550 Balance 1080 -550 Weight 84 kg 83.6 kg Intake: Oral 1380 Output: Urine 300 550 Other: Voiding Method Urinal # Voids 3 # Bowel Movements 1 - Constitutional General appearance: Present: average body habitus - EENT Eyes: Absent: abnormal pupil - Neck Neck: Absent: lymphadenopathy - Respiratory Respiratory: bilateral: CTA - Cardiovascular Rhythm: regular Heart sounds: normal: S1, S2 Abnormal Heart Sounds: Absent: S3 Gallop - Gastrointestinal General gastrointestinal: Present: soft. Absent: tenderness - Labs CBC & Chem 7: 11/18/20 06:29 11/18/20 06:29 Assessment and Plan (1) Congestive heart failure (CHF) Current Visit: Yes Status: Acute Code(s): I50.9 - HEART FAILURE, UNSPECIFIED SNOMED Code(s): 00354958 (2) Rapid atrial fibrillation Current Visit: Yes Status: Acute Code(s): I48.91 - UNSPECIFIED ATRIAL F IBRILLATION SNOMED Code(s): 224610972 (3) At risk for readmission to hospital Current Visit: No Status: Acute Code(s): Z91.89 - OTH PERSONAL RISK FACTORS, NOT ELSEWHERE CLASSIFIED SNOMED Code(s): 9387858100870 (4) HTN (hypertension) Current Visit: No Status: Chronic Code(s): I10 - ESSENTIAL (PRIMARY) HYPERTENSION SNOMED Code(s): 27470869 (5) Hyperlipemia Current Visit: No Status: Chronic Code(s): E78.5 - HYPERLIPIDEMIA, UNSP ECIFIED SNOMED Code(s): 55831595 Plan: Continue rate control with diuresis as necessary. Appreciate cardiolgoy input Prognosis is guarded CBC and CMP in AM
[2020-11-19] MEDS: FUROSEMIDE 40 MG TAB PO SCH (10:08)
--- NOTE | 2020-11-19 13:57 | P.PN ---
Subjective HISTORY OF PRESENTING ILLNESS This is a pleasant 89-year-old male past medical history significant for systolic heart failure, coronary artery disease status post PCI of the OM branch, hypertension, dyslipidemia, diabetes mellitus and chronic persistent atrial fibrillation on long-term anticoagulation. He follows in the office with Dr. Benz. Patient is seen and examined sitting up in bed. His heart rates are fluctuating up to size 160 again through the night. Diltiazem 30 mg TID was added. He states he can feel his heart racing at times and feels overall weak. Blood pressure 125/81 current heart rate 125 afebrile and m aintaining oxygen saturation on nasal cannula. PHYSICAL EXAMINATION CONSTITUTIONAL: No apparent distress. HEENT: Head is normocephalic. Pupils are equal, round. Sclerae anicteric. Mucous membranes of the mouth are moist. No JVD. No carotid bruit. CHEST EXAMINATION: Lungs are clear to auscultation. No chest wall tenderness is noted on palpation or with deep breathing. HEART EXAMINATION: Irregular rate and rhythm. S1, S2 heard. Systolic ejection murmur at the base, no gallops or rub. EXTREMITIES: 2+ peripheral pulses, no lower extremity edema and no calf tenderness. ASSESSMENT Acute on chronic systolic heart failure, EF 30-35% Chronic persistent atrial fibrillation with rapid ventricular rate Leukocytosis Coronary artery disease status post PCI of the OM branch Ischemic cardiomyopathy Aortic stenosis Hypertension Dyslipidemia Diabetes mellitus Non-sustained ventricluar tachycardia Acute kidney injury PLAN Increase diltiazem 60 mg TID. Continue lopresor 50 mg BID. Follow renal function in the morning. Nurse Practitioner note has been reviewed, I agree with a documented findings and plan of care. Patient was seen and examined. Objective - Vital Signs Vital signs: Vital Signs Temp 97.2 F L 11/19/20 08:06 Pulse 78 11/19/20 11:54 Resp 18 11/19/20 11:54 BP 125/81 11/19/20 11:54 Pulse Ox 98 11/19/20 11:54 Intake & Output 11/18/20 11/19/20 11/19/20 18:59 06:59 18:59 Intake Total 1380 236 Output Total 300 550 Balance 1080 -550 236 Weight 84 kg 83.6 kg Intake: Oral 1380 236 Output: Urine 300 550 Other: Voiding Method Urinal # Voids 3 # Bowel Movements 1 - Labs CBC & Chem 7: 11/18/20 06:29 11/18/20 06:29
[2020-11-19] MEDS: DILTIAZEM ORAL 60 MG TAB PO SCH ×2 (16:45→22:34)
[2020-11-19] MEDS: TAMSULOSIN 0.4 MG CAP.ER.24H PO SCH (20:11)
[2020-11-19] MEDS: HYDROcodone/APAP 5-325MG 1 EACH TAB PO PRN (20:12)
[2020-11-19] MEDS: traZODone HCL 50 MG TAB PO SCH (20:12)
[2020-11-20] MEDS: PANTOPRAZOLE 40 MG TABLET PO SCH (06:51)
[2020-11-20 07:50] LABS: HCT 41.7 % (39.0-53.0); HGB 14.4 gm/dL (13.0-17.5); MCHC 34.6 g/dL (31.0-37.0); MCV 95.6 fL (80.0-100.0); Mean Platelet Volume 9.1; RBC 4.37 m/uL (4.30-5.90); RDW 14.9 % (11.5-15.5); WBC 10.6 k/uL (3.8-10.6)
[2020-11-20 08:46] LABS: Albumin 3.6 g/dL (3.5-5.0); Total Bilirubin 1.1 mg/dL (0.2-1.3); Total Protein 6.9 g/dL (6.3-8.2)
[2020-11-20 08:52] LABS: HGB 14.8 gm/dL (13.0-17.5); Hypochromasia Slight; MCH 33.1 pg (25.0-35.0); MCHC 33.6 g/dL (31.0-37.0); MCV 98.5 fL (80.0-100.0); Mean Platelet Volume 7.5; Platelet Count 246 k/uL (150-450); RBC 4.46 m/uL (4.30-5.90); RDW 14.7 % (11.5-15.5); WBC 11.7 k/uL (3.8-10.6)
[2020-11-20 09:00] LABS: Potassium 5.4 mmol/L (3.5-5.1)
[2020-11-20] MEDS: EZETIMIBE 10 MG TAB PO SCH (09:04)
[2020-11-20] MEDS: SPIRONOLACTONE 25 MG TAB PO SCH (09:04)
[2020-11-20] MEDS: LORATADINE 10 MG TAB PO SCH (09:04)
[2020-11-20] MEDS: METOPROLOL TARTRATE 50 MG TAB PO SCH ×2 (09:04→20:30)
[2020-11-20] MEDS: ATORVASTATIN 10 MG TAB PO SCH (09:04)
[2020-11-20] MEDS: LOSARTAN 50 MG TAB PO SCH (09:04)
[2020-11-20] MEDS: APIXABAN 2.5 MG TABLET PO SCH ×2 (09:04→20:31)
[2020-11-20] MEDS: POTASSIUM CHLORIDE ER 10 MEQ TAB.ER.PRT PO SCH (09:04)
[2020-11-20] MEDS: DILTIAZEM ORAL 60 MG TAB PO SCH ×3 (09:04→22:13)
[2020-11-20] MEDS: FUROSEMIDE 40 MG TAB PO SCH (09:04)
[2020-11-20] MEDS: FLUTICASONE 50MCG/SPRAY NASAL 16GM EA NOSTRIL SCH (09:05)
--- NOTE | 2020-11-20 10:54 | P.PN ---
Subjective Progress Note Date: 11/20/20 This is a pleasant 89-year-old male past medical history significant for systolic heart failure, coronary artery disease status post PCI of the OM branch, hypertension, dyslipidemia, diabetes mellitus and chronic persistent atrial fibrillation on long-term anticoagulation. He follows in the office with Dr. Benz. Patient initially presented to the hospital with symptoms of weakness and shortness of breath. She'll EKG on presentation here showed atrial fibrillation with a rapid ventricular response. Patient had an echocardiogram with Doppler study performed in May of last year that revealed an ejection fraction of 30-35%, basal inferior septal and mild basal inferior lateral wall hypokinesia with mild aortic stenosis. Have also requested an echo to be performed this admission. Patient is currently on oral diuretics. Continues to be in atrial fibrillation this morning with a heart rate in the 70s. Patient was seen and examined this morning, lying flat in bed, not complaining of any shortness of breath. He is quite eager to be discharged home, he is on Eliquis at this time for anticoagulation. Blood pressure this morning 120/60 with a heart rate of 78, 95% on 4 L of oxygen. White blood cell count 11.7, hemoglobin 14.8, platelet count 246. Sodium 129, potassium 5.4, BUN 47, creatinine 1.3. Objective - Vital Signs Vital signs: Vital Signs Temp 97.4 F L 11/20/20 04:22 Pulse 64 11/20/20 04:22 Resp 18 11/20/20 04:22 BP 122/66 11/20/20 04:22 Pulse Ox 95 11/20/20 04:22 Intake & Output 11/19/20 11/20/20 11/20/20 18:59 06:59 18:59 Intake Total 833 Output Total 100 200 Balance 733 -200 Weight 69.5 kg Intake: Oral 833 Output: Urine 100 200 Other: Voiding Method Urinal Urinal - Exam PHYSICAL EXAMINATION CONSTITUTIONAL: No apparent distress. HEENT: Head is normocephalic. Pupils are equal, round. Sclerae anicteric. Mucous membranes of the mouth are moist. No JVD. No carotid bruit. CHEST EXAMINATION: Lungs are clear to auscultation. No chest wall tenderness is noted on palpation or with deep breathing. HEART EXAMINATION: Irregular rate and rhythm. S1, S2 heard. Systolic ejection murmur at the base, no gallops or rub. EXTREMITIES: 2+ peripheral pulses, no lower extremity edema and no calf tenderness. - Labs CBC & Chem 7: 11/20/20 08:17 11/20/20 08:17 Labs: Abnormal Lab Results - Last 24 Hours (Table) 11/20/20 11/20/20 Range/Units 08:17 08:17 WBC 11.7 H (3.8-10.6) k/uL Sodium 129 L (137-145) mmol/L Potassium 5.4 H (3.5-5.1) mmol/L Carbon Dioxide 19 L (22-30) mmol/L BUN 47 H (9-20) mg/dL Creatinine 1.31 H (0.66-1.25) mg/dL Glucose 208 H (74-99) mg/dL AST 205 H (17-59) U/L ALT 308 H (4-49) U/L Assessment and Plan Plan: ASSESSMENT AND PLAN #1 Acute on chronic systolic heart failure, EF 30-35% #2 Chronic persistent atrial fibrillation ,rate in the 70s today #3 Leukocytosis #4 Coronary artery disease status post PCI of the OM branch #5 Ischemic cardiomyopathy, prior echo documented ejection fraction 30-35% #6 Aortic stenosis #7 Hypertension #8 Dyslipidemia #9 Diabetes mellitus #10 Non-sustained ventricluar tachycardia #11 Acute kidney injury, creatinine down to 1.3 today Plan From cardiology's perspective, we'll continue the patient on his current medications. DNP note has been reviewed, I agree with a documented findings and plan of care. Patient was seen and examined.
[2020-11-20 12:20] LABS: Appearance,Urine Clear (Clear); Bilirubin,Urine Negative (Negative); Blood,Urine Negative (Negative); Color,Urine Yellow; Glucose,Urine (UA) Negative (Negative); Ketones,Urine Negative (Negative); Leukocyte Esterase,Urine Negative (Negative); Nitrite,Urine Negative (Negative); Protein,Urine Trace (Negative); Specific Gravity,Urine 1.016 (1.001-1.035); Urobilinogen,Urine <2.0 mg/dL (<2.0)
[2020-11-20] MEDS: HYDROcodone/APAP 5-325MG 1 EACH TAB PO PRN ×2 (15:44→20:44)
--- NOTE | 2020-11-20 20:16 | PN ---
PROGRESS NOTE DATE OF SERVICE: 11/20/2020 I am covering for Dr. Christina. This 89-year-old gentleman was admitted with congestive heart failure acute exacerbation. Ejection fraction only 30-35%. The patient also had chronic persistent atrial fibrillation. Lab mendoza, the patient has minimal leukocytosis, some mild hyperkalemia and hyponatremia also. UA, no history of any acute abnormality. LFTs are also elevated. PAST MEDICAL HISTORY: Reviewed. REVIEW OF SYSTEMS: CARDIOVASCULAR SYSTEM: No angina. RESPIRATORY: As mentioned earlier. GI: As mentioned earlier. : No dysuria. NERVOUS SYSTEM: No numbness or weakness. CURRENT MEDICATIONS: Reviewed include [place], DuoNeb, Eliquis, Lipitor, Cardizem, Zetia, Flonase, Lasix, Claritin, Cozaar, Lopressor, Protonix, aldactone, Flomax, Restoril. PHYSICAL EXAM: Patient is alert, oriented x3. Pulse 78, blood pressure 130/63, respirations 16, temperature 97.9, pulse ox 98% on 4 L HEENT: Conjunctivae normal. Oral mucosa moist. NECK: No jugular venous distention. No lymph node enlargement. CARDIOVASCULAR: S1, S2, muffled. No S3, no S4, RESPIRATORY: Diminished breath sounds at the bases. A few scattered rhonchi and crackles. ABDOMEN: Soft, nontender. LEGS: No edema, no swelling. NERVOUS SYSTEM: Diffusely weak. LAB: WBC 11.6, sodium 128, potassium 5.2, creatinine is 1.31. LFTs are noted. ASSESSMENT: 1. Congestive heart failure acute exacerbation with acute on chronic systolic dysfunction, ejection fraction 30-35%. 2. Chronic persistent atrial fibrillation. 3. Hyperkalemia. 4. Hyponatremia. 5. Acute renal failure, acute tubular necrosis, improved. 6. Elevated liver function tests, possibly mild acute hepatitis. 7. Increased WBC. 8. History of coronary artery disease. 9. History of gastroesophageal reflux disease. 10.Diabetes mellitus type 2. 11.Hypertension. 12.Hyperlipidemia. 13.History of degenerative joint disease. 14.History of gout, right great toe. 15.History of rheumatic fever. 16.History of anxiety. 17.History of nicotine dependence. RECOMMENDATIONS AND DISCUSSION: This 89-year-old gentleman who presented with multiple complex medical issues, we will monitor the patient closely, continue the current medications, continue symptomatic treatment. I would recommend repeat labs and avoid potassium supplementation. We will also hold the Aldactone for now and continue to monitor. Guarded prognosis because of multiple complex medical issues. See orders for further details. PT, OT to evaluate. MMENEL / SINDIN: [id number] /
[2020-11-20] MEDS: TAMSULOSIN 0.4 MG CAP.ER.24H PO SCH (20:30)
[2020-11-20] MEDS: traZODone HCL 50 MG TAB PO SCH (20:31)
[2020-11-20] MEDS: LORazepam 1 MG TAB PO PRN (22:13)
[2020-11-20] MEDS: DILTIAZEM 125 MG in SODIUM CHLORIDE 0.9% 100 ML IV SCH (23:30)
[2020-11-21] MEDS: PANTOPRAZOLE 40 MG TABLET PO SCH (06:46)
[2020-11-21 08:00] LABS: Basophils # (A) 0.1 k/uL (0-0.2); Basophils % (A) 0 %; Eosinophils % (A) 0 %; HCT 40.8 % (39.0-53.0); HGB 13.2 gm/dL (13.0-17.5); Hypochromasia Slight; Lymphocytes # (A) 0.9 k/uL (1.0-4.8); Lymphocytes % (A) 4 %; MCH 31.9 pg (25.0-35.0); MCHC 32.4 g/dL (31.0-37.0); MCV 98.3 fL (80.0-100.0); Mean Platelet Volume 7.5; Monocytes % (A) 4 %; Neutrophils # (A) 21.5 k/uL (1.3-7.7); Neutrophils % (A) 90 %; Platelet Count 258 k/uL (150-450); RBC 4.15 m/uL (4.30-5.90); RDW 14.6 % (11.5-15.5); WBC 23.9 k/uL (3.8-10.6)
[2020-11-21 08:05] LABS: Albumin 3.2 g/dL (3.5-5.0); Calcium 8.5 mg/dL (8.4-10.2); Total Protein 6.1 g/dL (6.3-8.2)
[2020-11-21] MEDS: DILTIAZEM ORAL 60 MG TAB PO SCH ×3 (09:00→20:52)
[2020-11-21] MEDS: EZETIMIBE 10 MG TAB PO SCH (09:00)
[2020-11-21] MEDS: LOSARTAN 50 MG TAB PO SCH (09:00)
[2020-11-21] MEDS: LORATADINE 10 MG TAB PO SCH (09:00)
[2020-11-21] MEDS: FUROSEMIDE 40 MG TAB PO SCH (09:00)
[2020-11-21] MEDS: FLUTICASONE 50MCG/SPRAY NASAL 16GM EA NOSTRIL SCH (09:00)
[2020-11-21] MEDS: METOPROLOL TARTRATE 50 MG TAB PO SCH (09:00)
[2020-11-21] MEDS: ATORVASTATIN 10 MG TAB PO SCH (09:00)
[2020-11-21] MEDS: APIXABAN 2.5 MG TABLET PO SCH ×2 (09:00→20:52)
[2020-11-21] MEDS: HYDROcodone/APAP 5-325MG 1 EACH TAB PO PRN (09:04)
[2020-11-21] MEDS: LORazepam 1 MG TAB PO PRN (09:04)
--- NOTE | 2020-11-21 10:36 | ECHOF ---
Referral Reason:chf MEASUREMENTS -------- HEIGHT: 182.9 cm WEIGHT: 69.4 kg BP: 122/66 RVIDd: 4.7 cm (< 3.3) IVSd: 1.2 cm (0.6 - 1.1) LVIDd: 5.0 cm (3.9 - 5.3) LVPWd: 1.3 cm (0.6 - 1.1) IVSs: 1.4 cm LVIDs: 4.3 cm LVPWs: 1.6 cm LAESV Index (A-L): 38.45 ml/m Ao Diam: 3.6 cm (2.0 - 3.7) AV Cusp: 1.6 cm (1.5 - 2.6) LA Diam: 5.2 cm (2.7 - 3.8) MV EXCURSION: 22.495 mm (> 18.000) MV EF SLOPE: 236 mm/s (70 - 150) EPSS: 3.2 cm AV maxP.90 mmHg AV meanP.73 mmHg RAP: 20.00 mmHg RVSP: 74.20 mmHg FINDINGS -------- Atrial fibrillation. This was a technically difficult study with suboptimal apical views. The left ventricular size is normal. There is mild concentric left ventricular hypertrophy. There is severe global hypokinesis of LV . Overall left ventricular systolic function is severely impair ed with, an EF between 20 - 25 %. The right ventricle is severely enlarged. LA is moderately dilated 34-39 ml/m2 The right atrium was not well visualized. 5.0mg of Lumason was utilized for enhancement of images Interatrial and interventricular septum intact. 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 There is no evidence of aortic stenosis. Peak /mean gradient across the Aortic Valve is 7.90mmHg / 4.73mmHg. Mild mitral annular calcification present. Moderate mitral regurgitation is present. Moderate to severe tricuspid regurgitation present. There is severe pulmonary hypertension. The r ight ventricular systolic pressure, as measured by Doppler, is 74.20mmHg. There is no pulmonic regurgitation present. The aortic root size is normal. The inferior vena cava is dilated with poor inspiratory collapse which is consistent with estimated r ight atrial pressure of 20 mmHg. There is no pericardial effusion. CONCLUSIONS -------- 1. The left ventricular size is normal. 2. There is mild concentric left ventricular hypertrophy. 3. There is severe global hypokinesis of LV . 4. Overall left ventricular systolic function is severely impaired with, an EF between 20 - 25 %. 5. The right ventricle is severely enlarged. 6. LA is moderately dilated 34-39 ml/m2 7. 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 8. Mild mitral annular calcification present. 9. Moderate mitral regurgitation is present. 10. Moderate to severe tricuspid regurgitation present. 11. There is severe pulmonary hypertension. 12. The right ventricular systolic pressure, as measured by Doppler, is 74.20mmHg. 13. The inferior vena cava is dilated with poor inspiratory collapse which is consistent with estimat ed right atrial pressure of 20 mmHg. CUST[employer]S COMPLIANCE SPECIALIST: Ariana Menjivar RDCS
--- NOTE | 2020-11-21 11:24 | P.PN ---
Subjective Progress Note Date: 11/21/20 This is a pleasant 89-year-old male past medical history significant for systolic heart failure, coronary artery disease status post PCI of the OM branch, hypertension, dyslipidemia, diabetes mellitus and chronic persistent atrial fibrillation on long-term anticoagulation. He follows in the office with Dr. Benz. Patient initially presented to the hospital with symptoms of weakness and shortness of breath. She'll EKG on presentation here showed atrial fibrillation with a rapid ventricular response. Patient had an echocardiogram with Doppler study performed in May of last year that revealed an ejection fraction of 30-35%, basal inferior septal and mild basal inferior lateral wall hypokinesia with mild aortic stenosis. Have also requested an echo to be performed this admission. Patient is currently on oral diuretics. Continues to be in atrial fibrillation this morning with a heart rate in the 70s. Patient was seen and examined this morning, lying flat in bed, not complaining of any shortness of breath. He is quite eager to be discharged home, he is on Eliquis at this time for anticoagulation. Blood pressure this morning 120/60 with a heart rate of 78, 95% on 4 L of oxygen. White blood cell count 11.7, hemoglobin 14.8, platelet count 246. Sodium 129, potassium 5.4, BUN 47, creatinine 1.3. 11/21/2020 Patient seen and examined this morning, earlier he went into rapid atrial fibrillation and was placed back on an IV Cardizem drip. This was just disco ntinued this morning because his heart rate was down in the 60s. Blood pressure 105/58, heart rate at the time of my examination 97. 93% on 2 L of oxygen. white blood cell count 23.9, hemoglobin 13.2, platelet count 258. Sodium 125, potassium 6.0, BUN 46, creatinine 1.2. Objective - Vital Signs Vital signs: Vital Signs Temp 98 F 11/21/20 03:15 Pulse 82 11/21/20 03:15 Resp 20 11/21/20 03:15 BP 133/70 11/21/20 03:15 Pulse Ox 92 L 11/21/20 03:15 Intake & Output 11/20/20 11/21/20 11/21/20 18:59 06:59 18:59 Intake Total 896 46.667 120 Output Total 700 800 Balance 196 -753.333 120 Weight 71 kg Intake: Intake, IV Titration 46.667 Amount Diltiazem 125 mg In 46.667 Sodium Chloride 0.9% 100 ml @ 10 MG/HR 10 mls/hr IV .[id number] [facility] Rx#: [id number] Oral 896 120 Output: Urine 700 800 Other: Voiding Method Urinal Urinal # Bowel Movements 1 - Exam PHYSICAL EXAMINATION CONSTITUTIONAL: No apparent distress. HEENT: Head is normocephalic. Pupils are equal, round. Sclerae anicteric. Mucous membranes of the mouth are moist. No JVD. No carotid bruit. CHEST EXAMINATION: Lungs are clear to auscultation. No chest wall tenderness is noted on palpation or with deep breathing. HEART EXAMINATION: Irregular rate and rhythm. S1, S2 heard. Systolic ejection murmur at the base, no gallops or rub. EXTREMITIES: 2+ peripheral pulses, no lower extremity edema and no calf tende rness. - Labs CBC & Chem 7: 11/21/20 06:27 11/21/20 06:27 Labs: Abnormal Lab Results - Last 24 Hours (Table) 11/20/20 11/21/20 11/21/20 Range/Units 12:03 06:27 06:27 WBC 23.9 H (3.8-10.6) k/uL RBC 4.15 L (4.30-5.90) m/uL Neutrophils # 21.5 H (1.3-7.7) k/uL Lymphocytes # 0.9 L (1.0-4.8) k/uL Sodium 125 L (137-145) mmol/L Potassium 6.0 H (3.5-5.1) mmol/L Chloride 94 L (98-107) mmol/L Carbon Dioxide 21 L (22-30) mmol/L BUN 46 H (9-20) mg/dL Creatinine 1.29 H (0.66-1.25) mg/dL Glucose 259 H (74-99) mg/dL AST 107 H (17-59) U/L ALT 208 H (4-49) U/L Total Protein 6.1 L (6.3-8.2) g/dL Albumin 3.2 L (3.5-5.0) g/dL Urine Protein Trace H (Negative) Assessment and Plan Plan: ASSESSMENT AND PLAN #1 Acute on chronic systolic heart failure, EF 30-35% #2 Chronic persistent atrial fibrillation ,rate in the 70s today #3 Leukocytosis #4 Coronary artery disease status post PCI of the OM branch #5 Ischemic cardiomyopathy, prior echo documented ejection fraction 30-35% #6 Aortic stenosis #7 Hypertension #8 Dyslipidemia #9 Diabetes mellitus #10 Non-sustained ventricluar tachycardia #11 Acute kidney injury, creatinine down to 1.2 today Plan Because of the patient's elevated potassium, we will hold the Cozaar for now, increase dose of metoprolol to 75 mg twice a day. DNP note has been reviewed, I agree with a documented findings and plan of care. Patient was seen and examined.
[2020-11-21] MEDS ORDERED: SODIUM POLYSTYRENE SULFONATE 15 GM/60 ML BOTTLE PO STA (11:44)
[2020-11-21] MEDS ORDERED: DEXTROSE 50% SYRINGE 50 ML IVP STA (12:58)
[2020-11-21] MEDS ORDERED: SODIUM BICARB 8.4% 50 ML SYR (1 MEQ/ML) IV ONE (13:04)
[2020-11-21] MEDS ORDERED: CALCIUM GLUCONATE 1 GM in SODIUM CHLORIDE 0.9% 100 ML IVPB ONE (13:04)
[2020-11-21] MEDS ORDERED: INSULIN REGULAR 100 UNIT/ML VIAL IV ONE (13:04)
--- NOTE | 2020-11-21 14:01 | XR ---
EXAMINATION TYPE: XR chest 2V DATE OF EXAM: 11/21/2020 COMPARISON: Prior chest x-ray 11/17/2020 HISTORY: Leukocytosis, congestion, cough, abnormal chest x-ray TECHNIQUE: Frontal and lateral views of the chest are obtained. FINDINGS: Findings are similar. There is been interval obscured appearance of the hemidiaphragms. He art remains enlarged. Aorta is dense. There is no evident pneumothorax the patient is rotated. Centra l vascularity and interstitium are increased. IMPRESSION: Correlate for congestive heart failure with basilar effusions. Cannot exclude pneumonia. Follow-up recommended.
[2020-11-21] MEDS: DILTIAZEM 125 MG in SODIUM CHLORIDE 0.9% 100 ML IV SCH (14:54)
[2020-11-21] MEDS ORDERED: FUROSEMIDE 10 MG/ML 4 ML VIAL IV STA (16:56)
--- NOTE | 2020-11-21 17:45 | PN ---
PROGRESS NOTE I am covering for Dr. Christina. DATE OF SERVICE: 11/21/2020 This 84-year-old gentleman who was admitted with congestive heart failure acute exacerbation had ejection fraction about 30 to 35%. The patient also had hyperkalemia today which potassium is 6. The patient had some shortness of breath. The chest x-ray was done today which was reviewed personally by me and showed features of congestive heart failure with bilateral pleural effusions and 2D echo with Doppler showed ejection fraction about 20-25 percent. Patient being closely monitored at this time. Patient also had moderate to severe tricuspid regurgitation, moderate mitral regurgitation also. Severe pulmonary hypertension was also noted. Past medical history reviewed. REVIEW OF SYSTEMS: CARDIOVASCULAR SYSTEM: No angina. RESPIRATION: As mentioned earlier. GI mentioned earlier. : No dysuria. NERVOUS SYSTEM: No numbness, weakness. CURRENT MEDICATIONS: Reviewed and include: Newell 5 mg, DuoNeb. Cardizem. Lasix, Claritin, Lopressor. Doses are reviewed. PHYSICAL EXAM: Patient alert and oriented times two. Pulse is 56, blood pressure 119/61, respirations 16, temperature 97.6, pulse ox 94% on 4 L. HEENT is conjunctivae normal. NECK: No JVD. CARDIOVASCULAR: S1, S2 muffled. RESPIRATORY SYSTEM: Breath sounds diminished at the bases. Scattered rhonchi and crackles. ABDOMEN: Soft. Nontender. LEGS are no edema. No swelling. NERVOUS SYSTEM: No focal deficits. LABS: WBC 23.2, hemoglobin 13.2. Sodium 125, potassium 6. White count is also elevated. ASSESSMENT: 1. Congestive heart failure acute exacerbation with acute on chronic systolic dysfunction, ejection fraction 30 to 35%. 2. Severe hyperkalemia secondary to renal failure. 3. Hyponatremia. 4. Chronic persistent atrial fibrillation. 5. Acute renal failure possibly acute tubular necrosis. 6. Elevated liver functions possibly mild acute hepatitis. 7. Increased WBC. 8. History of coronary artery disease. 9. Gastroesophageal reflux disease. 10.Diabetes mellitus type 2. 11.Hypertension. 12.Hyperlipidemia. 13.History of degenerative joint disease. 14.History of gout, right great toe. 15.History of rheumatic fever. 16.History of anxiety. 17.History of nicotine dependence. RECOMMENDATIONS AND DISCUSSION: Continue current medications, management and symptomatic treatment. Otherwise at this time, continue with Lasix 40 mg p.o. daily. Closely follow with Cardiology. Monitor fluid/electrolyte balance closely. Continue the rest of medications. Repeat dose of Lasix at this time. The sensorium has improved. Dr. Christina will follow tomorrow. Follow closely with multiple consultants. Prognosis guarded. MMODL / IJN: [id number] /
[2020-11-21 18:41] LABS: Potassium 5.8 mmol/L (3.5-5.1)
[2020-11-21] MEDS: traZODone HCL 50 MG TAB PO SCH (20:52)
[2020-11-21] MEDS: TAMSULOSIN 0.4 MG CAP.ER.24H PO SCH (20:52)
[2020-11-21] MEDS: METOPROLOL TARTRATE 25 MG TAB PO SCH (20:52)
[2020-11-21] MEDS ORDERED: ACETAMINOPHEN TAB 325 MG TAB PO PRN (23:41)
[2020-11-22] MEDS: HYDROcodone/APAP 5-325MG 1 EACH TAB PO PRN ×2 (00:01→17:32)
[2020-11-22] MEDS: DILTIAZEM 125 MG in SODIUM CHLORIDE 0.9% 100 ML IV SCH (04:46)
[2020-11-22] MEDS: PANTOPRAZOLE 40 MG TABLET PO SCH (06:54)
[2020-11-22 08:10] LABS: HCT 40.7 % (39.0-53.0); HGB 13.4 gm/dL (13.0-17.5); MCH 32.1 pg (25.0-35.0); MCV 97.4 fL (80.0-100.0); Platelet Count 280 k/uL (150-450); RBC 4.18 m/uL (4.30-5.90); RDW 14.5 % (11.5-15.5); WBC 15.4 k/uL (3.8-10.6)
[2020-11-22 08:11] LABS: Basophils # (A) 0.1 k/uL (0-0.2); Basophils % (A) 1 %; Eosinophils # (A) 0.7 k/uL (0-0.7); Eosinophils % (A) 4 %; Hypochromasia Slight; Lymphocytes # (A) 1.3 k/uL (1.0-4.8); Lymphocytes % (A) 8 %; Mean Platelet Volume 7.6; Monocytes # (A) 1.1 k/uL (0-1.0); Monocytes % (A) 7 %; Neutrophils # (A) 11.9 k/uL (1.3-7.7); Neutrophils % (A) 77 %
--- NOTE | 2020-11-22 08:26 | P.PN ---
Subjective Principal diagnosis: Atrial fibrillation The patient condition on Cardizem for atrial fibrillation. The patient states no falling. We'll try to increase ambulation. No voiding difficulties. Objective - Vital Signs Vital signs: Vital Signs Temp 97.8 F 11/22/20 04:26 Pulse 65 11/22/20 04:26 Resp 16 11/22/20 04:26 BP 126/69 11/22/20 04:26 Pulse Ox 93 L 11/22/20 04:26 Intake & Output 11/21/20 11/22/20 11/22/20 18:59 06:59 18:59 Intake Total 120 Output Total 600 Balance 120 -600 Weight 70.5 kg Intake: Oral 120 Output: Urine 600 Other: Voiding Method Urinal Urinal - Constitutional General appearance: Present: average body habitus - EENT Eyes: Absent: abnormal pupil - Neck Neck: Absent: lymphadenopathy - Respiratory Respiratory: bilateral: CTA - Cardiovascular Rhythm: regular Heart sounds: normal: S1, S2 Abnormal Heart Sounds: Absent: S3 Gallop - Gastrointestinal General gastrointestinal: Present: soft. Absent: tenderness - Integumentary Integumentary: Absent: cellulitis - Labs CBC & Chem 7: 11/21/20 06:27 11/21/20 17:42 Labs: Abnormal Lab Results - Last 24 Hours (Table) 11/21/20 Range/Units 17:42 Sodium 129 L (137-145) mmol/L Potassium 5.8 H (3.5-5.1) mmol/L Chloride 95 L (98-107) mmol/L Assessment and Plan (1) Congestive heart failure (CHF) Current Visit: Yes Status: Acute Code(s): I50.9 - HEART FAILURE, UNSPECIFIED SNOMED Code(s): 11306536 (2) Rapid atrial fibrillation Current Visit: Yes Status: Acute Code(s): I48.91 - UNSPECIFIED ATRIAL FIBRILLATION SNOMED Code(s): 246771548 (3) At risk for readmission to hospital Current Visit: No Status: Acute Code(s): Z91.89 - OTH PERSONAL RISK FACTORS, NOT ELSEWHERE CLASSIFIED SNOMED Code(s): 4946359239471 (4) HTN (hypertension) Current Visit: No Status: Chronic Code(s): I10 - ESSENTIAL (PRIMARY) HYPERTENSION SNOMED Code(s): 81468188 (5) Hyperlipemia Current Visit: No Status: Chronic Code(s): E78.5 - HYPERLIPIDEMIA, UNSPECIFIED SNOMED Code(s): 13197565 Plan: Still with atrial fibrillation which is labile rate. Check CBC and CMP in a.m. Increase ambulation. Appreciate cardiology input. Prognosis is guarded.
[2020-11-22 08:29] LABS: Albumin 3.4 g/dL (3.5-5.0); Calcium 8.7 mg/dL (8.4-10.2); Total Bilirubin 1.2 mg/dL (0.2-1.3); Total Protein 6.5 g/dL (6.3-8.2)
[2020-11-22 08:48] LABS: Potassium 5.9 mmol/L (3.5-5.1)
[2020-11-22] MEDS: DILTIAZEM ORAL 60 MG TAB PO SCH (09:02)
[2020-11-22] MEDS: EZETIMIBE 10 MG TAB PO SCH (09:02)
[2020-11-22] MEDS: FLUTICASONE 50MCG/SPRAY NASAL 16GM EA NOSTRIL SCH (09:02)
[2020-11-22] MEDS: LORATADINE 10 MG TAB PO SCH (09:02)
[2020-11-22] MEDS: METOPROLOL TARTRATE 25 MG TAB PO SCH (09:02)
[2020-11-22] MEDS: APIXABAN 2.5 MG TABLET PO SCH ×2 (09:02→20:38)
[2020-11-22] MEDS: ATORVASTATIN 10 MG TAB PO SCH (09:02)
[2020-11-22] MEDS: FUROSEMIDE 40 MG TAB PO SCH (09:02)
[2020-11-22] MEDS ORDERED: METOPROLOL TARTRATE 25 MG TAB PO STA (09:59)
[2020-11-22] MEDS: AMIODARONE 200 MG TAB PO SCH (10:59)
[2020-11-22] MEDS ORDERED: SODIUM POLYSTYRENE SULFONATE 15 GM/60 ML BOTTLE PO STA (12:38)
--- NOTE | 2020-11-22 12:43 | P.PN ---
Subjective HISTORY OF PRESENTING ILLNESS This is a pleasant 89-year-old male past medical history significant for systolic heart failure, coronary artery disease status post PCI of the OM branch, hypertension, dyslipidemia, diabetes mellitus and chronic persistent atrial fibrillation on long-term anticoagulation. He follows in the office with Dr. Benz. He is seen and examined sitting up in bed. He is tearful and wants to go home. He denies chest pain, shortness of breath, dizziness or palpitations. Blood pressure 144/62 heart rate 64 afebrile and maintaining oxygen saturation on nasal cannula. Laboratory data reviewed, WBC 15.4, hemo globin 13.4, platelets 280, sodium 126, potassium 5.9, creatinine 1.47. Telemetry tracings indicate he is having episodes of non-sustained ventricular tachycardia with underlying atrial fibrillation. PHYSICAL EXAMINATION CONSTITUTIONAL: No apparent distress. HEENT: Head is normocephalic. Pupils are equal, round. Sclerae anicteric. Mucous membranes of the mouth are moist. No JVD. No carotid bruit. CHEST EXAMINATION: Lungs are clear to auscultation. No chest wall tenderness is noted on palpation or with deep breathing. HEART EXAMINATION: Irregular rate and rhythm. S1, S2 heard. Systolic ejection murmur at the base, no gallops or rub. EXTREMITIES: 2+ peripheral pulses, no lower extremity edema and no calf tenderness. ASSESSMENT Acute on chronic systolic heart failure, EF 30-35% Chronic persistent atrial fibrillation with rapid ventricular rate Leukocytosis Hyperkalemia Coronary artery disease status post PCI of the OM branch Ischemic cardiomyopathy Aortic stenosis Hypertension Dyslipidemia Diabetes mellitus Non-sustained ventricluar tachycardia Acute kidney injury PLAN Initiate amiodarone 200 mg daily for rate control and suppression of VT. Discontinue cardizem and increase beta blockers as much as he can tolerate. Today we will increase to 100 mg BID. Give Kayexalate 30 grams now. Repeat BMP in the morning. Nurse Practitioner note has been reviewed, I agree with a documented findings and plan of care. Patient was seen and examined. Objective - Vital Signs Vital signs: Vital Signs Temp 97.6 F 11/22/20 10:57 Pulse 64 11/22/20 10:57 Resp 16 11/22/20 10:57 BP 144/62 11/22/20 10:57 Pulse Ox 97 11/22/20 10:57 Intake & Output 11/21/20 11/22/20 11/22/20 18:59 06:59 18:59 Intake Total 120 720 Output Total 600 100 Balance 120 -600 620 Weight 70.5 kg Intake: Oral 120 720 Output: Urine 600 100 Other: Voiding Method Urinal Urinal # Voids 1 - Labs CBC & Chem 7: 11/22/20 06:57 11/22/20 06:57 Labs: Abnormal Lab Results - Last 24 Hours (Table) 11/21/20 11/22/20 11/22/20 Range/Units 17:42 06:57 06:57 WBC 15.4 H (3.8-10.6) k/uL RBC 4.18 L (4.30-5.90) m/uL Neutrophils # 11.9 H (1.3-7.7) k/uL Monocytes # 1.1 H (0-1.0) k/uL Sodium 129 L 126 L (137-145) mmol/L Potassium 5.8 H 5.9 H (3.5-5.1) mmol/L Chloride 95 L 92 L (98-107) mmol/L BUN 51 H (9-20) mg/dL Creatinine 1.47 H (0.66-1.25) mg/dL Glucose 173 H (74-99) mg/dL AST 101 H (17-59) U/L ALT 193 H (4-49) U/L Albumin 3.4 L (3.5-5.0) g/dL
[2020-11-22] MEDS ORDERED: DILTIAZEM ORAL 30 MG TAB PO SCH (16:00)
[2020-11-22] MEDS: TAMSULOSIN 0.4 MG CAP.ER.24H PO SCH (20:38)
[2020-11-22] MEDS: METOPROLOL TARTRATE 50 MG TAB PO SCH (20:38)
[2020-11-22] MEDS: traZODone HCL 50 MG TAB PO SCH (20:38)
[2020-11-22] MEDS: LORazepam 1 MG TAB PO PRN (22:20)
[2020-11-23] MEDS: PANTOPRAZOLE 40 MG TABLET PO SCH (06:36)
[2020-11-23] MEDS: FUROSEMIDE 40 MG TAB PO SCH (08:45)
[2020-11-23] MEDS: AMIODARONE 200 MG TAB PO SCH (08:45)
[2020-11-23] MEDS: APIXABAN 2.5 MG TABLET PO SCH ×2 (08:45→20:47)
[2020-11-23] MEDS: METOPROLOL TARTRATE 50 MG TAB PO SCH ×2 (08:45→20:47)
[2020-11-23] MEDS: LORATADINE 10 MG TAB PO SCH (08:45)
[2020-11-23] MEDS: ATORVASTATIN 10 MG TAB PO SCH (08:46)
[2020-11-23] MEDS: EZETIMIBE 10 MG TAB PO SCH (08:46)
[2020-11-23] MEDS: FLUTICASONE 50MCG/SPRAY NASAL 16GM EA NOSTRIL SCH (08:48)
[2020-11-23 09:33] LABS: Basophils # (A) 0.1 k/uL (0-0.2); Basophils % (A) 1 %; Eosinophils # (A) 0.4 k/uL (0-0.7); Eosinophils % (A) 4 %; HCT 36.5 % (39.0-53.0); HGB 13.8 gm/dL (13.0-17.5); Lymphocytes # (A) 0.7 k/uL (1.0-4.8); Lymphocytes % (A) 6 %; MCH 35.9 pg (25.0-35.0); MCHC 37.9 g/dL (31.0-37.0); MCV 94.7 fL (80.0-100.0); Mean Platelet Volume 8.4; Monocytes # (A) 0.9 k/uL (0-1.0); Monocytes % (A) 7 %; Neutrophils # (A) 10.1 k/uL (1.3-7.7); Neutrophils % (A) 82 %; Platelet Count 271 k/uL (150-450); RBC 3.86 m/uL (4.30-5.90); RDW 14.5 % (11.5-15.5); WBC 12.4 k/uL (3.8-10.6)
[2020-11-23 10:04] LABS: Albumin 3.1 g/dL (3.5-5.0); Calcium 8.5 mg/dL (8.4-10.2)
[2020-11-23 10:07] LABS: Anisocytosis (M) Present; Poikilocytosis (M) Present; Potassium 5.2 mmol/L (3.5-5.1)
--- NOTE | 2020-11-23 13:59 | P.PN ---
Subjective HISTORY OF PRESENTING ILLNESS This is a pleasant 89-year-old male past medical history significant for systolic heart failure, coronary artery disease status post PCI of the OM branch, hypertension, dyslipidemia, diabetes mellitus and chronic persistent atrial fibrillation on long-term anticoagulation. He follows in the office with Dr. Benz. He is seen and examined sitting up in bed. He is tearful and wants to go home. He denies chest pain, shortness of breath, dizziness or palpitations. Blood pressure 144/62 heart rate 64 afebrile and maintaining oxygen saturation on nasal cannula. Laboratory data reviewed, WBC 15.4, hemo globin 13.4, platelets 280, sodium 126, potassium 5.9, creatinine 1.47. Telemetry tracings indicate he is having episodes of non-sustained ventricular tachycardia with underlying atrial fibrillation. 11/23/2020 Pt is seen and examined resting comfortably in bed in no acute distress. He denies chest pain, worsening shortness of breath, dizziness or palpitations. Amiodarone was added yesterday for rate control. Telemetry tracings indicate improved rates with persistent underlying afib. Blood pressure 128/59 heart rate 65 afebrile and maintaining oxygen saturation on nasal cannula. Laboratory data reviewed, WBC 12.4, hgb 13.8, plt 271, sodium 128, potassium 5.2, creatinine 1.16 PHYSICAL EXAMINATION CONSTITUTIONAL: No apparent distress. HEENT: Head is normocephalic. Pupils are equal, round. Sclerae anicteric. Mucous membranes of the mouth are moist. No JVD. No carotid bruit. CHEST EXAMINATION: Lungs are clear to auscultation. No chest wall tenderness is noted on palpation or with deep breathing. HEART EXAMINATION: Irregular rate and rhythm. S1, S2 heard. Systolic ejection murmur at the base, no gallops or rub. EXTREMITIES: 2+ peripheral pulses, no lower extremity edema and no calf tenderness. ASSESSMENT Acute on chronic systolic heart failure, EF 30-35% Chronic persistent atrial fibrillation with rapid ventricular rate Leukocytosis Hyperkalemia Coronary artery disease status post PCI of the OM branch Ischemic cardiomyopathy Aortic stenosis Hypertension Dyslipidemia Diabetes mellitus Non-sustained ventricluar tachycardia Acute kidney injury Transaminitis PLAN Heart rates better controlled on current medical regimen. Continue lopressor as previously ordered. Nurse Practitioner note has been reviewed, I agree with a documented findings and plan of care. Patient was seen and examined. Objective - Vital Signs Vital signs: Vital Signs Temp 97.4 F L 11/23/20 12:00 Pulse 65 11/23/20 12:00 Resp 18 11/23/20 12:00 BP 128/59 11/23/20 12:00 Pulse Ox 95 11/23/20 12:00 Intake & Output 11/22/20 11/23/20 11/23/20 18:59 06:59 18:59 Intake Total 1316 600 240 Output Total 700 775 300 Balance 616 -175 -60 Weight 70.5 kg 70.5 kg Intake: Oral 1316 600 240 Output: Urine 700 775 300 Other: Voiding Method Urinal # Voids 1 1 # Bowel Movements 1 - Labs CBC & Chem 7: 11/23/20 07:27 11/23/20 07:27 Labs: Abnormal Lab Results - Last 24 Hours (Table) 11/23/20 11/23/20 Range/Units 07:27 07:27 WBC 12.4 H (3.8-10.6) k/uL RBC 3.86 L (4.30-5.90) m/uL Hct 36.5 L (39.0-53.0) % MCH 35.9 H (25.0-35.0) pg MCHC 37.9 H (31.0-37.0) g/dL Neutrophils # 10.1 H (1.3-7.7) k/uL Lymphocytes # 0.7 L (1.0-4.8) k/uL Sodium 128 L (137-145) mmol/L Potassium 5.2 H (3.5-5.1) mmol/L Chloride 91 L (98-107) mmol/L BUN 46 H (9-20) mg/dL Glucose 250 H (74-99) mg/dL AST 84 H (17-59) U/L ALT 168 H (4-49) U/L Total Protein 6.0 L (6.3-8.2) g/dL Albumin 3.1 L (3.5-5.0) g/dL
[2020-11-23] MEDS ORDERED: HYDROmorphone 0.5 MG/0.5 ML SYRINGE IVP PRN (15:10)
[2020-11-23] MEDS: traZODone HCL 50 MG TAB PO SCH (20:47)
[2020-11-23] MEDS: TAMSULOSIN 0.4 MG CAP.ER.24H PO SCH (20:47)
[2020-11-23] MEDS: LORazepam 1 MG TAB PO PRN (22:57)
[2020-11-24] MEDS: PANTOPRAZOLE 40 MG TABLET PO SCH (06:18)
[2020-11-24] MEDS: EZETIMIBE 10 MG TAB PO SCH (10:05)
[2020-11-24] MEDS: LORATADINE 10 MG TAB PO SCH (10:05)
[2020-11-24] MEDS: METOPROLOL TARTRATE 50 MG TAB PO SCH ×2 (10:06→20:59)
[2020-11-24] MEDS: APIXABAN 2.5 MG TABLET PO SCH ×2 (10:06→20:59)
[2020-11-24] MEDS: FLUTICASONE 50MCG/SPRAY NASAL 16GM EA NOSTRIL SCH (10:06)
[2020-11-24] MEDS: FUROSEMIDE 40 MG TAB PO SCH (10:06)
[2020-11-24] MEDS: AMIODARONE 200 MG TAB PO SCH (10:06)
--- NOTE | 2020-11-24 19:03 | P.PN ---
Subjective Principal diagnosis: Atrial fibrillation The patient is now weaned off Cardizem for atrial fibrillation. The patient states no falling. Poor strength is otherwise noted. We'll try to increase ambulation. No voiding difficulties. Objective - Vital Signs Vital signs: Vital Signs Temp 97.6 F 11/24/20 17:00 Pulse 60 11/24/20 17:00 Resp 18 11/24/20 17:00 BP 167/73 11/24/20 17:00 Pulse Ox 96 11/24/20 17:00 Intake & Output 11/24/20 11/24/20 11/25/20 06:59 18:59 06:59 Intake Total 1137 Output Total 250 200 Balance -250 937 Weight 84.5 kg Intake: Oral 1137 Output: Urine 250 200 Other: Voiding Method Urinal Urinal # Voids 1 1 # Bowel Movements 1 - Constitutional General appearance: Present: average body habitus - EENT Eyes: Absent: abnormal pupil - Neck Neck: Absent: lymphadenopathy - Respiratory Respiratory: bilateral: CTA - Cardiovascular Rhythm: irregularly irregular Heart sounds: normal: S1, S2 Abnormal Heart Sounds: Absent: S3 Gallop - Gastrointestinal General gastrointestinal: Present: soft. Absent: splenomegaly - Musculoskeletal Musculoskeletal: Present: generalized weakness - Labs CBC & Chem 7: 11/23/20 07:27 11/23/20 07:27 Assessment and Plan (1) Congestive heart failure (CHF) Current Visit: Yes Status: Acute Code(s): I50.9 - HEART FAILURE, UNSPECIFIED SNOMED Code(s): 88491509 (2) Rapid atrial fibrillation Current Visit: Yes Status: Acute Code(s): I48.91 - UNSPECIFIED ATRIAL FIBRILLATION SNOMED Code(s): 980067789 (3) At risk for readmission to hospital Current Visit: No Status: Acute Code(s): Z91.89 - OTH PERSONAL RISK FACTORS, NOT ELSEWHERE CLASSIFIED SNOMED Code(s): 7649041070369 (4) HTN (hypertension) Current Visit: No Status: Chronic Code(s): I10 - ESSENTIAL (PRIMARY) HYPERTENSION SNOMED Code(s): 70719941 (5) Hyperlipemia Current Visit: No Status: Chronic Code(s): E78.5 - HYPERLIPIDEMIA, UNSPECIFIED SNOMED Code(s): 98271226 Plan: I suspect the patient might benefit from palliative care versus hospice. Prognosis is poor secondary to his instability of his atrial fibrillation and advancing age. Had a long discussion yesterday with the family and they're agreeable.
--- NOTE | 2020-11-24 19:08 | P.PN ---
Subjective Principal diagnosis: Atrial fibrillation The patient is now weaned off Cardizem for atrial fibrillation. The patient states no falling. Poor strength is otherwise noted. We'll try to increase ambulation. No voiding difficulties. Objective - Vital Signs Vital signs: Vital Signs Temp 97.6 F 11/24/20 17:00 Pulse 60 11/24/20 17:00 Resp 18 11/24/20 17:00 BP 167/73 11/24/20 17:00 Pulse Ox 96 11/24/20 17:00 Intake & Output 11/24/20 11/24/20 11/25/20 06:59 18:59 06:59 Intake Total 1137 Output Total 250 200 Balance -250 937 Weight 84.5 kg Intake: Oral 1137 Output: Urine 250 200 Other: Voiding Method Urinal Urinal # Voids 1 1 # Bowel Movements 1 - Constitutional General appearance: Present: average body habitus - EENT Eyes: Absent: abnormal pupil - Neck Neck: Absent: lymphadenopathy - Respiratory Respiratory: bilateral: CTA - Cardiovascular Rhythm: irregularly irregular Heart sounds: normal: S1, S2 Abnormal Heart Sounds: Absent: S3 Gallop - Gastrointestinal General gastrointestinal: Present: soft. Absent: tenderness - Integumentary Integumentary: Absent: rash - Labs CBC & Chem 7: 11/23/20 07:27 11/23/20 07:27 Assessment and Plan (1) Congestive heart failure (CHF) Current Visit: Yes Status: Acute Code(s): I50.9 - HEART FAILURE, UNSPECIFIED SNOMED Code(s): 33550898 (2) Rapid atrial fibrillation Current Visit: Yes Status: Acute Code(s): I48.91 - UNSPECIFIED ATRIAL FIBRILLATION SNOMED Code(s): 748948307 (3) At risk for readmission to hospital Current Visit: No Status: Acute Code(s): Z91.89 - OTH PERSONAL RISK FACTORS, NOT ELSEWHERE CLASSIFIED SNOMED Code(s): 2811061760037 (4) HTN (hypertension) Current Visit: No Status: Chronic Code(s): I10 - ESSENTIAL (PRIMARY) HYPERTENSION SNOMED Code(s): 51543215 (5) Hyperlipemia Current Visit: No Status: Chronic Code(s): E78.5 - HYPERLIPIDEMIA, UNSPECIFIED SNOMED Code(s): 65244316 Plan: Continue supportive care. Prognosis is guarded secondary to his multiple comorbidities. I suspect he will benefit from hospice treatment given his overall prognosis Time with Patient: Greater than 30
[2020-11-24] MEDS: traZODone HCL 50 MG TAB PO SCH (20:59)
[2020-11-24] MEDS: TAMSULOSIN 0.4 MG CAP.ER.24H PO SCH (20:59)
[2020-11-24 21:04] VITALS: TEMP 97.7
[2020-11-25] MEDS: LORazepam 1 MG TAB PO PRN (02:06)
[2020-11-25] MEDS: PANTOPRAZOLE 40 MG TABLET PO SCH (06:08)
--- NOTE | 2020-11-25 07:56 | P.DS ---
Providers Date of admission: 11/15/20 13:02 Attending physician: Cecilio Christina Consults: 11/15/20 13:01 Consult Physician Routine Consulting Provider: Neo Carter Consult Reason/Comments: Atrial fibrillation, CHF Do you want consulting provider notified?: Yes Primary care physician: Cecilio Christina - Discharge Diagnosis(es) (1) Congestive heart failure (CHF) Current Visit: Yes Status: Acute (2) Rapid atrial fibrillation Current Visit: Yes Status: Acute (3) At risk for readmission to hospital Current Visit: No Status: Acute (4) HTN (hypertension) Current Visit: No Status: Chronic (5) Hyperlipemia Current Visit: No Status: Chronic Hospital Course: This is a discharge summary an 86 failure. Underlying history of atrial fibrillation with rapid response. The patient was stabilized but due to his advancing age and multiple comorbidities he is to be discharged with palliative care/hospice due to his overall prognosis. The family is agreeable. He will follow-up with me in about one week Patient Condition at Discharge: Fair Plan - Discharge Summary Discharge Rx Participant: No New Discharge Prescriptions: New Amiodarone [Cordarone] 200 mg PO DAILY #30 tab Fluticasone Nasal [place] [Flonase Nasal [place]] 2 spray EA NOSTRIL DAILY #1 inhaler Metoprolol Tartrate [Lopressor] 100 mg PO BID #60 tab Continue Simvastatin [Zocor] 20 mg PO DAILY cloNIDine HCL [Catapres] 0.2 mg PO HS Irbesartan [Avapro] 150 mg PO DAILY Ezetimibe [Zetia] 10 mg PO DAILY Apixaban [Eliquis] 2.5 mg PO BID #60 tablet Pantoprazole [Protonix] 40 mg PO AC-BRKFST #30 tablet.dr Potassium Chloride ER [K-Dur 10] 10 meq PO DAILY LORazepam [Ativan] 1 mg PO BID PRN PRN Reason: Anxiety Spironolactone [Aldactone] 25 mg PO DAILY #30 tab Furosemide [Lasix] 40 mg PO TID #90 tab NIFEdipine [Procardia XL] 90 mg PO DAILY traZODone HCL 50 mg PO HS Tamsulosin HCl [Flomax] 0.4 mg PO HS Ipratropium-Albuterol Nebulize [Duoneb 0.5 mg-3 mg/3 ml Soln] 3 ml INHALATION RT-QID PRN PRN Reason: Shortness Of Breath Discharge Medication List Simvastatin [Zocor] 20 mg PO DAILY 05/13/16 [History] cloNIDine HCL [Catapres] 0.2 mg PO HS 05/13/16 [History] Ezetimibe [Zetia] 10 mg PO DAILY 05/29/20 [History] Irbesartan [Avapro] 150 mg PO DAILY 05/29/20 [History] Apixaban [Eliquis] 2.5 mg PO BID #60 tablet 06/11/20 [Rx] Pantoprazole [Protonix] 40 mg PO AC-BRKFST #30 tablet. 06/11/20 [Rx] LORazepam [Ativan] 1 mg PO BID PRN 07/22/20 [History] Potassium Chloride ER [K-Dur 10] 10 meq PO DAILY 07/22/20 [History] Furosemide [Lasix] 40 mg PO TID #90 tab 07/29/20 [Rx] Spironolactone [Aldactone] 25 mg PO DAILY #30 tab 07/29/20 [Rx] NIFEdipine [Procardia XL] 90 mg PO DAILY 09/30/20 [History] Ipratropium-Albuterol Nebulize [Duoneb 0.5 mg-3 mg/3 ml Soln] 3 ml INHALATION RT-QID PRN 11/15/20 [History] Tamsulosin HCl [Flomax] 0.4 mg PO HS 11/15/20 [History] traZODone HCL 50 mg PO HS 11/15/20 [History] Amiodarone [Cordarone] 200 mg PO DAILY #30 tab 11/25/20 [Rx] Fluticasone Nasal [place] [Flonase Nasal [place]] 2 spray EA NOSTRIL DAILY #1 inhaler 11/25/20 [Rx] Metoprolol Tartrate [Lopressor] 100 mg PO BID #60 tab 11/25/20 [Rx] Follow up Appointment(s)/Referral(s): Cecilio Christina MD [Primary Care Provider] - 1-2 days [facility], [NON-STAFF] - 1 Week Discharge Disposition: HOME WITH HOSPICE
[2020-11-25] MEDS: AMIODARONE 200 MG TAB PO SCH (09:14)
[2020-11-25] MEDS: METOPROLOL TARTRATE 50 MG TAB PO SCH (09:14)
[2020-11-25] MEDS: APIXABAN 2.5 MG TABLET PO SCH (09:14)
[2020-11-25] MEDS: FUROSEMIDE 40 MG TAB PO SCH (09:14)
[2020-11-25] MEDS: EZETIMIBE 10 MG TAB PO SCH (09:14)
[2020-11-25] MEDS: LORATADINE 10 MG TAB PO SCH (09:14)
[2020-11-25] MEDS: FLUTICASONE 50MCG/SPRAY NASAL 16GM EA NOSTRIL SCH (09:15)
[2020-11-25 11:50] VITALS: BMI 25.1
[2020-11-25 11:52] LABS: Glucose,Whole Blood 252 mg/dL (75-99)
[2020-11-25 12:59] VITALS: BP 127/73; PULSE 105; RESP 16
== END 2020-11-25 13:27 | disposition hospice, home (50) | DRG 291 ==
LOC: EC 08:48 → 3SCARD 13:02
PROVIDERS: ADMIT Family Medicine; ATTEND Family Medicine
DX: I11.0 Hypertensive heart disease with heart failure (principal); N17.0 Acute kidney failure with tubular necrosis; I48.19 Other persistent atrial fibrillation; E87.1 Hypo-osmolality and hyponatremia; I47.2 Ventricular tachycardia; K21.9 Gastro-esophageal reflux disease without esophagitis; M19.031 Primary osteoarthritis, right wrist; K59.00 Constipation, unspecified; Z51.5 Encounter for palliative care; I50.23 Acute on chronic systolic (congestive) heart failure; Z20.822 Contact with and (suspected) exposure to COVID-19; I27.20 Pulmonary hypertension, unspecified; I25.10 Atherosclerotic heart disease of native coronary artery without angina pectoris; I08.3 Combined rheumatic disorders of mitral, aortic and tricuspid valves; I25.5 Ischemic cardiomyopathy; G47.00 Insomnia, unspecified; Z96.1 Presence of intraocular lens; F41.9 Anxiety disorder, unspecified; E11.9 Type 2 diabetes mellitus without complications; E87.5 Hyperkalemia; E78.5 Hyperlipidemia, unspecified; Z87.891 Personal history of nicotine dependence; Z85.828 Personal history of other malignant neoplasm of skin; Z79.899 Other long term (current) drug therapy; Z79.01 Long term (current) use of anticoagulants; Z88.0 Allergy status to penicillin; Z88.8 Allergy status to other drugs, medicaments and biological substances; I25.2 Old myocardial infarction; Z95.5 Presence of coronary angioplasty implant and graft; Z98.42 Cataract extraction status, left eye; Z98.41 Cataract extraction status, right eye; Z98.890 Other specified postprocedural states; Z83.438 Family history of other disorder of lipoprotein metabolism and other lipidemia
CPT/HCPCS: 36415; 70486; 71045; 71046; 80048; 80051; 80053; 81003; 82550; 83735; 83880; 84484; 85025; 85027; 87635; 93005; 93306; 96365; 96366; 96375; 96376; 99291

== ENCOUNTER 2020-12-28 05:28 | Emergency (ER) | payer MEDICARE, BC ==
[2020-12-28 05:34] VITALS: PULSE 87; RESP 18; TEMP 98.2
[2020-12-28] MEDS ORDERED: SODIUM CHLORIDE 0.9% 1,000 ML IV STA (05:37)
[2020-12-28] MEDS ORDERED: LORazepam 2 MG/ML INJ IV STA (05:37)
[2020-12-28] MEDS ORDERED: PROCHLORPERAZINE INJ 10 MG/2 ML VIAL IVP STA (05:37)
[2020-12-28] MEDS ORDERED: MORPHINE SULFATE 4 MG/ML SYRINGE IVP STA (05:37)
--- NOTE | 2020-12-28 05:38 | ED ---
Headache HPI - General Chief Complaint: Headache Stated Complaint: Headache Time Seen by Provider: 12/28/20 05:31 Source: RN notes reviewed, old records reviewed Mode of arrival: EMS Limitations: no limitations - History of Present Illness Initial Comments: This is an 89-year-old male DF for evaluation, patient presents today for evaluation regards to headache. Patient is known to be on hospice. Patient does continues to complain of headache and sinus issue, family does not want significant treatment for the above. Patient presents to ER today still complaining of sinus sinus drainage and headache. No new trauma or issue. MD Complaint: headache, other (Sinus headache) -: days(s) Location: frontal Severity: mild Severity scale (1-10): 3 Quality: aching, throbbing Consistency: constant Improves With: nothing Worsens With: none Context: other (None) Associated Symptoms: nausea Other Symptoms: other (None) Treatments Prior to Arrival: none - Related Data Home Medications Medication Instructions Recorded Confirmed Simvastatin [Zocor] 20 mg PO DAILY 05/13/16 11/15/20 cloNIDine HCL [Catapres] 0.2 mg PO HS 05/13/16 11/15/20 Ezetimibe [Zetia] 10 mg PO DAILY 05/29/20 11/15/20 Irbesartan [Avapro] 150 mg PO DAILY 05/29/20 11/15/20 LORazepam [Ativan] 1 mg PO BID PRN 07/22/20 11/15/20 Potassium Chloride ER [K-Dur 10] 10 meq PO DAILY 07/22/20 11/15/20 NIFEdipine [Procardia XL] 90 mg PO DAILY 09/30/20 11/15/20 Ipratropium-Albuterol Nebulize 3 ml INHALATION RT-QID PRN 11/15/20 11/15/20 [Duoneb 0.5 mg-3 mg/3 ml Soln] Tamsulosin HCl [Flomax] 0.4 mg PO HS 11/15/20 11/15/20 traZODone HCL 50 mg PO HS 11/15/20 11/15/20 Previous Rx's Medication Instructions Recorded Apixaban [Eliquis] 2.5 mg PO BID #60 tablet 06/11/20 Pantoprazole [Protonix] 40 mg PO PATRICIA #30 tablet. 06/11/20 Furosemide [Lasix] 40 mg PO TID #90 tab 07/29/20 Spironolactone [Aldactone] 25 mg PO DAILY #30 tab 07/29/20 Amiodarone [Cordarone] 200 mg PO DAILY #30 tab 11/25/20 Fluticasone Nasal [place] [Flonase 2 spray EA NOSTRIL DAILY #1 inhaler 11/25/20 Nasal [place]] Metoprolol Tartrate [Lopressor] 100 mg PO BID #60 tab 11/25/20 Allergies Allergy/AdvReac Type Severity Reaction Status Date / Time Penicillins Allergy Rash/Hives Verified 12/28/20 05:34 zolpidem [From Ambien] AdvReac Confusion Verified 12/28/20 05:34 Review of Systems ROS Statement: Those systems with pertinent positive or pertinent negative responses have been documented in the HPI. ROS Other: All systems not noted in ROS Statement are negative. Past Medical History Past Medical History: Atrial Fibrillation, Coronary Artery Disease (CAD), Cancer, Heart Failure, Diabetes Mellitus, GERD/Reflux, Hyperlipidemia, Hyperte nsion, Myocardial Infarction (HI), Osteoarthritis (OA), Pneumonia, Vascular Disorder Additional Past Medical History / Comment(s): Afib with RVR, NIDDM type II-pt states physician took him off his diabetic medication-diet controlled now, pt had R lower leg wounds but states it is now healed to a small scab, sinus problems, bilateral caratid artery disease, skin cancer with removal, arthritis R wrist, gout R great toe, unsteady gait/falls, hyponatremia, past rheumatic fe malcolm age 21yrs, Last Myocardial Infarction Date:: 2014 History of Any Multi-Drug Resistant Organisms: None Reported Past Surgical History: Heart Catheterization, Heart Catheterization With Stent Additional Past Surgical History / Comment(s): Skin cancer removed L upper arm, bilateral cataract removal/lens implants. Past Anesthesia/Blood Transfusion Reactions: No Reported Reaction Date of Last Stent Placement:: 2014 Past Psychological History: Anxiety Smoking Status: Former smoker Past Alcohol Use History: None Reported Past Drug Use History: None Reported - Past Family History Father History Unknown: Yes Family Medical History: Unable to Obtain Additional Family Medical History / Comment(s): Father never went to the doctor. Mother History Unknown: Yes Family Medical History: Hyperlipidemia Additional Family Medical History / Comment(s): high cholesterol. General Exam Limitations: no limitations General appearance: alert, in no apparent distress Head exam: Present: atraumatic, normocephalic, normal inspection Eye exam: Present: normal appearance, PERRL, EOMI. Absent: scleral icterus, conjunctival injection, periorbital swelling ENT exam: Present: normal exam, mucous membranes moist Neck exam: Present: normal inspection. Absent: tenderness, meningismus, lymphadenopathy Respiratory exam: Present: normal lung sounds bilaterally. Absent: respiratory distress, wheezes, rales, rhonchi, stridor Cardiovascular Exam: Present: regular rate, normal rhythm, normal heart sounds. Absent: systolic murmur, diastolic murmur, rubs, gallop, clicks GI/Abdominal exam: Present: soft, normal bowel sounds. Absent: distended, tenderness, guarding, rebound, rigid Extremities exam: Present: normal inspection, full ROM, normal capillary refill. Absent: tenderness, pedal edema, joint swelling, calf tenderness Back exam: Present: normal inspection Neurological exam: Present: alert, oriented X3, CN II-XII intact Psychiatric exam: Present: normal affect, normal mood Skin exam: Present: warm, dry, intact, normal color. Absent: rash Course Vital Signs 12/28/20 12/28/20 05:29 07:14 Temperature 98.2 F 98.2 F Pulse Rate 87 87 Respiratory 18 18 Rate Blood Pressure 123/78 115/65 O2 Sat by Pulse 96 96 Oximetry - Reevaluation(s) Reevaluation #1: Medical record is reviewed Patient does have mild improvement here in the emergency department Patient informed of results questions answered Medical Decision Making - Medical Decision Making 89 male to the ER for evaluation, patient is on hospice family was using imaging. Laboratory tests here in the ER is appropriate, patient can be discharged home and headache has resolved - Lab Data Result diagrams: 12/28/20 06:00 12/28/20 06:00 Lab Results 12/28/20 12/28/20 Range/Units 06:00 06:00 WBC 15.5 H (3.8-10.6) k/uL RBC 4.89 (4.30-5.90) m/uL Hgb 15.4 (13.0-17.5) gm/dL Hct 45.5 (39.0-53.0) % MCV 93.0 (80.0-100.0) fL MCH 31.6 (25.0-35.0) pg MCHC 34.0 (31.0-37.0) g/dL RDW 14.3 (11.5-15.5) % Plt Count 226 (150-450) k/uL MPV 7.0 Neutrophils % 88 % Lymphocytes % 6 % Monocytes % 4 % Eosinophils % 0 % Basophils % 0 % Neutrophils # 13.7 H (1.3-7.7) k/uL Lymphocytes # 0.9 L (1.0-4.8) k/uL Monocytes # 0.6 (0-1.0) k/uL Eosinophils # 0.0 (0-0.7) k/uL Basophils # 0.0 (0-0.2) k/uL Sodium 129 L (137-145) mmol/L Potassium 3.6 (3.5-5.1) mmol/L Chloride 86 L (98-107) mmol/L Carbon Dioxide 30 (22-30) mmol/L Anion Gap 13 mmol/L BUN 32 H (9-20) mg/dL Creatinine 1.21 (0.66-1.25) mg/dL Est GFR (CKD-EPI)AfAm 62 (>60 ml/min/1.73 sqM) Est GFR (CKD-EPI)NonAf 53 (>60 ml/min/1.73 sqM) Glucose 190 H (74-99) mg/dL Calcium 9.8 (8.4-10.2) mg/dL Magnesium 1.5 L (1.6-2.3) mg/dL Total Bilirubin 0.8 (0.2-1.3) mg/dL AST 28 (17-59) U/L ALT 18 (4-49) U/L Alkaline Phosphatase 72 (38-126) U/L Total Protein 7.2 (6.3-8.2) g/dL Albumin 4.2 (3.5-5.0) g/dL Disposition Clinical Impression: Headache, Nausea & vomiting Disposition: HOME SELF-CARE Condition: Good Instructions (If sedation given, give patient instructions): Acute Nausea and Vomiting (ED) Is patient prescribed a controlled substance at d/c from ED?: No Referrals: Cecilio Christina MD [Primary Care Provider] - 1-2 days
[2020-12-28 06:19] LABS: Basophils % (A) 0 %; Eosinophils % (A) 0 %; HCT 45.5 % (39.0-53.0); HGB 15.4 gm/dL (13.0-17.5); Lymphocytes # (A) 0.9 k/uL (1.0-4.8); Lymphocytes % (A) 6 %; MCH 31.6 pg (25.0-35.0); Monocytes # (A) 0.6 k/uL (0-1.0); Monocytes % (A) 4 %; Neutrophils # (A) 13.7 k/uL (1.3-7.7); Neutrophils % (A) 88 %; Platelet Count 226 k/uL (150-450); RBC 4.89 m/uL (4.30-5.90); RDW 14.3 % (11.5-15.5); WBC 15.5 k/uL (3.8-10.6)
[2020-12-28 06:46] LABS: Albumin 4.2 g/dL (3.5-5.0); Calcium 9.8 mg/dL (8.4-10.2); Magnesium 1.5 mg/dL (1.6-2.3); Potassium 3.6 mmol/L (3.5-5.1); Total Bilirubin 0.8 mg/dL (0.2-1.3); Total Protein 7.2 g/dL (6.3-8.2)
[2020-12-28 07:15] VITALS: BP 115/65
== END 2020-12-28 07:59 | disposition home or self-care (01) ==
LOC: EC 05:28
DX: R51.9 Headache, unspecified (principal); R11.2 Nausea with vomiting, unspecified; I11.0 Hypertensive heart disease with heart failure; I50.9 Heart failure, unspecified; E78.5 Hyperlipidemia, unspecified; F41.9 Anxiety disorder, unspecified; I25.10 Atherosclerotic heart disease of native coronary artery without angina pectoris; I25.2 Old myocardial infarction; I48.91 Unspecified atrial fibrillation; K21.9 Gastro-esophageal reflux disease without esophagitis; M19.90 Unspecified osteoarthritis, unspecified site; Z79.01 Long term (current) use of anticoagulants; Z79.899 Other long term (current) drug therapy; Z87.891 Personal history of nicotine dependence; Z88.0 Allergy status to penicillin; Z85.828 Personal history of other malignant neoplasm of skin
CPT/HCPCS: 36415; 80053; 83735; 85025; 99284; 96374; 96375; 96361; J2060; J2270; J0780

== ENCOUNTER 2021-01-13 08:17 | Inpatient (IN) | payer MEDICARE, BC ==
--- NOTE | 2021-01-13 10:25 | CT ---
EXAMINATION TYPE: CT brain alexis mtz DATE OF EXAM: 01/13/2021 COMPARISON: None HISTORY: Fall CT DLP: 1410.6 mGycm, Automated exposure control for dose reduction was used. CONTRAST: Patient injected with 0 mL of Isovue 300. CT of the brain is performed utilizing 3 mm thick sections through the posterior fossa and 3 mm thick sections through the remaining calvarium. Study is performed within 24 hours of arrival to the hospital. No abnormal hyperdensity is present to suggest an acute intracranial hemorrhage. No mass lesion is evident. No acute infarcts are evident. Periventricular white matter confluent changes are present likely on the basis of chronic white matter ischemic change. Ventricles and sulci are prominent for the patient age. Paranasal sinuses and mastoid air cells within the [id number] are clear. Right septal deviation an d spurring is present. IMPRESSIONS: 1. Atrophy with confluent chronic appearing white matter changes. CT cervical spine. COMPARISON: None CT of the cervical spine is performed in the axial plane at 2 mm thick sections. Reconstructed image s in the coronal, and sagittal plane are reviewed on the computer. No acute fractures are evident. Vertebral body alignment is normal. There is diffuse loss of disc height throughout the cervical spine. Vertebral body heights are preserved. No spinal canal stenosis is evident. No neural foraminal stenosis is evident. IMPRESSIONS: 1. No acute osseous abnormality cervical spine. 2. Diffuse diffuse degenerative disc changes throughout the cervical spine.
--- NOTE | 2021-01-13 10:27 | XR ---
EXAMINATION TYPE: XR chest 2V DATE OF EXAM: 01/13/2021 COMPARISON: None INDICATION: Pain from fall TECHNIQUE: Frontal and lateral views of the chest are obtained. FINDINGS: The heart size is enlarged. The pulmonary vasculature is somewhat prominent. Posterior pleural effusion is present likely on the left. Mild infiltrate may be at the right base. C orrelate for atelectasis or pneumonia. No displaced rib fractures are evident. No pneumothorax is ev ident. IMPRESSION: 1. Posterior pleural effusion and right lower lobe atelectasis or pneumonia. 2. No acute posttraumatic changes.
--- NOTE | 2021-01-13 10:32 | XR ---
EXAMINATION TYPE: XR pelvis AP view DATE OF EXAM: 01/13/2021 COMPARISON: None HISTORY: Fall, pain TECHNIQUE: AP pelvis FINDINGS: Sacroiliac joints appear normal. Symphysis pubis is normal. Femoral heads articulate with t he acetabulum. No acute fractures are evident. Normal bowel gas is present. IMPRESSION: 1. No acute posttraumatic changes AP pelvis
[2021-01-13 10:37] LABS: Basophils % (A) 0 %; Eosinophils % (A) 0 %; HCT 31.6 % (39.0-53.0); Lymphocytes # (A) 0.8 k/uL (1.0-4.8); Lymphocytes % (A) 6 %; MCH 30.9 pg (25.0-35.0); MCHC 34.2 g/dL (31.0-37.0); MCV 90.5 fL (80.0-100.0); Mean Platelet Volume 8.2; Monocytes # (A) 0.8 k/uL (0-1.0); Monocytes % (A) 5 %; Neutrophils # (A) 12.9 k/uL (1.3-7.7); Neutrophils % (A) 88 %; Platelet Count 180 k/uL (150-450); RBC 3.49 m/uL (4.30-5.90); RDW 15.4 % (11.5-15.5); WBC 14.7 k/uL (3.8-10.6)
[2021-01-13 10:41] LABS: Albumin 3.5 g/dL (3.5-5.0); Calcium 8.2 mg/dL (8.4-10.2); Potassium 4.4 mmol/L (3.5-5.1); Total Bilirubin 0.6 mg/dL (0.2-1.3)
[2021-01-13 10:45] LABS: HGB 10.8 gm/dL (13.0-17.5)
[2021-01-13] MEDS ORDERED: NALOXONE 0.4 MG/ML 1 ML VIAL IV PRN (11:18)
--- NOTE | 2021-01-13 11:18 | ED ---
General Adult HPI - General Chief complaint: Syncope Stated complaint: Fall Time Seen by Provider: 01/13/21 08:21 Source: patient, EMS Mode of arrival: EMS Limitations: no limitations - History of Present Illness Initial comments: Patient is an 89-year-old male with multiple past medical conditions to include A. fib, coronary artery disease, heart failure, diabetes who presents to the emergency department after he had a fall patient reports that he fell attempting to get up out of bed and into his wheelchair. Patient was found him between his wheelchair essentially strangling himself. EMS found him and his significant respiratory distress. They felt that he was slightly altered. He denied chest pain or shortness of breath upon arrival to emergency department. Patient's was known to be a hospice patient. He reports that he signed himself off yesterday and now is on home care. He admits to headaches and nausea. Denies any injuries from his fall. Denies abdominal pain or pain in any of his extremities. No other alleviating, precipitating or modifying factors - Related Data Home Medications Medication Instructions Recorded Confirmed Simvastatin [Zocor] 20 mg PO DAILY 05/13/16 01/13/21 cloNIDine HCL [Catapres] 0.2 mg PO HS 05/13/16 01/13/21 Ezetimibe [Zetia] 10 mg PO DAILY 05/29/20 01/13/21 Irbesartan [Avapro] 150 mg PO DAILY 05/29/20 01/13/21 NIFEdipine [Procardia XL] 90 mg PO DAILY 09/30/20 01/13/21 Ipratropium-Albuterol Nebulize 3 ml INHALATION RT-QID PRN 11/15/20 01/13/21 [Duoneb 0.5 mg-3 mg/3 ml Soln] Tamsulosin HCl [Flomax] 0.4 mg PO HS 11/15/20 01/13/21 traZODone HCL 100 mg PO HS 11/15/20 01/13/21 Acetaminophen Tab [Tylenol] 500 mg PO Q6HR PRN 01/13/21 01/13/21 Magnesium Oxide [Mag-Ox] 400 mg PO DAILY 01/13/21 01/13/21 Sennosides [Senna] 8.6 mg PO DAILY 01/13/21 01/13/21 Previous Rx's Medication Instructions Recorded Apixaban [Eliquis] 2.5 mg PO BID #60 tablet 06/11/20 Pantoprazole [Protonix] 40 mg PO MARQUES-CHANTELLEKFST #30 tablet. 06/11/20 Furosemide [Lasix] 40 mg PO TID #90 tab 07/29/20 Amiodarone [Cordarone] 200 mg PO DAILY #30 tab 11/25/20 Metoprolol Tartrate [Lopressor] 100 mg PO BID #60 tab 11/25/20 Acetaminophen Tab [Tylenol] 650 mg PO Q6HR PRN tab 01/17/21 LORazepam [Ativan] 1 mg PO TID PRN #90 tab 01/17/21 Levothyroxine Sodium [Synthroid] 25 mcg PO DAILY@0630 #0 tab 01/17/21 Allergies Allergy/AdvReac Type Severity Reaction Status Date / Time Penicillins Allergy Rash/Hives Verified 01/13/21 10:15 zolpidem [From Ambien] AdvReac Confusion Verified 01/13/21 10:15 Review of Systems ROS Statement: Those systems with pertinent positive or pertinent negative responses have been documented in the HPI. ROS Other: All systems not noted in ROS Statement are negative. Past Medical History Past Medical History: Atrial Fibrillation, Coronary Artery Disease (CAD), Cancer, Heart Failure, Diabetes Mellitus, GERD/Reflux, Hyperlipidemia, Hypertension, Myocardial Infarction ([place]), Osteoarthritis (OA), Pneumonia, Vascular Disorder Additional Past Medical History / Comment(s): Afib with RVR, NIDDM type II-pt states physician took him off his diabetic medication-diet controlled now, pt had R lower leg wounds but states it is now healed to a small scab, sinus problems, bilateral caratid artery disease, skin cancer with removal, arthritis R wrist, gout R great toe, unsteady gait/falls, hyponatremia, past rheumatic fever age 21yrs, Last Myocardial Infarction Date:: 2014 History of Any Multi-Drug Resistant Organisms: None Reported Past Surgical History: Heart Catheterization, Heart Catheterization With Stent Additional Past Surgical History / Comment(s): Skin cancer removed L upper arm, bilateral cataract removal/lens implants. Past Anesthesia/Blood Transfusion Reactions: No Reported Reaction Date of Last Stent Placement:: 2014 Past Psychological History: Anxiety Smoking Status: Former smoker Past Alcohol Use History: None Reported Past Drug Use History: None Reported - Past Family History Father History Unknown: Yes Family Medical History: Unable to Obtain Additional Family Medical History / Comment(s): Father never went to the doctor. Mother History Unknown: Yes Family Medical History: Hyperlipidemia Additional Family Medical History / Comment(s): high cholesterol. General Exam Limitations: no limitations General appearance: alert, in no apparent distress Head exam: Present: atraumatic, normocephalic, normal inspection Eye exam: Present: normal appearance, PERRL, EOMI. Absent: scleral icterus, conjunctival injection, periorbital swelling ENT exam: Present: normal exam, mucous membranes moist Neck exam: Present: normal inspection. Absent: tenderness, meningismus, lymphadenopathy Respiratory exam: Present: normal lung sounds bilaterally. Absent: respiratory distress, wheezes, rales, rhonchi, stridor Cardiovascular Exam: Present: regular rate, normal rhythm, normal heart sounds. Absent: systolic murmur, diastolic murmur, rubs, gallop, clicks GI/Abdominal exam: Present: soft, normal bowel sounds. Absent: distended, tenderness, guarding, rebound, rigid Extremities exam: Present: normal inspection, full ROM, normal capillary refill. Absent: tenderness, pedal edema, joint swelling, calf tenderness Back exam: Present: normal inspection Neurological exam: Present: alert, oriented X3, CN II-XII intact Psychiatric exam: Present: normal affect, normal mood Skin exam: Present: warm, dry, intact, normal color. Absent: rash Course Vital Signs 01/13/21 01/13/21 01/13/21 08:18 12:38 15:48 Temperature 97.7 F Pulse Rate 91 88 82 Respiratory 18 22 20 Rate Blood Pressure 122/93 126/95 126/88 O2 Sat by Pulse 95 100 97 Oximetry 01/13/21 01/13/21 18:40 20:10 Temperature 98.6 F 97.9 F Pulse Rate 89 98 Respiratory 20 22 Rate Blood Pressure 130/82 108/92 O2 Sat by Pulse 99 99 Oximetry EKG Findings - EKG Comments: EKG Findings:: EKG demonstrates A. fib with rate of 91. QRS 174. QTC of 523. Bifascicular block. No acute ST segment elevations. Medical Decision Making - Medical Decision Making Upon arrival patient is placed into room 5. He is able to provide an adequate history. He states that he has no longer hospice patient. Denies any pain. Laboratory studies are conducted which demonstrates a white count of 14.7. A sodium low at 120. Creatinine 2. I do attempt ultrasound-guided IV however I am unsuccessful and therefore midline is placed. Patient was started on 130 mL of normal saline per hour. Patient went for CT of his brain and cervical spine as well as a chest and pelvic x-ray. The results are reviewed with the patient. I called and spoke with the patient's daughter who states that he is no longer hospice and they do agree to hospital admission for the patient. Patient is requesting admission. I called and spoke with Dr. Christina who accepted admission. I will place case management on consult as well as Dr. Gillis. Patient is currently awaiting a bed on the floor - Lab Data Result diagrams: 01/16/21 07:57 01/16/21 07:57 Lab Results 01/13/21 01/13/21 Range/Units 09:53 09:53 WBC 14.7 H (3.8-10.6) k/uL RBC 3.49 L (4.30-5.90) m/uL Hgb 10.8 L D (13.0-17.5) gm/dL Hct 31.6 L (39.0-53.0) % MCV 90.5 (80.0-100.0) fL MCH 30.9 (25.0-35.0) pg MCHC 34.2 (31.0-37.0) g/dL RDW 15.4 (11.5-15.5) % Plt Count 180 (150-450) k/uL MPV 8.2 Neutrophils % 88 % Lymphocytes % 6 % Monocytes % 5 % Eosinophils % 0 % Basophils % 0 % Neutrophils # 12.9 H (1.3-7.7) k/uL Lymphocytes # 0.8 L (1.0-4.8) k/uL Monocytes # 0.8 (0-1.0) k/uL Eosinophils # 0.0 (0-0.7) k/uL Basophils # 0.0 (0-0.2) k/uL Sodium 120 L (137-145) mmol/L Potassium 4.4 (3.5-5.1) mmol/L Chloride 84 L (98-107) mmol/L Carbon Dioxide 28 (22-30) mmol/L Anion Gap 8 mmol/L BUN 86 H (9-20) mg/dL Creatinine 2.02 H (0.66-1.25) mg/dL Est GFR (CKD-EPI)AfAm 33 (>60 ml/min/1.73 sqM) Est GFR (CKD-EPI)NonAf 29 (>60 ml/min/1.73 sqM) Glucose 197 H (74-99) mg/dL Calcium 8.2 L (8.4-10.2) mg/dL Total Bilirubin 0.6 (0.2-1.3) mg/dL AST 22 (17-59) U/L ALT 16 (4-49) U/L Alkaline Phosphatase 57 (38-126) U/L Creatine Kinase 53 L (55-170) U/L Total Protein 6.0 L (6.3-8.2) g/dL Albumin 3.5 (3.5-5.0) g/dL Disposition Clinical Impression: Fall, Hyponatremia, CAP (community acquired pneumonia) Disposition: ADMITTED IP TO THIS [facility] Condition: Stable Is patient prescribed a controlled substance at d/c from ED?: No Decision to Admit Reason: Admit from EC Decision Date: 01/13/21 Decision Time: 11:18
[2021-01-13] MEDS: SODIUM CHLORIDE 0.9% 1,000 ML IV SCH (12:40)
[2021-01-13 13:00] LABS: INR 1.1 (<1.2); Partial Thromboplastin Time 24.7 sec (22.0-30.0); Prothrombin Time 11.8 sec (9.0-12.0)
[2021-01-13] MEDS: ACETAMINOPHEN TAB 325 MG TAB PO PRN (20:19)
[2021-01-14] MEDS: SODIUM CHLORIDE 0.9% 1,000 ML IV SCH ×2 (05:47→13:04)
[2021-01-14 07:06] LABS: Glucose,Whole Blood 157 mg/dL (75-99)
[2021-01-14] MEDS ORDERED: IPRATROPIUM-ALBUTEROL 3 ML NEB INHALATION PRN (08:09)
--- NOTE | 2021-01-14 08:15 | P.HPIM ---
History of Present Illness H&P Date: 01/14/21 Chief Complaint: generalized weakness The patient is 82-year-old white male with known history of atrial fibrillation generalized weakness and COPD. The patient has been on hospice to yesterday where he felt that he did not want to have this anymore he wanted to be admitted to the hospital and rescinded his hospice status. The patient is now admitted due to hyponatremia and element of pneumonia on initial workup. The patient is frailty is quite high. He has even continued to fall and I have convinced him to try to reinstitute hospice treatment. But he states he wants "home health." Review of Systems Constitutional: Reports fatigue, Reports weakness Ears, nose, mouth and throat: Denies headache, Denies sore throat Cardiovascular: Denies chest pain, Denies shortness of breath Gastrointestinal: Denies abdominal pain, Denies diarrhea, Denies nausea, Denies vomiting Musculoskeletal: Denies myalgias Integumentary: Denies pruritus, Denies rash Past Medical History Past Medical History: Atrial Fibrillation, Coronary Artery Disease (CAD), Cancer, Heart Failure, Diabetes Mellitus, GERD/Reflux, Hyperlipidemia, Hypertension, Myocardial Infarction ([place]), Osteoarthritis (OA), Pneumonia, Vascular Disorder Additional Past Medical History / Comment(s): Afib with RVR, NIDDM type II-pt states physician took him off his diabetic medication-diet controlled now, pt had R lower leg wounds but states it is now healed to a small scab, sinus problems, bilateral caratid artery disease, skin cancer with removal, arthritis R wrist, gout R great toe, unsteady gait/falls, hyponatremia, past rheumatic fever age 21yrs, Last Myocardial Infarction Date:: 2014 History of Any Multi-Drug Resistant Organisms: None Reported Past Surgical History: Heart Catheterization, Heart Catheterization With Stent Additional Past Surgical History / Comment(s): Skin cancer removed L upper arm, bilateral cataract removal/lens implants. Past Anesthesia/Blood Transfusion Reactions: No Reported Reaction Date of Last Stent Placement:: 2014 Past Psychological History: Anxiety Additional Psychological History / Comment(s): Pt resides with his spouse. Pt gets around with walker/'s assist and wheelchair. Pt is nearly done with home care thru [facility]. His spouse manages his meds/cooks. He has a glucometer but now is a diet controlled and no longer checks sugar. Smoking Status: Former smoker Past Alcohol Use History: None Reported Additional Past Alcohol Use History / Comment(s): Pt started smoking in 1958 and quit in 1987. He drinks 1-2 beers occasionally in the summer months Past Drug Use History: None Reported - Past Family History Father History Unknown: Yes Family Medical History: Unable to Obtain Additional Family Medical History / Comment(s): Father never went to the doctor. Mother History Unknown: Yes Family Medical History: Hyperlipidemia Additional Family Medical History / Comment(s): high cholesterol. Medications and Allergies Home Medications Medication Instructions Recorded Confirmed Type Simvastatin [Zocor] 20 mg PO DAILY 05/13/16 01/13/21 History cloNIDine HCL [Catapres] 0.2 mg PO HS 05/13/16 01/13/21 History Ezetimibe [Zetia] 10 mg PO DAILY 05/29/20 01/13/21 History Irbesartan [Avapro] 150 mg PO DAILY 05/29/20 01/13/21 History Apixaban [Eliquis] 2.5 mg PO BID #60 tablet 06/11/20 01/13/21 Rx Pantoprazole [Protonix] 40 mg PO AC-BRKFST #30 tablet.dr 06/11/20 01/13/21 Rx LORazepam [Ativan] 1 mg PO TID PRN 07/22/20 01/13/21 History Furosemide [Lasix] 40 mg PO TID #90 tab 07/29/20 01/13/21 Rx NIFEdipine [Procardia XL] 90 mg PO DAILY 09/30/20 01/13/21 History Ipratropium-Albuterol Nebulize 3 ml INHALATION RT-QID PRN 11/15/20 01/13/21 History [Duoneb 0.5 mg-3 mg/3 ml Soln] Tamsulosin HCl [Flomax] 0.4 mg PO HS 11/15/20 01/13/21 History traZODone HCL 100 mg PO HS 11/15/20 01/13/21 History Amiodarone [Cordarone] 200 mg PO DAILY #30 tab 11/25/20 01/13/21 Rx Metoprolol Tartrate [Lopressor] 100 mg PO BID #60 tab 11/25/20 01/13/21 Rx Acetaminophen Tab [Tylenol Tab] 500 mg PO Q6HR PRN 01/13/21 01/13/21 History Magnesium Oxide [Mag-Ox] 400 mg PO DAILY 01/13/21 01/13/21 History Sennosides [Senna] 8.6 mg PO DAILY 01/13/21 01/13/21 History Allergies Allergy/AdvReac Type Severity Reaction Status Date / Time Penicillins Allergy Rash/Hives Verified 01/13/21 10:15 zolpidem [From Ambien] AdvReac Confusion Verified 01/13/21 10:15 Physical Exam Vitals: Vital Signs Temp Pulse Pulse Resp BP BP Pulse Ox 01/14/21 06:42 98 F 97 18 94 L 01/14/21 02:00 97.9 F 64 16 133/62 96 01/13/21 20:10 97.9 F 98 22 108/92 99 01/13/21 18:40 98.6 F 89 20 130/82 99 01/13/21 15:48 82 20 126/88 97 01/13/21 12:38 88 22 126/95 100 01/13/21 08:18 97.7 F 91 18 122/93 95 Intake and Output 01/13/21 01/14/21 01/14/21 22:59 06:59 14:59 Intake Total 800 Balance 800 Intake: Intake, IV Titration 600 Amount Sodium Chloride 0.9% 1, 600 000 ml @ 130 mls/hr IV . Q7H42M [facility] Rx#:[id number] Oral 200 Other: # Voids 2 3 # Bowel Movements 1 Weight 85.366 kg - Constitutional General appearance: mild distress - EENT Eyes: EOMI - Neck Neck: no lymphadenopathy - Respiratory Respiratory: bilateral: CTA - Cardiovascular Rhythm: irregularly irregular Heart sounds: normal: S1, S2 - Gastrointestinal General gastrointestinal: soft, no tenderness - Integumentary Integumentary: no cellulitis - Neurologic Neurologic: CNII-XII intact Results CBC & Chem 7: 01/13/21 09:53 01/13/21 09:53 Labs: Abnormal Lab Results - Last 24 Hours (Table) 01/13/21 01/13/21 01/14/21 Range/Units 09:53 09:53 07:04 WBC 14.7 H (3.8-10.6) k/uL RBC 3.49 L (4.30-5.90) m/uL Hgb 10.8 L D (13.0-17.5) gm/dL Hct 31.6 L (39.0-53.0) % Neutrophils # 12.9 H (1.3-7.7) k/uL Lymphocytes # 0.8 L (1.0-4.8) k/uL Sodium 120 L (137-145) mmol/L Chloride 84 L (98-107) mmol/L BUN 86 H (9-20) mg/dL Creatinine 2.02 H (0.66-1.25) mg/dL Glucose 197 H (74-99) mg/dL POC Glucose (mg/dL) 157 H (75-99) mg/dL Calcium 8.2 L (8.4-10.2) mg/dL Creatine Kinase 53 L (55-170) U/L Total Protein 6.0 L (6.3-8.2) g/dL Thrombosis Risk Factor Assmnt - Choose All That Apply Each Risk Factor Represents 3 Points: Age 75 years or older Thrombosis Risk Factor Assessment Total Risk Factor Score: 3 Thrombosis Risk Factor Assessment Level: Moderate Risk Assessment and Plan (1) CAP (community acquired pneumonia) Current Visit: Yes Status: Acute Code(s): J18.9 - PNEUMONIA, UNSPECIFIED ORGANISM SNOMED Code(s): 135847289 (2) Fall Current Visit: Yes Status: Acute Code(s): W19.XXXA - UNSPECIFIED FALL, INITIAL ENCOUNTER SNOMED Code(s): 2569126 (3) High risk for readmission Current Visit: Yes Status: Acute Code(s): Z91.89 - OTH PERSONAL RISK FACTORS, NOT ELSEWHERE CLASSIFIED SNOMED Code(s): 408831363 (4) Hyponatremia Current Visit: Yes Status: Acute Code(s): E87.1 - HYPO-OSMOLALITY AND HYPONATREMIA SNOMED Code(s): 55236066 (5) Atrial fibrillation with RVR Current Visit: No Status: Acute Code(s): I48.91 - UNSPECIFIED ATRIAL FIBRILLATION SNOMED Code(s): 369182312889536 (6) Failure to thrive Current Visit: No Status: Acute Code(s): GMK5769 - SNOMED Code(s): 12713498 (7) Presence of stent in left circumflex coronary artery Current Visit: No Status: Acute Code(s): Z95.5 - PRESENCE OF CORONARY ANGIOPLASTY IMPLANT AND GRAFT SNOMED Code(s): 136894446 Plan: continue supportive care. Hyponatremic workup. Consult nephrology as necessary. Empiric antibiotic treatment due to pneumonia. Discharge planning. Prognosis is guarded secondary to his multiple comorbidities and advancing age. I suspect he will benefit from rehab but he is a poor candidate as well
[2021-01-14] MEDS: METOPROLOL TARTRATE 50 MG TAB PO SCH ×2 (08:51→21:36)
[2021-01-14] MEDS: LOSARTAN 50 MG TAB PO SCH (08:51)
[2021-01-14] MEDS: AMIODARONE 200 MG TAB PO SCH (08:51)
[2021-01-14] MEDS: NIFEdipine XL 90 MG TAB.ER.24 PO SCH (08:51)
[2021-01-14 09:23] LABS: Basophils # (A) 0.01 X 10*3/uL (0.00-0.10); Basophils % (A) 0.1 %; Eosinophils # (A) 0.01 X 10*3/uL (0.04-0.35); Eosinophils % (A) 0.1 %; HCT 29.4 % (39.6-50.0); Lymphocytes # (A) 0.79 X 10*3/uL (0.90-5.00); Lymphocytes % (A) 7.6 %; MCH 31.2 pg (27.0-32.0); MCV 91.6 fL (80.0-97.0); Mean Platelet Volume 9.7 fL (9.5-12.2); Monocytes # (A) 0.78 X 10*3/uL (0.20-1.00); Monocytes % (A) 7.5 %; Neutrophils # (A) 8.74 X 10*3/uL (1.80-7.70); Neutrophils % (A) 83.9 %; Platelet Count 201 X 10*3/uL (140-440); RBC 3.21 X 10*6/uL (4.40-5.60); RDW 14.5 % (11.5-14.5); WBC 10.41 X 10*3/uL (4.50-10.00)
[2021-01-14] MEDS: SENNOSIDES 8.6 MG TAB PO SCH (09:29)
[2021-01-14] MEDS: APIXABAN 2.5 MG TABLET PO SCH ×2 (09:29→21:42)
[2021-01-14] MEDS: MAGNESIUM OXIDE 400 MG TAB PO SCH (09:30)
[2021-01-14] MEDS: FUROSEMIDE 40 MG TAB PO SCH ×3 (09:30→21:36)
[2021-01-14] MEDS: EZETIMIBE 10 MG TAB PO SCH (09:30)
[2021-01-14] MEDS: ATORVASTATIN 10 MG TAB PO SCH (09:30)
[2021-01-14] MEDS: PANTOPRAZOLE 40 MG TABLET PO SCH (09:38)
--- NOTE | 2021-01-14 13:44 | CDI ---
Documentation Clarification Form Date: 01/14/2021 01:31:31 PM From: Neyda John CCS, CCDS Admit Date: 01/13/2021 11:18:00 AM Patient Name: Ever Hazel Visit Number: [id number] Discharge Date: ATTENTION: The Clinical Documentation Specialists (CDI) and [facility] Coding Staff appreciate your assistance in clarifying documentation. Please respond to the clarification below the line at the bottom and electronically sign. The CDI & [facility] Coding staff will review the response and follow-up if needed. Please note: Queries are made part of the Legal Health Record. If you have any questions, please contact the author of this message via ITS. Dr. Cecilio Christina: Heart Failure is documented in the 01/13 ED Note History of Present Illness and the 01/14 History & Physical Past Medical History without further specificity. History/Risk Factors Per the above documentation: Heart Failure, Atrial Fibrillation, CAD with stent, Hypertension, Hyperlipidemia, DM, GERD, [place], OA, Bilateral Carotid Artery Disease, Anxiety, Former smoker. Clinical Indicators: Presented to ED 01/14 via EMS after syncope, fall & generalized weakness. Patient has been on hospice. ED Clinical Impression: Fall, Hyponatremia, Community Acquired Pneumonia. 01/13 VS: T 97.7, P 91, R 18 - 22, BP 122/93, PO 95 2Lnc, BMI: 25.5 01/13 LAB: Na 120, Cl 84, BUN 86, Cr 2.02, Glucose 197, Calcium 8.2, Cr Kinase 53, Total Protein 6.0. BNP not done 01/13 CXR: Posterior pleural effusion and right lower lobe atelectasis or pneumonia. Echocardiogram Results (Most Recent 11/20/2020): Systolic function is severely impaired with EF 20-25%, Right ventricle is severely enlarged, Moderate to severe aortic valve sclerosis, Mod MR, Mod - severe TR, Severe pulmonary hypertension. Treatment: IV fluid 1,000 mls @ 130 mls/hr q7H, PO Eliquis 2.5 mg BID, PO Lasix 40 mg TID (home dose) Cardiology is not consulted. In your professional opinion, can you please clarify the acuity and type of CHF if known? [ ] Heart Failure is Ruled Out [ ] Systolic Heart Failure: [ ] Acute [ ] Chronic-this is the correct dx [ ] Acute on Chronic [ ] Other Heart Failure with specified Acuity & type: [ ] Unable to Determine (Last Revision: January 2018) MTDD
[2021-01-14 14:14] LABS: African American GFR (CKD) 47.5 (60.0-200.0); BUN/Creat Ratio 42.67 Ratio (12.00-20.00); Calcium 8.3 mg/dL (8.7-10.3); Potassium 4.1 mmol/L (3.5-5.5)
[2021-01-14 16:50] LABS: Glucose,Whole Blood 217 mg/dL (75-99)
--- NOTE | 2021-01-14 17:07 | CONS ---
CONSULTATION REASON FOR CONSULT: Hyponatremia. HISTORY OF PRESENT ILLNESS: Patient is an 89-year-old male who was admitted to the hospital yesterday with complaints of generalized weakness. He did have some shortness of breath. Patient was initially under hospice care but felt that he did not want to continue hospice and was therefore hospitalized for further evaluation. He denies any significant history of kidney diseases. Serum sodium was noted to be 120 on initial admission. However, this morning labs were ordered and his sodium was at 129. Another sodium was ordered STAT later on, for it seems to have the same time and was reported at 125. Patient's blood pressure has been about 120 to 130 mmHg systolic. He is not maintained on any thiazide diuretics at home. Review of previous labs shows borderline hyponatremia in October of 2020 as well, with serum sodium lowest at 126 but mostly staying around 129 mEq/L. Urine osmolality was 421. Patient was maintained on normal saline. It appears that he is still receiving saline at 130 mL/hour. PAST MEDICAL HISTORY: Chronic hyponatremia, coronary artery disease, atrial fibrillation, CHF, type 2 diabetes, gastroesophageal reflux disease, hyperlipidemia, history of MA, history of pneumonia, history of gout, rheumatic fever. PAST SURGICAL HISTORY: Cardiac catheterization, coronary stent placement, cataract surgeries. SOCIAL HISTORY: Patient is a former smoker. No history of drug abuse or alcohol abuse. MEDICATIONS: Medications prior to admission included Zocor, clonidine, Zetia, Avapro, Eliquis, Protonix, Ativan, Lasix, Procardia, Flomax, trazodone, Cordarone, Lopressor, Tylenol, magnesium, Senna. ALLERGIES: ALLERGIES include PENICILLIN and AMBIEN, which cause rash, hives and confusion. PHYSICAL EXAMINATION: Patient is currently comfortable, awake. He is not in any acute distress. Blood pressure was 125/68, heart rate 65 per minute. He is afebrile. EXAMINATION OF THE HEART: S1 and S2. EXAMINATION OF LUNGS: Bilateral breath sounds are heard. ABDOMEN: Soft, non-tender. Examination of lower extremities shows no significant edema. CH[employer] GROUP LEADER exam shows patient moving all 4 extremities. LABS: Sodium 125, potassium 4.1, chloride 95, creatinine 1.5, BUN 64. ASSESSMENT: 1. Hyponatremia, possibly syndrome of inappropriate antidiuretic hormone, as urine osmolality is high and serum sodium is slightly lower at 125 from 129. I had ordered the STAT sodium at 125 around 9 a.m., although the time reported is still 6:58 a.m. I will hold off on the saline administration for now and we will repeat a sodium this evening. Patient has a prior history of hyponatremia as well in October as well as in 2019. Chest x-ray does not show any obvious masses. 2. Acute kidney injury, prerenal, currently improved. 3. Type 2 diabetes. 4. History of gout. 5. Coronary artery disease. 6. History of atrial fibrillation, maintained on anticoagulation; currently controlled ventricular response. PLAN: Discontinue IV fluids. Repeat sodium this evening. Patient may have been volume- depleted on initial admission. However, once his volume status was corrected, serum sodium started to drop after initial correction. Patient is also encouraged to increase oral intake of protein. Check random cortisol level and TSH if not done. Thank you for this consultation. Will continue to follow the patient with you during his hospitalization. ERIC / SINDIN: [id number] /
[2021-01-14] MEDS ORDERED: TAMSULOSIN 0.4 MG CAP.ER.24H PO SCH (21:00)
[2021-01-14] MEDS: cloNIDine HCL 0.2 MG TAB PO SCH (21:36)
[2021-01-14] MEDS: traZODone HCL 100 MG TAB PO SCH (21:36)
[2021-01-15] MEDS: ACETAMINOPHEN TAB 325 MG TAB PO PRN ×3 (00:11→21:33)
[2021-01-15] MEDS: LORazepam 1 MG TAB PO PRN ×2 (04:45→20:38)
[2021-01-15 06:55] LABS: Glucose,Whole Blood 216 mg/dL (75-99)
[2021-01-15] MEDS: NIFEdipine XL 90 MG TAB.ER.24 PO SCH (07:24)
[2021-01-15] MEDS: SENNOSIDES 8.6 MG TAB PO SCH (07:24)
[2021-01-15] MEDS: METOPROLOL TARTRATE 50 MG TAB PO SCH ×2 (07:25→19:29)
[2021-01-15] MEDS: FUROSEMIDE 40 MG TAB PO SCH ×3 (07:25→20:36)
[2021-01-15] MEDS: PANTOPRAZOLE 40 MG TABLET PO SCH (07:25)
[2021-01-15] MEDS: ATORVASTATIN 10 MG TAB PO SCH (07:25)
[2021-01-15] MEDS: AMIODARONE 200 MG TAB PO SCH (07:25)
[2021-01-15] MEDS: MAGNESIUM OXIDE 400 MG TAB PO SCH (07:25)
[2021-01-15] MEDS: EZETIMIBE 10 MG TAB PO SCH (07:26)
[2021-01-15] MEDS: APIXABAN 2.5 MG TABLET PO SCH ×2 (07:29→20:36)
[2021-01-15] MEDS: LOSARTAN 50 MG TAB PO SCH (07:33)
--- NOTE | 2021-01-15 08:53 | P.PN ---
Subjective Progress Note Date: 01/15/21 Principal diagnosis: This is a 89-year-old male who is being followed up for hyponatremia, and has had this problem in the past as well. He came in with acute kidney injury and hyponatremia workup has shown a slightly high TSH at 8.7, is not on Synthroid. The hyponatremia workup showed a urine osmolality 421 and a urine sodium of 22. Further her TSH is high as mentioned above. Hyponatremia was deemed to be from volume depletion and initially responded to IV fluids and subsequently might have had congestive heart failure and has responded to Lasix by mouth. Currently he says he is not short of breath. Feels somewhat better. No nausea vomiting. He is known with diabetes mellitus, hypertension, gout, atrial fibrillation coronary artery disease. He was initially hospitalized but didn't change his mind. Objective - Vital Signs Vital signs: Vital Signs Temp 98.5 F 01/15/21 07:23 Pulse 75 01/15/21 07:23 Resp 17 01/15/21 07:23 BP 100/51 01/15/21 07:23 Pulse Ox 93 L 01/15/21 07:23 Intake & Output 01/14/21 01/15/21 01/15/21 18:59 06:59 18:59 Output Total 2149 Balance -2149 Output: Urine 1420 Uretheral (Ballard) 1420 Post Void Residual 729 Other: Voiding Method Diaper Diaper # Voids 3 1 # Bowel Movements 1 On examination is awake alert. HEENT exam no JVP neck is supple no facial asymmetry Lungs are clear to auscultation good air entry bilaterally Heart sounds unremarkable for any murmur rub gallop Abdomen soft nontender Extremity exam was minimal edema Neurologically awake alert follows commands and seems to be oriented. He is profoundly weak and had difficulty sitting up - Labs CBC & Chem 7: 01/14/21 06:58 01/14/21 17:07 Labs: Abnormal Lab Results - Last 24 Hours (Table) 01/14/21 01/14/21 01/14/21 Range/Units 06:58 06:58 06:58 WBC 10.41 H (4.50-10.00) X 10*3/uL RBC 3.21 L (4.40-5.60) X 10*6/uL Hgb 10.0 L (13.0-17.0) g/dL Hct 29.4 L (39.6-50.0) % Immature Gran # 0.08 H (0.00-0.04) X 10*3/uL Neutrophils # 8.74 H (1.80-7.70) X 10*3/uL Lymphocytes # 0.79 L (0.90-5.00) X 10*3/uL Eosinophils # 0.01 L (0.04-0.35) X 10*3/uL Sodium 129 L 125 L (135-145) mmol/L Chloride 95 L (96-109) mmol/L BUN 64.0 H (9.0-27.0) mg/dL Est GFR (CKD-EPI)AfAm 47.5 L (60.0-200.0) Est GFR (CKD-EPI)NonAf 41.0 L (60.0-200.0) BUN/Creatinine Ratio 42.67 H (12.00-20.00) Ratio Glucose 157 H (70-110) mg/dL POC Glucose (mg/dL) (75-99) mg/dL Calcium 8.3 L (8.7-10.3) mg/dL TSH (0.465-4.680) mIU/L 01/14/21 01/14/21 01/15/21 Range/Units 16:43 17:07 06:54 WBC (4.50-10.00) X 10*3/uL RBC (4.40-5.60) X 10*6/uL Hgb (13.0-17.0) g/dL Hct (39.6-50.0) % Immature Gran # (0.00-0.04) X 10*3/uL Neutrophils # (1.80-7.70) X 10*3/uL Lymphocytes # (0.90-5.00) X 10*3/uL Eosinophils # (0.04-0.35) X 10*3/uL Sodium 126 L (135-145) mmol/L Chloride (96-109) mmol/L BUN (9.0-27.0) mg/dL Est GFR (CKD-EPI)AfAm (60.0-200.0) Est GFR (CKD-EPI)NonAf (60.0-200.0) BUN/Creatinine Ratio (12.00-20.00) Ratio Glucose (70-110) mg/dL POC Glucose (mg/dL) 217 H 216 H (75-99) mg/dL Calcium (8.7-10.3) mg/dL TSH 8.670 H (0.465-4.680) mIU/L Assessment and Plan Assessment: Impression 1. Hyponatremia secondary to congestive heart failure. 2. Acute kidney injury secondary to congestive heart failure. Creatinine improved from 2.0-to 1.5. 3. History of chronic kidney disease creatinine baseline is 1.2-1.3 secondary stage III 3. Hypothyroidism with consistently high TSH, ranging from 8 on 06/21/2020, 16 on 07/26/2020, and the most recent one on this admission is 8.6 as of the 2020 4. Diabetes mellitus. Recommendation 1. Continue Lasix 2. Consider replacing thyroid. 3. Maintain strict I's and O's and we will watch his sodium
[2021-01-15 09:03] LABS: HCT 27.2 % (39.6-50.0); HGB 9.2 g/dL (13.0-17.0); MCH 31.5 pg (27.0-32.0); MCHC 33.8 g/dL (32.0-37.0); MCV 93.2 fL (80.0-97.0); Platelet Count 187 X 10*3/uL (140-440); RBC 2.92 X 10*6/uL (4.40-5.60); RDW 14.6 % (11.5-14.5)
[2021-01-15 09:15] LABS: African American GFR (CKD) 47.5 (60.0-200.0); Albumin 3.3 g/dL (3.80-4.90); Albumin/Globulin Ratio 2.06 (1.60-3.17); Anion Gap 6.5 mmol/L (4.00-12.00); BUN/Creat Ratio 33.33 Ratio (12.00-20.00); Calcium 8.2 mg/dL (8.7-10.3); Carbon Dioxide 26.5 mmol/L (21.6-31.8); Globulin 1.6 g/dL (1.6-3.3); Potassium 4.4 mmol/L (3.5-5.5); Total Bilirubin 0.4 mg/dL (0.3-1.2); Total Protein 4.9 g/dL (6.2-8.2)
[2021-01-15 11:36] LABS: Glucose,Whole Blood 327 mg/dL (75-99)
[2021-01-15 17:12] LABS: Glucose,Whole Blood 243 mg/dL (75-99)
--- NOTE | 2021-01-15 18:04 | P.PN ---
Subjective This is a pleasant 89 years old male with multiple medical problems as below, he was under hospice care but he signed himself of hospice and now under home care, he came to the emergency room secondary to a fall, not sure if he passed out. However patient was dehydrated with acute kidney injury upon admission and he responded to fluid, later on he developed worsening hyponatremia and responded to oral Lasix. However his blood pressure on the low side currently 100/51, previously systolic blood pressure 140-150. TSH is elevated, T4 is not available, the order thyroid function test. Also patient has urine retention. Status post Ballard catheter and Flomax was increased from once daily to twice a day. Patient was slightly confused upon admission slowly improving. Objective - Vital Signs Vital signs: Vital Signs Temp 97.4 F L 01/15/21 15:08 Pulse 61 01/15/21 15:08 Resp 13 01/15/21 15:08 BP 102/51 01/15/21 15:08 Pulse Ox 94 L 01/15/21 15:08 Intake & Output 01/14/21 01/15/21 01/15/21 18:59 06:59 18:59 Output Total 2149 500 Balance -2149 -500 Output: Urine 1420 500 Uretheral (Ballard) 1420 500 Post Void Residual 729 Other: Voiding Method Diaper Diaper Diaper # Voids 3 1 1 # Bowel Movements 1 1 - Exam -GENERAL: The patient is alert and oriented x3, not in any acute distress. Well generally weak HEENT: Pupils are round and equally reacting to light. EOMI. No scleral icterus. No conjunctival pallor. Normocephalic, atraumatic. No pharyngeal erythema. No thyromegaly. CARDIOVASCULAR: S1 and S2 present. No murmurs, rubs, or gallops. PULMONARY: Chest is clear to auscultation, no wheezing or crackles. -ABDOMEN: Soft, nontender, nondistended, normoactive bowel sounds. No palpable organomegaly. Ballard catheter is in place MUSCULOSKELETAL: No joint swelling or deformity. EXTREMITIES: No cyanosis, clubbing, or pedal edema. NEUROLOGICAL: Gross neurological examination did not reveal any focal deficits. SKIN: No rashes. no petechiae. - Labs CBC & Chem 7: 01/15/21 06:18 01/15/21 06:18 Labs: Abnormal Lab Results - Last 24 Hours (Table) 01/14/21 01/14/21 01/15/21 Range/Units 16:43 17:07 06:18 RBC 2.92 L (4.40-5.60) X 10*6/uL Hgb 9.2 L (13.0-17.0) g/dL Hct 27.2 L (39.6-50.0) % RDW 14.6 H (11.5-14.5) % Sodium 126 L (137-145) mmol/L BUN (9.0-27.0) mg/dL Est GFR (CKD-EPI)AfAm (60.0-200.0) Est GFR (CKD-EPI)NonAf (60.0-200.0) BUN/Creatinine Ratio (12.00-20.00) Ratio Glucose (70-110) mg/dL POC Glucose (mg/dL) 217 H (75-99) mg/dL Calcium (8.7-10.3) mg/dL Total Protein (6.2-8.2) g/dL Albumin (3.80-4.90) g/dL TSH 8.670 H (0.465-4.680) mIU/L 01/15/21 01/15/21 01/15/21 Range/Units 06:18 06:54 11:34 RBC (4.40-5.60) X 10*6/uL Hgb (13.0-17.0) g/dL Hct (39.6-50.0) % RDW (11.5-14.5) % Sodium 129 L (137-145) mmol/L BUN 50.0 H (9.0-27.0) mg/dL Est GFR (CKD-EPI)AfAm 47.5 L (60.0-200.0) Est GFR (CKD-EPI)NonAf 41.0 L (60.0-200.0) BUN/Creatinine Ratio 33.33 H (12.00-20.00) Ratio Glucose 208 H (70-110) mg/dL POC Glucose (mg/dL) 216 H 327 H (75-99) mg/dL Calcium 8.2 L (8.7-10.3) mg/dL Total Protein 4.9 L (6.2-8.2) g/dL Albumin 3.30 L (3.80-4.90) g/dL TSH (0.465-4.680) mIU/L Assessment and Plan Assessment: A fall at home Mild metabolic encephalopathy, improving Hyponatremia, hypervolemic currently Acute kidney injury, improved back to normal -TSH, recheck her function test. Urinary retention status post Ballard catheter Chronic atrial fibrillation History of coronary artery disease Chronic heart failure Diabetes mellitus History of GERD Hypertension Hyperlipidemia Osteoarthritis Plan: This is a pleasant 89 years old male who presents with fall and hyponatremia with acute kidney injury and high TSH. Continue with oral Lasix and the recommendation by doctor of chiropractic. All fluid currently Keep Ballard catheter and start higher dose of Flomax 0.4 twice a day. Patient had function test, monitor blood pressure Labs and medication were reviewed.. Continue same treatment. Continue with symptomatic treatment. Resume home medication. Monitor lytes and vitals. DVT and GI prophylaxis. Further recommendationsas per clinical course of the patient DVT prophylaxis: Eliquis Prognosis is guarded
[2021-01-15 18:37] LABS: Amorphous Sediment,Urine Rare /hpf; Appearance,Urine Turbid (Clear); Bacteria,Urine Few /hpf; Bilirubin,Urine Negative (Negative); Blood,Urine Moderate (Negative); Color,Urine Yellow; Glucose,Urine (UA) Negative (Negative); Hyaline Casts,Urine 33 /lpf (0-2); Ketones,Urine Negative (Negative); Leukocyte Esterase,Urine Large (Negative); Mucus,Urine Occasional /hpf; Nitrite,Urine Negative (Negative); PH, Urine 8.5 (5.0-8.0); Protein,Urine 2+ (Negative); RBC,Urine 24 /hpf (0-5); Specific Gravity,Urine 1.015 (1.001-1.035); Squamous Epithelial Cell,Urine 1 /hpf (0-4); Triple Phosphate Crystal,Urine Few /hpf; Urobilinogen,Urine <2.0 mg/dL (<2.0); WBC,Urine 66 /hpf (0-5)
[2021-01-15] MEDS: cloNIDine HCL 0.2 MG TAB PO SCH (19:29)
[2021-01-15] MEDS: traZODone HCL 100 MG TAB PO SCH (20:36)
[2021-01-15] MEDS: TAMSULOSIN 0.4 MG CAP.ER.24H PO SCH (20:36)
[2021-01-15 20:37] LABS: Glucose,Whole Blood 221 mg/dL (75-99)
[2021-01-16] MEDS: ACETAMINOPHEN TAB 325 MG TAB PO PRN ×2 (04:06→22:25)
[2021-01-16 07:08] LABS: Glucose,Whole Blood 208 mg/dL (75-99)
[2021-01-16] MEDS: APIXABAN 2.5 MG TABLET PO SCH ×2 (07:42→21:23)
[2021-01-16] MEDS: SENNOSIDES 8.6 MG TAB PO SCH (07:42)
[2021-01-16] MEDS: AMIODARONE 200 MG TAB PO SCH (07:42)
[2021-01-16] MEDS: FUROSEMIDE 40 MG TAB PO SCH ×3 (07:42→21:21)
[2021-01-16] MEDS: LOSARTAN 50 MG TAB PO SCH (07:42)
[2021-01-16] MEDS: MAGNESIUM OXIDE 400 MG TAB PO SCH (07:43)
[2021-01-16] MEDS: ATORVASTATIN 10 MG TAB PO SCH (07:43)
[2021-01-16] MEDS: NIFEdipine XL 90 MG TAB.ER.24 PO SCH (07:43)
[2021-01-16] MEDS: PANTOPRAZOLE 40 MG TABLET PO SCH (07:43)
[2021-01-16] MEDS: METOPROLOL TARTRATE 50 MG TAB PO SCH ×2 (07:43→21:23)
[2021-01-16] MEDS: EZETIMIBE 10 MG TAB PO SCH (07:44)
[2021-01-16] MEDS: TAMSULOSIN 0.4 MG CAP.ER.24H PO SCH ×2 (07:45→21:21)
[2021-01-16 08:56] LABS: Basophils % (A) 0 %; Eosinophils # (A) 0.1 k/uL (0-0.7); Eosinophils % (A) 1 %; HCT 29.3 % (39.0-53.0); HGB 10.1 gm/dL (13.0-17.5); Lymphocytes # (A) 1.1 k/uL (1.0-4.8); Lymphocytes % (A) 10 %; MCHC 34.5 g/dL (31.0-37.0); MCV 92.8 fL (80.0-100.0); Mean Platelet Volume 7.1; Monocytes # (A) 0.4 k/uL (0-1.0); Monocytes % (A) 4 %; Neutrophils # (A) 10.1 k/uL (1.3-7.7); Neutrophils % (A) 85 %; Platelet Count 207 k/uL (150-450); RBC 3.16 m/uL (4.30-5.90); RDW 15.9 % (11.5-15.5); WBC 11.9 k/uL (3.8-10.6)
[2021-01-16 09:11] LABS: African American GFR (CKD) 60 (>60 ml/min/1.73 sqM); Anion Gap 9 mmol/L; Blood Urea Nitrogen 43 mg/dL (9-20); Calcium 8.5 mg/dL (8.4-10.2); Carbon Dioxide 25 mmol/L (22-30); Chloride 95 mmol/L (98-107); Glucose 194 mg/dL (74-99); Non-African American GFR(CKD) 51 (>60 ml/min/1.73 sqM); Sodium 129 mmol/L (137-145)
[2021-01-16 09:21] LABS: T4, Free (Free Thyroxine) 1.73 ng/dL (0.78-2.19)
--- NOTE | 2021-01-16 09:40 | P.PN ---
Subjective Progress Note Date: 01/16/21 Principal diagnosis: This is a 89-year-old male who is being followed up for hyponatremia, and has had this problem in the past as well. He came in with acute kidney injury and hyponatremia workup has shown a slightly high TSH at 8.7, is not on Synthroid. The hyponatremia workup showed a urine osmolality 421 and a urine sodium of 22. Further her TSH is high as mentioned above. Hyponatremia was deemed to be from volume depletion and initially responded to IV fluids and subsequently might have had congestive heart failure and has responded to Lasix by mouth. Currently he says he is not short of breath. Feels somewhat better. No nausea vomiting.CC has a good appetite He is known with diabetes mellitus, hypertension, gout, atrial fibrillation coronary artery disease. He was initially admitted with shortness of breath and having fallen. Workup showed pneumonia. He was initially under hospice care but subsequently has changed his mind and was hospitalized again Objective - Vital Signs Vital signs: Vital Signs Temp 99.2 F 01/16/21 08:00 Pulse 125 H 01/16/21 08:00 Resp 18 01/16/21 08:00 BP 113/55 01/16/21 08:00 Pulse Ox 90 L 01/16/21 08:00 Intake & Output 01/15/21 01/16/21 01/16/21 18:59 06:59 18:59 Output Total 6254 814 3461 Balance -1350 -500 -1300 Output: Urine 7937 162 9948 Uretheral (Ballard) 500 Other: Voiding Method Diaper Diaper Diaper # Voids 1 # Bowel Movements 1 on examination is awake alert and seems to be oriented HEENT exam no JVP neck is supple no facial asymmetry Heart sounds unremarkable for any murmur rub gallop. Lungs are clear to auscultation good air entry bilaterally Abdomen soft nontender. Extremity exam reveals no edema Neurologically awake alert oriented but generalized weakness - Labs CBC & Chem 7: 01/16/21 07:57 01/16/21 07:57 Labs: Abnormal Lab Results - Last 24 Hours (Table) 01/15/21 01/15/21 01/15/21 Range/Units 11:34 17:10 18:17 WBC (3.8-10.6) k/uL RBC (4.30-5.90) m/uL Hgb (13.0-17.5) gm/dL Hct (39.0-53.0) % RDW (11.5-15.5) % Neutrophils # (1.3-7.7) k/uL Sodium (137-145) mmol/L Chloride (98-107) mmol/L BUN (9-20) mg/dL Glucose (74-99) mg/dL POC Glucose (mg/dL) 327 H 243 H (75-99) mg/dL Urine pH 8.5 H (5.0-8.0) Urine Protein 2+ H (Negative) Urine Blood Moderate H (Negative) Ur Leukocyte Esterase Large H (Negative) Urine RBC 24 H (0-5) /hpf Urine WBC 66 H (0-5) /hpf Triple Phos Crystals Few H (None) /hpf Amorphous Sediment Rare H (None) /hpf Urine Bacteria Few H (None) /hpf Hyaline Casts 33 H (0-2) /lpf Urine Mucus Occasional H (None) /hpf 01/15/21 01/16/21 01/16/21 Range/Units 20:35 07:07 07:57 WBC (3.8-10.6) k/uL RBC (4.30-5.90) m/uL Hgb (13.0-17.5) gm/dL Hct (39.0-53.0) % RDW (11.5-15.5) % Neutrophils # (1.3-7.7) k/uL Sodium 129 L (137-145) mmol/L Chloride 95 L (98-107) mmol/L BUN 43 H (9-20) mg/dL Glucose 194 H (74-99) mg/dL POC Glucose (mg/dL) 221 H 208 H (75-99) mg/dL Urine pH (5.0-8.0) Urine Protein (Negative) Urine Blood (Negative) Ur Leukocyte Esterase (Negative) Urine RBC (0-5) /hpf Urine WBC (0-5) /hpf Triple Phos Crystals (None) /hpf Amorphous Sediment (None) /hpf Urine Bacteria (None) /hpf Hyaline Casts (0-2) /lpf Urine Mucus (None) /hpf 01/16/21 Range/Units 07:57 WBC 11.9 H (3.8-10.6) k/uL RBC 3.16 L (4.30-5.90) m/uL Hgb 10.1 L (13.0-17.5) gm/dL Hct 29.3 L (39.0-53.0) % RDW 15.9 H (11.5-15.5) % Neutrophils # 10.1 H (1.3-7.7) k/uL Sodium (137-145) mmol/L Chloride (98-107) mmol/L BUN (9-20) mg/dL Glucose (74-99) mg/dL POC Glucose (mg/dL) (75-99) mg/dL Urine pH (5.0-8.0) Urine Protein (Negative) Urine Blood (Negative) Ur Leukocyte Esterase (Negative) Urine RBC (0-5) /hpf Urine WBC (0-5) /hpf Triple Phos Crystals (None) /hpf Amorphous Sediment (None) /hpf Urine Bacteria (None) /hpf Hyaline Casts (0-2) /lpf Urine Mucus (None) /hpf Microbiology - Last 24 Hours (Table) 01/15/21 18:17 Urine Culture - Preliminary Urine,Voided Assessment and Plan Assessment: Impression 1. Hyponatremia secondary to congestive heart failure.on Lasix improved and stable at 129 2. Acute kidney injury secondary to congestive heart failure. Creatinine improved from 2.0-to 1.5.and further down to 1.25 this morning 3. History of chronic kidney disease creatinine baseline is 1.2-1.3 secondary stage III 3. Hypothyroidism with consistently high TSH, ranging from 8 on 06/21/2020, 16 on 07/26/2020, and the most recent one on this admission is 8.6 as of the 2020 4. Diabetes mellitus. Recommendation 1. Continue Lasix. 2. Consider replacing thyroid. 3. Maintain strict I's and O's and we will watch his sodium
[2021-01-16 11:17] LABS: Glucose,Whole Blood 226 mg/dL (75-99)
[2021-01-16] MEDS: LEVOTHYROXINE 25 MCG TAB PO SCH (12:04)
--- NOTE | 2021-01-16 15:17 | P.PN ---
Subjective This is a pleasant 89 years old male with multiple medical problems as below, he was under hospice care but he signed himself of hospice and now under home care, he came to the emergency room secondary to a fall, not sure if he passed out. However patient was dehydrated with acute kidney injury upon admission and he responded to fluid, later on he developed worsening hyponatremia and responded to oral Lasix. However his blood pressure on the low side currently 100/51, previously systolic blood pressure 140-150. TSH is elevated, T4 is not available, the order thyroid function test. Also patient has urine retention. Status post Ballard catheter and Flomax was increased from once daily to twice a day. Patient was slightly confused upon admission slowly improving. 01/16/2021 Patient lying in bed comfortable with no specific complaints however he is generally weak, he had mild metabolic encephalopathy but currently is improving and is awake and alert. Yesterday urine culture was showing signs of UTI, patient admits to dysuria prior to coming to the hospital. Patient was started on Rocephin twice daily and he tolerating that well and in view of his history to penicillin ALLERGY. No specific complaints by the patient, no suprapubic tenderness. No chest pain or dyspnea or abdominal pain or nausea vomiting. No fever.. Distal has Ballard catheter is in place for urinary retention, mostly related to UTI. follow-up on the results of urine culture Sodium was stable at 129 with nephrology on the case and recommended no further intervention and keep monitoring. Blood pressure on the low side currently were noted 102/58 oxygen saturation of 94L/m Patient has evidence of hypothyroidism with elevated TSH 10.6 and normal free T4 at 1.3. Small dose of levothyroxine 25 g daily was started. Objective - Vital Signs Vital signs: Vital Signs Temp 97.7 F 01/16/21 14:00 Pulse 87 01/16/21 14:00 Resp 18 01/16/21 14:00 BP 102/58 01/16/21 14:00 Pulse Ox 94 L 01/16/21 14:00 Intake & Output 01/15/21 01/16/21 01/16/21 18:59 06:59 18:59 Output Total 2657 373 0934 Balance -1350 -500 -1850 Output: Urine 5545 486 8414 Uretheral (Ballard) 500 Other: Voiding Method Diaper Diaper Diaper # Voids 1 # Bowel Movements 1 - Exam -GENERAL: The patient is alert and oriented x3, not in any acute distress. Well generally weak HEENT: Pupils are round and equally reacting to light. EOMI. No scleral icterus. No conjunctival pallor. Normocephalic, atraumatic. No pharyngeal erythema. No thyromegaly. CARDIOVASCULAR: S1 and S2 present. No murmurs, rubs, or gallops. PULMONARY: Chest is clear to auscultation, no wheezing or crackles. -ABDOMEN: Soft, nontender, nondistended, normoactive bowel sounds. No palpable organomegaly. Ballard catheter is in place MUSCULOSKELETAL: No joint swelling or deformity. EXTREMITIES: No cyanosis, clubbing, or pedal edema. NEUROLOGICAL: Gross neurological examination did not reveal any focal deficits. SKIN: No rashes. no petechiae. - Labs CBC & Chem 7: 01/16/21 07:57 01/16/21 07:57 Labs: Abnormal Lab Results - Last 24 Hours (Table) 01/15/21 01/15/21 01/15/21 Range/Units 17:10 18:17 20:35 WBC (3.8-10.6) k/uL RBC (4.30-5.90) m/uL Hgb (13.0-17.5) gm/dL Hct (39.0-53.0) % RDW (11.5-15.5) % Neutrophils # (1.3-7.7) k/uL Sodium (137-145) mmol/L Chloride (98-107) mmol/L BUN (9-20) mg/dL Glucose (74-99) mg/dL POC Glucose (mg/dL) 243 H 221 H (75-99) mg/dL Procalcitonin (0.02-0.09) ng/mL TSH (0.465-4.680) mIU/L Urine pH 8.5 H (5.0-8.0) Urine Protein 2+ H (Negative) Urine Blood Moderate H (Negative) Ur Leukocyte Esterase Large H (Negative) Urine RBC 24 H (0-5) /hpf Urine WBC 66 H (0-5) /hpf Triple Phos Crystals Few H (None) /hpf Amorphous Sediment Rare H (None) /hpf Urine Bacteria Few H (None) /hpf Hyaline Casts 33 H (0-2) /lpf Urine Mucus Occasional H (None) /hpf 01/16/21 01/16/21 01/16/21 Range/Units 07:07 07:57 07:57 WBC 11.9 H (3.8-10.6) k/uL RBC 3.16 L (4.30-5.90) m/uL Hgb 10.1 L (13.0-17.5) gm/dL Hct 29.3 L (39.0-53.0) % RDW 15.9 H (11.5-15.5) % Neutrophils # 10.1 H (1.3-7.7) k/uL Sodium 129 L (137-145) mmol/L Chloride 95 L (98-107) mmol/L BUN 43 H (9-20) mg/dL Glucose 194 H (74-99) mg/dL POC Glucose (mg/dL) 208 H (75-99) mg/dL Procalcitonin (0.02-0.09) ng/mL TSH 10.600 H (0.465-4.680) mIU/L Urine pH (5.0-8.0) Urine Protein (Negative) Urine Blood (Negative) Ur Leukocyte Esterase (Negative) Urine RBC (0-5) /hpf Urine WBC (0-5) /hpf Triple Phos Crystals (None) /hpf Amorphous Sediment (None) /hpf Urine Bacteria (None) /hpf Hyaline Casts (0-2) /lpf Urine Mucus (None) /hpf 01/16/21 01/16/21 Range/Units 07:57 11:15 WBC (3.8-10.6) k/uL RBC (4.30-5.90) m/uL Hgb (13.0-17.5) gm/dL Hct (39.0-53.0) % RDW (11.5-15.5) % Neutrophils # (1.3-7.7) k/uL Sodium (137-145) mmol/L Chloride (98-107) mmol/L BUN (9-20) mg/dL Glucose (74-99) mg/dL POC Glucose (mg/dL) 226 H (75-99) mg/dL Procalcitonin 0.14 H (0.02-0.09) ng/mL TSH (0.465-4.680) mIU/L Urine pH (5.0-8.0) Urine Protein (Negative) Urine Blood (Negative) Ur Leukocyte Esterase (Negative) Urine RBC (0-5) /hpf Urine WBC (0-5) /hpf Triple Phos Crystals (None) /hpf Amorphous Sediment (None) /hpf Urine Bacteria (None) /hpf Hyaline Casts (0-2) /lpf Urine Mucus (None) /hpf Microbiology - Last 24 Hours (Table) 01/15/21 18:17 Urine Culture - Preliminary Urine,Voided Assessment and Plan Assessment: A fall at home Mild metabolic encephalopathy, improving Hyponatremia, hypervolemic currently Acute kidney injury, improved back to normal -TSH, recheck her function test. Urinary retention status post Ballard catheter Chronic atrial fibrillation History of coronary artery disease Chronic heart failure Diabetes mellitus History of GERD Hypertension Hyperlipidemia Osteoarthritis Plan: This is a pleasant 89 years old male who presents with fall and hyponatremia with acute kidney injury and hypothyroidism. 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 All fluid currently on hold Keep Ballard catheter and start higher dose of Flomax 0.4 twice a day. Also urinalysis is suspicious for infection, ceftriaxone is added and follow-up results of the urine culture Pain management. Labs and medication were reviewed.. Continue same treatment. Continue with symptomatic treatment. Resume home medication. Monitor lytes and vitals. DVT and GI prophylaxis. Further recommendationsas per clinical course of the patient DVT prophylaxis: Eliquis Prognosis is guarded Dr. Christina will resume the care of the patient tomorrow Dr. Christina will resume the care of the patient tomorrow
[2021-01-16 16:31] LABS: Glucose,Whole Blood 224 mg/dL (75-99)
[2021-01-16 20:11] LABS: Glucose,Whole Blood 185 mg/dL (75-99)
[2021-01-16] MEDS: LORazepam 1 MG TAB PO PRN (21:21)
[2021-01-16] MEDS: cloNIDine HCL 0.2 MG TAB PO SCH (21:21)
[2021-01-16] MEDS: traZODone HCL 100 MG TAB PO SCH (21:21)
[2021-01-17 02:36] VITALS: RESP 18
[2021-01-17] MEDS: ACETAMINOPHEN TAB 325 MG TAB PO PRN (05:38)
[2021-01-17] MEDS: LEVOTHYROXINE 25 MCG TAB PO SCH (05:38)
[2021-01-17 06:45] LABS: Glucose,Whole Blood 214 mg/dL (75-99)
[2021-01-17] MEDS ORDERED: MAGNESIUM HYDROXIDE 2,400 MG/10 ML CUP PO PRN (07:37)
[2021-01-17] MEDS: ATORVASTATIN 10 MG TAB PO SCH (07:39)
[2021-01-17] MEDS: TAMSULOSIN 0.4 MG CAP.ER.24H PO SCH (07:40)
[2021-01-17] MEDS: FUROSEMIDE 40 MG TAB PO SCH (07:40)
[2021-01-17] MEDS: SENNOSIDES 8.6 MG TAB PO SCH (07:40)
[2021-01-17] MEDS: APIXABAN 2.5 MG TABLET PO SCH (07:40)
[2021-01-17] MEDS: AMIODARONE 200 MG TAB PO SCH (07:40)
[2021-01-17] MEDS: LOSARTAN 50 MG TAB PO SCH (07:40)
[2021-01-17] MEDS: METOPROLOL TARTRATE 50 MG TAB PO SCH (07:40)
[2021-01-17] MEDS: NIFEdipine XL 90 MG TAB.ER.24 PO SCH (07:40)
[2021-01-17] MEDS: EZETIMIBE 10 MG TAB PO SCH (07:40)
[2021-01-17] MEDS: MAGNESIUM OXIDE 400 MG TAB PO SCH (07:40)
[2021-01-17] MEDS: PANTOPRAZOLE 40 MG TABLET PO SCH (07:40)
--- NOTE | 2021-01-17 08:02 | P.DS ---
Providers Date of admission: 01/13/21 11:18 Attending physician: Cecilio Christina Consults: 01/13/21 11:22 Consult Physician Urgent Consulting Provider: Lorrie Gillis Consult Reason/Comments: acute hyponatremia Do you want consulting provider notified?: Yes Primary care physician: Cecilio Christina - Discharge Diagnosis(es) (1) CAP (community acquired pneumonia) Current Visit: Yes Status: Acute (2) Fall Current Visit: Yes Status: Acute (3) High risk for readmission Current Visit: Yes Status: Acute (4) Hyponatremia Current Visit: Yes Status: Acute (5) Atrial fibrillation with RVR Current Visit: No Status: Acute (6) Failure to thrive Current Visit: No Status: Acute (7) Presence of stent in left circumflex coronary artery Current Visit: No Status: Acute Hospital Course: This is a discharge summary 89-year-old white male with chronic atrial fibrillation and elements of immobility. Element of constipation as well. The patient was stabilized from a cardiac and hyponatremic perspective. The patient will be discharged to [facility] because of his generalized immobility. 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 Patient Condition at Discharge: Stable Plan - Discharge Summary New Discharge Prescriptions: New Levothyroxine Sodium [Synthroid] 25 mcg PO DAILY@0630 #0 tab Acetaminophen Tab [Tylenol] 650 mg PO Q6HR PRN tab PRN Reason: Fever And/ Or Pain Continue Simvastatin [Zocor] 20 mg PO DAILY cloNIDine HCL [Catapres] 0.2 mg PO HS Irbesartan [Avapro] 150 mg PO DAILY Ezetimibe [Zetia] 10 mg PO DAILY Apixaban [Eliquis] 2.5 mg PO BID #60 tablet Pantoprazole [Protonix] 40 mg PO AC-BRKFST #30 tablet. Furosemide [Lasix] 40 mg PO TID #90 tab NIFEdipine [Procardia XL] 90 mg PO DAILY traZODone HCL 100 mg PO HS Tamsulosin HCl [Flomax] 0.4 mg PO HS Ipratropium-Albuterol Nebulize [Duoneb 0.5 mg-3 mg/3 ml Soln] 3 ml INHALATION RT-QID PRN PRN Reason: Shortness Of Breath Amiodarone [Cordarone] 200 mg PO DAILY #30 tab Metoprolol Tartrate [Lopressor] 100 mg PO BID #60 tab Sennosides [Senna] 8.6 mg PO DAILY LORazepam [Ativan] 1 mg PO TID PRN #90 tab PRN Reason: Anxiety Acetaminophen Tab [Tylenol] 500 mg PO Q6HR PRN PRN Reason: Pain Or Fever > 100.5 Magnesium Oxide [Mag-Ox] 400 mg PO DAILY Discharge Medication List Simvastatin [Zocor] 20 mg PO DAILY 05/13/16 [History] cloNIDine HCL [Catapres] 0.2 mg PO HS 05/13/16 [History] Ezetimibe [Zetia] 10 mg PO DAILY 05/29/20 [History] Irbesartan [Avapro] 150 mg PO DAILY 05/29/20 [History] Apixaban [Eliquis] 2.5 mg PO BID #60 tablet 06/11/20 [Rx] Pantoprazole [Protonix] 40 mg PO MARQUES-WILMA #30 tablet. 06/11/20 [Rx] Furosemide [Lasix] 40 mg PO TID #90 tab 07/29/20 [Rx] NIFEdipine [Procardia XL] 90 mg PO DAILY 09/30/20 [History] Ipratropium-Albuterol Nebulize [Duoneb 0.5 mg-3 mg/3 ml Soln] 3 ml INHALATION RT-QID PRN 11/15/20 [History] Tamsulosin HCl [Flomax] 0.4 mg PO HS 11/15/20 [History] traZODone HCL 100 mg PO HS 11/15/20 [History] Amiodarone [Cordarone] 200 mg PO DAILY #30 tab 11/25/20 [Rx] Metoprolol Tartrate [Lopressor] 100 mg PO BID #60 tab 11/25/20 [Rx] Acetaminophen Tab [Tylenol] 500 mg PO Q6HR PRN 01/13/21 [History] Magnesium Oxide [Mag-Ox] 400 mg PO DAILY 01/13/21 [History] Sennosides [Senna] 8.6 mg PO DAILY 01/13/21 [History] Acetaminophen Tab [Tylenol] 650 mg PO Q6HR PRN tab 01/17/21 [Rx] LORazepam [Ativan] 1 mg PO TID PRN #90 tab 01/17/21 [Rx] Levothyroxine Sodium [Synthroid] 25 mcg PO DAILY@0630 #0 tab 01/17/21 [Rx] Follow up Appointment(s)/Referral(s): Cecilio Christina MD [Primary Care Provider] - 1-2 days
[2021-01-17 08:46] VITALS: BP 121/83; PULSE 117; TEMP 99.5
[2021-01-17 11:44] LABS: Glucose,Whole Blood 260 mg/dL (75-99)
== END 2021-01-17 14:11 | DRG 193 ==
LOC: EC 08:17 → 5NMEDONC 11:18 → 4SSUR 21:05
PROVIDERS: ADMIT Family Medicine; ATTEND Family Medicine
PROC: 05H933Z Insertion of Infusion Device into Right Brachial Vein, Percutaneous Approach (ICD-10-PCS; principal; 2021-01-13 14:40)
DX: J18.9 Pneumonia, unspecified organism (principal); G93.41 Metabolic encephalopathy; I48.20 Chronic atrial fibrillation, unspecified; J44.0 Chronic obstructive pulmonary disease with (acute) lower respiratory infection; N17.9 Acute kidney failure, unspecified; E87.1 Hypo-osmolality and hyponatremia; I13.0 Hypertensive heart and chronic kidney disease with heart failure and stage 1 through stage 4 chronic kidney disease, or unspecified chronic kidney disease; Z20.828 Contact with and (suspected) exposure to other viral communicable diseases; I25.2 Old myocardial infarction; I50.9 Heart failure, unspecified; K59.00 Constipation, unspecified; M10.9 Gout, unspecified; M19.031 Primary osteoarthritis, right wrist; N18.30 Chronic kidney disease, stage 3 unspecified; R62.7 Adult failure to thrive; W19.XXXA Unspecified fall, initial encounter; Z91.81 History of falling; Z51.5 Encounter for palliative care; Z66 Do not resuscitate; Z20.822 Contact with and (suspected) exposure to COVID-19; Z79.01 Long term (current) use of anticoagulants; Z79.890 Hormone replacement therapy; Z79.899 Other long term (current) drug therapy; E03.9 Hypothyroidism, unspecified; E11.22 Type 2 diabetes mellitus with diabetic chronic kidney disease; E78.5 Hyperlipidemia, unspecified; E86.0 Dehydration; F41.9 Anxiety disorder, unspecified; I25.10 Atherosclerotic heart disease of native coronary artery without angina pectoris; Z85.828 Personal history of other malignant neoplasm of skin; Z87.891 Personal history of nicotine dependence; Z88.0 Allergy status to penicillin; Z95.5 Presence of coronary angioplasty implant and graft; Z98.42 Cataract extraction status, left eye; Z98.41 Cataract extraction status, right eye; Z96.1 Presence of intraocular lens; Z68.25 Body mass index [BMI] 25.0-25.9, adult
CPT/HCPCS: 36410; 36415; 70450; 71046; 72125; 72170; 76937; 80048; 80053; 81001; 82533; 82550; 83930; 83935; 84145; 84295; 84300; 84439; 84443; 85025; 85027; 85610; 85730; 87086; 87635; 93005; 94760; 96360; 96361; 99285

== ENCOUNTER 2021-01-17 19:40 | Emergency (ER) | payer MEDICARE, BC ==
[2021-01-17] MEDS ORDERED: SODIUM CHLORIDE 0.9% 500 ML 500 ML IV STA (21:07)
[2021-01-17] MEDS ORDERED: MORPHINE SULFATE 2 MG/ML SYRINGE IVP STA (21:07)
[2021-01-17 21:15] LABS: Basophils % (A) 0 %; Eosinophils % (A) 0 %; HCT 32.9 % (39.0-53.0); HGB 11.3 gm/dL (13.0-17.5); Lymphocytes # (A) 0.8 k/uL (1.0-4.8); Lymphocytes % (A) 4 %; MCH 32.6 pg (25.0-35.0); MCHC 34.5 g/dL (31.0-37.0); MCV 94.5 fL (80.0-100.0); Mean Platelet Volume 7.6; Monocytes # (A) 0.6 k/uL (0-1.0); Monocytes % (A) 3 %; Neutrophils # (A) 17.6 k/uL (1.3-7.7); Neutrophils % (A) 92 %; Platelet Count 248 k/uL (150-450); RBC 3.48 m/uL (4.30-5.90); RDW 15.1 % (11.5-15.5); WBC 19.2 k/uL (3.8-10.6)
--- NOTE | 2021-01-17 21:15 | ED ---
General Adult HPI - General Stated complaint: ABD pain - History of Present Illness Initial comments: 89-year-old male with a past medical history of atrial fibrillation, CAD, heart failure, diabetes mellitus, hyperlipidemia, hypertension presents to the emergency room for a chief complaint of abdominal pain. Patient states he has had a hernia for several years however the past couple days it has started hurting. States has has vomited x 1 today after discharge from hospital. Patient has had bowel movements. Denies diarrhea. Patient states that he is concerned that his hernia is worsening. No fevers or chills.Patient has no other complaints at this time including shortness of breath, chest pain, headache, or visual changes. - Related Data Home Medications Medication Instructions Recorded Confirmed Simvastatin [Zocor] 20 mg PO DAILY 05/13/16 01/17/21 cloNIDine HCL [Catapres] 0.2 mg PO HS 05/13/16 01/17/21 Ezetimibe [Zetia] 10 mg PO DAILY 05/29/20 01/17/21 Irbesartan [Avapro] 150 mg PO DAILY 05/29/20 01/17/21 NIFEdipine [Procardia XL] 90 mg PO DAILY 09/30/20 01/17/21 Ipratropium-Albuterol Nebulize 3 ml INHALATION RT-QID PRN 11/15/20 01/17/21 [Duoneb 0.5 mg-3 mg/3 ml Soln] Tamsulosin HCl [Flomax] 0.4 mg PO HS 11/15/20 01/17/21 traZODone HCL 100 mg PO HS 11/15/20 01/17/21 Magnesium Oxide [Mag-Ox] 400 mg PO DAILY 01/13/21 01/17/21 Sennosides [Senna] 8.6 mg PO DAILY 01/13/21 01/17/21 Previous Rx's Medication Instructions Recorded Apixaban [Eliquis] 2.5 mg PO BID #60 tablet 06/11/20 Pantoprazole [Protonix] 40 mg PO AC-BRKFST #30 tablet.dr 06/11/20 Furosemide [Lasix] 40 mg PO TID #90 tab 07/29/20 Amiodarone [Cordarone] 200 mg PO DAILY #30 tab 11/25/20 Metoprolol Tartrate [Lopressor] 100 mg PO BID #60 tab 11/25/20 Acetaminophen Tab [Tylenol] 650 mg PO Q6HR PRN tab 01/17/21 LORazepam [Ativan] 1 mg PO TID PRN #90 tab 01/17/21 Levothyroxine Sodium [Synthroid] 25 mcg PO DAILY@0630 #0 tab 01/17/21 Allergies Allergy/AdvReac Type Severity Reaction Status Date / Time Penicillins Allergy Rash/Hives Verified 01/17/21 23:04 zolpidem [From Ambien] AdvReac Confusion Verified 01/17/21 23:04 Review of Systems ROS Statement: Those systems with pertinent positive or pertinent negative responses have been documented in the HPI. ROS Other: All systems not noted in ROS Statement are negative. Past Medical History Past Medical History: Atrial Fibrillation, Coronary Artery Disease (CAD), Cancer, Heart Failure, Diabetes Mellitus, GERD/Reflux, Hyperlipidemia, Hypertension, Myocardial Infarction ([place]), Osteoarthritis (OA), Pneumonia, Vascular Disorder Additional Past Medical History / Comment(s): Afib with RVR, NIDDM type II-pt states physician took him off his diabetic medication-diet controlled now, pt had R lower leg wounds but states it is now healed to a small scab, sinus problems, bilateral caratid artery disease, skin cancer with removal, arthritis R wrist, gout R great toe, unsteady gait/falls, hyponatremia, past rheumatic fever age 21yrs, Last Myocardial Infarction Date:: 2014 History of Any Multi-Drug Resistant Organisms: None Reported Past Surgical History: Heart Catheterization, Heart Catheterization With Stent Additional Past Surgical History / Comment(s): Skin cancer removed L upper arm, bilateral cataract removal/lens implants. Past Anesthesia/Blood Transfusion Reactions: No Reported Reaction Date of Last Stent Placement:: 2014 Past Psychological History: Anxiety Smoking Status: Former smoker Past Alcohol Use History: None Reported Past Drug Use History: None Reported - Past Family History Father History Unknown: Yes Family Medical History: Unable to Obtain Additional Family Medical History / Comment(s): Father never went to the doctor. Mother History Unknown: Yes Family Medical History: Hyperlipidemia Additional Family Medical History / Comment(s): high cholesterol. General Exam General appearance: alert, in no apparent distress Head exam: Present: atraumatic, normocephalic, normal inspection Eye exam: Present: normal appearance, PERRL, EOMI. Absent: scleral icterus, conjunctival injection, periorbital swelling ENT exam: Present: normal exam, mucous membranes moist Neck exam: Present: normal inspection, full ROM. Absent: tenderness, meningismus, lymphadenopathy Respiratory exam: Present: normal lung sounds bilaterally. Absent: respiratory distress, wheezes, rales, rhonchi, stridor Cardiovascular Exam: Present: regular rate, normal rhythm, normal heart sounds. Absent: systolic murmur, diastolic murmur, rubs, gallop, clicks GI/Abdominal exam: Present: soft, normal bowel sounds, mass (Left inguinal hernia noted). Absent: distended, tenderness, guarding, rebound, rigid Neurological exam: Present: alert Course Vital Signs 01/17/21 01/18/21 22:16 00:19 Temperature 98.0 F 96.9 F L Pulse Rate 76 75 Respiratory 16 14 Rate Blood Pressure 95/63 111/74 O2 Sat by Pulse 96 98 Oximetry Medical Decision Making - Medical Decision Making Vitals are stable. Patient is well-appearing. Patient does have an inguinal hernia that he states he has had for years however it has increased in size and caused pain. Mildly tender to palpation. Laboratory evaluation was initiated. Patient was found to have leukocytosis of undetermined significance. No fevers. No cough. No other symptoms. CMP is unremarkable. Lactic acidosis likely related to dehydration, patient given fluids gently as he does have history of CHF. Urinalysis does not show evidence of infection. The abdomen and pelvis was obtained which did show a left inguinal hernia increased compared to old exam. No evidence of incarceration. At this time patient is resting comfortably. Vitals are stable. Case discussed with Dr. Elizondo. Patient can be discharged back to his custodial. We will recommend repeating a CBC. - Lab Data Result diagrams: 01/17/21 20:54 01/17/21 20:54 Lab Results 01/17/21 01/17/21 01/17/21 Range/Units 20:54 20:54 23:10 WBC 19.2 H (3.8-10.6) k/uL RBC 3.48 L (4.30-5.90) m/uL Hgb 11.3 L (13.0-17.5) gm/dL Hct 32.9 L (39.0-53.0) % MCV 94.5 (80.0-100.0) fL MCH 32.6 (25.0-35.0) pg MCHC 34.5 (31.0-37.0) g/dL RDW 15.1 (11.5-15.5) % Plt Count 248 (150-450) k/uL MPV 7.6 Neutrophils % 92 % Lymphocytes % 4 % Monocytes % 3 % Eosinophils % 0 % Basophils % 0 % Neutrophils # 17.6 H (1.3-7.7) k/uL Lymphocytes # 0.8 L (1.0-4.8) k/uL Monocytes # 0.6 (0-1.0) k/uL Eosinophils # 0.0 (0-0.7) k/uL Basophils # 0.0 (0-0.2) k/uL Sodium 130 L (137-145) mmol/L Potassium 5.3 H (3.5-5.1) mmol/L Chloride 93 L (98-107) mmol/L Carbon Dioxide 24 (22-30) mmol/L Anion Gap 13 mmol/L BUN 48 H (9-20) mg/dL Creatinine 1.39 H (0.66-1.25) mg/dL Est GFR (CKD-EPI)AfAm 52 (>60 ml/min/1.73 sqM) Est GFR (CKD-EPI)NonAf 45 (>60 ml/min/1.73 sqM) Glucose 233 H (74-99) mg/dL Plasma Lactic Acid Sukhdev 2.8 H* (0.7-2.0) mmol/L Calcium 9.2 (8.4-10.2) mg/dL Total Bilirubin 0.9 (0.2-1.3) mg/dL AST 45 (17-59) U/L ALT 24 (4-49) U/L Alkaline Phosphatase 72 (38-126) U/L Total Protein 7.2 (6.3-8.2) g/dL Albumin 4.2 (3.5-5.0) g/dL Amylase 44 (30-110) U/L Lipase 26 (23-300) U/L Urine Color Urine Appearance (Clear) Urine pH (5.0-8.0) Ur Specific [place] (1.001-1.035) Urine Protein (Negative) Urine Glucose (UA) (Negative) Urine Ketones (Negative) Urine Blood (Negative) Urine Nitrite (Negative) Urine Bilirubin (Negative) Urine Urobilinogen (<2.0) mg/dL Ur Leukocyte Esterase (Negative) Urine RBC (0-5) /hpf Urine WBC (0-5) /hpf Ur Squamous Epith Cells (0-4) /hpf Hyaline Casts (0-2) /lpf Urine Mucus (None) /hpf 01/17/21 Range/Units 23:55 WBC (3.8-10.6) k/uL RBC (4.30-5.90) m/uL Hgb (13.0-17.5) gm/dL Hct (39.0-53.0) % MCV (80.0-100.0) fL MCH (25.0-35.0) pg MCHC (31.0-37.0) g/dL RDW (11.5-15.5) % Plt Count (150-450) k/uL MPV Neutrophils % % Lymphocytes % % Monocytes % % Eosinophils % % Basophils % % Neutrophils # (1.3-7.7) k/uL Lymphocytes # (1.0-4.8) k/uL Monocytes # (0-1.0) k/uL Eosinophils # (0-0.7) k/uL Basophils # (0-0.2) k/uL Sodium (137-145) mmol/L Potassium (3.5-5.1) mmol/L Chloride (98-107) mmol/L Carbon Dioxide (22-30) mmol/L Anion Gap mmol/L BUN (9-20) mg/dL Creatinine (0.66-1.25) mg/dL Est GFR (CKD-EPI)AfAm (>60 ml/min/1.73 sqM) Est GFR (CKD-EPI)NonAf (>60 ml/min/1.73 sqM) Glucose (74-99) mg/dL Plasma Lactic Acid Sukhdev (0.7-2.0) mmol/L Calcium (8.4-10.2) mg/dL Total Bilirubin (0.2-1.3) mg/dL AST (17-59) U/L ALT (4-49) U/L Alkaline Phosphatase (38-126) U/L Total Protein (6.3-8.2) g/dL Albumin (3.5-5.0) g/dL Amylase (30-110) U/L Lipase (23-300) U/L Urine Color Yellow Urine Appearance Clear (Clear) Urine pH 6.0 (5.0-8.0) Ur Specific [place] 1.034 (1.001-1.035) Urine Protein Negative (Negative) Urine Glucose (UA) Negative (Negative) Urine Ketones Negative (Negative) Urine Blood Small H (Negative) Urine Nitrite Negative (Negative) Urine Bilirubin Negative (Negative) Urine Urobilinogen <2.0 (<2.0) mg/dL Ur Leukocyte Esterase Small H (Negative) Urine RBC 4 (0-5) /hpf Urine WBC 8 H (0-5) /hpf Ur Squamous Epith Cells <1 (0-4) /hpf Hyaline Casts 86 H (0-2) /lpf Urine Mucus Rare H (None) /hpf Disposition Clinical Impression: Inguinal hernia, Leukocytosis Disposition: HOME SELF-CARE Condition: Good Additional Instructions: Please follow up with general surgery. Repeat CBC to trend a white blood cell count. Return to the emergency room for fevers or any other worsening symptoms. Is patient prescribed a controlled substance at d/c from ED?: No Referrals: Cecilio Christina MD [Primary Care Provider] - 1-2 days Time of Disposition: 01:07
[2021-01-17 21:22] LABS: Total Protein 7.2 g/dL (6.3-8.2)
[2021-01-17 21:25] LABS: Albumin 4.2 g/dL (3.5-5.0); Calcium 9.2 mg/dL (8.4-10.2); Potassium 5.3 mmol/L (3.5-5.1); Total Bilirubin 0.9 mg/dL (0.2-1.3)
[2021-01-17] MEDS ORDERED: ACETAMINOPHEN TAB 325 MG TAB PO STA (22:07)
--- NOTE | 2021-01-17 22:39 | CT ---
EXAMINATION TYPE: CT abdomen pelvis w con DATE OF EXAM: 01/17/2021 COMPARISON: 06/06/2020 HISTORY: Epigastric pain CT DLP: 1114.3 mGycm Automated exposure control for dose reduction was used. CONTRAST: Performed with IV Contrast, patient injected with 80 mL of Isovue 300. There are moderate bilateral pleural effusions. Heart is slightly enlarged. There is atelectasis at b oth lung bases. Liver shows no focal defect. Gallbladder appears normal. Spleen is intact. Stomach is intact. There i s no pancreatic mass. I see no dilated bowel. There is no mesenteric edema. There is no ascites or free air. There is no ev idence of bowel obstruction. There is no adrenal mass. There is renal vascular calcification. There i s no hydronephrosis. The ureters are not dilated. There is Ballard catheter in the urinary bladder. The re is left-sided inguinal hernia that contains sigmoid colon. There is no incarceration. There is extensive vascular calcification. Lumbar vertebra have normal alignment. There is no landy verito fracture. There is vacuum disc at L4-5 and L5-S1. The bony pelvis is intact. The hip joints are intact. Appendix is not seen. There is no sign of thickened appendix. IMPRESSION: Left inguinal hernia increased compared to old exam. No bowel obstruction. Bilateral pleural effusions similar to old exam. Bilateral basilar atelectasis. Atherosclerotic vascular calcification.
[2021-01-18 00:38] LABS: Appearance,Urine Clear (Clear); Bilirubin,Urine Negative (Negative); Blood,Urine Small (Negative); Color,Urine Yellow; Glucose,Urine (UA) Negative (Negative); Hyaline Casts,Urine 86 /lpf (0-2); Ketones,Urine Negative (Negative); Leukocyte Esterase,Urine Small (Negative); Mucus,Urine Rare /hpf; Nitrite,Urine Negative (Negative); Protein,Urine Negative (Negative); RBC,Urine 4 /hpf (0-5); Specific Gravity,Urine 1.034 (1.001-1.035); Squamous Epithelial Cell,Urine <1 /hpf (0-4); Urobilinogen,Urine <2.0 mg/dL (<2.0); WBC,Urine 8 /hpf (0-5)
[2021-01-18 02:31] VITALS: BP 110/72; PULSE 81; RESP 15; TEMP 97
== END 2021-01-18 02:38 | disposition home or self-care (01) ==
LOC: EC 19:40
DX: K40.90 Unilateral inguinal hernia, without obstruction or gangrene, not specified as recurrent (principal); D72.829 Elevated white blood cell count, unspecified; E11.9 Type 2 diabetes mellitus without complications; E78.5 Hyperlipidemia, unspecified; F41.9 Anxiety disorder, unspecified; I11.0 Hypertensive heart disease with heart failure; I50.9 Heart failure, unspecified; I25.10 Atherosclerotic heart disease of native coronary artery without angina pectoris; I25.2 Old myocardial infarction; I48.91 Unspecified atrial fibrillation; K21.9 Gastro-esophageal reflux disease without esophagitis; M19.90 Unspecified osteoarthritis, unspecified site; Z79.01 Long term (current) use of anticoagulants; Z79.899 Other long term (current) drug therapy; Z88.0 Allergy status to penicillin
CPT/HCPCS: 36415 ×2; 80053; 82150; 83605; 83690; 85025; 81001; 74177; 99284; 96374; 96361; J2270; Q9967

== ENCOUNTER 2021-02-06 12:03 | Inpatient (IN) | payer MEDICARE, BC ==
[2021-02-06] MEDS ORDERED: ASPIRIN 81 MG PO STA (12:23)
[2021-02-06 13:05] LABS: Basophils % (A) 0 %; Eosinophils # (A) 0.1 k/uL (0-0.7); Eosinophils % (A) 1 %; HGB 10.5 gm/dL (13.0-17.5); Lymphocytes # (A) 0.8 k/uL (1.0-4.8); Lymphocytes % (A) 8 %; MCH 31.2 pg (25.0-35.0); MCHC 33.9 g/dL (31.0-37.0); Mean Platelet Volume 7.2; Monocytes # (A) 0.5 k/uL (0-1.0); Monocytes % (A) 5 %; Neutrophils # (A) 8.6 k/uL (1.3-7.7); Neutrophils % (A) 85 %; Platelet Count 273 k/uL (150-450); RBC 3.37 m/uL (4.30-5.90); RDW 14.8 % (11.5-15.5); WBC 10.1 k/uL (3.8-10.6)
[2021-02-06 13:18] LABS: Albumin 2.7 g/dL (3.5-5.0); Calcium 8.1 mg/dL (8.4-10.2); Potassium 3.9 mmol/L (3.5-5.1); Total Bilirubin 0.6 mg/dL (0.2-1.3); Total Protein 5.1 g/dL (6.3-8.2)
[2021-02-06 13:24] LABS: INR 1.2 (<1.2)
[2021-02-06 13:25] LABS: Partial Thromboplastin Time 24.4 sec (22.0-30.0)
--- NOTE | 2021-02-06 13:28 | XR ---
EXAMINATION TYPE: XR chest 2V DATE OF EXAM: 02/06/2021 COMPARISON: Chest x-ray January 13, 2021. HISTORY: Chest pain. TECHNIQUE: Frontal and lateral views of the chest are obtained. FINDINGS: Persistent cardiomegaly with small left greater than right pleural effusions and associate d bibasilar compressive atelectasis along with mild central vascular congestion. The osseous struct ures remain intact. IMPRESSION: Correlate for CHF exacerbation, persistent cardiomegaly with mild central vascular conge stion along with small left greater than right pleural effusions. No significant change from most rec ent x-ray.
--- NOTE | 2021-02-06 14:12 | ED ---
Chest Pain HPI - General Chief Complaint: Chest Pain Stated Complaint: Chest Pain Time Seen by Provider: 02/06/21 12:23 Source: patient, EMS Mode of arrival: EMS - History of Present Illness Initial Comments: Ever 10-year-old gentleman with extensive past medical history who presents to the emergency department today for evaluation of retrosternal chest pain that began approximately 1 hour prior to arrival. Patient reports he currently lives at [facility], he states that 9 people have in the past 20 days there and he is very concerned about the care he is getting. Patient states that today he developed retrosternal chest pain. He is given aspirin and nitro and the pain improved. Patient subsequent transported to the hospital for further evaluation. Patient denies any cough or shortness of breath. Patient denies any fever, Chills nausea or vomiting. - Related Data Home Medications Medication Instructions Recorded Confirmed Simvastatin [Zocor] 20 mg PO HS 05/13/16 02/06/21 cloNIDine HCL [Catapres] 0.2 mg PO HS 05/13/16 02/06/21 Ezetimibe [Zetia] 10 mg PO DAILY@0800 05/29/20 02/06/21 Ipratropium-Albuterol Nebulize 3 ml INHALATION RT-QID PRN 11/15/20 02/06/21 [Duoneb 0.5 mg-3 mg/3 ml Soln] Tamsulosin HCl [Flomax] 0.4 mg PO HS 11/15/20 02/06/21 traZODone HCL 100 mg PO HS 11/15/20 02/06/21 Magnesium Oxide [Mag-Ox] 400 mg PO DAILY@1700 01/13/21 02/06/21 Sennosides [Senna] 8.6 mg PO DAILY@0800 01/13/21 02/06/21 Acetaminophen Tab [Tylenol Tab] 500 mg PO Q6H PRN 02/06/21 02/06/21 Acetaminophen Tab [Tylenol] 650 mg PO Q6H PRN 02/06/21 02/06/21 Apixaban [Eliquis] 2.5 mg PO BID@0800,1700 02/06/21 02/06/21 Aspirin 81 mg PO ONCE PRN 02/06/21 02/06/21 Furosemide [Lasix] 40 mg PO BID@0800,1400 02/06/21 02/06/21 Glucerna Shake 120 ml PO QID 02/06/21 02/06/21 Levothyroxine Sodium [Synthroid] 25 mcg PO DAILY@0600 02/06/21 02/06/21 Magnesium Hydroxide [Milk of 7,200 mg PO Q48H PRN 02/06/21 02/06/21 Magnesia Concentrate] Melatonin 1 mg PO HS 02/06/21 02/06/21 Metoprolol Tartrate [Lopressor] 100 mg PO BID@0800,1700 02/06/21 02/06/21 NIFEdipine [NIFEdipine ER] 30 mg PO DAILY@0800 02/06/21 02/06/21 Na Phos,M-B/Na Phos,Di-Ba [Fleet 133 ml RECTAL DAILY PRN 02/06/21 02/06/21 Adult] Nitroglycerin Sl Tabs [Nitrostat] 0.4 mg SL ONCE PRN 02/06/21 02/06/21 Ondansetron HCl [Zofran] 4 mg PO Q8H PRN 02/06/21 02/06/21 Pantoprazole [Protonix] 40 mg PO DAILY@0600 02/06/21 02/06/21 bisacodyL [Bisacodyl] 10 mg RECTAL DAILY PRN 02/06/21 02/06/21 sitaGLIPtin [Januvia] 50 mg PO DAILY@0800 02/06/21 02/06/21 Allergies Allergy/AdvReac Type Severity Reaction Status Date / Time Penicillins Allergy Rash/Hives Verified 02/06/21 14:28 zolpidem [From Ambien] AdvReac Confusion Verified 02/06/21 14:28 Review of Systems ROS Statement: Those systems with pertinent positive or pertinent negative responses have been documented in the HPI. ROS Other: All systems not noted in ROS Statement are negative. EKG Findings - EKG Comments: EKG Findings:: EKG was obtained due to complaint of chest pain, EKG was obtained L 46, rate is 64 rhythm is A. fib with a bifascicular block, normal axis, QRS 170 QTC prolonged at 546 and no evidence of acute ischemia Past Medical History Past Medical History: Atrial Fibrillation, Coronary Artery Disease (CAD), Cancer, Heart Failure, Diabetes Mellitus, GERD/Reflux, Hyperlipidemia, Hypertension, Myocardial Infarction ([place]), Osteoarthritis ([place]), Pneumonia, Vascular Disorder Additional Past Medical History / Comment(s): Afib with RVR, NIDDM type II-pt states physician took him off his diabetic medication-diet controlled now, pt had R lower leg wounds but states it is now healed to a small scab, sinus problems, bilateral caratid artery disease, skin cancer with removal, arthritis R wrist, gout R great toe, unsteady gait/falls, hyponatremia, past rheumatic fever age 21yrs, Last Myocardial Infarction Date:: 2014 History of Any Multi-Drug Resistant Organisms: None Reported Past Surgical History: Heart Catheterization, Heart Catheterization With Stent Additional Past Surgical History / Comment(s): Skin cancer removed L upper arm, bilateral cataract removal/lens implants. Past Anesthesia/Blood Transfusion Reactions: No Reported Reaction Date of Last Stent Placement:: 2014 Past Psychological History: Anxiety Smoking Status: Former smoker Past Alcohol Use History: None Reported Past Drug Use History: None Reported - Past Family History Father History Unknown: Yes Family Medical History: Unable to Obtain Additional Family Medical History / Comment(s): Father never went to the doctor. Mother History Unknown: Yes Family Medical History: Hyperlipidemia Additional Family Medical History / Comment(s): high cholesterol. General Exam - General Exam Comments Initial Comments: Physical Exam GENERAL: Patient is well-developed and well-nourished. Patient is nontoxic and well-hydrated and is in no distress. HENT: Normocephalic, Atraumatic. EYES: PERRL, EOMI PULMONARY: Unlabored respirations. CARDIOVASCULAR: RRR Warm and well perfused extremities ABDOMEN: Non-distended SKIN: No rashes or bruising : Deferred NEUROLOGIC: Alert and oriented -hard of hearing Normal speech Normal gait MUSCULOSKELETAL: Moving all extremities with no apparent injury PSYCHIATRIC: No SI/HI Course Vital Signs 02/06/21 02/06/21 12:08 16:10 Temperature 97.4 F L Pulse Rate 52 L 53 L Respiratory 18 18 Rate Blood Pressure 96/66 97/68 O2 Sat by Pulse 95 95 Oximetry Chest Pain MDM - MDM Elderly gentleman with known coronary artery disease presenting with chest pain relieved by nitro Patient also has high risk for COVID-19 considering he lives in a assisted which currently has multiple patients with COVID-19 Labs and chest x-ray were obtained Patient's labs relatively unremarkable troponin is detectable but not elevated, COVID-19 test is negative Patient care was discussed with Dr Montalvo who accepts the admission Disposition Clinical Impression: Chest pain, High risk for readmission Disposition: ADMITTED IP TO THIS HOSP Condition: Stable
[2021-02-06] MEDS ORDERED: MORPHINE SULFATE 4 MG/ML SYRINGE IVP STA (14:50)
[2021-02-06] MEDS: FUROSEMIDE 10 MG/ML 4 ML VIAL IV SCH (16:09)
[2021-02-06] MEDS ORDERED: MAGNESIUM HYDROXIDE 2,400 MG/10 ML CUP PO PRN ×2 (17:13→17:19)
[2021-02-06] MEDS ORDERED: bisacodyL 10 MG SUPP RECTAL PRN (17:13)
[2021-02-06] MEDS ORDERED: IPRATROPIUM-ALBUTEROL 3 ML NEB INHALATION PRN (17:13)
[2021-02-06] MEDS ORDERED: NA PHOS,M-B/NA PHOS,DI-BA 133 ML ENEMA RECTAL PRN (17:13)
[2021-02-06] MEDS ORDERED: NON FORMULARY DRUG (Glucerna Shake 1 CAN Liquid) PO SCH (18:00)
[2021-02-06] MEDS: traZODone HCL 50 MG TAB PO SCH (22:21)
[2021-02-06] MEDS: TAMSULOSIN 0.4 MG CAP.ER.24H PO SCH (22:22)
[2021-02-06] MEDS: cloNIDine HCL 0.2 MG TAB PO SCH (22:22)
[2021-02-06] MEDS: ATORVASTATIN 10 MG TAB PO SCH (22:22)
[2021-02-06] MEDS: MELATONIN 1 MG TAB PO SCH (23:15)
[2021-02-07 00:44] LABS: Glucose,Whole Blood 159 mg/dL (75-99)
[2021-02-07] MEDS: FUROSEMIDE 10 MG/ML 4 ML VIAL IV SCH ×3 (03:46→17:17)
[2021-02-07 04:47] LABS: T4, Free (Free Thyroxine) 1.85 ng/dL (0.78-2.19)
[2021-02-07] MEDS: LEVOTHYROXINE 25 MCG TAB PO SCH (05:16)
[2021-02-07 06:53] LABS: ALT 15 U/L (4-49); AST 27 U/L (17-59); African American GFR (CKD) 89 (>60 ml/min/1.73 sqM); Albumin/Globulin Ratio 1.1; Alkaline Phosphatase 60 U/L (38-126); Anion Gap 6 mmol/L; Blood Urea Nitrogen 19 mg/dL (9-20); Calcium 8.3 mg/dL (8.4-10.2); Carbon Dioxide 26 mmol/L (22-30); Chloride 100 mmol/L (98-107); Globulin 2.8 g/dL; Glucose 146 mg/dL (74-99); Non-African American GFR(CKD) 77 (>60 ml/min/1.73 sqM); Potassium 4.8 mmol/L (3.5-5.1); Sodium 132 mmol/L (137-145); Total Bilirubin 0.8 mg/dL (0.2-1.3); Total Protein 5.8 g/dL (6.3-8.2)
[2021-02-07] MEDS ORDERED: METOPROLOL TARTRATE 50 MG TAB PO SCH (08:00)
[2021-02-07 08:22] LABS: Glucose,Whole Blood 184 mg/dL (75-99)
[2021-02-07] MEDS: PANTOPRAZOLE 40 MG TABLET PO SCH (09:03)
[2021-02-07] MEDS: APIXABAN 2.5 MG TABLET PO SCH ×2 (09:03→17:18)
[2021-02-07] MEDS: EZETIMIBE 10 MG TAB PO SCH (09:03)
[2021-02-07] MEDS: SENNOSIDES 8.6 MG TAB PO SCH (09:03)
[2021-02-07] MEDS: NIFEdipine XL 30 MG TAB.ER.24 PO SCH (09:04)
[2021-02-07] MEDS: LINAGLIPTIN 5 MG TABLET PO SCH (09:04)
--- NOTE | 2021-02-07 10:03 | P.CRDCN ---
History of Present Illness History of present illness: HISTORY OF PRESENTING ILLNESS This is a pleasant 89-year-old male past medical history significant for coronary artery disease status post PCI of the OM branch in 2014, hypertension, systolic heart failure, diabetes mellitus and paroxysmal atrial fibrillation on long-term anticoagulation. He follows in the office with Dr. Benz. We have been asked to see in consultation for chest pain. He is seen and examined sitting up in bed in no acute distress. He is unable to recall why he came to the hospital. ER notes indicate he was having chest pain at [facility] and was given SL nitro that relieved his pain. The nurse also told me he is unhappy with the current conditions at [facility] and does not want to go back there. He is currently chest pain free. He denies shortness of breath, dizziness or palpitations. He was admitted here in October of this year and found to have a decreased EF, his baseline was 30-35 and this was 20-25. Since that time he has been at [facility] and off and on hospice care. Most recent stress test performed in the office February 2019 with a Lexiscan stress test with no definitive defects noted. DIAGNOSTICS EKG reveals atrial fibrillation, right bundle branch block, left posterior fasicular block and non-specific ST and Twave abnormalities throughout. Telemetry tracings indicate afib with controlled ventricular rates. Chest xray persistent cardiomegaly, small left greater than right pleural effusions, mild central vascular congestion, no significant change from previous study. Laboratory reviewed, WBC 10.1, hemoglobin 10.5, platelets 273, sodium 134, potassium 3.9, creatinine 0.92, magnesium 2.0,NT proBNP 12,300, cardiac enzymes negative 4 and TSH 8.32 with a free T4 of 1.85. Current cardiac medications include Eliquis 2.5 mg twice a day, Zetia 10 mg daily, Lasix 40 mg twice a day, Lopressor 100 mg twice a day, nifedipine 30 mg daily, simvastatin 20 mg daily and clonidine 0.2 mg at HS. REVIEW OF SYSTEMS At the time of my exam: CONSTITUTIONAL: Denies fever or chills. CARDIOVASCULAR: Denies chest pain, shortness of breath, orthopnea, PND or palpitations. RESPIRATORY: Denies cough. GASTROINTESTINAL: Denies abdominal pain, diarrhea, constipation, nausea or vomiting. MUSCULOSKELETAL: Denies myalgias. NEUROLOGIC: Denies numbness, tingling, headacbe or weakness. ENDOCRINE: Denies fatigue, weight change, polydipsia or polyurina. GENITOURINARY: Denies burning, hematuria or urgency with micturation. HEMATOLOGIC: Denies history of anemia or bleeding. PHYSICAL EXAMINATION Blood pressure 117/56 heart rate 57 afebrile and maintaining oxygen saturation on nasal cannula. CONSTITUTIONAL: No apparent distress. HEENT: Head is normocephalic. Pupils are equal, round. Sclerae anicteric. Mucous membranes of the mouth are moist. No JVD. No carotid bruit. CHEST EXAMINATION: Lungs are clear to auscultation. No chest wall tenderness is noted on palpation or with deep breathing. HEART EXAMINATION: Irregular rate and rhythm. S1, S2 heard. Systolic ejection murmur at the base, no gallops or rub. ABDOMEN: Soft, nontender. Positive bowel sounds. EXTREMITIES: 2+ peripheral pulses, no lower extremity edema and no calf tenderness. NEUROLOGIC EXAMINATION: Patient is awake, alert and oriented x3. 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 Change lopressor to toprol 100 mg daily; add lisinopril 5 mg daily and aldactone 25 mg daily. Check lipid panel and consider increasing his statin and discontinuing zetia. Continue eliquis for thromboembolic protection. Document accurate intake and output along with daily weights. Follow renal function and electrolytes in the morning. Further recommendations to follow based on clinical course. Thank you kindly for this consultation. Nurse Practitioner note has been reviewed, I agree with a documented findings and plan of care. Patient was seen and examined. Past Medical History Past Medical History: Atrial Fibrillation, Coronary Artery Disease (CAD), Cancer, Heart Failure, Diabetes Mellitus, GERD/Reflux, Hyperlipidemia, Hypertension, Myocardial Infarction (PR), Osteoarthritis (OA), Pneumonia, Vascular Disorder Additional Past Medical History / Comment(s): Afib with RVR, NIDDM type II-pt states physician took him off his diabetic medication-diet controlled now, pt had R lower leg wounds but states it is now healed to a small scab, sinus problems, bilateral caratid artery disease, skin cancer with removal, arthritis R wrist, gout R great toe, unsteady gait/falls, hyponatremia, past rheumatic fever age 21yrs, Last Myocardial Infarction Date:: 2014 History of Any Multi-Drug Resistant Organisms: None Reported Past Surgical History: Heart Catheterization, Heart Catheterization With Stent Additional Past Surgical History / Comment(s): Skin cancer removed L upper arm, bilateral cataract removal/lens implants. Past Anesthesia/Blood Transfusion Reactions: No Reported Reaction Date of Last Stent Placement:: 2014 Past Psychological History: Anxiety Additional Psychological History / Comment(s): Pt resides with his spouse. Pt gets around with walker/'s assist and wheelchair. Pt is nearly done with home care thru [facility]. His spouse manages his meds/cooks. He has a glucometer but now is a diet controlled and no longer checks sugar. Smoking Status: Former smoker Past Alcohol Use History: None Reported Additional Past Alcohol Use History / Comment(s): Pt started smoking in 1957 and quit in 1987. He drinks 1-2 beers occasionally in the summer months Past Drug Use History: None Reported - Past Family History Father History Unknown: Yes Family Medical History: Unable to Obtain Additional Family Medical History / Comment(s): Father never went to the doctor. Mother History Unknown: Yes Family Medical History: Hyperlipidemia Additional Family Medical History / Comment(s): high cholesterol. Medications and Allergies Home Medications Medication Instructions Recorded Confirmed Type Simvastatin [Zocor] 20 mg PO HS 05/13/16 02/06/21 History cloNIDine HCL [Catapres] 0.2 mg PO HS 05/13/16 02/06/21 History Ezetimibe [Zetia] 10 mg PO DAILY@0800 05/29/20 02/06/21 History Ipratropium-Albuterol Nebulize 3 ml INHALATION RT-QID PRN 11/15/20 02/06/21 History [Duoneb 0.5 mg-3 mg/3 ml Soln] Tamsulosin HCl [Flomax] 0.4 mg PO HS 11/15/20 02/06/21 History traZODone HCL 100 mg PO HS 11/15/20 02/06/21 History Magnesium Oxide [Mag-Ox] 400 mg PO DAILY@1700 01/13/21 02/06/21 History Sennosides [Senna] 8.6 mg PO DAILY@0800 01/13/21 02/06/21 History Acetaminophen Tab [Tylenol Tab] 500 mg PO Q6H PRN 02/06/21 02/06/21 History Acetaminophen Tab [Tylenol] 650 mg PO Q6H PRN 02/06/21 02/06/21 History Apixaban [Eliquis] 2.5 mg PO BID@0800,1700 02/06/21 02/06/21 History Aspirin 81 mg PO ONCE PRN 02/06/21 02/06/21 History Furosemide [Lasix] 40 mg PO BID@0800,1400 02/06/21 02/06/21 History Glucerna Shake 120 ml PO QID 02/06/21 02/06/21 History Levothyroxine Sodium [Synthroid] 25 mcg PO DAILY@0600 02/06/21 02/06/21 History Magnesium Hydroxide [Milk of 7,200 mg PO Q48H PRN 02/06/21 02/06/21 History Magnesia Concentrate] Melatonin 1 mg PO HS 02/06/21 02/06/21 History Metoprolol Tartrate [Lopressor] 100 mg PO BID@0800,1700 02/06/21 02/06/21 History NIFEdipine [NIFEdipine ER] 30 mg PO DAILY@0800 02/06/21 02/06/21 History Na Phos,M-B/Na Phos,Di-Ba [Fleet 133 ml RECTAL DAILY PRN 02/06/21 02/06/21 History Adult] Nitroglycerin Sl Tabs [Nitrostat] 0.4 mg SL ONCE PRN 02/06/21 02/06/21 History Ondansetron HCl [Zofran] 4 mg PO Q8H PRN 02/06/21 02/06/21 History Pantoprazole [Protonix] 40 mg PO DAILY@0600 02/06/21 02/06/21 History bisacodyL [Bisacodyl] 10 mg RECTAL DAILY PRN 02/06/21 02/06/21 History sitaGLIPtin [Januvia] 50 mg PO DAILY@0800 02/06/21 02/06/21 History Allergies Allergy/AdvReac Type Severity Reaction Status Date / Time Penicillins Allergy Rash/Hives Verified 02/06/21 14:28 zolpidem [From Ambien] AdvReac Confusion Verified 02/06/21 14:28 Physical Exam Vitals: Vital Signs Temp Pulse Pulse Resp BP BP Pulse Ox 02/07/21 05:36 83 16 123/51 95 02/07/21 02:00 51 L 15 89/49 99 02/07/21 01:00 16 02/07/21 00:20 97.6 F 60 16 107/61 93 L 02/06/21 22:29 58 L 16 119/84 97 02/06/21 16:10 53 L 18 97/68 95 02/06/21 12:08 97.4 F L 52 L 18 96/66 95 Intake and Output 02/06/21 02/07/21 02/07/21 22:59 06:59 14:59 Output Total 1000 Balance -1000 Output: Urine 1000 Other: Voiding Method Indwelling Catheter Weight 78.018 kg Results 02/06/21 12:56 02/07/21 05:30 Cardiac Enzymes 02/06/21 02/06/21 02/06/21 Range/Units 12:56 12:56 16:48 AST 20 (17-59) U/L Troponin I 0.013 0.012 (0.000-0.034) ng/mL 02/06/21 02/06/21 02/07/21 Range/Units 19:36 22:32 05:30 AST 27 (17-59) U/L Troponin I 0.026 0.012 (0.000-0.034) ng/mL Coagulation 02/06/21 Range/Units 12:56 PT 12.0 (9.0-12.0) sec APTT 24.4 (22.0-30.0) sec CBC 02/06/21 Range/Units 12:56 WBC 10.1 (3.8-10.6) k/uL RBC 3.37 L (4.30-5.90) m/uL Hgb 10.5 L (13.0-17.5) gm/dL Hct 31.0 L (39.0-53.0) % Plt Count 273 (150-450) k/uL Comprehensive Metabolic Panel 02/06/21 02/07/21 Range/Units 12:56 05:30 Sodium 134 L 132 L (137-145) mmol/L Potassium 3.9 4.8 (3.5-5.1) mmol/L Chloride 98 100 (98-107) mmol/L Carbon Dioxide 32 H 26 (22-30) mmol/L BUN 19 19 (9-20) mg/dL Creatinine 0.92 0.89 (0.66-1.25) mg/dL Glucose 175 H 146 H (74-99) mg/dL Calcium 8.1 L 8.3 L (8.4-10.2) mg/dL AST 20 27 (17-59) U/L ALT 15 15 (4-49) U/L Alkaline Phosphatase 67 60 (38-126) U/L Total Protein 5.1 L 5.8 L (6.3-8.2) g/dL Albumin 2.7 L 3.0 L (3.5-5.0) g/dL Current Medications Generic Name Dose Route Start Last Admin Trade Name Freq PRN Reason Stop Dose Admin Acetaminophen 650 mg 02/06/21 17:13 Acetaminophen Tab 325 Mg Tab PO Q6H PRN Pain Albuterol/Ipratropium 3 ml 02/06/21 17:13 Ipratropium-Albuterol 3 Ml Neb INHALATION RT-QID PRN Shortness Of Breath Apixaban 2.5 mg 02/07/21 08:00 Apixaban 2.5 Mg Tablet PO BID@0800,1700 DIOMEDES Atorvastatin Calcium 10 mg 02/06/21 21:00 02/06/21 22:22 Atorvastatin 10 Mg Tab PO 10 mg HS DIOMEDES Administration Bisacodyl 10 mg 02/06/21 17:13 Bisacodyl 10 Mg Supp RECTAL DAILY PRN Constipation Clonidine 0.2 mg 02/06/21 21:00 02/06/21 22:22 Clonidine Hcl 0.2 Mg Tab PO 0.2 mg HS DIOMEDES Administration Ezetimibe 10 mg 02/07/21 08:00 Ezetimibe 10 Mg Tab PO DAILY@0800 DIOMEDES Furosemide 40 mg 02/06/21 16:00 02/07/21 03:46 Furosemide 10 Mg/Ml 4 Ml Vial IV 40 mg Q8H DIOMEDES Administration Levothyroxine Sodium 25 mcg 02/07/21 06:00 02/07/21 05:16 Levothyroxine 25 Mcg Tab PO 25 mcg DAILY@0600 DIOMEDES Administration Linagliptin 5 mg 02/07/21 08:00 Linagliptin 5 Mg Tablet PO DAILY@0800 [facility] Magnesium Hydroxide 7,200 mg 02/06/21 17:19 Magnesium Hydroxide 2,400 Mg/10 Ml Cup PO Q48H PRN Constipation Magnesium Oxide 400 mg 02/07/21 17:00 Magnesium Oxide 400 Mg Tab PO DAILY@1700 [facility] Melatonin 1 mg 02/06/21 21:00 02/06/21 23:15 Melatonin 1 Mg Tab PO 1 mg HS DIOMEDES Administration Metoprolol Tartrate 100 mg 02/07/21 08:00 Metoprolol Tartrate 50 Mg Tab PO BID@0800,1700 [facility] Nifedipine 30 mg 02/07/21 08:00 Nifedipine Xl 30 Mg Tab.Er.24 PO DAILY@0800 [facility] Pantoprazole Sodium 40 mg 02/07/21 06:00 Pantoprazole 40 Mg Tablet PO DAILY@0600 [facility] Senna 8.6 mg 02/07/21 08:00 Sennosides 8.6 Mg Tab PO DAILY@0800 [facility] Sodium Biphosphate/Sodium Phosphate 133 ml 02/06/21 17:13 Na Phos,M-B/Na Phos,Di-Ba 133 Ml Enema RECTAL DAILY PRN Constipation Tamsulosin HCl 0.4 mg 02/06/21 21:00 02/06/21 22:22 Tamsulosin 0.4 Mg Cap.Er.24h PO 0.4 mg HS [facility] Administration Trazodone HCl 100 mg 02/06/21 21:00 02/06/21 22:21 Trazodone Hcl 50 Mg Tab PO 100 mg HS [facility] Administration Intake and Output 02/06/21 02/07/21 02/07/21 22:59 06:59 14:59 Output Total 1000 Balance -1000 Output: Urine 1000 Other: Voiding Method Indwelling Catheter Weight 78.018 kg 02/06/21 12:56 02/07/21 05:30
[2021-02-07] MEDS: lisinopriL 5 MG TAB PO SCH (10:29)
[2021-02-07] MEDS: SPIRONOLACTONE 25 MG TAB PO SCH (10:29)
[2021-02-07 11:25] LABS: Glucose,Whole Blood 215 mg/dL (75-99)
--- NOTE | 2021-02-07 12:28 | P.HPIM ---
History of Present Illness H&P Date: 02/07/21 Chief Complaint: CP HISTORY OF PRESENT ILLNESS This is an 89-year-old male patient of Dr. Gamboa and Dr. Benz with past medical history of diabetes mellitus type 2, COPD, paroxysmal atrial fibrillation, hypertension, hypertensive cardiovascular disease, chronic systolic heart failure, coronary artery disease status post PCI of the OM branch in 2015, hypothyroidism, gout, hyperlipidemia, gastroesophageal reflux disease, benign prostatic hypertrophy, generalized osteoarthritis. Patient came for [facility] with complaints of chest pain that started around 10 AM yesterday. Patient was given aspirin and nitroglycerin with some improvement. At the time of this evaluation, patient denies having any chest pain or shortness of breath and no abdominal pain. Patient states that he does not want to return to [facility] wants to go to [facility]. Social work has been updated as well as nursing homes. Patient presented to [facility] emergency center for evaluation. EKG reveals atrial fibrillation, right bundle branch block, left posterior fasicular block and non-specific ST and Twave abnormalities throughout. Chest xray persistent cardiomegaly, small left greater than right pleural effusions, mild central vascular congestion, no significant change from previous study. WBC 10.1, hemoglobin 10.5, platelets 273, sodium 134, potassium 3.9, creatinine 0.92, magnesium 2.0, NT proBNP 12,300, cardiac enzymes negative 4 and TSH 8.32 with a free T4 of 1.85. Patient was started on aspirin, Lopressor 100 mg twice daily and morphine, Lasix 40 mg IV every 8 hours and admitted to the observation unit, cardiology consult REVIEW OF SYSTEMS Constitutional: No fever, no chills, no night sweats. No weight change. No weakness, fatigue or lethargy. No daytime sleepiness. EENT: No headache. No blurred vision or double vision, no loss of vision. No loss of Hearing, no ringing in the ears, no dizziness. No nasal drainage or congestion. No epistaxis. No sore throat. Lungs: Reported shortness of breath, cough, no sputum production. No wheezing. Cardiovascular: Reported chest pain, no lower extremity edema. No palpitations. No paroxysmal nocturnal dyspnea. No orthopnea. No lightheadedness or dizziness. No syncopal episodes. Abdominal: No abdominal pain. No nausea, vomiting. No diarrhea. No constipation. No bloody or tarry stools.. No loss of appetite. Genitourinary: No dysuria, increased frequency, urgency. No urinary retention. Musculoskeletal: No myalgias. No muscle weakness, no gait dysfunction, no frequent falls. No back pain. No neck pain. Integumentary: No wounds, no lesions. No rash or pruritus. No unusual bruising. No change in hair or nails. Neurologic: No aphasia. No facial droop. No change in mentation. No head injury. No headache. No paralysis. No paresthesia. Psychiatric: No depression. No anxiety. No mood swings. Endocrine: No abnormal blood sugars. SOCIAL HISTORY Pt started smoking in 1957 and quit in 1987. He drinks 1-2 beers occasionally in the summer months. FAMILY HISTORY Mother at age 84 with history of heart disease. Father at age 90 from old age. Patient does not have any brothers. He has 2 sisters but he has no contact with them. Patient does not have any biological children.. PHYSICAL EXAMINATION Gen: This is an 89-year-old male. Patient is resting in bed and appears to be comfortable. No acute respiratory distress noted. HEENT: Head is atraumatic, normocephalic. Pupils equal, round. Sclerae is anicteric. NECK: Supple. No JVD. No lymphadenopathy. No thyromegaly. LUNGS: Clear to auscultation. No wheezes or rhonchi. No intercostal retractions. HEART: Irregular rate and rhythm. Systolic ejection murmur. ABDOMEN: Soft. Bowel sounds are present. No masses. No tenderness. EXTREMITIES: No pedal edema. No calf tenderness. Dorsalis pedis palpable bilaterally. NEUROLOGICAL: Patient is awake, alert and oriented x3. Cranial nerves 2 through 12 are grossly intact. ASSESSMENT AND PLAN 1. Chest pain, resolved. Troponins have been negative. Cardiology consult. 2. Acute on chronic systolic heart failure. Cardiology consult appreciated. Lopressor changed to Toprol 100 mg daily, lisinopril 5 mg daily and Aldactone 25 mg daily, continue Lasix 40 mg IV every 8 hours, monitor I&O and daily weights, monitor electrolytes and renal function. 3. Diabetes mellitus type 2. Continued Tradjenta I milligrams oral daily, NovoLog scale before meals and at bedtime. 4. COPD, stable without exacerbation. Continue DuoNeb treatments 4 times daily as needed for shortness of breath 5. Paroxysmal atrial fibrillation. Continue eliquis 2.5 mg twice daily, Toprol-XL 100 mg daily. 6. Hypertension hypertensive cardiovascular disease. Continue Procardia 30 mg daily, lisinopril 5 mg daily, Catapres 0.2 mg at bedtime, Lasix Aldactone and Toprol-XL. 7. Coronary artery disease status post PCI of the OM branch and 2015. 8. Hypothyroidism. Continue levothyroxine 25 g daily 9. Generalized osteoarthritis. Continue Tylenol as needed for pain. 10. Hyperlipidemia. Continue atorvastatin 10 mg at bedtime, Zetia 10 mg daily. 11. Benign prostatic hypertrophy with urinary retention. Continue chronic Ballard catheter. Continue Flomax 0.4 mg at bedtime. 12. COVID-19 testing negative. Patient has been hospitalized during a pandemic. Patient will be admitted to the hospital for a minimum of 2 night stay. DISCHARGE PLAN Probable discharge to [facility]. Social work consult to change discharge plan from [facility] to [facility]. Impression and plan of care have been directed as dictated by the signing physician. Eneida Thakur nurse practitioner acting as scribe for signing physician. Past Medical History Past Medical History: Atrial Fibrillation, Coronary Artery Disease (CAD), Cancer, Heart Failure, Diabetes Mellitus, GERD/Reflux, Hyperlipidemia, Hypertension, Myocardial Infarction (IL), Osteoarthritis (OA), Pneumonia, Vascular Disorder Additional Past Medical History / Comment(s): Afib with RVR, NIDDM type II-pt states physician took him off his diabetic medication-diet controlled now, pt had R lower leg wounds but states it is now healed to a small scab, sinus problems, bilateral caratid artery disease, skin cancer with removal, arthritis R wrist, gout R great toe, unsteady gait/falls, hyponatremia, past rheumatic fever age 21yrs, Last Myocardial Infarction Date:: 2014 History of Any Multi-Drug Resistant Organisms: None Reported Past Surgical History: Heart Catheterization, Heart Catheterization With Stent Additional Past Surgical History / Comment(s): Skin cancer removed L upper arm, bilateral cataract removal/lens implants. Past Anesthesia/Blood Transfusion Reactions: No Reported Reaction Date of Last Stent Placement:: 2014 Past Psychological History: Anxiety Additional Psychological History / Comment(s): Pt resides with his spouse. Pt gets around with walker/'s assist and wheelchair. Pt is nearly done with home care thru [facility]. His spouse manages his meds/cooks. He has a glucometer but now is a diet controlled and no longer checks sugar. Smoking Status: Former smoker Past Alcohol Use History: None Reported Additional Past Alcohol Use History / Comment(s): Pt started smoking in 1957 and quit in 1987. He drinks 1-2 beers occasionally in the summer months Past Drug Use History: None Reported - Past Family History Father History Unknown: Yes Family Medical History: Unable to Obtain Additional Family Medical History / Comment(s): Father never went to the doctor. Mother History Unknown: Yes Family Medical History: Hyperlipidemia Additional Family Medical History / Comment(s): high cholesterol. Medications and Allergies Home Medications Medication Instructions Recorded Confirmed Type Simvastatin [Zocor] 20 mg PO HS 05/13/16 02/06/21 History cloNIDine HCL [Catapres] 0.2 mg PO HS 05/13/16 02/06/21 History Ezetimibe [Zetia] 10 mg PO DAILY@0800 05/29/20 02/06/21 History Ipratropium-Albuterol Nebulize 3 ml INHALATION RT-QID PRN 11/15/20 02/06/21 History [Duoneb 0.5 mg-3 mg/3 ml Soln] Tamsulosin HCl [Flomax] 0.4 mg PO HS 11/15/20 02/06/21 History traZODone HCL 100 mg PO 11/15/20 02/06/21 History Magnesium Oxide [Mag-Ox] 400 mg PO DAILY@1700 01/13/21 02/06/21 History Sennosides [Senna] 8.6 mg PO DAILY@0800 01/13/21 02/06/21 History Acetaminophen Tab [Tylenol Tab] 500 mg PO Q6H PRN 02/06/21 02/06/21 History Acetaminophen Tab [Tylenol] 650 mg PO Q6H PRN 02/06/21 02/06/21 History Apixaban [Eliquis] 2.5 mg PO BID@0800,1700 02/06/21 02/06/21 History Aspirin 81 mg PO ONCE PRN 02/06/21 02/06/21 History Furosemide [Lasix] 40 mg PO BID@0800,1400 02/06/21 02/06/21 History Glucerna Shake 120 ml PO QID 02/06/21 02/06/21 History Levothyroxine Sodium [Synthroid] 25 mcg PO DAILY@0600 02/06/21 02/06/21 History Magnesium Hydroxide [Milk of 7,200 mg PO Q48H PRN 02/06/21 02/06/21 History Magnesia Concentrate] Melatonin 1 mg PO HS 02/06/21 02/06/21 History Metoprolol Tartrate [Lopressor] 100 mg PO BID@0800,1700 02/06/21 02/06/21 History NIFEdipine [NIFEdipine ER] 30 mg PO DAILY@0800 02/06/21 02/06/21 History Na Phos,M-B/Na Phos,Di-Ba [Fleet 133 ml RECTAL DAILY PRN 02/06/21 02/06/21 History Adult] Nitroglycerin Sl Tabs [Nitrostat] 0.4 mg SL ONCE PRN 02/06/21 02/06/21 History Ondansetron HCl [Zofran] 4 mg PO Q8H PRN 02/06/21 02/06/21 History Pantoprazole [Protonix] 40 mg PO DAILY@0600 02/06/21 02/06/21 History bisacodyL [Bisacodyl] 10 mg RECTAL DAILY PRN 02/06/21 02/06/21 History sitaGLIPtin [Januvia] 50 mg PO DAILY@0800 02/06/21 02/06/21 History Allergies Allergy/AdvReac Type Severity Reaction Status Date / Time Penicillins Allergy Rash/Hives Verified 02/06/21 14:28 zolpidem [From Ambien] AdvReac Confusion Verified 02/06/21 14:28 Physical Exam Vitals: Vital Signs Temp Pulse Pulse Resp BP BP Pulse Ox 02/07/21 07:00 96.6 F L 57 L 20 117/56 98 02/07/21 05:36 83 16 123/51 95 02/07/21 02:00 51 L 15 89/49 99 02/07/21 01:00 16 02/07/21 00:20 97.6 F 60 16 107/61 93 L 02/06/21 22:29 58 L 16 119/84 97 02/06/21 16:10 53 L 18 97/68 95 02/06/21 12:08 97.4 F L 52 L 18 96/66 95 Intake and Output 02/06/21 02/07/21 02/07/21 22:59 06:59 14:59 Output Total 1000 Balance -1000 Output: Urine 1000 Other: Voiding Method Indwelling Catheter Weight 78.018 kg Results CBC & Chem 7: 02/06/21 12:56 02/07/21 05:30 Labs: Abnormal Lab Results - Last 24 Hours (Table) 02/06/21 02/06/21 02/06/21 Range/Units 12:46 12:56 12:56 RBC 3.37 L (4.30-5.90) m/uL Hgb 10.5 L (13.0-17.5) gm/dL Hct 31.0 L (39.0-53.0) % Neutrophils # 8.6 H (1.3-7.7) k/uL Lymphocytes # 0.8 L (1.0-4.8) k/uL INR 1.2 H (<1.2) Sodium (137-145) mmol/L Carbon Dioxide (22-30) mmol/L Glucose (74-99) mg/dL POC Glucose (mg/dL) (75-99) mg/dL Calcium (8.4-10.2) mg/dL Total Protein (6.3-8.2) g/dL Albumin (3.5-5.0) g/dL TSH 8.320 H (0.465-4.680) mIU/L 02/06/21 02/07/21 02/07/21 Range/Units 12:56 00:42 05:30 RBC (4.30-5.90) m/uL Hgb (13.0-17.5) gm/dL Hct (39.0-53.0) % Neutrophils # (1.3-7.7) k/uL Lymphocytes # (1.0-4.8) k/uL INR (<1.2) Sodium 134 L 132 L (137-145) mmol/L Carbon Dioxide 32 H (22-30) mmol/L Glucose 175 H 146 H (74-99) mg/dL POC Glucose (mg/dL) 159 H (75-99) mg/dL Calcium 8.1 L 8.3 L (8.4-10.2) mg/dL Total Protein 5.1 L 5.8 L (6.3-8.2) g/dL Albumin 2.7 L 3.0 L (3.5-5.0) g/dL TSH (0.465-4.680) mIU/L 02/07/21 Range/Units 08:20 RBC (4.30-5.90) m/uL Hgb (13.0-17.5) gm/dL Hct (39.0-53.0) % Neutrophils # (1.3-7.7) k/uL Lymphocytes # (1.0-4.8) k/uL INR (<1.2) Sodium (137-145) mmol/L Carbon Dioxide (22-30) mmol/L Glucose (74-99) mg/dL POC Glucose (mg/dL) 184 H (75-99) mg/dL Calcium (8.4-10.2) mg/dL Total Protein (6.3-8.2) g/dL Albumin (3.5-5.0) g/dL TSH (0.465-4.680) mIU/L Thrombosis Risk Factor Assmnt - Choose All That Apply Each Factor Represents 1 point: Obesity (BMI >25) Each Risk Factor Represents 3 Points: Age 75 years or older Thrombosis Risk Factor Assessment Total Risk Factor Score: 4 Thrombosis Risk Factor Assessment Level: Moderate Risk
[2021-02-07 12:58] VITALS: BMI 22.6
[2021-02-07] MEDS ORDERED: MAGNESIUM OXIDE 400 MG TAB PO SCH (17:00)
[2021-02-07 17:12] LABS: Glucose,Whole Blood 265 mg/dL (75-99)
[2021-02-07] MEDS ORDERED: IBUPROFEN 400 MG TAB PO STA (17:59)
[2021-02-07] MEDS: cloNIDine HCL 0.2 MG TAB PO SCH (19:59)
[2021-02-07] MEDS: TAMSULOSIN 0.4 MG CAP.ER.24H PO SCH (20:00)
[2021-02-07] MEDS: traZODone HCL 50 MG TAB PO SCH (20:00)
[2021-02-07] MEDS: ATORVASTATIN 10 MG TAB PO SCH (20:00)
[2021-02-07] MEDS: MELATONIN 1 MG TAB PO SCH (20:02)
[2021-02-07 20:32] LABS: Glucose,Whole Blood 213 mg/dL (75-99)
[2021-02-07] MEDS: ACETAMINOPHEN TAB 325 MG TAB PO PRN (22:10)
[2021-02-08] MEDS: FUROSEMIDE 10 MG/ML 4 ML VIAL IV SCH ×2 (01:00→08:53)
[2021-02-08] MEDS: LEVOTHYROXINE 25 MCG TAB PO SCH (06:12)
[2021-02-08] MEDS: PANTOPRAZOLE 40 MG TABLET PO SCH (06:14)
[2021-02-08 06:54] LABS: Glucose,Whole Blood 220 mg/dL (75-99)
--- NOTE | 2021-02-08 08:39 | P.DS ---
Providers Date of admission: 02/07/21 12:28 Expected date of discharge: 02/08/21 Attending physician: Chioma Montalvo MD Consults: 02/06/21 15:52 Consult Physician Routine Consulting Provider: [facility] Consult Reason/Comments: chestpain, CHF Do you want consulting provider notified?: Yes, Notify in am [facility] Course: HISTORY OF PRESENT ILLNESS This is an 89-year-old male patient of Dr. Gamboa and Dr. Benz with past medical history of diabetes mellitus type 2, COPD, paroxysmal atrial fibrillation, hypertension, hypertensive cardiovascular disease, chronic systolic heart failure, coronary artery disease status post PCI of the OM branch in 2015, hypothyroidism, gout, hyperlipidemia, gastroesophageal reflux disease, benign prostatic hypertrophy, generalized osteoarthritis. Patient came for [facility] with complaints of chest pain that started around 10 AM yesterday. Patient was given aspirin and nitroglycerin with some improvement. At the time of this evaluation, patient denies having any chest pain or shortness of breath and no abdominal pain. Patient states that he does not want to return to [facility] wants to go to [facility]. Social work has been updated as well as nursing homes. Patient presented to [facility] emergency center for evaluation. EKG reveals atrial fibrillation, right bundle branch block, left posterior fasicular block and non-specific ST and Twave abnormalities throughout. Chest xray persistent cardiomegaly, small left greater than right pleural effusions, mild central vascular congestion, no significant change from previous study. WBC 10.1, hemoglobin 10.5, platelets 273, sodium 134, potassium 3.9, creatinine 0.92, magnesium 2.0, NT proBNP 12,300, cardiac enzymes negative 4 and TSH 8.32 with a free T4 of 1.85. Patient was started on aspirin, Lopressor 100 mg twice daily and morphine, Lasix 40 mg IV every 8 hours and admitted to the observation unit, cardiology consult 02/08: Patient denies any new complaints. He denies any shortness of breath or chest pain. He states that he does not want to go to [facility] after all and wants to go to [facility] . She'll work is updated and has been making arrangements. Pulse ox 97% on room air. Blood sugars are running in the 200s. Patient's weight is down 1 kg. Patient will be discharged to subacute rehab today in stable condition. ASSESSMENT AND PLAN 1. Chest pain, resolved. 2. Acute on chronic systolic heart failure. 3. Diabetes mellitus type 2. 4. COPD, stable without exacerbation. 5. Paroxysmal atrial fibrillation. 6. Hypertension hypertensive cardiovascular disease. 7. Coronary artery disease status post PCI of the OM branch and 2015. 8. Hypothyroidism. 9. Generalized osteoarthritis. 10. Hyperlipidemia. 11. Benign prostatic hypertrophy with urinary retention. 12. COVID-19 testing negative. Patient has been hospitalized during a pandemic. [facility]. Impression and plan of care have been directed as dictated by the signing physician. Eneida Thakur nurse practitioner acting as scribe for signing physician. Patient Condition at Discharge: Stable Plan - Discharge Summary New Discharge Prescriptions: New Spironolactone [Aldactone] 25 mg PO DAILY tab Metoprolol Succinate (ER) [Toprol XL] 100 mg PO DAILY tab.er.24h lisinopriL [Zestril] 5 mg PO DAILY tab Continue Simvastatin [Zocor] 20 mg PO HS cloNIDine HCL [Catapres] 0.2 mg PO HS Ezetimibe [Zetia] 10 mg PO DAILY@0800 traZODone HCL 100 mg PO HS Tamsulosin HCl [Flomax] 0.4 mg PO HS Ipratropium-Albuterol Nebulize [Duoneb 0.5 mg-3 mg/3 ml Soln] 3 ml INHALATION RT-QID PRN PRN Reason: Shortness Of Breath Sennosides [Senna] 8.6 mg PO DAILY@0800 bisacodyL [Bisacodyl] 10 mg RECTAL DAILY PRN PRN Reason: Constipation NIFEdipine [NIFEdipine ER] 30 mg PO DAILY@0800 sitaGLIPtin [Januvia] 50 mg PO DAILY@0800 Acetaminophen Tab [Tylenol] 650 mg PO Q6H PRN PRN Reason: Pain Apixaban [Eliquis] 2.5 mg PO BID@0800,1700 Levothyroxine Sodium [Synthroid] 25 mcg PO DAILY@0600 Nitroglycerin Sl Tabs [Nitrostat] 0.4 mg SL ONCE PRN PRN Reason: Chest Pain Magnesium Oxide [Mag-Ox] 400 mg PO DAILY@1700 Acetaminophen Tab [Tylenol] 500 mg PO Q6H PRN PRN Reason: Fever And/ Or Pain Glucerna Shake 120 ml PO QID Magnesium Hydroxide [Milk of Magnesia Concentrate] 7,200 mg PO Q48H PRN PRN Reason: Constipation Melatonin 1 mg PO HS Na Phos,M-B/Na Phos,Di-Ba [Fleet Adult] 133 ml RECTAL DAILY PRN PRN Reason: Constipation Ondansetron HCl [Zofran] 4 mg PO Q8H PRN PRN Reason: Nausea And Vomiting Furosemide [Lasix] 40 mg PO BID@0800,1400 Pantoprazole [Protonix] 40 mg PO DAILY@0600 Aspirin 81 mg PO ONCE PRN PRN Reason: Chest Pain Discontinued Metoprolol Tartrate [Lopressor] 100 mg PO BID@0800,1700 Discharge Medication List Simvastatin [Zocor] 20 mg PO HS 05/13/16 [History] cloNIDine HCL [Catapres] 0.2 mg PO HS 05/13/16 [History] Ezetimibe [Zetia] 10 mg PO DAILY@0800 05/29/20 [History] Ipratropium-Albuterol Nebulize [Duoneb 0.5 mg-3 mg/3 ml Soln] 3 ml INHALATION RT-QID PRN 11/15/20 [History] Tamsulosin HCl [Flomax] 0.4 mg PO HS 11/15/20 [History] traZODone HCL 100 mg PO HS 11/15/20 [History] Magnesium Oxide [Mag-Ox] 400 mg PO DAILY@1700 01/13/21 [History] Sennosides [Senna] 8.6 mg PO DAILY@0800 01/13/21 [History] Acetaminophen Tab [Tylenol] 500 mg PO Q6H PRN 02/06/21 [History] Acetaminophen Tab [Tylenol] 650 mg PO Q6H PRN 02/06/21 [History] Apixaban [Eliquis] 2.5 mg PO BID@0800,1700 02/06/21 [History] Aspirin 81 mg PO ONCE PRN 02/06/21 [History] Furosemide [Lasix] 40 mg PO BID@0800,1400 02/06/21 [History] Glucerna Shake 120 ml PO QID 02/06/21 [History] Levothyroxine Sodium [Synthroid] 25 mcg PO DAILY@0600 04/18/21 [History] Magnesium Hydroxide [Milk of Magnesia Concentrate] 7,200 mg PO Q48H PRN 02/06/21 [History] Melatonin 1 mg PO HS 02/06/21 [History] NIFEdipine [NIFEdipine ER] 30 mg PO DAILY@0800 02/06/21 [History] Na Phos,M-B/Na Phos,Di-Ba [Fleet Adult] 133 ml RECTAL DAILY PRN 02/06/21 [History] Nitroglycerin Sl Tabs [Nitrostat] 0.4 mg SL ONCE PRN 02/06/21 [History] Ondansetron HCl [Zofran] 4 mg PO Q8H PRN 02/06/21 [History] Pantoprazole [Protonix] 40 mg PO DAILY@0600 02/06/21 [History] bisacodyL [Bisacodyl] 10 mg RECTAL DAILY PRN 02/06/21 [History] sitaGLIPtin [Januvia] 50 mg PO DAILY@0800 02/06/21 [History] Metoprolol Succinate (ER) [Toprol XL] 100 mg PO DAILY tab.er.24h 02/08/21 [Rx] Spironolactone [Aldactone] 25 mg PO DAILY tab 02/08/21 [Rx] lisinopriL [Zestril] 5 mg PO DAILY tab 02/08/21 [Rx] Follow up Appointment(s)/Referral(s): Aminta Benz MD [STAFF PHYSICIAN] - 2 Weeks Ever Gamboa MD [Primary Care Provider] - 1 Week (After discharge from ECF) Discharge Disposition: TRANSFER TO SNF/ECF
[2021-02-08] MEDS: APIXABAN 2.5 MG TABLET PO SCH (08:53)
[2021-02-08] MEDS: EZETIMIBE 10 MG TAB PO SCH (08:53)
[2021-02-08] MEDS: SPIRONOLACTONE 25 MG TAB PO SCH (08:54)
[2021-02-08] MEDS: lisinopriL 5 MG TAB PO SCH (08:54)
[2021-02-08] MEDS: NIFEdipine XL 30 MG TAB.ER.24 PO SCH (08:54)
[2021-02-08] MEDS: SENNOSIDES 8.6 MG TAB PO SCH (08:54)
[2021-02-08] MEDS: LINAGLIPTIN 5 MG TABLET PO SCH (08:54)
[2021-02-08] MEDS ORDERED: METOPROLOL SUCCINATE (ER) 100 MG TAB.ER.24H PO SCH (09:00)
[2021-02-08] MEDS: ACETAMINOPHEN TAB 325 MG TAB PO PRN (10:43)
[2021-02-08 11:51] LABS: Glucose,Whole Blood 218 mg/dL (75-99)
--- NOTE | 2021-02-08 13:00 | P.PN ---
Subjective HISTORY OF PRESENTING ILLNESS This is a pleasant 89-year-old male past medical history significant for coronary artery disease status post PCI of the OM branch in 2014, hypertension, systolic heart failure, diabetes mellitus and paroxysmal atrial fibrillation on long-term anticoagulation. He follows in the office with Dr. Benz. We have been asked to see in consultation for chest pain. He is seen and examined sitting up in bed in no acute distress. He is unable to recall why he came to the hospital. ER notes indicate he was having chest pain at [facility] and was given SL nitro that relieved his pain. The nurse also told me he is unhappy with the current conditions at [facility] and does not want to go back there. He is currently chest pain free. He denies shortness of breath, dizziness or palpitations. He was admitted here in October of this year and found to have a decreased EF, his baseline was 30-35 and this was 20-25. Since that time he has been at [facility] and off and on hospice care. Most recent stress test performed in the office February 2019 with a Lexiscan stress test with no definitive defects noted. 02/08/2021 She was seen and examined resting comfortably in bed on room air in no acute distress. He denies symptoms of chest pain, shortness of breath, dizziness or palpitations. Blood pressure 112/71 heart rate 84 afebrile maintaining oxygen saturation on room air. Laboratory data pending. 24-hour urine output is 2500mls. PHYSICAL EXAMINATION CONSTITUTIONAL: No apparent distress. HEENT: Head is normocephalic. Pupils are equal, round. Sclerae anicteric. Mucous membranes of the mouth are moist. No JVD. No carotid bruit. CHEST EXAMINATION: Lungs are clear to auscultation. No chest wall tenderness is noted on palpation or with deep breathing. HEART EXAMINATION: Irregular rate and rhythm. S1, S2 heard. Systolic ejection murmur at the base, no gallops or rub. EXTREMITIES: 2+ peripheral pulses, no lower extremity edema and no calf tenderness. 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 Overall stable on current medical regimen. Follow up upon discharge with Dr. Benz. Nurse Practitioner note has been reviewed, I agree with a documented findings and plan of care. Patient was seen and examined. Objective - Vital Signs Vital signs: Vital Signs Temp 98.4 F 02/08/21 07:00 Pulse 84 02/08/21 07:00 Resp 16 02/08/21 07:00 BP 112/71 02/08/21 07:00 Pulse Ox 97 02/08/21 07:00 Intake & Output 02/07/21 02/08/21 02/08/21 18:59 06:59 18:59 Intake Total 740 720 Output Total 1950 550 275 Balance -1210 170 -275 Weight 78.018 kg 77 kg Intake: Oral 740 720 Output: Urine 1950 550 275 Other: Voiding Method Indwelling Catheter Indwelling Catheter Indwelling Catheter - Labs CBC & Chem 7: 02/06/21 12:56 02/07/21 05:30 Labs: Abnormal Lab Results - Last 24 Hours (Table) 02/07/21 02/07/21 02/08/21 Range/Units 17:10 20:29 06:53 POC Glucose (mg/dL) 265 H 213 H 220 H (75-99) mg/dL 02/08/21 Range/Units 11:49 POC Glucose (mg/dL) 218 H (75-99) mg/dL
[2021-02-08 15:42] VITALS: BP 118/64; PULSE 50; RESP 14; TEMP 97.8
[2021-02-08 19:22] LABS: Chol/HDL Ratio 4.3; LDL Cholesterol,Calculated 212.6 mg/dL (0.0-131.0); VLDL Calculation 28.4 mg/dL (5.00-40.00)
[2021-02-09 00:06] LABS: African American GFR (CKD) 69.1 (60.0-200.0); Albumin 3.4 g/dL (3.80-4.90); Albumin/Globulin Ratio 1.79 (1.60-3.17); Anion Gap 15.7 mmol/L (4.00-12.00); BUN/Creat Ratio 18.18 Ratio (12.00-20.00); Calcium 8.1 mg/dL (8.7-10.3); Carbon Dioxide 23.3 mmol/L (21.6-31.8); Globulin 1.9 g/dL (1.6-3.3); Non-African American GFR(CKD) 59.6 (60.0-200.0); Potassium 3.8 mmol/L (3.5-5.5); Total Bilirubin 0.6 mg/dL (0.3-1.2); Total Protein 5.3 g/dL (6.2-8.2)
== END 2021-02-08 15:42 | DRG 292 ==
LOC: EC 12:03 → 6NMEDSUR 18:11 → OBSVTOIN 02-07 12:28
PROVIDERS: ADMIT Internal Medicine; ATTEND Internal Medicine
DX: I11.0 Hypertensive heart disease with heart failure (principal); I45.2 Bifascicular block; I50.23 Acute on chronic systolic (congestive) heart failure; J44.9 Chronic obstructive pulmonary disease, unspecified; I48.0 Paroxysmal atrial fibrillation; M19.031 Primary osteoarthritis, right wrist; E03.9 Hypothyroidism, unspecified; M10.9 Gout, unspecified; Z91.81 History of falling; R26.9 Unspecified abnormalities of gait and mobility; Z20.822 Contact with and (suspected) exposure to COVID-19; I65.23 Occlusion and stenosis of bilateral carotid arteries; E11.9 Type 2 diabetes mellitus without complications; E78.5 Hyperlipidemia, unspecified; Z87.891 Personal history of nicotine dependence; F41.9 Anxiety disorder, unspecified; I25.10 Atherosclerotic heart disease of native coronary artery without angina pectoris; I25.2 Old myocardial infarction; I27.20 Pulmonary hypertension, unspecified; N40.1 Benign prostatic hyperplasia with lower urinary tract symptoms; R33.8 Other retention of urine; Z51.5 Encounter for palliative care; Z86.19 Personal history of other infectious and parasitic diseases; K21.9 Gastro-esophageal reflux disease without esophagitis; Z87.01 Personal history of pneumonia (recurrent); Z79.01 Long term (current) use of anticoagulants; Z79.84 Long term (current) use of oral hypoglycemic drugs; Z79.890 Hormone replacement therapy; Z79.899 Other long term (current) drug therapy; Z85.828 Personal history of other malignant neoplasm of skin; Z98.42 Cataract extraction status, left eye; Z98.41 Cataract extraction status, right eye; Z96.1 Presence of intraocular lens; Z98.61 Coronary angioplasty status; Z88.0 Allergy status to penicillin; Z88.8 Allergy status to other drugs, medicaments and biological substances
CPT/HCPCS: 36415; 71046; 80053; 80061; 83735; 83880; 84439; 84443; 84484; 85025; 85610; 85730; 87635; 93005; 96374; 99285